=== PATIENT | male | born 1970 | race Caucasian/White ===

== ENCOUNTER 2017-02-16 14:47 | Emergency (ER) | payer MEDICARE ==
[~2017-02-16] VITALS: Ht 170.2 cm; Wt 56.7 kg
[2017-02-16] MEDS ORDERED: ONDANSETRON 4 MG/2 ML (SDV) Z0FRAN IVP ONE (15:30)
[2017-02-16 15:32] LABS: BASOPHILS % (AUTO) 1 % (0-10); EOSINOPHILS # (AUTO) 0.1 10^3/uL (0.0-0.3); EOSINOPHILS % (AUTO) 2 % (0-10); LYMPHOCYTES # (AUTO) 1.7 X 10^3 (1.0-4.0); LYMPHOCYTES % (AUTO) 32 % (12-44); MEAN CORPUSCULAR HEMOGLOBIN 29 PG (25-34); MEAN CORPUSCULAR HGB CONC 34 G/DL (32-36); MEAN CORPUSCULAR VOLUME 84 FL (80-99); MEAN PLATELET VOLUME 8.8 FL (7.4-10.4); MONOCYTES # (AUTO) 0.5 X 10^3 (0.0-1.0); MONOCYTES % (AUTO) 10 % (0-12); NEUTROPHILS # (AUTO) 2.9 X 10^3 (1.8-7.8); NEUTROPHILS % (AUTO) 56 % (42-75); PLATELET COUNT 425 10^3/uL (130-400); RED BLOOD COUNT 4.62 10^6/uL (4.35-5.85); RED CELL DISTRIBUTION WIDTH 12.8 % (10.0-14.5); WHITE BLOOD COUNT 5.2 10^3/uL (4.3-11.0)
[2017-02-16] MEDS ORDERED: NS IV 1000 ML 1,000 ML IV SCH (15:45)
[2017-02-16 15:47] LABS: ALANINE AMINOTRANSFERASE 41 U/L (0-55); ALBUMIN 4.4 G/DL (3.2-4.5); ANION GAP 5 MMOL/L (5-14); ASPARTATE AMINO TRANSFERASE 27 U/L (5-34); BILIRUBIN,TOTAL 0.4 MG/DL (0.1-1.0); BLOOD UREA NITROGEN 11 MG/DL (7-18); BUN/CREATININE RATIO 11; CALCIUM 9.2 MG/DL (8.5-10.1); CARBON DIOXIDE 30 MMOL/L (21-32); CHLORIDE 102 MMOL/L (98-107); CREATININE SERUM 1.02 MG/DL (0.60-1.30); GFR ESTIMATED > 60; GLUCOSE 93 MG/DL (70-105); POTASSIUM 4.2 MMOL/L (3.6-5.0); SODIUM 137 MMOL/L (135-145); TOTAL PROTEIN 6.7 G/DL (6.4-8.2)
--- NOTE | 2017-02-16 15:51 | ED Abdominal Pain ---
General Chief Complaint: Abdominal/GI Problems Stated Complaint: RIGHT SIDE PAIN Nursing Triage Note: PT STATES RT LOWER ABD PAIN FOR ABOUT A WEEK, NV WITH PAINFUL URINATION. Sepsis Screen: Possible Sepsis Risk Source of Information: Patient Exam Limitations: No Limitations History of Present Illness Time Seen By Provider: 15:49 Initial Comments To ER with pain to the right lower abdomen for about a week. He said nausea and vomiting with painful urination. He also has pain in his scrotum. Pain is worsened by walking and lifting and seems to radiate down into the scrotum and legs when he lifts and walks. He does have a bulging to the right lower abdomen and has a history of an open appendectomy in the remote past. No fevers or chills. Does have cerebral palsy Timing/Duration: 1-2 Days Severity/Quality: Moderate Radiation: No Radiation Associated Symptoms: Nausea/Vomiting Allergies and Home Medications Allergies Coded Allergies: No Known Drug Allergies (Unverified , 02/16/17) Review of Systems Constitutional: see HPI EENTM: No Symptoms Reported Respiratory: No Symptoms Reported Cardiovascular: No Symptoms Reported Gastrointestinal: See HPI, Abdominal Pain Genitourinary: No Symptoms Reported Musculoskeletal: no symptoms reported Skin: no symptoms reported Psychiatric/Neurological: No Symptoms Reported Endocrine: No Symptoms Reported Hematologic/Lymphatic: No Symptoms Reported Past Qamptud-Vhjtwp-Rmzaak Hx Patient Social History Alcohol Use: Denies Use Recreational Drug Use: No Smoking Status: Never a Smoker Recent Foreign Travel: No Contact w/Someone Who Travel: No Recent Infectious Disease Expo: No Seasonal Allergies Seasonal Allergies: No Neurological Neurological Disorders: Cerebral Palsy Physical Exam Vital Signs VS - Last 72 Hours, by Label 02/16/17 15:06 Temp 98.7 Pulse 91 Resp 20 B/P (MAP) 141/97 Pulse Ox 99 O2 Delivery Room Air Capillary Refill : Less Than 3 Seconds General Appearance: WD/WN, no apparent distress, thin HEENT: PERRL/EOMI, normal ENT inspection Neck: non-tender, full range of motion Respiratory: normal breath sounds, no respiratory distress, no accessory muscle use Cardiovascular: regular rate, rhythm, no murmur Gastrointestinal: normal bowel sounds, soft, tenderness (there is some tenderness to the right lower quadrant with crepitus, likely gas in bowel beneath the previous appendectomy incision site (very flat soft abdomen, thin). No obvious abnormality of the scrotum or testicles we will obtain a ultrasound given the tenderness.) Extremities: normal range of motion, non-tender Neurologic/Psychiatric: alert, normal mood/affect, oriented x 3 Skin: normal color, warm/dry Progress/Results/Core Measures Results/Orders Lab Results Laboratory Tests Test 02/16/17 15:20 02/16/17 15:45 Range/Units White Blood Count 5.2 4.3-11.0 10^3/uL Red Blood Count 4.62 4.35-5.85 10^6/uL Hemoglobin 13.4 13.3-17.7 G/DL Hematocrit 39 L 40-54 % Mean Corpuscular Volume 84 80-99 FL Mean Corpuscular Hemoglobin 29 25-34 PG Mean Corpuscular Hemoglobin Concent 34 32-36 G/DL Red Cell Distribution Width 12.8 10.0-14.5 % Platelet Count 425 H 130-400 10^3/uL Mean Platelet Volume 8.8 7.4-10.4 FL Neutrophils (%) (Auto) 56 42-75 % Lymphocytes (%) (Auto) 32 12-44 % Monocytes (%) (Auto) 10 0-12 % Eosinophils (%) (Auto) 2 0-10 % Basophils (%) (Auto) 1 0-10 % Neutrophils # (Auto) 2.9 1.8-7.8 X 10^3 Lymphocytes # (Auto) 1.7 1.0-4.0 X 10^3 Monocytes # (Auto) 0.5 0.0-1.0 X 10^3 Eosinophils # (Auto) 0.1 0.0-0.3 10^3/uL Basophils # (Auto) 0.0 0.0-0.1 10^3/uL Sodium Level 137 135-145 MMOL/L Potassium Level 4.2 3.6-5.0 MMOL/L Chloride Level 102 98-107 MMOL/L Carbon Dioxide Level 30 21-32 MMOL/L Anion Gap 5 5-14 MMOL/L Blood Urea Nitrogen 11 7-18 MG/DL Creatinine 1.02 0.60-1.30 MG/DL Estimat Glomerular Filtration Rate > 60 BUN/Creatinine Ratio 11 Glucose Level 93 70-105 MG/DL Calcium Level 9.2 8.5-10.1 MG/DL Total Bilirubin 0.4 0.1-1.0 MG/DL Aspartate Amino Transf (AST/SGOT) 27 5-34 U/L Alanine Aminotransferase (ALT/SGPT) 41 0-55 U/L Alkaline Phosphatase 66 40-136 U/L Total Protein 6.7 6.4-8.2 G/DL Albumin 4.4 3.2-4.5 G/DL Urine Color YELLOW Urine Clarity CLEAR Urine pH 7 5-9 Urine Specific [place] 1.010 L 1.016-1.022 Urine Protein NEGATIVE NEGATIVE Urine Glucose (UA) NEGATIVE NEGATIVE Urine Ketones NEGATIVE NEGATIVE Urine Nitrite NEGATIVE NEGATIVE Urine Bilirubin NEGATIVE NEGATIVE Urine Urobilinogen NORMAL NORMAL MG/DL Urine Leukocyte Esterase NEGATIVE NEGATIVE Urine RBC (Auto) NEGATIVE NEGATIVE Urine RBC RARE /HPF Urine WBC NONE /HPF Urine Squamous Epithelial Cells RARE /HPF Urine Crystals NONE /LPF Urine Bacteria NONE /HPF Urine Casts NONE /LPF Urine Mucus NEGATIVE /LPF Urine Culture Indicated NO My Orders Orders - KJ TOLEDO APRN Ua Culture If Indicated (02/16/17 15:27) Saline Lock/Iv-Start (02/16/17 15:27) Cbc With Automated Diff (02/16/17 15:27) Comprehensive Metabolic Panel (02/16/17 15:27) Ondansetron Injection (Zofran Injectio (02/16/17 15:30) Ns Iv 1000 Ml (Sodium Chloride 0.9%) (02/16/17 15:45) Us Scrotum (Testicle) [id number] (02/16/17 15:48) Ct Abdomen/Pelvis W (02/16/17 15:48) Iohexol Injection (Omnipaque 350 Mg/Ml 1 (02/16/17 16:00) Ketorolac Injection (Toradol Injection) (02/16/17 17:30) Medications Given in ED Current Medications Medications Dose Ordered Sig/Gildardo Route Start Time Stop Time Status Last Admin Dose Admin Iohexol 100 ml ONCE ONCE IV 02/16/17 16:00 02/16/17 16:06 DC 02/16/17 17:06 100 ML Ondansetron HCl 4 mg ONCE ONCE IVP 02/16/17 15:30 02/16/17 15:31 DC 02/16/17 15:34 4 MG Vital Signs/I&O Vital Sign - Last 12Hours 02/16/17 15:06 Temp 98.7 Pulse 91 Resp 20 B/P (MAP) 141/97 Pulse Ox 99 O2 Delivery Room Air Blood Pressure Mean: 112 Departure Communication Progress Notes Given his testicular tenderness and urinary frequency, despite a normal urinalysis and ultrasound I will treat with antibiotics for an epididymitis and also likely a muscle strain to the right thigh as he states he repossessed his cars and jumps in and out of a truck quickly after he loads the car. Impression Impression: Primary Impression: Right inguinal pain Additional Impression: Muscle strain Departure-Patient Inst. Decision time for Depature: 17:12 Referrals: [facility] (PCP/Family) Primary Care Physician Patient Instructions: Epididymitis (DC) Add. Discharge Instructions: 1. Return to ER for any concerns 2. Follow-up with your doctor later this week 3. All discharge instructions reviewed with patient and/or family. Voiced understanding. Scripts Sulfamethoxazole/Trimethoprim (Bactrim Ds Tablet) 1 Each Tablet 1 EACH PO BID, #20 TAB Prov: KJ TOLEDO [employer] 02/16/17 Naproxen (Naprosyn) 500 Mg Tablet 500 MG PO BID Y for PAIN-MODERATE, #30 TAB Prov: KJ TOLEDO [employer] 02/16/17 KJ TOLEDO APRN February 16, 2017 15:51
[2017-02-16 15:55] LABS: BILIRUBIN,URINE NEGATIVE (NEGATIVE); KETONES,URINE NEGATIVE (NEGATIVE); LEUKOCYTE ESTERASE ,URINE NEGATIVE (NEGATIVE); NITRITE,URINE NEGATIVE (NEGATIVE); PH,URINE 7 (5-9); PROTEIN,URINE NEGATIVE (NEGATIVE); UROBILINOGEN,URINE NORMAL (NORMAL)
[2017-02-16] MEDS ORDERED: IOHEXOL 350 MG/ML 100 ML (OMNIPAQUE 350) VIAL IV ONE (16:00)
[2017-02-16 16:09] LABS: SQUAMOUS EPITHELIAL CELL,UR RARE /HPF
--- NOTE | 2017-02-16 16:48 | Diagnostic Imaging Report ---
INDICATION: Right testicular pain for two weeks. COMPARISON: None. DISCUSSION: Sonographic evaluation of the scrotum was performed. The testicles appear normal and symmetric in echotexture and size with normal color Doppler blood flow. The right testicle measures 4.5 x 2.2 x 2.9 cm. The left testicle measures 4.7 x 2.2 x 2.9 cm. The epididymides appear normal. No hydrocele or varicocele. The scrotal wall is unremarkable. IMPRESSION: 1. Normal sonographic appearance of the scrotum. Dictated by: Dictated on workstation # [id number]
--- NOTE | 2017-02-16 17:09 | Diagnostic Imaging Report ---
PROCEDURE: CT abdomen and pelvis with contrast. TECHNIQUE: Multiple contiguous axial images were obtained through the abdomen and pelvis after administration of intravenous contrast. INDICATION: Severe right lower quadrant pain radiating to the back with associated nausea and vomiting for two weeks. COMPARISON: None. DISCUSSION: The visualized lung bases are well aerated. Normal heart size. No pleural or pericardial fluid. There are scattered hepatic hypodensities measuring up to 1.1 cm, likely small cysts or hemangiomas in the absence of a known primary malignancy. The gallbladder, stomach, spleen, pancreas, adrenal glands, kidneys, prostate, and urinary bladder are unremarkable. Mild constipation. No obstruction, pneumatosis, pneumoperitoneum. Small posterior gastric diverticulum is incidentally noted. No ascites or pathologically enlarged lymph nodes identified. The appendix is not identified with certainty, though no secondary inflammatory changes are present to suggest acute appendicitis. No acute osseous abnormality identified. IMPRESSION: 1. Constipation. No other acute abnormality identified. Dictated by: Dictated on workstation # [id number]
[2017-02-16] MEDS ORDERED: NAPR500T PO (17:30)
[2017-02-16] MEDS ORDERED: KETOROLAC 30 MG/ML VIAL IVP ONE (17:30)
[2017-02-16] MEDS ORDERED: SULF1TAB35 PO (17:30)
[2017-02-16 17:53] VITALS: BP 136/97
== END 2017-02-16 17:53 | disposition home or self-care (01) ==
LOC: EDUNIT# 14:47 → ER 14:50
DX: S39.011A Strain of muscle, fascia and tendon of abdomen, initial encounter (principal); N45.1 Epididymitis; K59.00 Constipation, unspecified; X50.9XXA Other and unspecified overexertion or strenuous movements or postures, initial encounter; Y99.8 Other external cause status
CPT/HCPCS: 36415; 74177; 76870; 80053; 81000; 85025; 96361; 96374; 96375

== ENCOUNTER 2017-04-14 21:17 | Emergency (ER) | payer MEDICARE ==
[~2017-04-14] VITALS: Ht 167.6 cm; Wt 57.2 kg
[~2017-04-14 21:17] MED LIST: NAPR500T PO; SULF1TAB35 PO
[2017-04-14] MEDS ORDERED: DIAZ10TA3 PO (21:27)
[2017-04-14] MEDS ORDERED: CHLO500T4 PO (21:27)
[2017-04-14] MEDS ORDERED: OXYC20TA54 PO (21:27)
[2017-04-14] MEDS ORDERED: OXYC10TA7 PO (21:27)
[2017-04-14 21:41] LABS: BASOPHILS % (AUTO) 0 % (0-10); EOSINOPHILS % (AUTO) 0 % (0-10); LYMPHOCYTES % (AUTO) 23 % (12-44); MEAN CORPUSCULAR HEMOGLOBIN 29 PG (25-34); MEAN CORPUSCULAR HGB CONC 35 G/DL (32-36); MEAN CORPUSCULAR VOLUME 84 FL (80-99); MEAN PLATELET VOLUME 8.6 FL (7.4-10.4); MONOCYTES % (AUTO) 12 % (0-12); NEUTROPHILS # (AUTO) 5.6 X 10^3 (1.8-7.8); NEUTROPHILS % (AUTO) 65 % (42-75); PLATELET COUNT 442 10^3/uL (130-400); RED BLOOD COUNT 4.56 10^6/uL (4.35-5.85); RED CELL DISTRIBUTION WIDTH 12.4 % (10.0-14.5); WHITE BLOOD COUNT 8.6 10^3/uL (4.3-11.0)
[2017-04-14 21:59] LABS: BILIRUBIN,URINE NEGATIVE (NEGATIVE); KETONES,URINE NEGATIVE (NEGATIVE); LEUKOCYTE ESTERASE ,URINE NEGATIVE (NEGATIVE); NITRITE,URINE NEGATIVE (NEGATIVE); PH,URINE 6 (5-9); PROTEIN,URINE NEGATIVE (NEGATIVE); UROBILINOGEN,URINE NORMAL (NORMAL)
[2017-04-14 22:00] LABS: WBC,URINE RARE /HPF
[2017-04-14 22:00] LABS: ALANINE AMINOTRANSFERASE 23 U/L (0-55); ALBUMIN 4.2 GM/DL (3.2-4.5); ANION GAP 12 MMOL/L (5-14); ASPARTATE AMINO TRANSFERASE 17 U/L (5-34); BILIRUBIN,TOTAL 0.4 MG/DL (0.1-1.0); BLOOD UREA NITROGEN 15 MG/DL (7-18); BUN/CREATININE RATIO 18; CALCIUM 8.9 MG/DL (8.5-10.1); CARBON DIOXIDE 26 MMOL/L (21-32); CHLORIDE 101 MMOL/L (98-107); CREATININE SERUM 0.83 MG/DL (0.60-1.30); GFR ESTIMATED > 60; GLUCOSE 99 MG/DL (70-105); POTASSIUM 3.8 MMOL/L (3.6-5.0); SODIUM 139 MMOL/L (135-145); TOTAL PROTEIN 6.1 GM/DL (6.4-8.2); hs C REACTIVE PROTEIN 0.01 MG/DL (0.00-0.50)
[2017-04-14] MEDS ORDERED: OXYC-197 PO (22:24)
[2017-04-14] MEDS ORDERED: CYCL10TA9 PO (22:24)
--- NOTE | 2017-04-14 22:25 | ED Abdominal Pain ---
General Chief Complaint: Abdominal/GI Problems Stated Complaint: ABD PAIN Nursing Triage Note: pt to er per ems with c/o rlq abd pain x 2 months. he was evaluated in the er recently without diagnosis. describes pain as radiating into right hip et groin et right low back. reports pain became so severe tonight that he couldn't walk. also c/o nausea. Sepsis Screen: No Definite Risk Source of Information: Patient, Old Records Exam Limitations: No Limitations History of Present Illness Time Seen By Provider: 21:18 Initial Comments This 46 year old gentleman presents to the emergency room complaining of right lower quadrant abdominal pain radiating to the back, right scrotum, and midway through the right thigh which has been worsening over the last month. He saw Dmitri Garrett APRN in this ER on February 16 for the same symptoms. CT scan of the abdomen and pelvis as well as ultrasound of the right scrotum was performed at that time. No significant abnormalities were found. Chart from that visit was reviewed. He reports pain is fairly constant. He continues to have pain despite use of maintenance narcotic medications prescribed by his primary care provider. Prednisone had been prescribed in a short burst previously. That seemed to help for a short period of time. He states symptoms have worsened since stopping prednisone and a muscle relaxer. Pain is constant in nature and accompanied sometimes by nausea and sometimes spasms. He reports noting some left lower quadrant swelling. He took ibuprofen 400 mg earlier today which did not relieve the pain. He denies fever but has felt chilled. He denies hematuria or dysuria but notes his urine has sometimes been cloudy if not drinking well. Patient has cerebral palsy. Allergies and Home Medications Allergies Coded Allergies: Penicillins (Unverified Adverse Reaction, Unknown, 04/14/17) Home Medications Chlorzoxazone 500 Mg Tablet, 500 MG PO BID, #60 (Reported) Cyclobenzaprine HCl 10 Mg Tablet, 10 MG PO TID PRN for SPASMS, #20 Prescribed by: CLINT BACA on 04/14/174 Diazepam 10 Mg Tablet, 10 MG PO DAILY PRN for MUSCLE SPASMS, #28 (Reported) Oxycodone HCl 20 Mg Tab.er.12h, 20 MG PO Q12H, #56 (Reported) Oxycodone HCl 10 Mg Tablet, 1 TAB PO Q4H PRN for PAIN-MILD, #140 (Reported) Prednisone 20 Mg Tab, 20 MG PO DAILY, #5 Prescribed by: CLINT BACA on 04/15/17 4308 Review of Systems Constitutional: see HPI EENTM: No Symptoms Reported Respiratory: No Symptoms Reported Cardiovascular: No Symptoms Reported Gastrointestinal: See HPI Genitourinary: See HPI Musculoskeletal: see HPI Skin: no symptoms reported Psychiatric/Neurological: See HPI Endocrine: No Symptoms Reported Past Ejtaxnc-Hplaop-Iqkbtl Hx Patient Social History Alcohol Use: Denies Use Recreational Drug Use: No Smoking Status: Never a Smoker Recent Foreign Travel: No Contact w/Someone Who Travel: No Recent Infectious Disease Expo: No Seasonal Allergies Seasonal Allergies: No Surgeries HX Surgeries: Yes Surgeries: Vasectomy Respiratory Hx Respiratory Disorders: No Cardiovascular Hx Cardiac Disorders: No Neurological Hx Neurological Disorders: Yes Neurological Disorders: Cerebral Palsy Reproductive System Hx Reproductive Disorders: No Genitourinary Hx Genitourinary Disorders: No Gastrointestinal Hx Gastrointestinal Disorders: No Musculoskeletal Hx Musculoskeletal Disorders: Yes (Chronic musculoskeletal pain) Endocrine Hx Endocrine Disorders: No HEENT HX ENT Disorders: No Cancer Hx Cancer: No Psychosocial Hx Psychiatric Problems: No Physical Exam Vital Signs VS - Last 72 Hours, by Label 04/14/17 04/14/17 21:19 22:41 Temp 98.7 Pulse 92 78 Resp 18 14 B/P (MAP) 139/105 Pulse Ox 100 O2 Delivery Room Air Capillary Refill : Less Than 3 Seconds General Appearance: WD/WN, no apparent distress, thin HEENT: PERRL/EOMI, normal ENT inspection, pharynx normal Neck: normal inspection Respiratory: lungs clear, normal breath sounds, no respiratory distress, no accessory muscle use Cardiovascular: regular rate, rhythm, no edema, no murmur Gastrointestinal: normal bowel sounds, soft, tenderness (Throughout the right abdomen) Genital/Rectal: tenderness (Right testicle), other (Penis and scrotum normal to inspection) Extremities: normal inspection, no pedal edema Back: normal inspection, other (Tenderness over the musculature in the right lower back and flank) Neurologic/Psychiatric: art handler II-XII nml as tested, alert, normal mood/affect, oriented x 3, motor weakness (Chronic deficits due to cerebral palsy) Skin: warm/dry, other (Blanching sunburn on abdomen and chest) Progress/Results/Core Measures Results/Orders Lab Results Laboratory Tests Test 04/14/17 21:30 04/14/17 21:41 Range/Units White Blood Count 8.6 4.3-11.0 10^3/uL Red Blood Count 4.56 4.35-5.85 10^6/uL Hemoglobin 13.4 13.3-17.7 G/DL Hematocrit 39 L 40-54 % Mean Corpuscular Volume 84 80-99 FL Mean Corpuscular Hemoglobin 29 25-34 PG Mean Corpuscular Hemoglobin Concent 35 32-36 G/DL Red Cell Distribution Width 12.4 10.0-14.5 % Platelet Count 442 H 130-400 10^3/uL Mean Platelet Volume 8.6 7.4-10.4 FL Neutrophils (%) (Auto) 65 42-75 % Lymphocytes (%) (Auto) 23 12-44 % Monocytes (%) (Auto) 12 0-12 % Eosinophils (%) (Auto) 0 0-10 % Basophils (%) (Auto) 0 0-10 % Neutrophils # (Auto) 5.6 1.8-7.8 X 10^3 Lymphocytes # (Auto) 2.0 1.0-4.0 X 10^3 Monocytes # (Auto) 1.0 0.0-1.0 X 10^3 Eosinophils # (Auto) 0.0 0.0-0.3 10^3/uL Basophils # (Auto) 0.0 0.0-0.1 10^3/uL Sodium Level 139 135-145 MMOL/L Potassium Level 3.8 3.6-5.0 MMOL/L Chloride Level 101 98-107 MMOL/L Carbon Dioxide Level 26 21-32 MMOL/L Anion Gap 12 5-14 MMOL/L Blood Urea Nitrogen 15 7-18 MG/DL Creatinine 0.83 0.60-1.30 MG/DL Estimat Glomerular Filtration Rate > 60 BUN/Creatinine Ratio 18 Glucose Level 99 70-105 MG/DL Calcium Level 8.9 8.5-10.1 MG/DL Total Bilirubin 0.4 0.1-1.0 MG/DL Aspartate Amino Transf (AST/SGOT) 17 5-34 U/L Alanine Aminotransferase (ALT/SGPT) 23 0-55 U/L Alkaline Phosphatase 70 40-136 U/L C-Reactive Protein High Sensitivity 0.01 0.00-0.50 MG/DL Total Protein 6.1 L 6.4-8.2 GM/DL Albumin 4.2 3.2-4.5 GM/DL Urine Color YELLOW Urine Clarity CLEAR Urine pH 6 5-9 Urine Specific [place] 1.010 L 1.016-1.022 Urine Protein NEGATIVE NEGATIVE Urine Glucose (UA) NEGATIVE NEGATIVE Urine Ketones NEGATIVE NEGATIVE Urine Nitrite NEGATIVE NEGATIVE Urine Bilirubin NEGATIVE NEGATIVE Urine Urobilinogen NORMAL NORMAL MG/DL Urine Leukocyte Esterase NEGATIVE NEGATIVE Urine RBC (Auto) NEGATIVE NEGATIVE Urine RBC NONE /HPF Urine WBC RARE /HPF Urine Crystals NONE /LPF Urine Bacteria NEGATIVE /HPF Urine Casts NONE /LPF Urine Mucus NEGATIVE /LPF Urine Culture Indicated NO My Orders Orders - CLINT LUX MD Saline Lock/Iv-Start (04/14/17 21:32) Cbc With Automated Diff (04/14/17 21:32) Comprehensive Metabolic Panel (04/14/17 21:32) Hs C Reactive Protein (04/14/17 21:32) Ua Culture If Indicated (04/14/17 21:32) Ketorolac Injection (Toradol Injection) (04/14/17 22:30) Orphenadrine Injection (Norflex Injectio (04/14/17 22:30) Oxycodone/Apap 5/325mg Tablet (Percocet (04/14/17 22:30) Iv Push Chief Meter Reader Ed (04/14/17 ) Medications Given in ED Vital Signs/I&O Vital Sign - Last 12Hours 04/14/17 04/14/17 21:19 22:41 Temp 98.7 Pulse 92 78 Resp 18 14 B/P (MAP) 139/105 Pulse Ox 100 O2 Delivery Room Air Blood Pressure Mean: 116 Progress Note : Progress Note Pain symptoms are affecting multiple organ systems on the right side including the scrotum, right thigh, back, and abdomen. I suspect that his pain is radicular in nature or could possibly even reflect complex regional pain syndrome. Pain was treated in the ER with Toradol and Norflex. Patient was advised to seek out MRI of the complete spine with his primary care provider. Review of patient's filling record notes large quantities of narcotics recently prescribed. For this reason no narcotics were given in the ER or in prescription. Departure Impression Impression: Primary Impression: Right lower quadrant pain Additional Impressions: Right thigh pain Radicular pain of right lower back Right testicular pain Disposition: HOME, SELF-CARE Condition: Improved Departure-Patient Inst. Decision time for Depature: 22:20 Referrals: [facility] (PCP/Family) Primary Care Physician Patient Instructions: Radiculopathy Add. Discharge Instructions: You may take ibuprofen up to 600 mg every 6 hours as needed for pain. Take with food or milk to avoid irritation on your stomach. Add Percocet as prescribed for pain not controlled by ibuprofen. Avoid driving or operating machinery while taking narcotics such as Percocet. Seek consultation with your primary care provider soon as possible and discuss ordering an MRI from the cervical spine through the lumbar spine for further evaluation. I am suspicious that you're having radicular pain related to a problem in the spine. For spasms, add cyclobenzaprine as prescribed. All discharge instructions reviewed with patient and/or family. Voiced understanding. Scripts Prednisone (Prednisone) 20 Mg Tab 20 MG PO DAILY, #5 TAB Prov: CLINT LUX MD 04/15/17 Cyclobenzaprine HCl (Cyclobenzaprine HCl) 10 Mg Tablet 10 MG PO TID Y for SPASMS, #20 TAB Prov: CLINT LUX MD 04/14/17 Copy Copies To 1: PHIL MAGANA JOSHUA T MD Apr 14, 2017 22:25
[2017-04-14] MEDS ORDERED: ORPHENADRINE 60 MG/2 ML (NORFLEX) AMP IV ONE (22:30)
[2017-04-14] MEDS ORDERED: KETOROLAC 30 MG/ML VIAL IVP ONE (22:30)
[2017-04-14] MEDS ORDERED: oxyCODONE/APAP 5/325MG (PERCOCET 5) TABLET PO ONE (22:30)
[2017-04-14 22:41] VITALS: BP 126/89
[2017-04-15] MEDS ORDERED: PRD20T PO (15:48)
== END 2017-04-14 22:41 | disposition home or self-care (01) ==
LOC: EDUNIT# 21:17 → ER 21:18
DX: R10.31 Right lower quadrant pain (principal); M54.5 Low back pain; N50.811 Right testicular pain; M79.651 Pain in right thigh; G89.29 Other chronic pain; Z98.52 Vasectomy status; Z91.14 Patient's other noncompliance with medication regimen
CPT/HCPCS: 36415; 80053; 81000; 85025; 86141; 96374; 96375

== ENCOUNTER → 2017-04-28 | Outpatient (CLI) | payer MEDICAID, MEDICARE ==
[~2017-04-28] MED LIST changes: +CHLO500T4 PO; +CYCL10TA9 PO; +DIAZ10TA3 PO; +OXYC-197 PO; +OXYC10TA7 PO; +OXYC20TA54 PO; +PRD20T PO
--- NOTE | 2017-04-28 16:52 | Diagnostic Imaging Report ---
PROCEDURE: MRI lumbar spine. TECHNIQUE: Multiplanar, multisequence MRI of the lumbar spine was performed without contrast. INDICATION: Low back pain. History of cerebral palsy. FINDINGS: There is grade 1 retrolisthesis of T12 over L1. The vertebral body heights are preserved. There is significant disc height loss at T12/L1 level. This is associated with endplate irregularity and prominent bone marrow edema and sclerotic changes. This is favored to be related to degenerative changes with possible pre-existing old injury or discitis. The relatively mild degree of edema in the bone marrow and lack of significant edema or fluid in the disc or surrounding soft tissues suggests lack of active inflammation or infection at this time. The cauda equina and conus medullaris appear grossly unremarkable. T12/L1: There is a large right paracentral disc protrusion and grade 1 retrolisthesis. There is mild facet hypertrophy. There is moderate to severe central canal stenosis reducing the AP dimension of the canal to 7.4 mm and there is severe stenosis of the right lateral recess. The left lateral recess demonstrates mild to moderate stenosis. The foramina demonstrate severe stenosis on the right side and no significant stenosis on the left. L1/L2: No disc herniation and no facet hypertrophy. No spinal canal or foraminal stenosis. L2/L3: No disc herniation, but there is mild facet hypertrophy. No central canal or lateral recess stenosis. The foramina demonstrate mild stenosis bilaterally. L3/L4: No disc herniation. There is mild to moderate facet hypertrophy. No central canal or lateral recess stenosis. The foramina demonstrate bilateral mild stenosis. L4/L5: No disc herniation. There is mild facet hypertrophy. No central canal stenosis. There is mild lateral recess stenosis bilaterally, however. There is also mild foraminal stenosis on the right side and moderate foraminal stenosis on the left. L5/S1: There is a minimal disc bulge and mild facet hypertrophy on the left, and moderate facet hypertrophy on the right side. No central canal stenosis. There is minimal narrowing of the left lateral recess. The foramina demonstrate mild to moderate stenosis bilaterally. IMPRESSION: There is grade 1 retrolisthesis of T12 over L1 associated with significant disc height loss and large right paracentral disc protrusion. There is significant spinal canal and lateral recess stenosis as well as stenosis of the right foramen at this level. The endplate changes are favored to be secondary to advanced degenerative etiology with possible underlying old trauma or other insult. Correlate clinically. Dictated by: Dictated on workstation # [id number]
== END ==
LOC: RAD 15:26
PROVIDERS: ATTEND Nurse Practitioner Community Health
DX: M43.16 Spondylolisthesis, lumbar region (principal); M51.26 Other intervertebral disc displacement, lumbar region; M48.06 Spinal stenosis, lumbar region
CPT/HCPCS: 72148

== ENCOUNTER 2020-07-28 01:05 | Observation (INO) | payer MEDICARE ==
[~2020-07-28] VITALS: Ht 167.7 cm; Wt 61.8 kg
[~2020-07-28 01:05] MED LIST changes: +NAPR-1071 PO; -NAPR500T PO; -OXYC-197 PO; +OXYC1TAB87 PO
[2020-07-28] MEDS ORDERED: ORPHENADRINE 60 MG/2 ML (NORFLEX) AMP (ED ONLY) IM ONE (01:45)
[2020-07-28] MEDS ORDERED: KETOROLAC 30 MG/ML VIAL IM ONE (01:45)
[2020-07-28] MEDS ORDERED: oxyCODONE/APAP 5/325MG (PERCOCET 5) TABLET PO ONE (02:30)
[2020-07-28 02:36] LABS: BILIRUBIN,URINE NEGATIVE (NEGATIVE); CLARITY,URINE SL CLOUDY; COLOR,URINE YELLOW; GLUCOSE, URINE (UA) NEGATIVE (NEGATIVE); KETONES,URINE NEGATIVE (NEGATIVE); LEUKOCYTE ESTERASE ,URINE NEGATIVE (NEGATIVE); NITRITE,URINE NEGATIVE (NEGATIVE); PROTEIN,URINE NEGATIVE (NEGATIVE)
[2020-07-28 02:56] LABS: BACTERIA,URINE NEGATIVE /HPF; SQUAMOUS EPITHELIAL CELL,UR RARE /HPF
[2020-07-28] MEDS ORDERED: morphine INJ 10 MG/ML 1ML (SYR OR VIAL) IVP STA ×2 (04:31→05:46)
[2020-07-28 05:01] LABS: BASOPHILS # (AUTO) 0.1 10^3/uL (0.0-0.1); BASOPHILS % (AUTO) 1 % (0-10); EOSINOPHILS # (AUTO) 0.1 10^3/uL (0.0-0.3); EOSINOPHILS % (AUTO) 2 % (0-10); HEMATOCRIT 36 % (40-54); HEMOGLOBIN 12.4 g/dL (13.3-17.7); LYMPHOCYTES # (AUTO) 1.3 10^3/uL (1.0-4.0); LYMPHOCYTES % (AUTO) 22 % (12-44); MEAN CORPUSCULAR HEMOGLOBIN 29 pg (25-34); MEAN CORPUSCULAR HGB CONC 34 g/dL (32-36); MEAN CORPUSCULAR VOLUME 84 fL (80-99); MEAN PLATELET VOLUME 9.5 fL (9.0-12.2); MONOCYTES # (AUTO) 0.5 10^3/uL (0.0-1.0); MONOCYTES % (AUTO) 8 % (0-12); NEUTROPHILS # (AUTO) 3.8 10^3/uL (1.8-7.8); NEUTROPHILS % (AUTO) 66 % (42-75); PLATELET COUNT 310 10^3/uL (130-400); WHITE BLOOD COUNT 5.8 10^3/uL (4.3-11.0)
[2020-07-28 05:09] LABS: CHLORIDE 104 MMOL/L (98-107); POTASSIUM 3.9 MMOL/L (3.6-5.0); SODIUM 141 MMOL/L (135-145)
[2020-07-28 05:10] LABS: CALCIUM 8.7 MG/DL (8.5-10.1)
[2020-07-28 05:11] LABS: GLUCOSE 87 MG/DL (70-105); TOTAL PROTEIN 6.4 GM/DL (6.4-8.2)
[2020-07-28 05:13] LABS: BILIRUBIN,TOTAL 0.4 MG/DL (0.1-1.0); CARBON DIOXIDE 27 MMOL/L (21-32)
[2020-07-28 05:15] LABS: ALKALINE PHOSPHATASE 81 U/L (40-136); CREATININE SERUM 0.88 MG/DL (0.60-1.30); GFR ESTIMATED > 60
[2020-07-28 05:16] LABS: BUN/CREATININE RATIO 17
[2020-07-28 05:18] LABS: ALANINE AMINOTRANSFERASE 22 U/L (0-55)
--- NOTE | 2020-07-28 05:59 | ED Back Pain ---
General Chief Complaint: Back Problems Stated Complaint: BACK PAIN Nursing Triage Note: c/o back pain and cramping Nursing Sepsis Screen: No Definite Risk Source of Information: Patient Exam Limitations: No Limitations History of Present Illness Date Seen by Provider: Jul 28, 2020 Time Seen by Provider: 01:07 Initial Comments This 49-year-old gentleman with chronic lower back pain and T12-L1 spinal fusion presents to the emergency room with acute onset of severe back spasms and exacerbation of pain. He denies any injury at the time of onset, but he did fall after the spasms started secondary to the pain. He denies any injuries with that fall. He thinks excessive exertion over the past few days in which she was lifting concrete blocks into a cart and pushing the cart may have triggered the exacerbation. He has cerebral palsy with mobility deficits chronically as a result. He also has history of traumatic injury in 2017 when he fell off of a trailer which contributes to his chronic musculoskeletal problems. His spinal surgery was performed by Dr. Tate in 2017. His lower extremity neurologic function is difficult to ascertain because he is having difficulty moving due to pain and prior deficits with cerebral palsy. Dr. Poncho HENDRIX is his PCP. Allergies and Home Medications Allergies Coded Allergies: Penicillins (Unverified Adverse Reaction, Unknown, 04/14/17) Home Medications Chlorzoxazone 500 Mg Tablet, 500 MG PO BID, (Reported) Cyclobenzaprine HCl 10 Mg Tablet, 10 MG PO TID PRN for SPASMS Prescribed by: CLINT BACA on 04/14/174 Diazepam 10 Mg Tablet, 10 MG PO DAILY PRN for MUSCLE SPASMS, (Reported) Oxycodone HCl 20 Mg Tab.er.12h, 20 MG PO Q12H, (Reported) Oxycodone HCl 10 Mg Tablet, 1 TAB PO Q4H PRN for PAIN-MILD, (Reported) Prednisone 20 Mg Tab, 20 MG PO DAILY Prescribed by: CLINT BACA on 04/15/17 1548 Patient Home Medication List Home Medication List Reviewed: Yes Review of Systems Constitutional: no symptoms reported Respiratory: no symptoms reported Cardiovascular: no symptoms reported Gastrointestinal: no symptoms reported Genitourinary: frequency Musculoskeletal: see HPI Skin: no symptoms reported Psychiatric/Neurological: See HPI Past Vzqqviu-Nmxprn-Nwosma Hx Past Med/Social Hx: Reviewed Nursing Past Med/Soc Hx Patient Social History Alcohol Use: Denies Use Recreational Drug Use: No Recent Foreign Travel: No Contact w/Someone Who Travel: No Recent Infectious Disease Expo: No Seasonal Allergies Seasonal Allergies: No Past Medical History Surgeries: Yes (CEREBRAL PALSY SURGERIES) Orthopedic (T12-L1 fusion), Vasectomy Respiratory: No Cardiac: No Neurological: Yes Cerebral Palsy Reproductive Disorders: No Genitourinary: No Gastrointestinal: No Musculoskeletal: Yes (Chronic musculoskeletal pain, fall injuries 2017) Endocrine: No HEENT: No Cancer: No Psychosocial: No Physical Exam Vital Signs Vital Signs - First Documented 07/28/20 01:10 Temp 36.8 Pulse 75 Resp 18 B/P (MAP) 134/103 (113) Pulse Ox 98 Capillary Refill : Less Than 3 Seconds Height, Weight, BMI Height: 5'6.00" Weight: 126lbs. oz. 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 Retains movement and sensation of bilateral lower extremities.) Skin: Normal Color, Warm/Dry Progress/Results/Core Measures Results/Orders Lab Results Laboratory Tests Test 07/28/20 02:22 07/28/20 04:45 Range/Units Urine Color YELLOW Urine Clarity SL CLOUDY Urine pH 6.0 5-9 Urine Specific [place] 1.020 1.016-1.022 Urine Protein NEGATIVE NEGATIVE Urine Glucose (UA) NEGATIVE NEGATIVE Urine Ketones NEGATIVE NEGATIVE Urine Nitrite NEGATIVE NEGATIVE Urine Bilirubin NEGATIVE NEGATIVE Urine Urobilinogen 0.2 < = 1.0 MG/DL Urine Leukocyte Esterase NEGATIVE NEGATIVE Urine RBC (Auto) NEGATIVE NEGATIVE Urine RBC NONE /HPF Urine WBC NONE /HPF Urine Squamous Epithelial Cells RARE /HPF Urine Crystals NONE /LPF Urine Bacteria NEGATIVE /HPF Urine Casts NONE /LPF Urine Mucus NEGATIVE /LPF Urine Culture Indicated NO White Blood Count 5.8 4.3-11.0 10^3/uL Red Blood Count 4.31 4.30-5.52 10^6/uL Hemoglobin 12.4 L 13.3-17.7 g/dL Hematocrit 36 L 40-54 % Mean Corpuscular Volume 84 80-99 fL Mean Corpuscular Hemoglobin 29 25-34 pg Mean Corpuscular Hemoglobin Concent 34 32-36 g/dL Red Cell Distribution Width 12.8 10.0-14.5 % Platelet Count 310 130-400 10^3/uL Mean Platelet Volume 9.5 9.0-12.2 fL Immature Granulocyte % (Auto) 0 % Neutrophils (%) (Auto) 66 42-75 % Lymphocytes (%) (Auto) 22 12-44 % Monocytes (%) (Auto) 8 0-12 % Eosinophils (%) (Auto) 2 0-10 % Basophils (%) (Auto) 1 0-10 % Neutrophils # (Auto) 3.8 1.8-7.8 10^3/uL Lymphocytes # (Auto) 1.3 1.0-4.0 10^3/uL Monocytes # (Auto) 0.5 0.0-1.0 10^3/uL Eosinophils # (Auto) 0.1 0.0-0.3 10^3/uL Basophils # (Auto) 0.1 0.0-0.1 10^3/uL Immature Granulocyte # (Auto) 0.0 0.0-0.1 10^3/uL Sodium Level 141 135-145 MMOL/L Potassium Level 3.9 3.6-5.0 MMOL/L Chloride Level 104 98-107 MMOL/L Carbon Dioxide Level 27 21-32 MMOL/L Anion Gap 10 5-14 MMOL/L Blood Urea Nitrogen 15 7-18 MG/DL Creatinine 0.88 0.60-1.30 MG/DL Estimat Glomerular Filtration Rate > 60 BUN/Creatinine Ratio 17 Glucose Level 87 70-105 MG/DL Calcium Level 8.7 8.5-10.1 MG/DL Corrected Calcium 8.7 8.5-10.1 MG/DL Magnesium Level 2.0 1.6-2.4 MG/DL Total Bilirubin 0.4 0.1-1.0 MG/DL Aspartate Amino Transf (AST/SGOT) 30 5-34 U/L Alanine Aminotransferase (ALT/SGPT) 22 0-55 U/L Alkaline Phosphatase 81 40-136 U/L Total Protein 6.4 6.4-8.2 GM/DL Albumin 4.0 3.2-4.5 GM/DL My Orders Orders - CLINT LUX MD Orphenadrine Inj (Ed Only) (Norflex Inje (07/28/20 01:45) Ketorolac Injection (Toradol Injection) (07/28/20 01:45) Oxycodone/Apap 5/325mg Tablet (Percocet (07/28/20 02:30) Ua Culture If Indicated (07/28/20 02:22) Abdomen/Kub 1view (07/28/20 02:22) Ct Lumbar Spine Wo (07/28/20 03:13) Morphine Injection (Morphine Injection (07/28/20 04:31) Cbc With Automated Diff (07/28/20 04:32) Comprehensive Metabolic Panel (07/28/20 04:32) Magnesium (07/28/20 04:32) Ed Iv/Invasive Line Start (07/28/20 04:32) Lidocaine 2% (Urojet) (Xylocaine Urojet) (07/28/20 06:00) Morphine Injection (Morphine Injection (07/28/20 05:46) Methylprednisolone Sod Succ (Solu-Medrol (07/28/20 06:15) Medications Given in ED Current Medications Medications Dose Ordered Sig/Gildardo Route Start Time Stop Time Status Last Admin Dose Admin Ketorolac Tromethamine 30 mg ONCE ONCE IM 07/28/20 01:45 07/28/20 01:46 DC 07/28/20 01:39 30 MG Lidocaine HCl 10 ml ONCE ONCE TOP 07/28/20 06:00 07/28/20 06:01 DC 07/28/20 06:12 10 ML Orphenadrine Citrate 60 mg ONCE ONCE IM 07/28/20 01:45 07/28/20 01:46 DC 07/28/20 01:39 60 MG Oxycodone/ Acetaminophen 1 tab ONCE ONCE PO 07/28/20 02:30 07/28/20 02:31 DC 07/28/20 03:01 1 TAB Vital Signs/I&O 07/28/20 01:10 Temp 36.8 Pulse 75 Resp 18 B/P (MAP) 134/103 (113) Pulse Ox 98 Blood Pressure Mean: 113 Progress Progress Note : Time: 06:01 Progress Note Patient was initially treated with Toradol and Norflex. This did not satisfactorily improve his pain. He was not able to sit up or to stand. He was then given Percocet but was still unable to stand. KUB was obtained to evaluate for constipation as patient thought perhaps his pain and spasms might be triggered by constipation. Abdominal x-ray was relatively unremarkable. Patient received morphine by IV route and labs were assessed to ensure electrolyte abnormalities were not responsible for his spasms. Morphine helped somewhat control the pain. He was able to stand with much assistance to urinate. Patient needed to urinate numerous times. A postvoid bladder scan showed greater than 300 mL of retained urine. Kelsey catheter was eventually placed as patient was having extreme difficulty positioning to urinate. He also complained of some numbness in his left leg. CT was obtained of the lumbar spine showing no critical stenosis. Patient is not functional on his own at this time and requires much assistance to get in and out of bed and to maneuver to stand. I discussed the case with Dr. Brock, orthopedist health care consultant at [facility] for Dr. Tate. He stated there was no orthopedic or spine emergency at this point and care should be symptomatic with close follow-up with Dr. Tate. He will communicate this patient's concerns with Dr. Tate later in the morning. Patient admits that he is not safe and able to function at home. Admission for observation and treatment was arranged with Dr. Salas. Solu-Medrol was given in the ER to start steroid therapy. Departure Communication (Admissions) Time/Spoke to Admitting Phy: 07:00 Dr. Salas Impression Primary Impression: Acute exacerbation of chronic low back pain Additional Impressions: Back spasm Cerebral palsy Qualified Codes: G80.9 - Cerebral palsy, unspecified Disposition: ADMITTED INPATIENT Condition: Improved Admissions Decision to Admit Reason: Admit from ER (General) Decision to Admit/Date: Jul 28, 2020 Time/Decision to Admit Time: 07:00 Departure-Patient Inst. Referrals: [facility] (PCP/Family) Primary Care Physician Copy Copies To 1: LORETA HENDRIX JOSHUA T MD Jul 28, 2020 05:59
[2020-07-28] MEDS ORDERED: LIDOCAINE UROJET 2% GEL 10 ML PKG TOP ONE (06:00)
[2020-07-28] MEDS ORDERED: methylPREDNISolone 125 MG (Solu-MEDROL) VIAL IVP ONE (06:15)
--- NOTE | 2020-07-28 06:57 | Diagnostic Imaging Report ---
PROCEDURE: CT lumbar spine without contrast. TECHNIQUE: Multiple contiguous axial images were obtained through the lumbar spine without the use of intravenous contrast. Sagittal and coronal reformations were then performed. Auto Exposure Controls were utilized during the CT exam to meet ALARA standards for radiation dose reduction. INDICATION: Back pain. Cerebral palsy. COMPARISON: MRI lumbar spine without contrast 04/28/2017. FINDINGS: There are 5 lumbar-type vertebral bodies for the purposes of this report. Since prior exam, bilateral satish and pedicle screw fixation with interbody fusion has been performed at T12-L1. Hardware components are intact. No evidence of loosening. Advanced degenerative endplate changes at T11-T12. No substantial spondylotic change in the lumbar spine. No evidence of high-grade neural impingement on soft tissue windows. No acute fractures. The visualized pelvis is intact. Diffuse bladder wall thickening. Appears to be some prominence of the collecting systems, left greater than right. IMPRESSION: 1. Interval bilateral rods and pedicle screw fixation at T12-L1. No evidence of hardware failure. 2. Increasing spondylotic changes at T11-T12. 3. No acute fracture in the lumbar spine. 4. Diffuse bladder wall thickening. There may also be some prominence of the collecting systems bilaterally which could be further investigated with ultrasound. Dictated by: Dictated on workstation # [id number]
--- NOTE | 2020-07-28 07:08 | Diagnostic Imaging Report ---
INDICATION: Abdominal pain COMPARISON: 02/16/2017 TECHNIQUE: 2 radiographs of the abdomen dated 07/28/2020. FINDINGS: Minimally visualized lung bases are clear. Gas and stool is present within the colon. No dilated loops of small bowel. No differential air-fluid levels. No free air. Postsurgical changes within the upper lumbar spine. Surgical clips overlying the scrotum on the left. Scattered osseous degenerative changes without acute osseous abnormality. IMPRESSION: No acute abnormality. Dictated by: Dictated on workstation # [id number]
[2020-07-28 08:00] VITALS: BP 134/89
--- NOTE | 2020-07-28 08:00 | NUR ---
CLAUDINE COLLAZO admitted to room 419-1, with an admitting diagnosis of BACKPAIN, on 07/28/20 from ED via , accompanied by STAFF. CLAUDINE COLLAZO introduced to surroundings, call light, bed controls, phone, TV, temperature control, lights, meal times, smoking policy, visitor policy, side rail policy, bathrooms and showers. Patient Rights given to patient in the handbook. CLAUDINE COLLAZO verbalizes understanding that [facility] is not responsible for the loss or damage to any personal effects or valuables that are kept in the patients posession during their hospitalization. The following Patient Care Plans were discussed with the PT: Discharge Planning, BACKPAIN, FALL. CLAUDINE COLLAZO verbalizes understanding of Interdisciplinary Patient Education. Patient and/or family were informed about the Rapid Response Team and its purpose.
[2020-07-28 09:14] VITALS: BP 134/89
[2020-07-28] MEDS ORDERED: predniSONE 20 MG TAB PO SCH (09:30)
[2020-07-28] MEDS ORDERED: CATHETER FLUSH 10 ML SYR IV PRN (09:45)
[2020-07-28] MEDS ORDERED: oxyCODONE/APAP 5/325MG (PERCOCET 5) TABLET PO PRN (09:45)
[2020-07-28] MEDS ORDERED: DIAZEPAM 5 MG (VALIUM) TABLET PO PRN (09:45)
[2020-07-28] MEDS ORDERED: morphine INJ 10 MG/ML 1ML (SYR OR VIAL) IV PRN (09:45)
[2020-07-28] MEDS: BACLOFEN 10 MG (LIORESAL) TAB PO SCH ×3 (10:01→21:12)
--- NOTE | 2020-07-28 11:42 | History & Physical-Hospitalist ---
History of Present Illness HPI/Chief Complaint CC: Severe and incapacitating back pain HPI: This is a 49yoWM clinic patient of [facility] who has a h/o CP who also had lumbar stenosis surgery 2017 who presented to the ER with severe back pain and stiffness after shoveling bricks. Urinary retention occurred requiring sal cath placement. No bowel incontinence. No numbness in the inner thighs. Source: patient, RN/MD Exam Limitations: no limitations Date Seen 07/28/20 Time Seen by a Provider: 13:00 Attending Physician Jany Salas DO [facility] [place] Referring Physician Date of Admission Jul 28, 2020 at 07:00 Home Medications & Allergies Home Medications Reviewed patient Home Medication Reconciliation performed by pharmacy medication reconciliations electrical and instrument technician and/or nursing. Patients Allergies have been reviewed. Allergies Allergies Coded Allergies Penicillins (Unverified Adverse Reaction, Unknown, 07/28/20) Past Xyckwvj-Yerkqn-Tfyffl Hx Past Med/Social Hx: Reviewed Nursing Past Med/Soc Hx, Reviewed and Corrections made Patient Social History Marrital Status: single Employed/Student: employed Alcohol Use: Denies Use Recreational Drug Use: No Smoking Status: Never a Smoker Recent Foreign Travel: No Contact w/other who traveled: No Recent Infectious Disease Expo: No Seasonal Allergies Seasonal Allergies: No Past Medical History Surgeries: Orthopedic (T12-L1 fusion), Vasectomy Neurological: Cerebral Palsy Reproductive: No Review of Systems Constitutional: see HPI, weakness Genitourinary: other (retention) Musculoskeletal: back pain, muscle stiffness Physical Exam Physical Exam Vital Signs Vital Signs - First Documented 07/28/20 07/28/20 01:10 07:42 Temp 36.8 Pulse 75 Resp 18 B/P (MAP) 134/103 (113) Pulse Ox 98 O2 Delivery Room Air Capillary Refill : Less Than 3 Seconds Height, Weight, BMI Height: 5'6.00" Weight: 126lbs. oz. 57.736378rb; 21.97 BMI Method:Stated General Appearance: No Apparent Distress, Chronically ill Eyes: Right Eye Normal Inspection, Right Eye PERRL HEENT: PERRL/EOMI, Normal ENT Inspection, Pharynx Normal, Moist Mucous Membranes Neck: Full Range of Motion, Normal Inspection, Non Tender Respiratory: Chest Non Tender, Lungs Clear, Normal Breath Sounds, No Accessory Muscle Use, No Respiratory Distress Cardiovascular: Regular Rate, Rhythm, No Edema, No Gallop, No JVD, No Murmur, Normal Peripheral Pulses Gastrointestinal: Normal Bowel Sounds, No Organomegaly, No Pulsatile Mass, Non Tender, Soft Back: Normal Inspection, Decreased Range of Motion, Muscle Spasm, Vertebral Tenderness Extremity: Normal Capillary Refill, Normal Inspection, Normal Range of Motion, Non Tender, No Calf Tenderness, No Pedal Edema Neurologic/Psychiatric: Alert, Oriented x3, No Motor/Sensory Deficits, Normal Mood/Affect Skin: Normal Color, Warm/Dry Lymphatic: No Adenopathy Results Results/Procedures Labs Laboratory Tests 07/28/20 04:45 Patient resulted labs reviewed. Assessment/Plan Admission Diagnosis Assessment: Severe back pain from shoveling bricks Urinary retention CP Plan: Pain control Monitor closely Sal cath Admission Status: Observation Diagnosis/Problems Diagnosis/Problems (1) Acute exacerbation of chronic low back pain Status: Acute (2) Back spasm Status: Acute (3) Cerebral palsy Status: Acute Qualifiers: Cerebral palsy type: unspecified type Qualified Codes: G80.9 - Cerebral palsy, unspecified JANY SALAS DO Jul 28, 2020 11:42
[2020-07-28 11:46] VITALS: BP 121/82
[2020-07-28] MEDS: KETOROLAC 15 MG/ML VIAL IV SCH ×2 (14:25→21:12)
[2020-07-28] MEDS: CATHETER FLUSH 10 ML SYR IV SCH ×2 (14:26→21:12)
[2020-07-28 16:11] VITALS: BP 111/69
[2020-07-28] MEDS: methylPREDNISolone 125 MG (Solu-MEDROL) VIAL IVP SCH (17:46)
[2020-07-28 20:02] VITALS: BP 110/72
[2020-07-28] MEDS: DOCUSATE SODIUM 100 MG (COLACE) CAP PO SCH (21:12)
[2020-07-29] VITALS (8 sets, daily range): BP systolic 96–121; BP diastolic 63–82
[2020-07-29] MEDS: methylPREDNISolone 125 MG (Solu-MEDROL) VIAL IVP SCH ×4 (00:01→17:05)
[2020-07-29 05:55] LABS: ALBUMIN 3.7 GM/DL (3.2-4.5); CHLORIDE 105 MMOL/L (98-107); POTASSIUM 4.2 MMOL/L (3.6-5.0); SODIUM 138 MMOL/L (135-145)
[2020-07-29 05:56] LABS: CALCIUM 8.1 MG/DL (8.5-10.1)
[2020-07-29 05:57] LABS: GLUCOSE 167 MG/DL (70-105)
[2020-07-29 05:58] LABS: TOTAL PROTEIN 6.1 GM/DL (6.4-8.2)
[2020-07-29] MEDS: KETOROLAC 15 MG/ML VIAL IV SCH ×3 (05:58→22:06)
[2020-07-29 05:59] LABS: CARBON DIOXIDE 25 MMOL/L (21-32)
[2020-07-29] MEDS: CATHETER FLUSH 10 ML SYR IV SCH ×3 (05:59→22:00)
[2020-07-29 06:00] LABS: BILIRUBIN,TOTAL 0.4 MG/DL (0.1-1.0)
[2020-07-29 06:01] LABS: ALKALINE PHOSPHATASE 73 U/L (40-136); GFR ESTIMATED > 60
[2020-07-29 06:02] LABS: BUN/CREATININE RATIO 20
[2020-07-29 06:04] LABS: ALANINE AMINOTRANSFERASE 20 U/L (0-55)
[2020-07-29 06:40] LABS: BASOPHILS % (AUTO) 0 % (0-10); EOSINOPHILS % (AUTO) 0 % (0-10); HEMATOCRIT 37 % (40-54); HEMOGLOBIN 12.7 g/dL (13.3-17.7); LYMPHOCYTES # (AUTO) 0.7 10^3/uL (1.0-4.0); LYMPHOCYTES % (AUTO) 7 % (12-44); MEAN CORPUSCULAR HEMOGLOBIN 29 pg (25-34); MEAN CORPUSCULAR HGB CONC 34 g/dL (32-36); MEAN CORPUSCULAR VOLUME 84 fL (80-99); MEAN PLATELET VOLUME 9.9 fL (9.0-12.2); MONOCYTES # (AUTO) 0.2 10^3/uL (0.0-1.0); MONOCYTES % (AUTO) 2 % (0-12); NEUTROPHILS # (AUTO) 9.2 10^3/uL (1.8-7.8); NEUTROPHILS % (AUTO) 90 % (42-75); PLATELET COUNT 346 10^3/uL (130-400); WHITE BLOOD COUNT 10.2 10^3/uL (4.3-11.0)
[2020-07-29] MEDS: DOCUSATE SODIUM 100 MG (COLACE) CAP PO SCH ×2 (08:54→20:04)
[2020-07-29] MEDS: BACLOFEN 10 MG (LIORESAL) TAB PO SCH ×3 (08:54→20:04)
--- NOTE | 2020-07-29 10:33 | NUR ---
DR RAY ON THE FLOOR. ORDERED PT, OT, SENOKOT, MIRALAX AND LACTULOSE BID FIRST DOSE NOW. WAIT TO ORDER LOVENOX UNTIL AFTER MRI--POSSIBLE SURGICAL INTERVENTION
--- NOTE | 2020-07-29 10:35 | Progress Note - Hospitalist ---
Subjective HPI/CC On Admission Date Seen by Provider: Jul 29, 2020 Time Seen by Provider: 09:00 CC: Severe and incapacitating back pain HPI: This is a 49yoWM clinic patient of [facility] who has a h/o CP who also had lumbar stenosis surgery 2016 who presented to the ER with severe back pain and stiffness after shoveling bricks. Urinary retention occurred requiring sal cath placement. No bowel incontinence. No numbness in the inner thighs. Subjective/Events-last exam Pt actually doing better IV steroids maintained MRI ordered, not done yet PT and OT will evaluate him Needs to have a BM Will evaluate plan with sal catheter but entertained starting a bladder medication to see if we can help the bladder Dr. Tate and I have conferred Review of Systems General: Fatigue, Malaise Musculoskeletal: back pain Neurological: Weakness Objective Exam Vital Signs Vital Signs Date Time Temp Pulse Resp B/P (MAP) Pulse Ox O2 Delivery O2 Flow Rate FiO2 07/30/20 03:18 36.3 72 16 99/56 (70) 97 Room Air Capillary Refill : Less Than 3 SecondsLess Than 3 Seconds General Appearance: No Apparent Distress, WD/WN, Chronically ill HEENT: PERRL/EOMI, Normal ENT Inspection, Pharynx Normal, Moist Mucous Membranes Neck: Full Range of Motion, Normal Inspection, Non Tender, Supple, Carotid Bruit Respiratory: Chest Non Tender, Lungs Clear, Normal Breath Sounds, No Accessory Muscle Use, No Respiratory Distress Cardiovascular: Regular Rate, Rhythm, No Edema, No Gallop, No JVD, No Murmur, Normal Peripheral Pulses Gastrointestinal: Normal Bowel Sounds, No Organomegaly, No Pulsatile Mass, Non Tender, Soft Back: Normal Inspection, No CVA Tenderness, No Vertebral Tenderness, Decreased Range of Motion Extremity: Normal Capillary Refill, Normal Inspection, Normal Range of Motion, Non Tender, No Calf Tenderness, No Pedal Edema Neurologic/Psychiatric: Alert, Oriented x3, No Motor/Sensory Deficits, Normal Mood/Affect Skin: Normal Color, Warm/Dry Lymphatic: No Adenopathy Results/Procedures Lab Laboratory Tests 07/29/20 05:15 Patient resulted labs reviewed. Assessment/Plan Assessment and Plan Assess & Plan/Chief Complaint Assessment: Severe back pain from shoveling bricks Urinary retention CP Plan: Pain control Monitor closely Sal cath 07/29/20: MRI today Confer with Dr. Bebeto PT & OT eval Laxatives Sal catheter Diagnosis/Problems Diagnosis/Problems (1) Acute exacerbation of chronic low back pain Status: Acute (2) Back spasm Status: Acute (3) Cerebral palsy Status: Acute Qualifiers: Cerebral palsy type: unspecified type Qualified Codes: G80.9 - Cerebral palsy, unspecified Clinical Quality Measures DVT/VTE Risk/Contraindication: Risk Factor Score Per Nursin RFS Level Per Nursing on Admit: 4+=Very High JHOANA RAY DO Jul 29, 2020 10:35
[2020-07-29] MEDS ORDERED: ALBU18HF2 INH (10:58)
[2020-07-29] MEDS ORDERED: MORP-69 PO (10:58)
[2020-07-29] MEDS ORDERED: CELE-63 PO (10:58)
[2020-07-29] MEDS ORDERED: DIAZ5TAB49 PO (10:58)
[2020-07-29] MEDS ORDERED: OXYC20TA54 PO (10:58)
[2020-07-29] MEDS ORDERED: MULT-1136 PO (10:59)
[2020-07-29] MEDS ORDERED: BISA-10 PO (10:59)
[2020-07-29] MEDS ORDERED: CATHETER FLUSH 10 ML SYR IV PRN (11:00)
[2020-07-29] MEDS ORDERED: GADOBUTROL 7.5 MMOL/7.5 ML (GADAVIST) VIAL IV ONE (11:00)
--- NOTE | 2020-07-29 11:00 | NUR ---
SPOKE WITH THE PT AND WENT THRU THE EXT MED HISTORY TO COMPLETE THE MED REC PT HAS PRESCRIPTIONS FOR BOTH MORPHINE AND OXYCONTIN, PT PREFERS TO TAKE OXYCONTIN AND SAYS HE ONLY TAKES MORPHINE IF THERE IS NO RELIEF OTC MEDS: [employer] BISACODYL
--- NOTE | 2020-07-29 12:15 | NUR ---
ORDNANCE TECHNICIAN NOTIFIED THAT DR NARVAEZ WANTED NOTIFIED WHEN MRI DONE AND WHAT THE RESULTS ARE.
[2020-07-29] MEDS: SENNA W/DOCUSATE (SENOKOT S) TABLET PO SCH ×2 (12:17→20:04)
[2020-07-29] MEDS: LACTULOSE SYRUP 10GM/15ML (ENULOSE) 30ML UDC PO SCH ×2 (12:18→20:05)
[2020-07-29] MEDS: polyethylene glycoL POWDER 17 GM (MIRALAX) PACK PO SCH ×2 (12:18→20:04)
--- NOTE | 2020-07-29 12:39 | Diagnostic Imaging Report ---
PROCEDURE: MRI lumbar spine with and without contrast. TECHNIQUE: Multiplanar, multisequence MRI of the lumbar spine was performed with and without contrast. INDICATION: Severe back pain. COMPARISON: Correlation is made with prior MRI of the lumbar spine from 04/28/2017. FINDINGS: Curvature of the lumbar spine is normal. There is minimal retrolisthesis of T12 on L1. Patient has undergone fixation at the T12-L1 level. There are stabilization rods and bipedicular screws at this level. The hardware does produce moderate artifact. Vertebral body heights appear maintained. There are some areas of changes at the T12 and L1 levels from degenerative disc disease and postsurgical changes. There are significant degenerative disc disease at T11-T12 level with disc space narrowing and marginal spurring. Conus is unremarkable at the L1 level. T11-T12: There is an endplate osteophyte indenting the ventral thecal sac producing mild narrowing of the canal. There is also moderate narrowing of the right lateral recess. No significant neural foraminal stenosis is identified. T12-L1: Broad-based disc/osteophyte complex flattens the ventral thecal sac but central canal remains patent. There is narrowing of the lateral recesses bilaterally. There is also moderate bilateral neural foraminal stenosis. L1-L2: Central canal and neural foramina appear to be patent. L2-L3: Central canal and neural foramina appear patent. L3-L4: Central canal is patent. There is now moderate narrowing of the lateral recesses bilaterally. There is also moderate bilateral neural foraminal narrowing due to broad-based disc/osteophyte complex. L4-L5: Hypertrophic facet changes are noted. Central canal is patent, but there is significant narrowing of the lateral recesses bilaterally. There is also moderate bilateral neural foraminal stenosis. L5-S1: Degenerative facet changes are noted. Central canal is patent. There is moderate bilateral lateral recess and neural foraminal stenosis. Postcontrast imaging is without abnormal enhancement. IMPRESSION: 1. Postoperative changes of posterior instrumented fusion at T12-L1. There is a significant degenerative disc disease at T11-T12 level as described and seen on recent CT. 2. Multilevel spondylosis with multilevel central canal, lateral recess and neural foraminal stenosis described level by level above. Dictated by: Dictated on workstation # [id number]
--- NOTE | 2020-07-29 13:11 | NUR ---
DR NARVAEZ NOTIFIED OF MRI RESULTS BY MRI STAFF. NON-SURGICAL TREATMENT AND PATIENT MAY RESUME HIS PREVIOUS DIET. HE WILL LEAVE THE TREATMENT UP TO DR RAY. DR RAY NOTIFIED. URECHOLINE, FLOMAX AND LOVENOX ORDERED. PATIENT HAS NOT HAD A BM YET OF THIS TIME. PER DR RAY-OFFER PATIENT A SUPPOSITORY.
[2020-07-29] MEDS: TAMSULOSIN 0.4 MG (FLOMAX) CAP PO SCH ×2 (13:51→20:04)
[2020-07-29] MEDS: BETHANECHOL 10 MG (URECHOLINE) TAB PO SCH ×3 (13:51→20:05)
[2020-07-29] MEDS: ENOXAPARIN 40 MG/0.4 ML (LOVENOX) SYR SQ SCH (13:52)
--- NOTE | 2020-07-29 14:02 | NUR ---
PATIENT OFFERED SUPPOSITORY PER DR RAY'S ORDER. HE DOES NOT WANT ONE AT THIS TIME BUT WILL LET US KNOW IF HE DOES.
--- NOTE | 2020-07-29 14:04 | Occupational Therapy Eval ---
OT Evaluation-General/PLF Medical Diagnosis Admission Date Jul 28, 2020 at 07:00 Medical Diagnosis: Severe back pain. Onset Date: Jul 28, 2020 Therapy Diagnosis Therapy Diagnosis: Decreased IADL status Height/Weight Height (Feet): 5 Height (Inches): 6.00 Weight (Pounds): 126 Precautions Precautions/Isolations: Fall Prevention, Standard Precautions Weight Bear Status Weight Bearing Restriction: Weight Bearing/Tolerated Referral Physician: Maritza Referral Reason: Activity Tolerance, Self Care, Evaluation/Treatment, Strengthening/ROM Medical History Additional Medical History CP, lumbar stenosis sx in 2017, urinary retention, DDD Current History Pt states was making a "push cart" for increasing ex. Pt was rotating trunk, taking center blocks from basket when he heard a noise coming from back, pt states immense pain. Then later that day as he ambulated up stairs to his apt, felt immense pain again with "wave like contractions." Reviewed History: Yes Social History Home: Apartment Current Living Status: Alone Entry Into Home: Stairs With Railing (3 stories) Steps Into Home: 21 (3 stories, no elevator access per pt.) ADL-Prior Level of Function SCALE: Activities may be completed with or without assistive devices. 3-Jcpvbphxat-kspbxgt completes the activity by him/herself with no assistance from a helper. 5-Set-up or Clean-up Assistance-helper sets up or cleans up; patient completes activity. [place] assists only prior to or following the activity. 4-Supervision or Touching Assistance-helper provides verbal cues and/or touching/steadying and/or contact guard assistance as patient completes activity. Assistance may be provided throughout the activity or intermittently. 3-Partial/Moderate Assistance-helper does LESS THAN HALF the effort. [place] lifts, holds or supports trunk or limbs, but provides less than half the effort. 2-Substantial/Maximal Assistance-helper does MORE THAN HALF the effort. [place] lifts or holds trunk or limbs and provides more than half the effort. 9-Potvnfxmt-ekiaqv does ALL the effort. Patient does none of the effort to complete the activity. Or, the assistance of 2 or more helpers is required for the patient to complete the activity. If activity was not attempted, code reason: 7-Patient Refused. 9-Not Applicable-not attempted and the patient did not perform the activity before the current illness, exacerbation or injury. 10-Not Attempted due to Environmental Limitations-(lack of equipment, weather restraints, etc.). 88-Not Attempted due to Medical Conditions or Safety Concerns. ADL PLOF Comments Pt IND without use of AD/ AE per pt. 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 Pt pleasant, alert/ oriented. Pt states 4/10 pain at rest. Mental Status/Objective Patient Orientation: Normal For Age Attachments: Kelsey Catheter Current Glasses/Contacts: Yes Hearing Aids: No Dentures/Partials: No Upper Extremity ROM Pt states ambidextrous WFL BUE Upper Extremity Coordination WFL BUE (limited thumb to pinkie opposition L hand- states has never been able to complete) Upper Extremity Sensation WFL BUE Upper Extremity Strength WFL BUE (4+/5) ADL-Treatment Eating (QC): 6 (IND) Oral Hygiene (QC): 6 (IND per clinical judgmenet) On/Off Footwear (QC): 4 (CGA during shoe donning: Pt utilizes standing position/ squats to place shoe and completes foot placement in shoe while holding on to bed rail in a squatting movement.) Toileting Hygiene (QC): 6 (Per pt.) Other Treatments Pt provides hx/ home environment. Pt's son lives with pt 2-3 days/ week. Pt lives in apartment with no access to elevator. Pt states IND PLOF/ very active. Pt states has been in bed 1.5 days, states stiff. Pt bed mob with SUP. Sits EOB and completes sit to stand with SBA/ shoe donning while holding on to bed rail as outlined- pt states must complete like this at home. Pt ambulates with HEAD RESIDENT to bathroom due to stiffness, completes toilet transfer with SBA/ sit to stand SBA and ambulates to recliner. Pt denies increase of back pain. Pt educated on straight back/ no twisting during home tasks to ensure back placement/ safety. Pt able to complete ADLs with pt's own adaptive techniques and is at PLOF. Pt d/c OT at this time. Education OT Patient Education: Correct positioning, Progress toward Goal/Update tx plan, Purpose of tx/functional activities, Safety issues Teaching Recipient: Patient Teaching Methods: Demonstration, Discussion Response to Teaching: Verbalize Understanding, Return Demonstration OT Deck Steward Goals Detention Goals 1=Demonstrate adherence to instructed precautions during ADL tasks. 2=Patient will verbalize/demonstrate understanding of assistive devices/modifications for ADL. 3=Patient will improve strength/tolerance for activity to enable patient to perform ADL's. OT Education/Plan Problem List/Assessment Assessment: No Skilled OT Needs ID'd Discharge Recommendations Plan/Recommendations: Discharge/Goals Met Therapy Discharge Recommendati: Home & Family Treatment Plan/Plan of Care Treatment,Training & Education: Yes Patient would benefit from OT for education, treatment and training to promote independence in ADL's, mobility, safety and/or upper extremity function for ADL's. Plan of Care: OTHER (eval and d/c.) Treatment Duration: Jul 29, 2020 Frequency: 1 time per week (eval and d/c. ) Time/GCodes Start Time: 13:40 Stop Time: 13:55 Total Time Billed (hr/min): 15 Billed Treatment Time 1, EVM (15) D/C. ADELSO MONTES OTR Jul 29, 2020 14:03
[2020-07-29] MEDS ORDERED: BISACODYL 10 MG SUPP (DULCOLAX) PR PRN (14:15)
--- NOTE | 2020-07-29 14:56 | Physical Therapy Evaluation ---
PT Evaluation-General Medical Diagnosis Admission Date Jul 28, 2020 at 07:00 Medical Diagnosis: Severe back pain. Onset Date: Jul 28, 2020 Therapy Diagnosis Therapy Diagnosis: debility Height/Weight Height (Feet): 5 Height (Inches): 6.00 Weight (Pounds): 126 Precautions Precautions/Isolations: Fall Prevention, Standard Precautions Referral Physician: Maritza Reason for Referral: Evaluation/Treatment Medical History Additional Medical History spinal fusion T12-L1/Cerebral Palsy Current History ER secondary to "cramping" of lower back after lifting several concrete blocks into a cart and then pushing the cart for several miles Reviewed History: Yes Social History Home: Apartment Current Living Status: Alone Entry Into Home: Stairs With Railing (3 stories) PT Steps Into Home: 21 (3 stories, no elevator access per pt.) Prior Prior Level of Function SCALE: Activities may be completed with or without assistive devices. 8-Hjvxtewzns-zzmvudy completes the activity by him/herself with no assistance from a helper. 5-Set-up or Clean-up Assistance-helper sets up or cleans up; patient completes activity. [place] assists only prior to or following the activity. 4-Supervision or Touching Assistance-helper provides verbal cues and/or touching/steadying and/or contact guard assistance as patient completes activity. Assistance may be provided throughout the activity or intermittently. 3-Partial/Moderate Assistance-helper does LESS THAN HALF the effort. [place] lifts, holds or supports trunk or limbs, but provides less than half the effort. 2-Substantial/Maximal Assistance-helper does MORE THAN HALF the effort. [place] lifts or holds trunk or limbs and provides more than half the effort. 8-Spnpdstlr-tfnmnr does ALL the effort. Patient does none of the effort to complete the activity. Or, the assistance of 2 or more helpers is required for the patient to complete the activity. If activity was not attempted, code reason: 7-Patient Refused. 9-Not Applicable-not attempted and the patient did not perform the activity befo re the current illness, exacerbation or injury. 10-Not Attempted due to Environmental Limitations-(lack of equipment, weather re straints, etc.). 88-Not Attempted due to Medical Conditions or Safety Concerns. Bed Mobility: 6 Transfers (B,C,W/C): 6 Gait: 6 Stairs: 6 Indoor Mobility (Ambulation): Independent Stairs: Independent Prior Devices Use: None PT Evaluation-Current Subjective Patient agrees to PT. Pain Numeric Pain Scale: 4 Location: Lower Location Body Site: Back Pain Description: Acute Objective Patient Orientation: Normal For Age Attachments: Kelsey Catheter ROM/Strength ROM Lower Extremities bilateral LE CP tone/WFL Strength Lower Extremities 4/5 grossly bilateral LE Integumentary/Posture Integumentary refer to nursing notes Posture CP Neuromuscular (Tone, Coordination, Reflexes) CP tone Sensory Vision: Wears Glasses Hearing: Functional Transfers Sit to Lying (QC): 6 Lying to Sitting/Side of Bed(Q: 6 Sit to Stand (QC): 6 Chair/Ket-os-Ujzxp Xfer(QC): 6 Gait Does the Patient Walk?: Yes Mode of Locomotion: Walk Anticipated Mode of Locomotion: Walk Walk 10 feet (QC): 6 Walk 50 ft with 2 Turns(QC): 6 Walk 150 ft (QC): 6 Distance: 200' Gait Assistive Device: None Balance Sitting Static: Normal Sitting Dynamic: Normal Standing Static: Good Standing Dynamic: Good Assessment/Needs 49 y.o. male, has been instructed to ambulate PRN in hallway with nursing staff due to patient is at PLOF with gross motor skills. No skilled therapy indicated. Rehab Potential: Fair PT Plan Treatment/Plan Treatment Plan: Discontinue PT, goals met Treatment Duration: Jul 29, 2020 Frequency: 1 time per week Estimated Hrs Per Day: .25 hour per day Patient and/or Family Agrees t: Yes Time/GCodes Time In: 1425 Time Out: 1439 Total Billed Treatment Time: 14 Total Billed Treatment 1 visit EVLow 14 min DAREN HUTCHINSON PT Jul 29, 2020 14:56
[2020-07-30] MEDS: methylPREDNISolone 125 MG (Solu-MEDROL) VIAL IVP SCH ×4 (00:10→18:07)
[2020-07-30 03:18] VITALS: BP 99/56
[2020-07-30] MEDS: BETHANECHOL 10 MG (URECHOLINE) TAB PO SCH ×3 (05:09→18:07)
[2020-07-30] MEDS: KETOROLAC 15 MG/ML VIAL IV SCH ×2 (05:10→13:59)
--- NOTE | 2020-07-30 05:39 | NUR ---
This nurse removed/discontinued this pts catheter per Dr. Salas order at 0535 this AM. I removed 10 mL's from the catheter balloon, and the catheter tip was intact when removed. I removed the securment device from the pt's right leg. Pt had an output of 1,200 mL this shift from catheter. Will continue to monitor pt's voiding after catheter removal.
[2020-07-30] MEDS: CATHETER FLUSH 10 ML SYR IV SCH ×2 (06:00→13:59)
[2020-07-30 07:11] LABS: BASOPHILS % (AUTO) 0 % (0-10); EOSINOPHILS % (AUTO) 0 % (0-10); HEMATOCRIT 38 % (40-54); HEMOGLOBIN 13.1 g/dL (13.3-17.7); LYMPHOCYTES # (AUTO) 0.6 10^3/uL (1.0-4.0); LYMPHOCYTES % (AUTO) 4 % (12-44); MEAN CORPUSCULAR HEMOGLOBIN 29 pg (25-34); MEAN CORPUSCULAR HGB CONC 34 g/dL (32-36); MEAN CORPUSCULAR VOLUME 84 fL (80-99); MEAN PLATELET VOLUME 9.7 fL (9.0-12.2); MONOCYTES # (AUTO) 0.5 10^3/uL (0.0-1.0); MONOCYTES % (AUTO) 3 % (0-12); NEUTROPHILS % (AUTO) 93 % (42-75); PLATELET COUNT 357 10^3/uL (130-400); WHITE BLOOD COUNT 15.1 10^3/uL (4.3-11.0)
[2020-07-30 07:13] LABS: ALBUMIN 3.9 GM/DL (3.2-4.5); CHLORIDE 105 MMOL/L (98-107); POTASSIUM 4.2 MMOL/L (3.6-5.0); SODIUM 140 MMOL/L (135-145)
[2020-07-30 07:14] LABS: CALCIUM 7.9 MG/DL (8.5-10.1)
[2020-07-30 07:16] LABS: GLUCOSE 137 MG/DL (70-105); TOTAL PROTEIN 6.3 GM/DL (6.4-8.2)
[2020-07-30 07:17] LABS: CARBON DIOXIDE 25 MMOL/L (21-32)
[2020-07-30 07:18] LABS: BILIRUBIN,TOTAL 0.4 MG/DL (0.1-1.0)
[2020-07-30 07:19] LABS: ALKALINE PHOSPHATASE 70 U/L (40-136); CREATININE SERUM 0.74 MG/DL (0.60-1.30); GFR ESTIMATED > 60
[2020-07-30 07:20] LABS: BUN/CREATININE RATIO 30
[2020-07-30 07:22] LABS: ALANINE AMINOTRANSFERASE 21 U/L (0-55)
[2020-07-30 07:28] LABS: BAND NEUTROPHILS 0 %; BASOPHILS % (MANUAL) 0 %; EOSINOPHILS % (MANUAL) 0 %; LYMPHOCYTES % (MANUAL) 2 %; MONOCYTES % (MANUAL) 4 %; NEUTROPHILS % (MANUAL) 94 %; RBC MORPH NORMAL
[2020-07-30 08:00] VITALS: BP 107/60
[2020-07-30] MEDS: DOCUSATE SODIUM 100 MG (COLACE) CAP PO SCH (09:16)
[2020-07-30] MEDS: SENNA W/DOCUSATE (SENOKOT S) TABLET PO SCH (09:16)
[2020-07-30] MEDS: TAMSULOSIN 0.4 MG (FLOMAX) CAP PO SCH (09:17)
[2020-07-30] MEDS: BACLOFEN 10 MG (LIORESAL) TAB PO SCH ×2 (09:17→13:58)
[2020-07-30] MEDS: polyethylene glycoL POWDER 17 GM (MIRALAX) PACK PO SCH (09:17)
[2020-07-30] MEDS: LACTULOSE SYRUP 10GM/15ML (ENULOSE) 30ML UDC PO SCH (09:17)
[2020-07-30] MEDS ORDERED: BTH10T PO (09:45)
[2020-07-30] MEDS ORDERED: PRED10TA22 PO (09:45)
[2020-07-30] MEDS ORDERED: TIZA4TAB4 PO (09:45)
[2020-07-30] MEDS ORDERED: MAGNESIUM CITRATE 300 ML BTL PO NR (09:45)
[2020-07-30] MEDS ORDERED: TMSL.4C PO (09:45)
--- NOTE | 2020-07-30 09:46 | Discharge Summary ---
Discharge Summary Hospital Course Was the Problem List Reviewed?: Yes Problems/Dx: (1) Acute exacerbation of chronic low back pain Status: Acute (2) Back spasm Status: Acute (3) Cerebral palsy Status: Acute Qualifiers: Qualified Codes: G80.9 - Cerebral palsy, unspecified Hospital Course Date of Admission: Jul 28, 2020 at 07:00 Admission Diagnosis : Family Physician/Provider: [facility] Date of Discharge: 07/30/20 Discharge Diagnosis: Assessment: Severe back pain from shoveling bricks Urinary retention CP Plan: Pain control Monitor closely Sal cath 07/29/20: MRI today Confer with Dr. Tate PT & OT eval Laxatives Sal catheter Hospital Course: Hospital Course: Pt had an uneventful hospital course. He was admitted due to severe intractable back pain with a history of cerebral palsy and lumbar stenosis surgery. He was placed on Solumedrol and muscle relaxants, supportive care, along with sal catheter for urinary retention. MRI was obtained, Dr. Tate was consulted. He reviewed the MRI showing no evidence of any surgical issue. He had actually improved and was working with PT and OT was back to near his baseline. Sal catheter was discontinued and he was able to spontaneously urinate and laxatives were given for severe constipation that resolved at time of discharge. Labs and Pending Lab Test: Laboratory Tests 07/30/20 06:50: White Blood Count 15.1H, Red Blood Count 4.53, Hemoglobin 13.1L, Hematocrit 38L, Mean Corpuscular Volume 84, Mean Corpuscular Hemoglobin 29, Mean Corpuscular Hemoglobin Concent 34, Red Cell Distribution Width 13.2, Platelet Count 357, Mean Platelet Volume 9.7, Immature Granulocyte % (Auto) 1, Neutrophils (%) (Auto) 93H, Lymphocytes (%) (Auto) 4L, Monocytes (%) (Auto) 3, Eosinophils (%) (Auto) 0, Basophils (%) (Auto) 0, Neutrophils # (Auto) 14.0H, Lymphocytes # (Auto) 0.6L, Monocytes # (Auto) 0.5, Eosinophils # (Auto) 0.0, Basophils # (Auto) 0.0, Immature Granulocyte # (Auto) 0.1, Neutrophils % (Manual) 94, Lymphocytes % (Manual) 2, Monocytes % (Manual) 4, Eosinophils % (Manual) 0, Basophils % (Manual) 0, Band Neutrophils 0, Blood Morphology Comment NORMAL, Sodium Level 140, Potassium Level 4.2, Chloride Level 105, Carbon Dioxide Level 25, Anion Gap 10, Blood Urea Nitrogen 22H, Creatinine 0.74, Estimat Glomerular Filtration Rate > 60, BUN/Creatinine Ratio 30, Glucose Level 137H, Calcium Level 7.9L, Corrected Calcium 8.0L, Total Bilirubin 0.4, Aspartate Amino Transf (AST/SGOT) 23, Alanine Aminotransferase (ALT/SGPT) 21, Alkaline Phosphatase 70, Total Protein 6.3L, Albumin 3.9 Home Meds Active Prednisone 10 Mg Tab.ds.pk 10 Mg PO DAILY Take 6 tabs(60mg)daily,decrease by 1 tab(10MG)daily. Tizanidine HCl 4 Mg Tablet 4 Mg PO Q6HR Flomax (Tamsulosin HCl) 0.4 Mg Cap 0.4 Mg PO BID Urecholine (Bethanechol Chloride) 10 Mg Tablet 10 Mg PO ACHS Reported Laxative (Bisacodyl) 5 Mg Tablet.dr 10 Mg PO DAILY PRN Multivitamin 1 Each Tablet 1 Each PO DAILY Oxycontin (Oxycodone HCl) 20 Mg Tab.er.12h 20 Mg PO BID PRN Ventolin Hfa (Albuterol Sulfate) 18 Gm Hfa.aer.ad 2 Puff INH Q4H PRN Diazepam 5 Mg Tablet 5 Mg PO QID PRN Celecoxib 200 Mg Capsule 200 Mg PO BID Morphine Sulfate ER (Morphine Sulfate) 30 Mg Tablet.er 30 Mg PO BID PRN Assessment/Pt Instructions PCP 1 week Discharge Planning: <30 minutes discharge planning Discharge Instructions Discharge Diet: No Restrictions, Regular Diet Activity as Tolerated: Yes Discharge Physical Examination Vital Signs Vital Signs Date Time Temp Pulse Resp B/P (MAP) Pulse Ox O2 Delivery O2 Flow Rate FiO2 07/30/20 08:00 35.4 83 18 107/60 (76) 98 Room Air General Appearance: No Apparent Distress, WD/WN, Chronically ill Respiratory: Normal Breath Sounds Cardiovascular: Regular Rate, Rhythm Neurologic/Psychiatric: Alert, Oriented x3 Allergies: Coded Allergies: Penicillins (Unverified Adverse Reaction, Unknown, 07/28/20) Discharge Summary Date of Admission Jul 28, 2020 at 07:00 Date of Discharge Discharge Date: Jul 30, 2020 Admission Diagnosis Assessment: Severe back pain from shoveling bricks Urinary retention CP Plan: Pain control Monitor closely Sal cath Discharge Diagnosis Assessment: Severe back pain from shoveling bricks Urinary retention CP Plan: Pain control Monitor closely Sal cath 07/29/20: MRI today Confer with Dr. Tate PT & OT eval Laxatives Sal catheter (1) Acute exacerbation of chronic low back pain Status: Acute (2) Back spasm Status: Acute (3) Cerebral palsy Status: Acute Qualifiers: Qualified Codes: G80.9 - Cerebral palsy, unspecified Clinical Quality Measures DVT/VTE Risk/Contraindication: Risk Factor Score Per Nursin RFS Level Per Nursing on Admit: 4+=Very High JHOANA RAY DO Jul 30, 2020 09:46
--- NOTE | 2020-07-30 10:15 | NUR ---
CM/SS: Visited with pt as to his plan for discharge Plan: Pt is from home and will return there - no identified needs Summary: Pt is sitting up in his recliner reporting he is feeling better. Pt does have a mild case of CP and he does have a cane and manages at home well. 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 Pt reports for the most part he does fine. Just reports he may have over done it with weights and walking. Pt does report he follows up with physician Dr Pena at [facility], [place]. He is encouraged to keep his medical appt. He verbalizes understanding. Pt's brother is known to this worker from the [place]. Pt's brother recently . Pt reports he drank himself to . Pt has not identified needs as this time and will plan to discharge to home later today.
[2020-07-30 12:00] VITALS: BP 122/71
[2020-07-30] MEDS: ENOXAPARIN 40 MG/0.4 ML (LOVENOX) SYR SQ SCH (13:58)
[2020-07-30] MEDS ORDERED: ONDANSETRON 4 MG/2 ML (SDV) Z0FRAN IVP PRN (18:15)
[2020-07-30 19:47] VITALS: BP 122/71
== END 2020-07-30 19:48 | disposition home or self-care (01) ==
LOC: EDUNIT# 01:05 → ER 01:07 → 4TH 07:00
PROVIDERS: ADMIT Internal Medicine; ATTEND Internal Medicine
DX: M54.5 Low back pain (principal); M43.25 Fusion of spine, thoracolumbar region; G89.29 Other chronic pain; G80.9 Cerebral palsy, unspecified; Z88.0 Allergy status to penicillin
CPT/HCPCS: 36415; 51702; 72131; 72158; 74018; 80053; 81000; 83735; 85007; 85025; 85027; G0378

== ENCOUNTER 2020-08-11 13:46 | Inpatient (IN) | payer MEDICARE ==
[~2020-08-11] VITALS: Ht 167.8 cm; Wt 83.2 kg
[~2020-08-11 13:46] MED LIST changes: +ALBU18HF2 INH; +BISA-10 PO; +BTH10T PO; +CELE-63 PO; +DIAZ5TAB49 PO; +MORP-69 PO; +MULT-1136 PO; +PRED10TA22 PO; +TIZA4TAB4 PO; +TMSL.4C PO
[2020-08-11 14:47] LABS: BASOPHILS # (AUTO) 0.1 10^3/uL (0.0-0.1); BASOPHILS % (AUTO) 0 % (0-10); EOSINOPHILS % (AUTO) 0 % (0-10); HEMATOCRIT 36 % (40-54); HEMOGLOBIN 12.4 g/dL (13.3-17.7); LYMPHOCYTES # (AUTO) 0.5 10^3/uL (1.0-4.0); LYMPHOCYTES % (AUTO) 3 % (12-44); MEAN CORPUSCULAR HEMOGLOBIN 29 pg (25-34); MEAN CORPUSCULAR HGB CONC 35 g/dL (32-36); MEAN CORPUSCULAR VOLUME 83 fL (80-99); MEAN PLATELET VOLUME 9.9 fL (9.0-12.2); MONOCYTES # (AUTO) 1.7 10^3/uL (0.0-1.0); MONOCYTES % (AUTO) 9 % (0-12); NEUTROPHILS # (AUTO) 16.5 10^3/uL (1.8-7.8); NEUTROPHILS % (AUTO) 87 % (42-75); PLATELET COUNT 414 10^3/uL (130-400); WHITE BLOOD COUNT 18.9 10^3/uL (4.3-11.0)
[2020-08-11 14:48] LABS: ALBUMIN 3.1 GM/DL (3.2-4.5); CHLORIDE 92 MMOL/L (98-107); POTASSIUM 4.3 MMOL/L (3.6-5.0); SODIUM 129 MMOL/L (135-145)
[2020-08-11 14:49] LABS: CALCIUM 8.6 MG/DL (8.5-10.1)
[2020-08-11 14:50] LABS: GLUCOSE 84 MG/DL (70-105)
[2020-08-11 14:51] LABS: TOTAL PROTEIN 6.5 GM/DL (6.4-8.2)
[2020-08-11 14:52] LABS: CARBON DIOXIDE 25 MMOL/L (21-32)
[2020-08-11 14:53] LABS: BILIRUBIN,TOTAL 1.3 MG/DL (0.1-1.0); INR 1.1 (0.8-1.4); PROTHROMBIN TIME PATIENT 14.9 SEC (12.2-14.7)
[2020-08-11 14:54] LABS: ALKALINE PHOSPHATASE 130 U/L (40-136); CREATININE SERUM 0.81 MG/DL (0.60-1.30); GFR ESTIMATED > 60
[2020-08-11 14:55] LABS: BUN/CREATININE RATIO 26
[2020-08-11 14:57] LABS: ALANINE AMINOTRANSFERASE 19 U/L (0-55)
--- NOTE | 2020-08-11 15:00 | ED Lower Extremity ---
General Chief Complaint: Lower Extremity Stated Complaint: LEG SWELLING Nursing Triage Note: PT ARRIVES TO ER BY EMS WITH C/O LEFT LEG SWELLING THAT HAS BEEN GOING ON SINCE JUL 30 WHEN HE GOT REALEASED FROM THE HOSPITAL Nursing Sepsis Screen: Possible Sepsis Risk Source: patient Exam Limitations: no limitations History of Present Illness Date Seen by Provider: Aug 11, 2020 Time Seen by Provider: 14:48 Initial Comments This is a 49-year-old male with a history of CP who presents to the ER via [facility] for left lower extremity swelling 1 week. States he was admitted to this hospital last week for intractable back pain and was discharged on July 30. Upon discharge last week his left lower extremity began swelling at the knee and it continued to swell proximal and distally. Nomi tionally he states his leg became progressively warm and red. Reports intermittent cough and shortness of breath, subjective fever/chills, nausea, vomiting. Denies abdominal pain, headache, chest pain. Onset: last week Modifying Factors: Improves With Immobilization; Worse With Jarring, Worse With Movement; Improves With Rest Allergies and Home Medications Allergies Coded Allergies: Penicillins (Unverified Adverse Reaction, Unknown, 07/28/20) Home Medications Albuterol Sulfate 18 Gm Hfa.aer.ad, 2 PUFF INH Q4H PRN for SHORTNESS OF BREATH, (Reported) Bethanechol Chloride 10 Mg Tablet, 10 MG PO ACHS Prescribed by: JHOANA RAY on 07/30/20944 Bisacodyl 5 Mg Tablet.dr, 10 MG PO DAILY PRN for CONSTIPATION-4TH LINE, (Reported) Celecoxib 200 Mg Capsule, 200 MG PO BID, (Reported) Diazepam 5 Mg Tablet, 5 MG PO QID PRN for ANXIETY, (Reported) Morphine Sulfate 30 Mg Tablet.er, 30 MG PO BID PRN for PAIN-SEVERE (8-10), (Reported) Multivitamin 1 Each Tablet, 1 EACH PO DAILY, (Reported) Oxycodone HCl 20 Mg Tab.er.12h, 20 MG PO BID PRN for PAIN-SEVERE (8-10), (Reported) Prednisone 10 Mg Tab.ds.pk, 10 MG PO DAILY Take 6 tabs(60mg)daily,decrease by 1 tab(10MG)daily. Prescribed by: JHOANA RAY on 07/30/20944 Tamsulosin HCl 0.4 Mg Cap, 0.4 MG PO BID Prescribed by: JHOANA RAY on 07/30/2045 Tizanidine HCl 4 Mg Tablet, 4 MG PO Q6HR Prescribed by: JHOANA RAY on 07/30/20944 Patient Home Medication List Home Medication List Reviewed: Yes Review of Systems Constitutional: chills; No diaphoresis, No dizziness; fever (subjective), weakness EENTM: see HPI Respiratory: cough; No phlegm; short of breath Cardiovascular: No chest pain; edema Gastrointestinal: see HPI, nausea, vomiting Genitourinary: see HPI, incontinence Musculoskeletal: see HPI, joint swelling (left knee ), muscle pain Skin: change in color Psychiatric/Neurological: No Symptoms Reported Past Zzpyyal-Dlazdr-Kgprmd Hx Patient Social History Alcohol Use: Denies Use Recreational Drug Use: No 2nd Hand Smoke Exposure: No Recent Foreign Travel: No Contact w/Someone Who Travel: No Recent Infectious Disease Expo: No Recent Hopitalizations: No Immunizations Up To Date Tetanus Booster (TDap): Less than 5yrs PED Vaccines UTD: Yes Seasonal Allergies Seasonal Allergies: No Past Medical History Surgeries: Yes (3 LEG SURGERIES, SPINAL FUSION) Orthopedic, Vasectomy Respiratory: No Cardiac: No Neurological: Yes Cerebral Palsy Reproductive Disorders: No Genitourinary: No Gastrointestinal: No Musculoskeletal: Yes (Chronic musculoskeletal pain, fall injuries 2017) Arthritis Endocrine: No HEENT: No Cancer: No Psychosocial: No Integumentary: No Blood Disorders: No Physical Exam Vital Signs Vital Signs - First Documented 08/11/20 13:46 Temp 36.9 Pulse 110 Resp 19 B/P (MAP) 105/73 (84) Pulse Ox 100 O2 Delivery Simple Mask Capillary Refill : Less Than 3 Seconds Height, Weight, BMI Height: 5'6.00" Weight: 126lbs. oz. 57.677899qe; 28.00 BMI Method:Stated General Appearance: WD/WN, no apparent distress HEENT: PERRL/EOMI, pharynx normal Neck: non-tender, full range of motion, normal inspection Cardiovascular: regular rate, rhythm, other (Left lower extremity edema ) Respiratory: chest non-tender, lungs clear, normal breath sounds, no respiratory distress, no accessory muscle use Gastrointestinal: normal bowel sounds, non tender, soft Hips: bilateral hip non-tender, bilateral hip normal inspection Legs: left leg soft tissue tenderness, left leg swelling, left leg other (erythema) Knees: left knee pain, left knee soft tissue tenderness, left knee swelling (2 (+) pitting edema ), left knee other (, erythema) Ankles: left ankle soft tissue tenderness, left ankle swelling (2(+) pitting edema ), left ankle other (, erythema) Neurologic/Tendon: normal sensation, normal motor functions, responds to pain Neurologic/Psychiatric: alert, normal mood/affect, oriented x 3, motor weakness (chronic, history of CP) Skin: warm/dry, other (generalized erythema and warmth over left lower extremity from going distally. Small superficial abrasion on anterior knee with purulent drainage. ) Progress/Results/Core Measures Results/Orders Lab Results Laboratory Tests Test 08/11/20 13:50 08/11/20 15:25 08/11/20 15:50 Range/Units White Blood Count 18.9 H 4.3-11.0 10^3/uL Red Blood Count 4.35 4.30-5.52 10^6/uL Hemoglobin 12.4 L 13.3-17.7 g/dL Hematocrit 36 L 40-54 % Mean Corpuscular Volume 83 80-99 fL Mean Corpuscular Hemoglobin 29 25-34 pg Mean Corpuscular Hemoglobin Concent 35 32-36 g/dL Red Cell Distribution Width 13.0 10.0-14.5 % Platelet Count 414 H 130-400 10^3/uL Mean Platelet Volume 9.9 9.0-12.2 fL Immature Granulocyte % (Auto) 1 % Neutrophils (%) (Auto) 87 H 42-75 % Lymphocytes (%) (Auto) 3 L 12-44 % Monocytes (%) (Auto) 9 0-12 % Eosinophils (%) (Auto) 0 0-10 % Basophils (%) (Auto) 0 0-10 % Neutrophils # (Auto) 16.5 H 1.8-7.8 10^3/uL Lymphocytes # (Auto) 0.5 L 1.0-4.0 10^3/uL Monocytes # (Auto) 1.7 H 0.0-1.0 10^3/uL Eosinophils # (Auto) 0.0 0.0-0.3 10^3/uL Basophils # (Auto) 0.1 0.0-0.1 10^3/uL Immature Granulocyte # (Auto) 0.2 H 0.0-0.1 10^3/uL Neutrophils % (Manual) 71 % Lymphocytes % (Manual) 1 % Monocytes % (Manual) 4 % Band Neutrophils 24 % Poikilocytosis SLIGHT Prothrombin Time 14.9 H 12.2-14.7 SEC INR Comment 1.1 0.8-1.4 Activated Partial Thromboplast Time 38 H 24-35 SEC D-Dimer 3.90 H 0.00-0.49 UG/ML Sodium Level 129 L 135-145 MMOL/L Potassium Level 4.3 3.6-5.0 MMOL/L Chloride Level 92 L 98-107 MMOL/L Carbon Dioxide Level 25 21-32 MMOL/L Anion Gap 12 5-14 MMOL/L Blood Urea Nitrogen 21 H 7-18 MG/DL Creatinine 0.81 0.60-1.30 MG/DL Estimat Glomerular Filtration Rate > 60 BUN/Creatinine Ratio 26 Glucose Level 84 70-105 MG/DL Calcium Level 8.6 8.5-10.1 MG/DL Corrected Calcium 9.3 8.5-10.1 MG/DL Total Bilirubin 1.3 H 0.1-1.0 MG/DL Aspartate Amino Transf (AST/SGOT) 20 5-34 U/L Alanine Aminotransferase (ALT/SGPT) 19 0-55 U/L Alkaline Phosphatase 130 40-136 U/L C-Reactive Protein High Sensitivity 47.00 H 0.00-0.50 MG/DL Total Protein 6.5 6.4-8.2 GM/DL Albumin 3.1 L 3.2-4.5 GM/DL Lactic Acid Level 2.41 *H 0.50-2.00 MMOL/L Urine Color YELLOW Urine Clarity CLEAR Urine pH 6.0 5-9 Urine Specific [place] 1.025 H 1.016-1.022 Urine Protein 2+ H NEGATIVE Urine Glucose (UA) NEGATIVE NEGATIVE Urine Ketones 1+ H NEGATIVE Urine Nitrite NEGATIVE NEGATIVE Urine Bilirubin NEGATIVE NEGATIVE Urine Urobilinogen 1.0 < = 1.0 MG/DL Urine Leukocyte Esterase NEGATIVE NEGATIVE Urine RBC (Auto) 1+ H NEGATIVE Urine RBC NONE /HPF Urine WBC NONE /HPF Urine Squamous Epithelial Cells NONE /HPF Urine Crystals NONE /LPF Urine Bacteria NEGATIVE /HPF Urine Casts NONE /LPF Urine Mucus NEGATIVE /LPF Urine Culture Indicated NO My Orders Orders - CATALINA [employer] FINAL Cbc With Automated Diff (08/11/20 14:38) Comprehensive Metabolic Panel (08/11/20 14:38) Blood Culture (08/11/20 14:38) Urinalysis (08/11/20 14:38) Urine Culture (08/11/20 14:38) Protime With Inr (08/11/20 14:38) Partial Thromboplastin Time (08/11/20 14:38) Ed Iv/Invasive Line Start (08/11/20 14:38) Vital Signs Adult Sepsis Patie Q15M (08/11/20 14:38) Lactic Acid Analyzer (08/11/20 14:38) Manual Differential (08/11/20 13:50) Hs C Reactive Protein (08/11/20 14:58) Fibrin Degradation Products (08/11/20 14:58) Wound Culture (08/11/20 15:15) Ns Iv 1000 Ml (Sodium Chloride 0.9%) (08/11/20 15:15) Ct Angio Chest W (08/11/20 15:37) Vancomycin Injection (Vancomycin Injecti (08/11/20 16:15) Medications Given in ED Current Medications Medications Dose Ordered Sig/Gildardo Route Start Time Stop Time Status Last Admin Dose Admin Iohexol 100 ml ONCE ONCE IV 08/11/20 15:45 08/11/20 15:46 DC 08/11/20 15:58 75 ML Sodium Chloride 100 ml ONCE ONCE IV 08/11/20 15:45 08/11/20 15:46 DC 08/11/20 15:59 80 ML Sodium Chloride 1,740 ml @ 1,740 mls/hr ONCE ONCE IV 08/11/20 15:15 08/11/20 16:14 DC 08/11/20 15:29 1,740 MLS/HR Vancomycin HCl 1000 mg/Sodium Chloride 250 ml @ 250 mls/hr ONCE ONCE IV 08/11/20 16:15 08/11/20 17:14 DC 08/11/20 16:17 250 MLS/HR Vital Signs/I&O 08/11/20 13:46 Temp 36.9 Pulse 110 Resp 19 B/P (MAP) 105/73 (84) Pulse Ox 100 O2 Delivery Simple Mask Blood Pressure Mean: 84 Progress Progress Note : Progress Note Upon arrival his left left was noted to be very swollen, red, and warm to touch. Initial concerns for DVT vs cellulitis as patient was recently hospitalized last week. Sepsis workup and treatment initiated. Initial lactic acid elevated at 2.4, WBC 18.9, and noted to be tachycardiac in the 110's. All of which meets severe sepsis criteria. Blood cultures obtained and IV antibiotics with Vancomycin 1gm initiated. Remaining VS stable. Case discussed with Dr. Vance and agreeable with inpatient admission. Patient is stable to transfer to medical unit. 1742: Repeat Lactic Acid-1.64 Plan: Admit to medical unit for severe left lower extremity Cellulitis Cellulitis, sepsis: Vancomycin 1gm IV q12 hours, pharmacy to dose. Cefepime 1gm IV q 6 hours Wound culture pending Plan: Admit to medical unit for severe left lower extremity Cellulitis Cellulitis, sepsis: Vancomycin 1gm IV q12 hours, pharmacy to dose. First dose received in ED. Cefepime 1gm IV q 6 hours Wound culture pending Nausea/vomiting prophylaxis: -Zofran 4mg IVP q 6 hours PRN VTE: -Lovenox 30mg subcut daily Pain/fever: -Tylenol 650mg PO q 6 hours PRN pain/fever Departure Communication (Admissions) Time/Spoke to Admitting Phy: 16:[address] Vance, agreeable with inpatient admission to the medical unit. Impression Primary Impression: Cellulitis of left lower extremity Disposition: ADMITTED INPATIENT Condition: Stable Admissions Decision to Admit Reason: Admit from ER (General) Decision to Admit/Date: Aug 12, 2020 Time/Decision to Admit Time: 16:30 Departure-Patient Inst. Referrals: [facility] (PCP/Family) Primary Care Physician CATALINA LIN ASSEMBLER FINAL Aug 11, 2020 15:00
[2020-08-11 15:07] LABS: BAND NEUTROPHILS 24 %; LYMPHOCYTES % (MANUAL) 1 %; MONOCYTES % (MANUAL) 4 %; NEUTROPHILS % (MANUAL) 71 %; POIKILOCYTOSIS SLIGHT
[2020-08-11] MEDS ORDERED: NS IV ONE (15:15)
[2020-08-11] MEDS ORDERED: NS 100 ML (IVPB) BAG IV ONE (15:45)
[2020-08-11] MEDS ORDERED: HOLD METFORMIN - RECEIVED CONTRAST 20 ML VIAL IV SCH (15:45)
[2020-08-11] MEDS ORDERED: IOHEXOL 350 MG/ML 100 ML (OMNIPAQUE 350) VIAL IV ONE (15:45)
[2020-08-11 15:55] LABS: BILIRUBIN,URINE NEGATIVE (NEGATIVE); CLARITY,URINE CLEAR; COLOR,URINE YELLOW; GLUCOSE, URINE (UA) NEGATIVE (NEGATIVE); KETONES,URINE 1+ (NEGATIVE); LEUKOCYTE ESTERASE ,URINE NEGATIVE (NEGATIVE); NITRITE,URINE NEGATIVE (NEGATIVE); PROTEIN,URINE 2+ (NEGATIVE)
[2020-08-11 16:02] LABS: BACTERIA,URINE NEGATIVE /HPF
[2020-08-11] MEDS ORDERED: VANCOMYCIN INJECTION 1,000 MG in NS (IVPB) 250 ML IV ONE (16:15)
--- NOTE | 2020-08-11 16:39 | Diagnostic Imaging Report ---
PROCEDURE: CT angiography of the chest with contrast. TECHNIQUE: Multiple contiguous axial images were obtained through the chest after uneventful bolus administration of intravenous contrast. 3D reconstructed CTA MIP acquisitions were also performed. Auto Exposure Controls were utilized during the CT exam to meet ALARA standards for radiation dose reduction. INDICATION: Shortness of breath. Evaluate for a pulmonary embolism. FINDINGS: There is adequate opacification demonstrated of the pulmonary arterial system. There is no finding of a filling defect present to suggest pulmonary embolism. The thoracic aorta is unremarkable. There is no finding of aneurysm or dissection. Heart size is normal. There is no evidence of right ventricular strain. There is no pericardial collection. No pathologically enlarged mediastinal lymph nodes. Lungs demonstrate no focal infiltrate or consolidation. There is no effusion. There is no pneumothorax. There is no suspicious pulmonary nodule or mass. There is no finding of an acute osseous abnormality. The upper abdomen demonstrates a low-density cyst within the left hepatic lobe and a larger within the right hepatic lobe which have been present dating back to 2017. No acute upper abdominal abnormality is demonstrated. There is partial visualization of the patient's prior spinal fusion. Advanced endplate changes at T11-T12 are noted. There appears to be irregularity about the patient's interbody graft at T12-L1. Height loss at T11 and T12 appear unchanged. IMPRESSION: 1. No CT angiographic evidence of filling defect within the pulmonary arteries to suggest pulmonary embolism. 2. Unremarkable appearance of the thoracic aorta. 3. Lungs appear clear. 4. No adenopathy. 5. Redemonstration of prior described operative changes of the thoracolumbar spine. No acute or suspicious osseous abnormality demonstrated Dictated by: Dictated on workstation # [id number]
[2020-08-11 19:01] VITALS: BP 111/70
[2020-08-11 19:04] VITALS: BP 111/70
[2020-08-11] MEDS ORDERED: VANCOMYCIN INJECTION 0.1 MG in NS (IVPB) 250 ML IV SCH (19:45)
[2020-08-11] MEDS ORDERED: ENOXAPARIN 60 MG/0.6 ML (LOVENOX) SYR SC SCH (19:45)
[2020-08-11] MEDS ORDERED: morphine ER 30 MG (MS CONTIN) TAB PO PRN (20:30)
[2020-08-11] MEDS ORDERED: DIAZEPAM 5 MG (VALIUM) TABLET PO PRN (20:30)
[2020-08-11] MEDS ORDERED: RT-ALBUTEROL SULF 2.5 MG/3 ML PRE-MIX VIAL INH PRN (20:45)
[2020-08-11] MEDS ORDERED: ONDANSETRON 4 MG/2 ML (SDV) Z0FRAN IVP PRN (21:00)
[2020-08-11] MEDS ORDERED: ACETAMINOPHEN 325 MG TABLET PO PRN (21:00)
[2020-08-11] MEDS: CELECOXIB 100 MG (CeleBREX) CAP PO SCH (21:40)
[2020-08-11] MEDS: BETHANECHOL 10 MG (URECHOLINE) TAB PO SCH (21:40)
[2020-08-11] MEDS: TAMSULOSIN 0.4 MG (FLOMAX) CAP PO SCH (21:40)
[2020-08-11] MEDS: NS IV 1000 ML 1,000 ML IV SCH (21:40)
[2020-08-11] MEDS: ENOXAPARIN 80 MG/0.8 ML (LOVENOX) SYR SC SCH (21:41)
[2020-08-11] MEDS ORDERED: VANCOMYCIN 1000 MG/VIAL ONE (22:03)
[2020-08-11] MEDS ORDERED: NS (IVPB) 500 ML ONE (22:03)
[2020-08-11] MEDS: VANCOMYCIN 1 GM/NS 250 ML IVPB IV SCH ×2 (22:22)
[2020-08-12] VITALS (25 sets, daily range): BP systolic 77–113; BP diastolic 55–85
[2020-08-12] MEDS: CEFEPIME 1,000 MG/SWFI 10 ML IV PUSH IV SCH ×10 (00:43→23:40)
[2020-08-12] MEDS: NS IV 1000 ML 1,000 ML IV SCH ×5 (03:39→20:56)
[2020-08-12 04:39] LABS: HEMOGLOBIN 9.8 g/dL (13.3-17.7); MEAN PLATELET VOLUME 9.2 fL (9.0-12.2)
[2020-08-12 04:51] LABS: ALBUMIN 2.2 GM/DL (3.2-4.5); CHLORIDE 102 MMOL/L (98-107); POTASSIUM 4.4 MMOL/L (3.6-5.0); SODIUM 132 MMOL/L (135-145)
[2020-08-12 04:52] LABS: CALCIUM 7.4 MG/DL (8.5-10.1)
[2020-08-12 04:53] LABS: GLUCOSE 103 MG/DL (70-105); TOTAL PROTEIN 4.8 GM/DL (6.4-8.2)
[2020-08-12 04:54] LABS: CARBON DIOXIDE 22 MMOL/L (21-32)
[2020-08-12 04:55] LABS: BILIRUBIN,TOTAL 1.1 MG/DL (0.1-1.0)
[2020-08-12 04:57] LABS: ALKALINE PHOSPHATASE 117 U/L (40-136); CREATININE SERUM 0.69 MG/DL (0.60-1.30); GFR ESTIMATED > 60
[2020-08-12 04:58] LABS: BUN/CREATININE RATIO 23
[2020-08-12 05:00] LABS: ALANINE AMINOTRANSFERASE 14 U/L (0-55)
[2020-08-12] MEDS ORDERED: NS IV 1000 ML 1,000 ML IV SCH ×3 (05:00→09:00)
--- NOTE | 2020-08-12 05:45 | NUR ---
0415 - Pt vital signs - T=36.6, O2 Sat = 95% RA; HR= 96; BP = 76/54; RR = 18. Notified Dr. Vance of pt low blood pressure. Received order to Bolus 1L of fluid and recheck. 0520 - Pt vital signs after 1L fluid bolus - T=36.7, O2 Sat = 95% RA; HR= 96; BP = 75/51; RR=18. Notified Dr. Vance of pt low blood pressure. Received order to Bolus 1L of fluid; Hold Lovenox, Elevate Left Leg; Order Sonogram, Consult Dr. Palomares, and transfer to ICU. Will follow orders.
--- NOTE | 2020-08-12 06:04 | NUR ---
Pt transferred to ICU 11. Report given to OTF Banerjee
--- NOTE | 2020-08-12 06:14 | Pulmonary Consultation ---
History of Present Illness History of Present Illness Date Seen by Provider: Aug 12, 2020 Time Seen by Provider: 06:09 Date of Admission Allergies and Home Medications Allergies Coded Allergies: Penicillins (Unverified Adverse Reaction, Unknown, 07/28/20) Home Medications Albuterol Sulfate 18 Gm Hfa.aer.ad, 2 PUFF INH Q4H PRN for SHORTNESS OF BREATH, (Reported) Bethanechol Chloride 10 Mg Tablet, 10 MG PO ACHS Prescribed by: JHOANA RAY on 07/30/20 0945 Bisacodyl 5 Mg Tablet.dr, 10 MG PO DAILY PRN for CONSTIPATION-4TH LINE, (Reported) Celecoxib 200 Mg Capsule, 200 MG PO BID, (Reported) Diazepam 5 Mg Tablet, 5 MG PO QID PRN for ANXIETY, (Reported) Morphine Sulfate 30 Mg Tablet.er, 30 MG PO BID PRN for PAIN-SEVERE (8-10), (Reported) Multivitamin 1 Each Tablet, 1 EACH PO DAILY, (Reported) Oxycodone HCl 20 Mg Tab.er.12h, 20 MG PO BID PRN for PAIN-SEVERE (8-10), (Reported) Prednisone 10 Mg Tab.ds.pk, 10 MG PO DAILY Take 6 tabs(60mg)daily,decrease by 1 tab(10MG)daily. Prescribed by: JHOANA RAY on 07/30/20944 Tamsulosin HCl 0.4 Mg Cap, 0.4 MG PO BID Prescribed by: JHOANA RAY on 07/30/20944 Tizanidine HCl 4 Mg Tablet, 4 MG PO Q6HR Prescribed by: JHOANA RAY on 07/30/20944 Past Akjpfma-Mfslca-Aqotyn Hx Patient Social History Alcohol Use: Denies Use Recreational Drug Use: No 2nd Hand Smoke Exposure: No Recent Foreign Travel: No Contact w/Someone Who Travel: No Recent Infectious Disease Expo: No Recent Hopitalizations: No Immunizations Up To Date Tetanus Booster (TDap): Less than 5yrs PED Vaccines UTD: Yes Seasonal Allergies Seasonal Allergies: No Past Medical History Surgeries: Yes (3 LEG SURGERIES, SPINAL FUSION) Orthopedic, Vasectomy Respiratory: No Cardiac: No Neurological: Yes Cerebral Palsy Reproductive Disorders: No Genitourinary: No Gastrointestinal: No Musculoskeletal: Yes (Chronic musculoskeletal pain, fall injuries 2017) Arthritis Endocrine: No HEENT: No Cancer: No Psychosocial: No Integumentary: No Blood Disorders: No Review of Systems Time Seen by Provider: 06:18 Sepsis Event Evaluation Height, Weight, BMI Height: 5'6.00" Weight: 126lbs. oz. 57.750253tc; 24.22 BMI Method:Stated Exam Exam Vital Signs Date Time Temp Pulse Resp B/P (MAP) Pulse Ox O2 Delivery O2 Flow Rate FiO2 08/12/20 04:18 36.6 96 18 84/59 (67) 95 Room Air 08/12/20 00:00 37.1 111 18 100/59 (73) 100 Room Air 08/11/20 22:38 Room Air 08/11/20 19:04 37.2 113 18 111/70 (84) 97 Room Air 08/11/20 19:01 37.2 113 18 111/70 97 Room Air 08/11/20 19:00 Room Air 08/11/20 18:00 36.2 89 18 106/68 100 08/11/20 13:46 36.9 110 19 105/73 (84) 100 Simple Mask I & O 08/12/20 07:00 Intake Total 300 ml Output Total 150 ml Balance 150 ml Height & Weight Height: 5'6.00" Weight: 126lbs. oz. 57.338915ce; 24.22 BMI Method:Stated Capillary Refill: Less Than 3 Seconds Gastrointestinal: normal bowel sounds, non tender, soft Results Lab Laboratory Tests 08/11/20 13:50 08/12/20 04:15 Assessment/Plan Assessment/Plan Transferred to ICU secondary to hypotension. IVF bolus going currently. Cellulitis with sepsis -No fevers, Leukocytosis is improving -Continue Vancomycin, and Cefepime -Barrientos cultures peidng -Bilateral dopplers r/o DVT -Check CT of LLE to screen for NEC -Surgery is consulted -Consult wound care -Check HBA1c, CRP,ESR Hypotension -IVF bolus s.p 2 liters -Will order another liter of IVF -Increase IVF -Repeat LA -Check Random Cortisol Metabolic lactic acidosis -IVF Hyponatremia -Monitor DVT/GI PPX SUNNY BAXTER DO Aug 12, 2020 06:14
--- NOTE | 2020-08-12 06:34 | NUR ---
Notified Dr. Palomares of consult. Received order for stat CT Lower Extremity with contrast
[2020-08-12] MEDS: VANCOMYCIN 1 GM/NS 250 ML IVPB IV SCH ×6 (06:37→21:01)
[2020-08-12] MEDS ORDERED: CEFEPIME 1 GM/10 ML (MAXIPIME) VIAL ONE ×4 (06:39→23:36)
[2020-08-12] MEDS ORDERED: WATER (STERILE) FOR INJECTION 10 ML ONE ×4 (06:39→23:36)
[2020-08-12] MEDS: BETHANECHOL 10 MG (URECHOLINE) TAB PO SCH ×4 (06:43→20:58)
[2020-08-12 07:13] LABS: AMPHETAMINE SCREEN, URINE POSITIVE (NEGATIVE); BARBITURATE SCREEN URINE NEGATIVE (NEGATIVE); BENZODIAZEPINES SCREEN URINE POSITIVE (NEGATIVE); CANNABINOID SCREEN, URINE NEGATIVE (NEGATIVE); COCAINE SCREEN URINE NEGATIVE (NEGATIVE); METHADONE STAT NEGATIVE (NEGATIVE); METHAMPHETAMINE SCREEN URINE S NEGATIVE (NEGATIVE); OPIATE SCREEN URINE POSITIVE (NEGATIVE); OXYCODONE STAT POSITIVE (NEGATIVE); PROPOXYPHENE STAT NEGATIVE (NEGATIVE); TRICYCLIC ANTIDEPRESSANTS SCRE NEGATIVE (NEGATIVE)
--- NOTE | 2020-08-12 07:39 | Diagnostic Imaging Report ---
EXAMINATION: Chest 1 view HISTORY: Hypotension COMPARISON: CTA chest 08/11/2020 FINDINGS: Heart size and pulmonary vasculature are normal. The lungs are clear without consolidation, pleural effusion, or pneumothorax. The osseous structures are intact. IMPRESSION: 1. No acute radiographic abnormality in the chest. Dictated by: Dictated on workstation # [id number]
[2020-08-12] MEDS: TAMSULOSIN 0.4 MG (FLOMAX) CAP PO SCH ×2 (08:18→20:58)
[2020-08-12] MEDS: CELECOXIB 100 MG (CeleBREX) CAP PO SCH (08:18)
[2020-08-12] MEDS ORDERED: NOREPINEPHRINE 4 MG/250 ML 250 ML IV ONE (09:00)
[2020-08-12] MEDS ORDERED: NON-FORMULARY MEDICATION 1 EA EA (Prednisone 10 MG) PO SCH (09:00)
[2020-08-12] MEDS: NOREPINEPHRINE 4 MG/250 ML 250 ML IV SCH ×2 (09:06→18:53)
[2020-08-12] MEDS ORDERED: NS 100 ML (IVPB) BAG IV ONE (09:30)
[2020-08-12] MEDS ORDERED: IOHEXOL 350 MG/ML 150 ML (OMNIPAQUE 350) VIAL IV ONE (09:30)
[2020-08-12] MEDS ORDERED: HOLD METFORMIN - RECEIVED CONTRAST 20 ML VIAL IV SCH (09:30)
--- NOTE | 2020-08-12 09:32 | Consultation - Surgery ---
MATILDE PINTO MED STUDENT 08/12/20 0932: History of Present Illness History of Present Illness Patient Consulted On(demi/time) 08/12/20 09:27 Date Seen by Provider: Aug 12, 2020 Time Seen by Provider: 08:30 History of Present Illness Patient is a 49 year old male who was admitted to ICU with a diagnosis of LLE cellulitis/hypotension. He reports that one week ago he started having this s welling/pain of his LLE. He reports that at that time he fell while using his walker. He states that the left lower extremity is painful, warm to touch, and edematous. He reports the pain to be a 6/10 currently and reports the pain as a dull/ache with some throbbing. He states that movement or palpation of the leg worsens the pain. Nothing seems to have improved the pain up until this point. He denies fever, chills, night sweats, nausea, chest pain, or shortness of breath. He denies loss of sensation in the left lower extremity. Allergies and Home Medications Allergies Coded Allergies: Penicillins (Unverified Adverse Reaction, Unknown, 07/28/20) Home Medications Albuterol Sulfate 18 Gm Hfa.aer.ad, 2 PUFF INH Q4H PRN for SHORTNESS OF BREATH, (Reported) Bethanechol Chloride 10 Mg Tablet, 5 MG PO ACHS, (Reported) Bisacodyl 5 Mg Tablet.dr, 10 MG PO DAILY PRN for CONSTIPATION-4TH LINE, (Reported) Celecoxib 200 Mg Capsule, 200 MG PO BID, (Reported) Diazepam 5 Mg Tablet, 5 MG PO QID PRN for ANXIETY, (Reported) Morphine Sulfate 30 Mg Tablet.er, 30 MG PO BID PRN for PAIN-SEVERE (8-10), (Reported) Multivitamin 1 Each Tablet, 1 EACH PO DAILY, (Reported) Oxycodone HCl 20 Mg Tab.er.12h, 20 MG PO BID PRN for PAIN-SEVERE (8-10), (Reported) Phentermine HCl 30 Mg Capsule, 30 MG PO DAILY, (Reported) Tamsulosin HCl 0.4 Mg Cap, 0.4 MG PO BID, (Reported) Tizanidine HCl 4 Mg Tablet, 4 MG PO Q6HR Prescribed by: JHOANA RAY on 07/30/20 0904 Past Fnpnitn-Wlnoiy-Dodbwv Hx Patient Social History Alcohol Use: Denies Use Recreational Drug Use: No 2nd Hand Smoke Exposure: No Recent Foreign Travel: No Contact w/Someone Who Travel: No Recent Infectious Disease Expo: No Recent Hopitalizations: No Immunizations Up To Date Tetanus Booster (TDap): Less than 5yrs PED Vaccines UTD: Yes Seasonal Allergies Seasonal Allergies: No Surgeries History of Surgeries: Yes (3 LEG SURGERIES, SPINAL FUSION) Surgeries: Orthopedic, Vasectomy Respiratory History of Respiratory Disorde: No Cardiovascular History of Cardiac Disorders: No Neurological History of Neurological Disord: Yes Neurological Disorders: Cerebral Palsy Reproductive System Hx Reproductive Disorders: No Genitourinary History of Genitourinary Disor: No Gastrointestinal History of Gastrointestinal Di: No Musculoskeletal History of Musculoskeletal Dis: Yes (Chronic musculoskeletal pain, fall injuries 2017) Musculoskeletal Disorders: Arthritis Endocrine History of Endocrine Disorders: No HEENT History of HEENT Disorders: No Cancer History of Cancer: No Psychosocial History of Psychiatric Problem: No Integumentary History of Skin or Integumenta: No Blood Transfusions History of Blood Disorders: No Review of Systems-General Constitutional: No chills, No diaphoresis, No fever EENTM: no symptoms reported; No blurred vision, No double vision Respiratory: no symptoms reported; No cough, No short of breath Cardiovascular: no symptoms reported; No chest pain; edema (3+ edema LLE noted); No palpitations Gastrointestinal: no symptoms reported; No abdominal pain, No constipation, No diarrhea Genitourinary: no symptoms reported; No dysuria, No frequency Musculoskeletal: no symptoms reported Skin: see HPI, change in color, other (cellulitis of LLE, area is erythematous, reddened, and edematous) Psychiatric/Neurological: No Symptoms Reported Physical Exam-General Problems Physical Exam Vital Signs Vital Signs - First Documented 08/11/20 08/12/20 13:46 08:48 Temp 36.9 Pulse 110 Resp 19 B/P (MAP) 105/73 (84) Pulse Ox 100 O2 Delivery Simple Mask O2 Flow Rate 2.00 Capillary Refill : Less Than 3 Seconds General Appearance: mild distress (hypotensive) Eyes: Bilateral Eye EOMI HEENT: PERRL/EOMI Neck: non-tender, supple Respiratory: chest non-tender, no respiratory distress, no accessory muscle use Cardiovascular: normal peripheral pulses, regular rate, rhythm Peripheral Pulses: 2+ Dorsalis Pedis (R); 1+ Left Dors-Pedis (L); 2+ Radial Pulses (R), 2+ Radial Pulses (L) Gastrointestinal: non tender, soft; No distended, No tenderness Back: normal inspection Extremities: normal range of motion, no calf tenderness, normal capillary refill, swelling (3+ edema LLE) Neurologic/Psychiatric: no motor/sensory deficits, normal mood/affect, oriented x 3 Skin: other (erythematous and redness of LLE) Lymphatic: no adenopathy Data Review Labs Laboratory Tests 08/11/20 13:50: White Blood Count 18.9H, Red Blood Count 4.35, Hemoglobin 12.4L, Hematocrit 36L, Mean Corpuscular Volume 83, Mean Corpuscular Hemoglobin 29, Mean Corpuscular Hemoglobin Concent 35, Red Cell Distribution Width 13.0, Platelet Count 414H, Mean Platelet Volume 9.9, Immature Granulocyte % (Auto) 1, Neutrophils (%) (Auto) 87H, Lymphocytes (%) (Auto) 3L, Monocytes (%) (Auto) 9, Eosinophils (%) (Auto) 0, Basophils (%) (Auto) 0, Neutrophils # (Auto) 16.5H, Lymphocytes # (Auto) 0.5L, Monocytes # (Auto) 1.7H, Eosinophils # (Auto) 0.0, Basophils # (Auto) 0.1, Immature Granulocyte # (Auto) 0.2H, Neutrophils % (Manual) 71, Lymphocytes % (Manual) 1, Monocytes % (Manual) 4, Band Neutrophils 24, Poikilocytosis SLIGHT, Prothrombin Time 14.9H, INR Comment 1.1, Activated Partial Thromboplast Time 38H, D-Dimer 3.90H, Sodium Level 129L, Potassium Level 4.3, Chloride Level 92L, Carbon Dioxide Level 25, Anion Gap 12, Blood Urea Nitrogen 21H, Creatinine 0.81, Estimat Glomerular Filtration Rate > 60, BUN/Creatinine Ratio 26, Glucose Level 84, Calcium Level 8.6, Corrected Calcium 9.3, Total Bilirubin 1.3H, Aspartate Amino Transf (AST/SGOT) 20, Alanine Aminotransferase (ALT/SGPT) 19, Alkaline Phosphatase 130, C-Reactive Protein High Sensitivity 47.00H, Total Protein 6.5, Albumin 3.1L 08/11/20 15:25: Lactic Acid Level 2.41*H 10/25/20 15:50: Urine Color YELLOW, Urine Clarity CLEAR, Urine pH 6.0, Urine Specific [place] 1.025H, Urine Protein 2+H, Urine Glucose (UA) NEGATIVE, Urine Ketones 1+H, Urine Nitrite NEGATIVE, Urine Bilirubin NEGATIVE, Urine Urobilinogen 1.0, Urine Leukocyte Esterase NEGATIVE, Urine RBC (Auto) 1+H, Urine RBC NONE, Urine WBC NON E, Urine Squamous Epithelial Cells NONE, Urine Crystals NONE, Urine Bacteria NEGATIVE, Urine Casts NONE, Urine Mucus NEGATIVE, Urine Culture Indicated NO, Urine Opiates Screen POSITIVEH, Urine Oxycodone Screen POSITIVEH, Urine Methadone Screen NEGATIVE, Urine Propoxyphene Screen NEGATIVE, Urine Barbiturates Screen NEGATIVE, Ur Tricyclic Antidepressants Screen NEGATIVE, Urine Phencyclidine Screen NEGATIVE, Urine Amphetamines Screen POSITIVEH, Urine Methamphetamines Screen NEGATIVE, Urine Benzodiazepines Screen POSITIVEH, Urine Cocaine Screen NEGATIVE, Urine Cannabinoids Screen NEGATIVE 08/11/20 17:42: Lactic Acid Level 1.63 08/12/20 04:15: White Blood Count 10.0, Red Blood Count 3.39L, Hemoglobin 9.8#L, Hematocrit 28L, Mean Corpuscular Volume 83, Mean Corpuscular Hemoglobin 29, Mean Corpuscular Hemoglobin Concent 35, Red Cell Distribution Width 13.2, Platelet Count 316, Mean Platelet Volume 9.2, Erythrocyte Sedimentation Rate 45H, Sodium Level 132L, Potassium Level 4.4, Chloride Level 102, Carbon Dioxide Level 22, Anion Gap 8, Blood Urea Nitrogen 16, Creatinine 0.69, Estimat Glomerular Filtration Rate > 60, BUN/Creatinine Ratio 23, Glucose Level 103, Calcium Level 7.4L, Corrected Calcium 8.8, Total Bilirubin 1.1H, Aspartate Amino Transf (AST/SGOT) 37H, Alanine Aminotransferase (ALT/SGPT) 14, Alkaline Phosphatase 117, C-Reactive Protein High Sensitivity 35.76H, Total Protein 4.8L, Albumin 2.2L 08/12/20 06:28: Lactic Acid Level 1.42 Microbiology 08/12/20 Influenza Types A,B Antigen (GABRIELA) - Final, Complete 08/11/20 Gram Stain, Resulted Pending 08/11/20 Wound Culture - Preliminary, Resulted Staphylococcus aureus Assessment/Plan Assessment/Plan Assessment/Plan LLE cellulitis with sepsis Hypotension Plan to CT left lower extremity to rule out more invasive pathology Continue broad spectrum IV antibiotic coverage Keep LLE elevated at all times Clinical Quality Measures DVT/VTE Risk/Contraindication: Risk Factor Score Per Nursin RFS Level Per Nursing on Admit: 4+=Very High GUME QUINTANILLA DO 08/12/207: History of Present Illness History of Present Illness History of Present Illness Consult requested by Dr. Vance for left lower extremity cellulitis. Patient is a 49-year-old male who is admitted to the hospital with left lower extremity cellulitis. He developed hypotension and was transferred to the intensive care unit. Patient states has been having swelling and pain in his left lower extremity that began approximately 1 week ago. He states he recently fell scraping his left knee and also has a small puncture wound to the left middle toe patient states that the leg continue to swell up approximately 3 times the size of his right. He has had multiple surgeries to the left lower extremity. Patient states that he rates his pain approximately 6 out of 10 currently it is a dull aching throbbing type pain. Nothing seems to improve his symptoms. Nothing he knows of really seems to make it worse. Patient had a lower extremity Dopplers not demonstrating any DVT. Patient to have CT scan performed of left lower extremity. Allergies and Home Medications Allergies Coded Allergies: Penicillins (Unverified Adverse Reaction, Unknown, 07/28/20) Home Medications Albuterol Sulfate 18 Gm Hfa.aer.ad, 2 PUFF INH Q4H PRN for SHORTNESS OF BREATH, (Reported) Bethanechol Chloride 10 Mg Tablet, 5 MG PO ACHS, (Reported) Bisacodyl 5 Mg Tablet.dr, 10 MG PO DAILY PRN for CONSTIPATION-4TH LINE, (Reported) Celecoxib 200 Mg Capsule, 200 MG PO BID, (Reported) Diazepam 5 Mg Tablet, 5 MG PO QID PRN for ANXIETY, (Reported) Morphine Sulfate 30 Mg Tablet.er, 30 MG PO BID PRN for PAIN-SEVERE (8-10), (R eported) Multivitamin 1 Each Tablet, 1 EACH PO DAILY, (Reported) Oxycodone HCl 20 Mg Tab.er.12h, 20 MG PO BID PRN for PAIN-SEVERE (8-10), (Reported) Phentermine HCl 30 Mg Capsule, 30 MG PO DAILY, (Reported) Tamsulosin HCl 0.4 Mg Cap, 0.4 MG PO BID, (Reported) Tizanidine HCl 4 Mg Tablet, 4 MG PO Q6HR Prescribed by: JHOANA RAY on 07/30/20 0905 Patient Home Medication List Home Medication List Reviewed: Yes Past Icuyduh-Ssrans-Jzmhya Hx Reviewed Nursing Assessment Reviewed/Agree w Nursing PMH: Yes Family Medical History Significant Family History: No Pertinent Family Hx Review of Systems-General Constitutional: No chills, No diaphoresis, No fever EENTM: No blurred vision, No double vision Respiratory: No cough, No short of breath Cardiovascular: No chest pain; edema (3+ edema LLE noted); No palpitations Gastrointestinal: No abdominal pain, No constipation, No diarrhea Genitourinary: No dysuria, No frequency Musculoskeletal: No back pain; other (Left lower extremity pain) Skin: change in color, other (cellulitis of LLE, area is erythematous and edematous) Psychiatric/Neurological: Denies Anxiety, Denies Depressed, Denies Emotional Problems All Other Systems Reviewed Negative Unless Noted: Yes (Negative excepted noted.) Physical Exam-General Problems Physical Exam General Appearance: no apparent distress, thin HEENT: PERRL/EOMI, normal ENT inspection Neck: non-tender, supple Respiratory: chest non-tender, no respiratory distress, no accessory muscle use Cardiovascular: normal peripheral pulses, regular rate, rhythm Gastrointestinal: non tender, soft; No distended, No tenderness Rectal: deferred Back: no CVA tenderness, no vertebral tenderness Extremities: swelling (3+ edema LLE from left groin all the way down to foot. Left middle toe dorsal aspect small puncture wound. Left knee with scabs) Neurologic/Psychiatric: no motor/sensory deficits, alert, normal mood/affect, oriented x 3 Skin: other (erythematous and redness of LLE, right lower abdomen superficial wound approximately 3.5 cm in diameter) Lymphatic: no adenopathy Assessment/Plan Assessment/Plan Assessment/Plan LLE cellulitis with sepsis Hypotension Cerebral palsy Right lower abdominal wound, left knee and left middle toe wound. Continue antibiotics add clindamycin CT scan left lower extremity ordered await results. Do not believe this is necrotizing fasciitis No surgical intervention at this time, medical management. Supervisory-Addendum Brief Verification & Attestation Participated in pt care: history, MDM, physical Personally performed: exam, history, MDM, supervision of care Care discussed with: Medical Student Procedures: n/a Results interpretation: Verified all documentation Verification and Attestation of Medical Student E/M Service A medical student performed and documented this service in my presence. I r eviewed and verified all information documented by the medical student and made modifications to such information, when appropriate. I personally performed the physical exam and medical decision making. Gume Quintanilla, Aug 12, 2020,22:09 MATILDE PINTO MED STUDENT Aug 12, 2020 09:32 GUME QUINTANILLA DO Aug 12, 2020 22:07
[2020-08-12] MEDS: CLINDAMYCIN 600 MG/50 ML IVPB 50 ML IV SCH ×3 (09:53→21:01)
--- NOTE | 2020-08-12 09:58 | Diagnostic Imaging Report ---
PROCEDURE: US Venous Lower Ext Nikhil. TECHNIQUE: Multiple real-time grayscale images were obtained over the lower extremities in various projections, bilaterally. Additional duplex Doppler and color Doppler images were also obtained. INDICATION: Cellulitis of the left lower extremity. There is no evidence of right or left lower extremity DVT. Both lower extremity deep venous systems demonstrate normal compressibility with normal response to augmentation and Valsalva. No fluid collection or mass is detected. IMPRESSION: No evidence of right or left lower extremity DVT. Dictated by: Dictated on workstation # [id number]
--- NOTE | 2020-08-12 10:23 | NUR ---
TELEPHONE ORDER FROM DR. BAXTER TO GIVE PT'S 1400 DOSE OF SOLU-MEDROL 100MG IV NOW. Addendum: 08/12/20 at 1025 by JAH CORDERO RN AMENDMENT TO NOTE ABOVE: SOLU-CORTEF 100MG IV
--- NOTE | 2020-08-12 10:23 | Diagnostic Imaging Report ---
INDICATION: Central venous catheter assessment. Single AP view of the chest is obtained with comparison made to study of earlier in the day. Left upper extremity PICC has been placed with catheter tip projecting over the midsuperior vena cava. There is no evidence of pneumothorax. Perihilar densities are seen in both lungs which may be due to atelectasis and/or pneumonitis. There is no lobar consolidation. No definite pleural fluid is seen. IMPRESSION: There is no evidence of complication related to left upper extremity PICC placement. There is mild perihilar atelectasis and/or pneumonitis. Dictated by: Dictated on workstation # [id number]
[2020-08-12] MEDS ORDERED: HYDROCORTISONE 100 MG/2 ML (Solu-CORTEF) VIAL ONE (10:26)
[2020-08-12] MEDS: HYDROCORTISONE 100 MG/2 ML (Solu-CORTEF) VIAL IV SCH ×2 (10:30→21:00)
[2020-08-12] MEDS ORDERED: PHEN30CA2 PO (12:07)
[2020-08-12] MEDS ORDERED: BTH10T PO (12:08)
[2020-08-12] MEDS ORDERED: TMSL.4C PO (12:08)
--- NOTE | 2020-08-12 12:09 | NUR ---
SPOKE WITH PT, WENT THRU THE EXT MED HISTORY, AND LOOKED OVER THE PREVIOUS DISCHARGE TO COMPLETE THE MED REC PT WAS RECENTLY HERE AND I COMPLETED THE MED REC ON 07-29-2020. WHEN I SPOKE WITH THE PT TODAY WE WENT THRU THE EXT MED HISTORY AND ACCORDING TO THE PT ALL THE MEDICATIONS HE WAS ON PRIOR TO HIS HOSPITALIZATION ON 07-28-2020 HE IS STILL TAKING NOW. WE WENT THRU THE NEW MEDICATIONS THAT WERE GIVEN TO THE PT AT DISCHARGE. BETHANECHOL 10MG- DIRECTIONS AT DISCHARGE WERE 10MG ACHS HOWEVER PT SAYS HE HAD SPLIT THE TABLET AND ONLY TAKEN 5MG FOR EACH DOSE OTC MEDS: BISACODYL MTV
[2020-08-12] MEDS ORDERED: TROUGH ORDER-PHARMACY XX ONE (13:00)
--- NOTE | 2020-08-12 13:23 | NUR ---
PT TO CT VIA PT BED WITH OTF FLOOD AT [facility] AND [facility] AT [facility]. PT TRANSPORTED WITH TRANSPORT MONITOR AND IV PUMP.
--- NOTE | 2020-08-12 13:42 | NUR ---
PT RETURNED TO PT ROOM VIA PT BED WITH ALEENA VANESSA AT [facility]. PT RETURNED ON TRANSPORT MONITOR AND IV PUMP. PT CONNECTED TO MONITORS, CALL LIGHT GIVEN TO PT.
--- NOTE | 2020-08-12 14:04 | Diagnostic Imaging Report ---
INDICATION: Left leg swelling x 1 week. TECHNIQUE: Axial imaging through bilateral lower extremities was performed after the administration of intravenous contrast utilizing the CT angiography protocol. Multiplanar, 3D reformations were also performed. FINDINGS: There is significant edema and ill-defined fluid throughout the subcutaneous tissues of the entire left lower extremity, commencing at the level of the pelvis and extending to the foot. A majority of this appears to be located in the subcutaneous tissues. The deep soft tissues are grossly unremarkable. No abnormal enhancement to the fascia is identified. No soft tissue gas is identified to suggest necrotizing fasciitis. No deep fluid collection is identified. The external iliac, common femoral, superficial femoral, and popliteal arteries are widely patent. There is three-vessel runoff to the ankle via the posterior tibial, anterior tibial, and peroneal arteries. The bony structures are unremarkable. No fracture or bony destructive changes are seen. IMPRESSION: Cellulitic changes involving the left lower extremity from the pelvis to the foot. No definite superficial or deep soft tissue well-formed fluid collection or abscess is seen. There is no enhancement to the fascia or soft tissue gas to suggest necrotizing fasciitis. The patient does have three-vessel runoff to the left ankle. Dictated by: Dictated on workstation # [id number]
--- NOTE | 2020-08-12 14:35 | NUR ---
"RD ASSESSMENT PMHx: PT INTERACTION: Pt was awake and pleasant during consult for MST score. Pt states current appetite is good. Note PO intake <10% x1meal, per chart review. Pt states following a regular diet at home, and has no issues with chewing/swallowing food. Pt states no recent issues with nausea, vomiting, or diarrhea. Pt states some recent issues with constipation and that his last BM was 08/08. Note pt not currently on bowel regimen per chart review. Pt states no recent wt changes. Note recent 14# wt gain x2w, per chart review. Note wt gain could be associated with fluid buildup. Note presence of wound (Left LE), per chart review. Upon visual assessment, pt appears to be adequately nourished with no visible signs of muscle/fat wasting and a BMI of 24.2 (Normal BMI for age). Though PO intake is low, given wt hx and visual assessment, pt does not meet criteria for malnutrition per ASPEN guidelines. ABNORMAL NUTRITION-RELATED LAB VALUES LOW: Na 132; Ca 7.4; Pro 4.8; alb 2.2 HIGH: bili 1.1; AST 37 Est. kcal needs: 1700 kcal | 25 kcal/kg Est. Pro needs: 82 g Pro | 1.2 g Pro/kg PES STATEMENT: Inadequate oral intake (NI-2.1) related to loss of appetite | constipation as evidenced by pt interview | PO intake <10% x1meal Inadequate protein intake (NI-5.6.1) related to increased protein needs as evidenced by presence of wound (Left LE) INTERVENTION: Continue with current diet order of Regular diet. Continue with current supplementation order of Ensure Enlive (vary) with meals TID, for increased kcal intake. Provides 350 kcal and 20 g Pro per serving. Will continue to follow and reassess as pt needs, intake, and status change. Deni Fry, MS RD LD"
--- NOTE | 2020-08-12 15:50 | Wound Care Assessment ---
Wound Care Assessment Date Seen by Provider: Aug 12, 2020 Time Seen by Provider: 15:45 Chief Complaint Cellulitis L leg. HPI The patient is a 49 year old male with aggressive cellulitis of the L leg, developing after abrasion of L knee 8 days ago, and L posterior calf laceration several weeks ago. Silver alginate dressings ordered. Will follow. Cerebral palsy, arthritis, previous back operation. Recreational Drug Use: No Alcohol Use: Denies Use Review of Systems Pulmonary: No Dyspnea Cardiovascular: No: Chest Pain Exam Vital Signs Date Time Temp Pulse Resp B/P (MAP) Pulse Ox O2 Delivery O2 Flow Rate FiO2 08/12/20 15:44 36.0 08/12/20 11:02 85 107/70 08/12/20 11:00 19 95 Nasal Cannula 2.00 08/12/20 08:45 97 Capillary Refill : Less Than 3 Seconds General Appearance: no apparent distress HEENT: normal ENT inspection Cardiovascular: regular rate, rhythm Respiratory: lungs clear Extremities: other (massive edema and erythema of L leg to groin, with abrasion of L anterior knee and small laceration of the L posterior calf.) Results Laboratory Tests 08/11/20 15:50: Urine Color YELLOW, Urine Clarity CLEAR, Urine pH 6.0, Urine Specific [place] 1.025H, Urine Protein 2+H, Urine Glucose (UA) NEGATIVE, Urine Ketones 1+H, Urine Nitrite NEGATIVE, Urine Bilirubin NEGATIVE, Urine Urobilinogen 1.0, Urine Leukocyte Esterase NEGATIVE, Urine RBC (Auto) 1+H, Urine RBC NONE, Urine WBC NONE, Urine Squamous Epithelial Cells NONE, Urine Crystals NONE, Urine Bacteria NEGATIVE, Urine Casts NONE, Urine Mucus NEGATIVE, Urine Culture Indicated NO, Urine Opiates Screen POSITIVEH, Urine Oxycodone Screen POSITIVEH, Urine M ethadone Screen NEGATIVE, Urine Propoxyphene Screen NEGATIVE, Urine Barbiturates Screen NEGATIVE, Ur Tricyclic Antidepressants Screen NEGATIVE, Urine Phencyclidine Screen NEGATIVE, Urine Amphetamines Screen POSITIVEH, Urine Methamphetamines Screen NEGATIVE, Urine Benzodiazepines Screen POSITIVEH, Urine Cocaine Screen NEGATIVE, Urine Cannabinoids Screen NEGATIVE 08/11/20 17:42: Lactic Acid Level 1.63 08/12/20 04:15: White Blood Count 10.0, Red Blood Count 3.39L, Hemoglobin 9.8#L, Hematocrit 28L, Mean Corpuscular Volume 83, Mean Corpuscular Hemoglobin 29, Mean Corpuscular Hemoglobin Concent 35, Red Cell Distribution Width 13.2, Platelet Count 316, Mean Platelet Volume 9.2, Erythrocyte Sedimentation Rate 45H, Sodium Level 132L, Potassium Level 4.4, Chloride Level 102, Carbon Dioxide Level 22, Anion Gap 8, Blood Urea Nitrogen 16, Creatinine 0.69, Estimat Glomerular Filtration Rate > 60, BUN/Creatinine Ratio 23, Glucose Level 103, Calcium Level 7.4L, Corrected Calcium 8.8, Total Bilirubin 1.1H, Aspartate Amino Transf (AST/SGOT) 37H, Alanine Aminotransferase (ALT/SGPT) 14, Alkaline Phosphatase 117, C-Reactive Protein High Sensitivity 35.76H, Total Protein 4.8L, Albumin 2.2L 08/12/20 06:28: Lactic Acid Level 1.42 08/12/20 12:52: Vancomycin Level Trough 12.6 Microbiology 08/12/20 Influenza Types A,B Antigen (GABRIELA) - Final, Complete 08/11/20 Gram Stain, Resulted Pending 08/11/20 Wound Culture - Preliminary, Resulted Staphylococcus aureus Microbiology 08/12/20 Influenza Types A,B Antigen (GABRIELA) - Final, Complete 08/11/20 Gram Stain, Resulted Pending 08/11/20 Wound Culture - Preliminary, Resulted Staphylococcus aureus Assessment/Plan/Dx 1. History of laceration/abrasion of L leg, with subsequent severe cellulitis. 2. Cerebral palsy with paraplegia. Plan: silver alginate dressings, daily. KORIN CHAIDEZ MD Aug 12, 2020 15:50
--- NOTE | 2020-08-12 15:53 | History & Physical ---
HPI History of Present Illness: 49 yo M that presented with severe LLE swelling and pain. States that he was recently admitted and it started to improve and now is swollen 3x the size of his right leg. He is still able to move his toes. Having diffuse pain of that leg. He has had multiple procedures and surgeries to that leg due to injuries and his cerebral palsy. Denies any trauma to that legs since he went home. Source: patient Exam Limitations: no limitations Date seen by provider: Aug 12, 2020 Time Seen by Provider: 09:25 Attending Physician Keira Escalona MD PCP Center/[facility] [place] Consult Date of Admission Aug 11, 2020 at 16:42 Home Medications Home Medications Reviewed patient Home Medication Reconciliation performed by pharmacy medication reconciliations emergency room technician and/or nursing. Patients Allergies have been reviewed. Allergies Coded Allergies: Penicillins (Unverified Adverse Reaction, Unknown, 07/28/20) [id number]-[id number]-Owyuri Hx Patient Social History Alcohol Use: Denies Use Recreational Drug Use: No 2nd Hand Smoke Exposure: No Recent Foreign Travel: No Contact w/other who traveled: No Recent Hopitalizations: No Recent Infectious Disease Expo: No Immunizations Up To Date Tetanus Booster (TDap): Less than 5yrs Past Medical History Cerebral Palsy Substance Abuse Review of Systems (CHC) Constitutional: No chills, No fever; malaise, weakness EENTM: no symptoms reported; No mouth pain, No nose congestion, No throat pain Respiratory: no symptoms reported; No cough, No dyspnea on exertion, No short of breath Cardiovascular: no symptoms reported; No chest pain, No edema, No palpitations Gastrointestinal: No abdominal pain; constipation; No diarrhea; loss of appetite; No nausea, No vomiting Genitourinary: no symptoms reported; No dysuria, No frequency, No hematuria Musculoskeletal: joint pain, muscle pain Skin: rash Psychiatric/Neurological: No Symptoms Reported Reviewed Test Results Reviewed Test Results Lab Laboratory Tests Test 08/11/20 17:42 08/12/20 04:15 08/12/20 06:28 08/12/20 12:52 Range/Units Lactic Acid Level 1.63 1.42 0.50-2.00 MMOL/L White Blood Count 10.0 4.3-11.0 10^3/uL Red Blood Count 3.39 L 4.30-5.52 10^6/uL Hemoglobin 9.8 #L 13.3-17.7 g/dL Hematocrit 28 L 40-54 % Mean Corpuscular Volume 83 80-99 fL Mean Corpuscular Hemoglobin 29 25-34 pg Mean Corpuscular Hemoglobin Concent 35 32-36 g/dL Red Cell Distribution Width 13.2 10.0-14.5 % Platelet Count 316 130-400 10^3/uL Mean Platelet Volume 9.2 9.0-12.2 fL Erythrocyte Sedimentation Rate 45 H 0-15 MM/HR Sodium Level 132 L 135-145 MMOL/L Potassium Level 4.4 3.6-5.0 MMOL/L Chloride Level 102 98-107 MMOL/L Carbon Dioxide Level 22 21-32 MMOL/L Anion Gap 8 5-14 MMOL/L Blood Urea Nitrogen 16 7-18 MG/DL Creatinine 0.69 0.60-1.30 MG/DL Estimat Glomerular Filtration Rate > 60 BUN/Creatinine Ratio 23 Glucose Level 103 70-105 MG/DL Calcium Level 7.4 L 8.5-10.1 MG/DL Corrected Calcium 8.8 8.5-10.1 MG/DL Total Bilirubin 1.1 H 0.1-1.0 MG/DL Aspartate Amino Transf (AST/SGOT) 37 H 5-34 U/L Alanine Aminotransferase (ALT/SGPT) 14 0-55 U/L Alkaline Phosphatase 117 40-136 U/L C-Reactive Protein High Sensitivity 35.76 H 0.00-0.50 MG/DL Total Protein 4.8 L 6.4-8.2 GM/DL Albumin 2.2 L 3.2-4.5 GM/DL Vancomycin Level Trough 12.6 10.0-20.0 UG/ML Physical Exam-(CHC) Physical Exam Vital Signs VS - Last 72 Hours, by Label 08/11/20 08/11/20 08/11/20 08/11/20 13:46 18:00 19:00 19:01 Temp 36.9 36.2 37.2 Pulse 110 89 113 Resp 19 18 18 B/P (MAP) 105/73 (84) 106/68 111/70 Pulse Ox 100 100 97 O2 Delivery Simple Mask Room Air Room Air 08/11/20 08/11/20 08/12/20 08/12/20 19:04 22:38 00:00 04:18 Temp 37.2 37.1 36.6 Pulse 113 111 96 Resp 18 18 18 B/P (MAP) 111/70 (84) 100/59 (73) 84/59 (67) Pulse Ox 97 100 95 O2 Delivery Room Air Room Air Room Air Room Air 08/12/20 08/12/20 08/12/20 08/12/20 06:03 06:05 06:06 06:21 Temp 37.9 Pulse 95 89 90 89 Resp 10 20 B/P (MAP) 89/66 (74) 80/58 (65) 82/63 (69) Pulse Ox 94 93 O2 Delivery Room Air Room Air Room Air 08/12/20 08/12/20 08/12/20 08/12/20 06:22 06:30 06:45 07:00 Pulse 92 92 91 Resp 19 20 B/P (MAP) 82/66 (71) 84/64 (71) 84/59 (67) Pulse Ox 92 93 89 89 O2 Delivery Room Air Room Air Room Air Room Air 08/12/20 08/12/20 08/12/20 08/12/20 08:00 08:00 08:23 08:45 Temp 36.8 Pulse 88 Resp 21 B/P (MAP) 77/56 (63) Pulse Ox 96 O2 Delivery Room Air Nasal Cannula Room Air O2 Flow Rate 2.00 FiO2 97 08/12/20 08/12/20 08/12/20 08/12/20 08:48 09:00 09:06 10:00 Pulse 84 80 79 Resp 22 13 B/P (MAP) 102/78 (86) 78/58 105/80 (88) Pulse Ox 93 89 O2 Delivery Nasal Cannula Nasal Cannula Nasal Cannula O2 Flow Rate 2.00 2.00 2.00 08/12/20 08/12/20 08/12/20 08/12/20 10:18 11:00 11:02 15:44 Temp 36.0 Pulse 85 85 Resp 19 B/P (MAP) 99/63 (75) 107/70 Pulse Ox 95 O2 Delivery Nasal Cannula O2 Flow Rate 2.00 Capillary Refill : Less Than 3 Seconds General Appearance: WD/WN, no apparent distress Neck: non-tender, full range of motion, supple Respiratory: chest non-tender, lungs clear, normal breath sounds, no respiratory distress, no accessory muscle use Cardiovascular: normal peripheral pulses, regular rate, rhythm, no murmur Gastrointestinal: normal bowel sounds, non tender, soft Extremities: other (LLE 4+ pitting edema, palpable pulse in DP and PT) 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, alert, normal mood/affect, oriented x 3 Lymphatic: no adenopathy Assessment/Plan Assessment/Plan Admission Status: Inpatient Order (span 2 midnights) Reason for Inpatient Admission: Patient requiring ICU care with IV medications and IVFs (1) Severe sepsis Status: Acute Assessment & Plan: - Patient in ICU requiring pressors to keep MAP >60, Continue IV antibiotics, cultures pending, strict I/Os with UOP (2) Cellulitis of left lower extremity Status: Acute Assessment & Plan: - Dr Palomares consulted, CT ordered to rule out narcotizing fasciitis, Venous dopplers neg for DVT, Consider pelvic US to rule out pelvic thrombosis (3) Hyponatremia Status: Chronic Assessment & Plan: - Will continue to monitor (4) Normocytic anemia Status: Chronic (5) Elevated bilirubin Status: Chronic (6) Cerebral palsy Status: Acute Clinical Quality Measures DVT/VTE Risk/Contraindication: Risk Factor Score Per Nursin RFS Level Per Nursing on Admit: 4+=Very High KEIRA ESCALONA MD Aug 12, 2020 15:53
[2020-08-12] MEDS ORDERED: LIDOCAINE UROJET 2% GEL 10 ML PKG ONE (20:27)
[2020-08-13] VITALS (24 sets, daily range): BP systolic 86–131; BP diastolic 54–96
[2020-08-13] MEDS ORDERED: LIDOCAINE UROJET 2% GEL 10 ML PKG TOP ONE ×2
[2020-08-13] MEDS: morphine ER 30 MG (MS CONTIN) TAB PO SCH ×3 (00:03→21:04)
[2020-08-13 03:23] LABS: BASOPHILS # (AUTO) 0.1 10^3/uL (0.0-0.1); BASOPHILS % (AUTO) 0 % (0-10); EOSINOPHILS % (AUTO) 0 % (0-10); HEMATOCRIT 29 % (40-54); HEMOGLOBIN 10.1 g/dL (13.3-17.7); LYMPHOCYTES # (AUTO) 0.5 10^3/uL (1.0-4.0); LYMPHOCYTES % (AUTO) 2 % (12-44); MEAN CORPUSCULAR HEMOGLOBIN 29 pg (25-34); MEAN CORPUSCULAR HGB CONC 35 g/dL (32-36); MEAN CORPUSCULAR VOLUME 83 fL (80-99); MEAN PLATELET VOLUME 9.1 fL (9.0-12.2); MONOCYTES # (AUTO) 1.1 10^3/uL (0.0-1.0); MONOCYTES % (AUTO) 5 % (0-12); NEUTROPHILS # (AUTO) 20.3 10^3/uL (1.8-7.8); NEUTROPHILS % (AUTO) 91 % (42-75); PLATELET COUNT 351 10^3/uL (130-400); WHITE BLOOD COUNT 22.4 10^3/uL (4.3-11.0)
[2020-08-13 04:13] LABS: CHLORIDE 105 MMOL/L (98-107); POTASSIUM 3.9 MMOL/L (3.6-5.0); SODIUM 134 MMOL/L (135-145)
[2020-08-13 04:14] LABS: CALCIUM 7.5 MG/DL (8.5-10.1); GLUCOSE 206 MG/DL (70-105)
[2020-08-13 04:16] LABS: CARBON DIOXIDE 21 MMOL/L (21-32)
[2020-08-13 04:18] LABS: CREATININE SERUM 0.62 MG/DL (0.60-1.30); GFR ESTIMATED > 60; PHOSPHORUS 2.4 MG/DL (2.3-4.7)
[2020-08-13 04:19] LABS: BUN/CREATININE RATIO 29
[2020-08-13 04:20] LABS: MAGNESIUM 2.2 MG/DL (1.6-2.4)
[2020-08-13] MEDS: NOREPINEPHRINE 4 MG/250 ML 250 ML IV SCH ×2 (04:52→08:19)
--- NOTE | 2020-08-13 05:48 | Pulmonary Progress Note ---
Subjective Time Seen by a Provider: 05:47 Sepsis Event Evaluation Height, Weight, BMI Height: 5'6.00" Weight: 126lbs. oz. 57.675320gj; 24.22 BMI Method:Stated Focused Exam Lactate Level 08/11/20 15:25: Lactic Acid Level 2.41*H 08/11/20 17:42: Lactic Acid Level 1.63 08/12/20 06:28: Lactic Acid Level 1.42 Exam Exam Vital Signs Date Time Temp Pulse Resp B/P (MAP) Pulse Ox O2 Delivery O2 Flow Rate FiO2 08/13/20 04:52 86 92/66 08/13/20 04:00 86 19 92/66 (75) 96 Room Air 08/13/20 03:37 37.4 08/13/20 03:00 79 15 91/55 (67) 95 Room Air 08/13/20 02:00 79 15 89/56 (67) 95 Room Air 08/13/20 01:00 86 14 90/54 (66) 95 Room Air 08/13/20 01:00 86 08/13/20 00:00 87 14 92/58 (69) Room Air 08/12/20 23:46 37.0 08/12/20 23:00 86 14 90/55 (67) 96 Room Air 08/12/20 22:55 80 08/12/20 22:05 97/65 (76) 08/12/20 22:00 89 21 97/65 (76) 95 Room Air 08/12/20 21:00 81 33 103/81 (88) 98 Room Air 08/12/20 20:50 36.8 83 18 93/68 (76) 97 Room Air 08/12/20 20:00 Room Air 08/12/20 20:00 81 113/79 (90) 94 Nasal Cannula 2.00 08/12/20 19:59 Room Air 92 08/12/20 19:00 71 99/78 (85) 92 Nasal Cannula 2.00 08/12/20 17:00 62 107/78 (88) 97 Nasal Cannula 2.00 08/12/20 16:42 62 104/76 08/12/20 16:00 68 14 100/85 (90) 95 Nasal Cannula 2.00 08/12/20 15:44 36.0 08/12/20 15:00 60 11 104/73 (83) 99 Nasal Cannula 2.00 08/12/20 14:00 58 11 89/60 (70) 100 Nasal Cannula 2.00 08/12/20 13:00 73 108/79 (89) 94 Nasal Cannula 2.00 08/12/20 12:29 69 08/12/20 12:00 71 17 104/85 (91) 95 Nasal Cannula 2.00 08/12/20 11:02 85 107/70 08/12/20 11:00 85 19 99/63 (75) 95 Nasal Cannula 2.00 08/12/20 10:18 08/12/20 10:00 79 13 105/80 (88) 89 Nasal Cannula 2.00 08/12/20 09:06 80 78/58 08/12/20 09:00 84 22 102/78 (86) 93 Nasal Cannula 2.00 08/12/20 08:48 Nasal Cannula 2.00 08/12/20 08:45 Room Air 97 08/12/20 08:23 36.8 08/12/20 08:00 Nasal Cannula 2.00 08/12/20 08:00 88 21 77/56 (63) 96 Room Air 08/12/20 07:00 91 84/59 (67) 89 Room Air 08/12/20 06:45 92 20 84/64 (71) 89 Room Air 08/12/20 06:30 92 19 82/66 (71) 93 Room Air 08/12/20 06:22 92 Room Air 08/12/20 06:21 37.9 89 20 82/63 (69) 93 Room Air 08/12/20 06:06 90 10 80/58 (65) 94 Room Air 08/12/20 06:05 89 08/12/20 06:03 95 89/66 (74) Room Air I & O 08/13/20 07:00 Intake Total 4800 ml Output Total 1750 ml Balance 3050 ml Height & Weight Height: 5'6.00" Weight: 126lbs. oz. 57.165049ry; 24.22 BMI Method:Stated Capillary Refill: Less Than 3 Seconds Peripheral Pulses: 2+ Dorsalis Pedis (R); 1+ Left Dors-Pedis (L); 2+ Radial Pulses (R), 2+ Radial Pulses (L) Gastrointestinal: non tender, soft; No distended, No tenderness Results Lab Laboratory Tests 08/11/20 13:50 08/12/20 04:15 08/13/20 03:10 Assessment/Plan Assessment/Plan Transferred to ICU secondary to hypotension. IVF bolus going currently. Cellulitis with sepsis -No fevers, Leukocytosis is improving -Continue Vancomycin, and Cefepime -Barrientos cultures peidng -Bilateral dopplers r/o DVT -Check CT of LLE to screen for NEC -Surgery is consulted -Consult wound care -Check HBA1c, CRP,ESR Hypotension -IVF bolus s.p 2 liters -Will order another liter of IVF -Increase IVF -Repeat LA -Check Random Cortisol Metabolic lactic acidosis -IVF Hyponatremia -Monitor DVT/GI PPX SUNNY BAXTER DO Aug 13, 2020 05:48
--- NOTE | 2020-08-13 05:51 | Pulmonary Progress Note ---
Subjective Time Seen by a Provider: 05:48 Sepsis Event Evaluation Height, Weight, BMI Height: 5'6.00" Weight: 126lbs. oz. 57.463327cy; 24.22 BMI Method:Stated Focused Exam Lactate Level 08/11/20 15:25: Lactic Acid Level 2.41*H 08/11/20 17:42: Lactic Acid Level 1.63 08/12/20 06:28: Lactic Acid Level 1.42 Exam Exam Vital Signs Date Time Temp Pulse Resp B/P (MAP) Pulse Ox O2 Delivery O2 Flow Rate FiO2 08/13/20 04:52 86 92/66 08/13/20 04:00 86 19 92/66 (75) 96 Room Air 08/13/20 03:37 37.4 08/13/20 03:00 79 15 91/55 (67) 95 Room Air 08/13/20 02:00 79 15 89/56 (67) 95 Room Air 08/13/20 01:00 86 14 90/54 (66) 95 Room Air 08/13/20 01:00 86 08/13/20 00:00 87 14 92/58 (69) Room Air 08/12/20 23:46 37.0 08/12/20 23:00 86 14 90/55 (67) 96 Room Air 08/12/20 22:55 80 08/12/20 22:05 97/65 (76) 08/12/20 22:00 89 21 97/65 (76) 95 Room Air 08/12/20 21:00 81 33 103/81 (88) 98 Room Air 08/12/20 20:50 36.8 83 18 93/68 (76) 97 Room Air 08/12/20 20:00 Room Air 08/12/20 20:00 81 113/79 (90) 94 Nasal Cannula 2.00 08/12/20 19:59 Room Air 92 08/12/20 19:00 71 99/78 (85) 92 Nasal Cannula 2.00 08/12/20 17:00 62 107/78 (88) 97 Nasal Cannula 2.00 08/12/20 16:42 62 104/76 08/12/20 16:00 68 14 100/85 (90) 95 Nasal Cannula 2.00 08/12/20 15:44 36.0 08/12/20 15:00 60 11 104/73 (83) 99 Nasal Cannula 2.00 08/12/20 14:00 58 11 89/60 (70) 100 Nasal Cannula 2.00 08/12/20 13:00 73 108/79 (89) 94 Nasal Cannula 2.00 08/12/20 12:29 69 08/12/20 12:00 71 17 104/85 (91) 95 Nasal Cannula 2.00 08/12/20 11:02 85 107/70 08/12/20 11:00 85 19 99/63 (75) 95 Nasal Cannula 2.00 08/12/20 10:18 08/12/20 10:00 79 13 105/80 (88) 89 Nasal Cannula 2.00 08/12/20 09:06 80 78/58 08/12/20 09:00 84 22 102/78 (86) 93 Nasal Cannula 2.00 08/12/20 08:48 Nasal Cannula 2.00 08/12/20 08:45 Room Air 97 08/12/20 08:23 36.8 08/12/20 08:00 Nasal Cannula 2.00 08/12/20 08:00 88 21 77/56 (63) 96 Room Air 08/12/20 07:00 91 84/59 (67) 89 Room Air 08/12/20 06:45 92 20 84/64 (71) 89 Room Air 08/12/20 06:30 92 19 82/66 (71) 93 Room Air 08/12/20 06:22 92 Room Air 08/12/20 06:21 37.9 89 20 82/63 (69) 93 Room Air 08/12/20 06:06 90 10 80/58 (65) 94 Room Air 08/12/20 06:05 89 08/12/20 06:03 95 89/66 (74) Room Air I & O 08/13/20 07:00 Intake Total 4800 ml Output Total 1750 ml Balance 3050 ml Height & Weight Height: 5'6.00" Weight: 126lbs. oz. 57.909924qa; 24.22 BMI Method:Stated Capillary Refill: Less Than 3 Seconds Peripheral Pulses: 2+ Dorsalis Pedis (R); 1+ Left Dors-Pedis (L); 2+ Radial Pulses (R), 2+ Radial Pulses (L) Gastrointestinal: non tender, soft; No distended, No tenderness Results Lab Laboratory Tests 08/11/20 13:50 08/12/20 04:15 08/13/20 03:10 Assessment/Plan Assessment/Plan Cellulitis with sepsis -No fevers, Leukocytosis is improving -Continue Vancomycin, Cleocin and Cefepime -Barrientos cultures peidng -Bilateral dopplers r/o DVT -- Negative -Check CT of LLE-- Reviewed -Surgery is following - wound care following -Check HBA1c, CRP,ESR Septic shock -Pt is still on Levophed -Solucortef -IVF bolus s.p 2 liters -Will order another liter of IVF -Increase IVF -Repeat LA -Check Random Cortisol Metabolic lactic acidosis -IVF Hyponatremia -Monitor DVT/GI PPX SUNNY BAXTER DO Aug 13, 2020 05:51
[2020-08-13] MEDS ORDERED: CEFEPIME 1 GM/10 ML (MAXIPIME) VIAL ONE (06:05)
[2020-08-13] MEDS ORDERED: WATER (STERILE) FOR INJECTION 10 ML ONE (06:05)
[2020-08-13] MEDS: CEFEPIME 1,000 MG/SWFI 10 ML IV PUSH IV SCH ×6 (06:09→18:27)
[2020-08-13] MEDS: BETHANECHOL 10 MG (URECHOLINE) TAB PO SCH ×4 (06:09→21:04)
[2020-08-13] MEDS: VANCOMYCIN 1 GM/NS 250 ML IVPB IV SCH ×2 (06:10)
[2020-08-13] MEDS: HYDROCORTISONE 100 MG/2 ML (Solu-CORTEF) VIAL IV SCH ×3 (06:10→21:04)
[2020-08-13] MEDS: CLINDAMYCIN 600 MG/50 ML IVPB 50 ML IV SCH ×3 (06:10→21:05)
[2020-08-13] MEDS: NS IV 1000 ML 1,000 ML IV SCH ×3 (07:36→21:04)
--- NOTE | 2020-08-13 07:46 | Progress Note - Surgery ---
MATILDE PINTO MED STUDENT 08/13/20 0746: Subjective Date Seen by a Provider: Aug 13, 2020 Time Seen by a Provider: 07:25 Subjective/Events-last exam Patient states he is still having moderate LLE pain. Currently rates his pain at a 6/10, worse around the knee. States the pain is dull/achy. Reports that any movement or palpation of leg is painful. Pain meds he's receiving are controlling his pain for the most part he says. He denies nausea, vomiting, diarrhea, fevers, chills, chest pain, or shortness of breath. He thinks that the leg swelling looks unchanged from yesterday. Reports he is tolerating po well. He has no other concerns at this point in time. Review of Systems General: No Chills, No Night Sweats HEENT: No Head Aches, No Visual Changes Pulmonary: No Dyspnea, No Cough Cardiovascular: No: Chest Pain, Palpitations Gastrointestinal: No: Nausea, Vomiting Genitourinary: Other (sal) Musculoskeletal: No: neck pain, shoulder pain Neurological: Weakness; No: Numbness Focused Exam Lactate Level 08/11/20 15:25: Lactic Acid Level 2.41*H 08/11/20 17:42: Lactic Acid Level 1.63 08/12/20 06:28: Lactic Acid Level 1.42 Objective Exam Vital Signs Date Time Temp Pulse Resp B/P (MAP) Pulse Ox O2 Delivery O2 Flow Rate FiO2 08/13/20 06:54 36.5 08/13/20 06:15 75 25 101/76 (84) 99 Room Air 08/13/20 05:30 68 13 95/66 (76) 97 Room Air 08/13/20 04:52 86 92/66 08/13/20 04:00 86 19 92/66 (75) 96 Room Air 08/13/20 03:37 37.4 08/13/20 03:00 79 15 91/55 (67) 95 Room Air 08/13/20 02:00 79 15 89/56 (67) 95 Room Air 08/13/20 01:00 86 14 90/54 (66) 95 Room Air 08/13/20 01:00 86 08/13/20 00:00 87 14 92/58 (69) Room Air 08/12/20 23:46 37.0 08/12/20 23:00 86 14 90/55 (67) 96 Room Air 08/12/20 22:55 80 08/12/20 22:05 97/65 (76) 08/12/20 22:00 89 21 97/65 (76) 95 Room Air 08/12/20 21:00 81 33 103/81 (88) 98 Room Air 08/12/20 20:50 36.8 83 18 93/68 (76) 97 Room Air 08/12/20 20:00 Room Air 08/12/20 20:00 81 113/79 (90) 94 Nasal Cannula 2.00 08/12/20 19:59 Room Air 92 08/12/20 19:00 71 99/78 (85) 92 Nasal Cannula 2.00 08/12/20 17:00 62 107/78 (88) 97 Nasal Cannula 2.00 08/12/20 16:42 62 104/76 08/12/20 16:00 68 14 100/85 (90) 95 Nasal Cannula 2.00 08/12/20 15:44 36.0 08/12/20 15:00 60 11 104/73 (83) 99 Nasal Cannula 2.00 08/12/20 14:00 58 11 89/60 (70) 100 Nasal Cannula 2.00 08/12/20 13:00 73 108/79 (89) 94 Nasal Cannula 2.00 08/12/20 12:29 69 08/12/20 12:00 71 17 104/85 (91) 95 Nasal Cannula 2.00 08/12/20 11:02 85 107/70 08/12/20 11:00 85 19 99/63 (75) 95 Nasal Cannula 2.00 08/12/20 10:18 08/12/20 10:00 79 13 105/80 (88) 89 Nasal Cannula 2.00 08/12/20 09:06 80 78/58 08/12/20 09:00 84 22 102/78 (86) 93 Nasal Cannula 2.00 08/12/20 08:48 Nasal Cannula 2.00 08/12/20 08:45 Room Air 97 08/12/20 08:23 36.8 08/12/20 08:00 Nasal Cannula 2.00 08/12/20 08:00 88 21 77/56 (63) 96 Room Air I & O 08/13/20 07:00 Intake Total 5200 ml Output Total 2150 ml Balance 3050 ml Capillary Refill : Less Than 3 Seconds General Appearance: Mild Distress HEENT: PERRL/EOMI Neck: Full Range of Motion, Non Tender Respiratory: Chest Non Tender, No Accessory Muscle Use, No Respiratory Distress Cardiovascular: Regular Rate, Rhythm Peripheral Pulses: 2+ Dorsalis Pedis (R); 1+ Left Dors-Pedis (L); 2+ Radial Pulses (R), 2+ Radial Pulses (L) Gastrointestinal: non tender, soft; No distended, No tenderness Extremity: Normal Capillary Refill, No Calf Tenderness, Pedal Edema (Left foot) Neurologic/Psychiatric: Alert, Oriented x3, Normal Mood/Affect Skin: Normal Color, Other (redness of LLE from pelvis to left foot) Lymphatic: No Adenopathy Results Lab Laboratory Tests 08/12/20 12:52: Vancomycin Level Trough 12.6 08/13/20 03:10: White Blood Count 22.4H, Red Blood Count 3.49L, Hemoglobin 10.1L, Hematocrit 29L , Mean Corpuscular Volume 83, Mean Corpuscular Hemoglobin 29, Mean Corpuscular Hemoglobin Concent 35, Red Cell Distribution Width 13.8, Platelet Count 351, Mean Platelet Volume 9.1, Immature Granulocyte % (Auto) 2, Neutrophils (%) (Auto) 91H, Lymphocytes (%) (Auto) 2L, Monocytes (%) (Auto) 5, Eosinophils (%) (Auto) 0, Basophils (%) (Auto) 0, Neutrophils # (Auto) 20.3H, Lymphocytes # (Auto) 0.5L, Monocytes # (Auto) 1.1H, Eosinophils # (Auto) 0.0, Basophils # (Auto) 0.1, Immature Granulocyte # (Auto) 0.5H, Sodium Level 134L, Potassium Level 3.9, Chloride Level 105, Carbon Dioxide Level 21, Anion Gap 8, Blood Urea Nitrogen 18, Creatinine 0.62, Estimat Glomerular Filtration Rate > 60, BUN/Creatinine Ratio 29, Glucose Level 206H, Calcium Level 7.5L, Phosphorus Level 2.4, Magnesium Level 2.2 Microbiology 08/12/20 Influenza Types A,B Antigen (GABRIELA) - Final, Complete 08/11/20 Urine Culture - Preliminary, Resulted Staphylococcus aureus 08/11/20 Blood Culture - Preliminary, Resulted No growth 08/11/20 Gram Stain - Final, Resulted 08/11/20 Wound Culture - Preliminary, Resulted Staphylococcus aureus Assessment/Plan Assessment/Plan Assessment/Plan LLE cellulitis with sepsis Hypotension Cerebral palsy Right lower abdominal wound, left knee and left middle toe wound. Continue antibiotics as ordered No surgical intervention at this time, continue medical management. Clinical Quality Measures DVT/VTE Risk/Contraindication: Risk Factor Score Per Nursin RFS Level Per Nursing on Admit: 4+=Very High GUME PALOMARES DO 08/13/20 1502: Subjective Subjective/Events-last exam Left lower extremity same as yesterday. Pain unchanged. Still requiring pressors, but less. Tolerating diet. Denies n/v fever sweats chills shortness of breath or chest pain. Objective Exam General Appearance: No Apparent Distress, WD/WN; No Mild Distress HEENT: PERRL/EOMI, Normal ENT Inspection Neck: Full Range of Motion, Non Tender, Supple Respiratory: Chest Non Tender, No Accessory Muscle Use, No Respiratory Distress Cardiovascular: Regular Rate, Rhythm, No JVD Gastrointestinal: non tender, soft, no organomegaly; No distended, No tenderness; other (right lower quadrant superficial wound) Extremity: Other (left lower extremity edema and slight erythema, scabs left knee and puncture left middle toe) Neurologic/Psychiatric: Alert, Oriented x3, Normal Mood/Affect Skin: Normal Color, Other (redness of LLE from left groin to left foot) Lymphatic: No Adenopathy Assessment/Plan Assessment/Plan Assessment/Plan LLE cellulitis with sepsis Hypotension Cerebral palsy Right lower abdominal wound, left knee and left middle toe wound. Continue antibiotics Still requiring pressors, wean as tolerates No surgical intervention at this time, continue medical management. Supervisory-Addendum Brief Verification & Attestation Participated in pt care: history, MDM, physical Personally performed: exam, history, MDM, supervision of care Care discussed with: Medical Student Procedures: n/a Results interpretation: Verified all documentation Verification and Attestation of Medical Student E/M Service A medical student performed and documented this service in my presence. I reviewed and verified all information documented by the medical student and made modifications to such information, when appropriate. I personally performed the physical exam and medical decision making. Gume Palomares, Aug 13, 2020,15:02 MATILDE PINTO MED STUDENT Aug 13, 2020 07:46 GUME PALOMARES DO Aug 13, 2020 15:02
--- NOTE | 2020-08-13 07:59 | Diagnostic Imaging Report ---
EXAMINATION: Chest radiograph, portable AP view. DATE: 08/13/2020 3:41 AM hours. INDICATION: 49-year-old male, hypotension. COMPARISON: August 12, 2020. FINDINGS: There is a left-sided PICC line with tip overlying the upper SVC. Stable overall appearance of the cardiomediastinal silhouette. There is no identified pneumothorax. There is no large pleural effusion. There are streaky opacities in the lung bases bilaterally which are unchanged. IMPRESSION: 1. Streaky opacities in the lung bases which may relate to atelectasis and/or infiltrate. Dictated by: Dictated on workstation # [id number]
--- NOTE | 2020-08-13 08:15 | NUR ---
THIS RN WASTED 25MCG FENTANYL IVP, WITNESSED BY [facility] LANDON.
[2020-08-13] MEDS: TAMSULOSIN 0.4 MG (FLOMAX) CAP PO SCH ×2 (08:20→21:04)
[2020-08-13] MEDS ORDERED: FUROSEMIDE 40 MG/4 ML INJ (LASIX) IVP NR (18:00)
[2020-08-13] MEDS: DOCUSATE SODIUM 100 MG (COLACE) CAP PO PRN (18:26)
--- NOTE | 2020-08-13 19:33 | Progress Note ---
Subjective Subjective/Events-last exam He is feeling better this AM. Leg has not decreased swelling at all. He is still requiring levo. Tolerating PO diet. Review of Systems Pulmonary: No Dyspnea, No Cough Cardiovascular: No: Chest Pain, Palpitations Gastrointestinal: No: Nausea, Vomiting, Abdominal Pain, Diarrhea, Constipation Genitourinary: No Dysuria, No Frequency, No Incontinence Musculoskeletal: leg pain, foot pain Neurological: Weakness, Numbness Focused Exam Lactate Level 08/11/20 15:25: Lactic Acid Level 2.41*H 08/11/20 17:42: Lactic Acid Level 1.63 08/12/20 06:28: Lactic Acid Level 1.42 Objective Exam Last Set of Vital Signs Vital Signs Date Time Temp Pulse Resp B/P (MAP) Pulse Ox O2 Delivery O2 Flow Rate FiO2 08/13/20 18:45 92 12 110/77 (88) Nasal Cannula 4.00 08/13/20 18:00 98 08/13/20 11:57 36.4 08/12/20 19:59 92 Capillary Refill : Less Than 3 Seconds I&O Intake and Output 08/13/20 00:00 Intake Total 6770 ml Output Total 1850 ml Balance 4920 ml Intake Oral 1190 ml IV Total 5580 ml Output Urine Total 1850 ml General: Alert, Oriented X3, Cooperative, No Acute Distress HEENT: Mucous Memb Moist/[place] Lungs: Clear to Auscultation, Normal Air Movement Heart: Regular Rate, No Murmurs Abdomen: Normal Bowel Sounds, Soft, No Tenderness, No Masses Extremities: Other (severe LLE swelling and erythema, 3+ pitting edema to LLE) Neuro: Sensation Intact, Cranial Nerves 3-12 NL Results/Procedures Lab Laboratory Tests 08/13/20 03:10: White Blood Count 22.4H, Red Blood Count 3.49L, Hemoglobin 10.1L, Hematocrit 29L , Mean Corpuscular Volume 83, Mean Corpuscular Hemoglobin 29, Mean Corpuscular Hemoglobin Concent 35, Red Cell Distribution Width 13.8, Platelet Count 351, Mean Platelet Volume 9.1, Immature Granulocyte % (Auto) 2, Neutrophils (%) (Auto) 91H, Lymphocytes (%) (Auto) 2L, Monocytes (%) (Auto) 5, Eosinophils (%) (Auto) 0, Basophils (%) (Auto) 0, Neutrophils # (Auto) 20.3H, Lymphocytes # (Auto) 0.5L, Monocytes # (Auto) 1.1H, Eosinophils # (Auto) 0.0, Basophils # (Auto) 0.1, Immature Granulocyte # (Auto) 0.5H, Sodium Level 134L, Potassium Level 3.9, Chloride Level 105, Carbon Dioxide Level 21, Anion Gap 8, Blood Urea Nitrogen 18, Creatinine 0.62, Estimat Glomerular Filtration Rate > 60, BUN/Creatinine Ratio 29, Glucose Level 206H, Calcium Level 7.5L, Phosphorus Level 2.4, Magnesium Level 2.2 Microbiology 08/12/20 Influenza Types A,B Antigen (GABRIELA) - Final, Complete 08/11/20 Urine Culture - Preliminary, Resulted Staphylococcus aureus 08/11/20 Blood Culture - Preliminary, Resulted No growth 08/11/20 Gram Stain - Final, Resulted 08/11/20 Wound Culture - Preliminary, Resulted Staphylococcus aureus Assessment/Plan Assessment/Plan (1) Severe sepsis Status: Acute Assessment & Plan: - Patient in ICU requiring pressors to keep MAP >60, Continue IV antibiotics, cultures pending, strict I/Os with UOP 08/13: trial off pressors and patient was unable to maintain blood pressure (2) Cellulitis of left lower extremity Status: Acute Assessment & Plan: - Dr Palomares consulted, CT ordered to rule out narcotizing fasciitis, Venous dopplers neg for DVT, Consider pelvic US to rule out pelvic thrombosis 08/13: US and CT normal , Will continue to monitor for improvement of swelling (3) Hyponatremia Status: Chronic Assessment & Plan: - Will continue to monitor (4) Normocytic anemia Status: Chronic (5) Elevated bilirubin Status: Chronic (6) Cerebral palsy Status: Acute Clinical Quality Measures DVT/VTE Risk/Contraindication: Risk Factor Score Per Nursin RFS Level Per Nursing on Admit: 4+=Very High KEIRA ECHEVERRIA MD Aug 13, 2020 19:33
[2020-08-13] MEDS ORDERED: ENOXAPARIN 80 MG/0.8 ML (LOVENOX) SYR ONE (21:01)
[2020-08-13] MEDS: ENOXAPARIN 80 MG/0.8 ML (LOVENOX) SYR SC SCH (21:05)
[2020-08-14] VITALS (18 sets, daily range): BP systolic 94–123; BP diastolic 62–94
[2020-08-14] MEDS: NOREPINEPHRINE 4 MG/250 ML 250 ML IV SCH (00:15)
[2020-08-14] MEDS: CEFEPIME 1,000 MG/SWFI 10 ML IV PUSH IV SCH ×2 (00:22)
[2020-08-14] MEDS: NS IV 1000 ML 1,000 ML IV SCH (01:36)
[2020-08-14 02:58] LABS: BASOPHILS # (AUTO) 0.1 10^3/uL (0.0-0.1); BASOPHILS % (AUTO) 0 % (0-10); EOSINOPHILS % (AUTO) 0 % (0-10); HEMATOCRIT 27 % (40-54); HEMOGLOBIN 9.3 g/dL (13.3-17.7); LYMPHOCYTES # (AUTO) 0.9 10^3/uL (1.0-4.0); LYMPHOCYTES % (AUTO) 3 % (12-44); MEAN CORPUSCULAR HEMOGLOBIN 29 pg (25-34); MEAN CORPUSCULAR HGB CONC 34 g/dL (32-36); MEAN CORPUSCULAR VOLUME 84 fL (80-99); MEAN PLATELET VOLUME 8.9 fL (9.0-12.2); MONOCYTES # (AUTO) 1.3 10^3/uL (0.0-1.0); MONOCYTES % (AUTO) 4 % (0-12); NEUTROPHILS # (AUTO) 27.6 10^3/uL (1.8-7.8); NEUTROPHILS % (AUTO) 89 % (42-75); PLATELET COUNT 348 10^3/uL (130-400)
[2020-08-14 02:59] LABS: WHITE BLOOD COUNT 31.1 10^3/uL (4.3-11.0)
[2020-08-14 03:14] LABS: CALCIUM 7.5 MG/DL (8.5-10.1); CHLORIDE 105 MMOL/L (98-107); GLUCOSE 149 MG/DL (70-105); POTASSIUM 3.5 MMOL/L (3.6-5.0); SODIUM 137 MMOL/L (135-145)
[2020-08-14 03:15] LABS: CARBON DIOXIDE 23 MMOL/L (21-32)
[2020-08-14 03:28] LABS: BUN/CREATININE RATIO 24; CREATININE SERUM 0.59 MG/DL (0.60-1.30); GFR ESTIMATED > 60; PHOSPHORUS 2.8 MG/DL (2.3-4.7)
--- NOTE | 2020-08-14 04:01 | Pulmonary Progress Note ---
KORIN BULLOCK MED STUDENT 08/14/20 0401: Subjective Date Seen by a Provider: Aug 14, 2020 Time Seen by a Provider: 03:56 Subjective/Events-last exam Pt admits to feeling about 50% improvement from yesterday, and admits to swelling in LLE decreasing. He denies any new symptoms and concerns. He uses albuterol at home prn. Sepsis Event Evaluation Height, Weight, BMI Height: 5'6.00" Weight: 126lbs. oz. 57.276486an; 24.22 BMI Method:Stated Focused Exam Possible Source: Skin/Soft Tissue Lactate Level 08/11/20 15:25: Lactic Acid Level 2.41*H 08/11/20 17:42: Lactic Acid Level 1.63 08/12/20 06:28: Lactic Acid Level 1.42 Exam Exam Vital Signs Date Time Temp Pulse Resp B/P (MAP) Pulse Ox O2 Delivery O2 Flow Rate FiO2 08/14/20 00:25 37.0 08/14/20 00:22 Nasal Cannula 2.00 08/13/20 23:00 81 11 104/71 (82) 100 Nasal Cannula 4.00 08/13/20 22:00 85 15 97/72 (80) 100 Nasal Cannula 4.00 08/13/20 21:00 84 18 103/71 (82) 100 Nasal Cannula 4.00 08/13/20 20:00 86 17 112/73 (86) 99 Nasal Cannula 4.00 08/13/20 20:00 Nasal Cannula 4.00 08/13/20 19:42 36.9 08/13/20 19:01 87 08/13/20 19:00 83 9 131/96 (108) 100 Nasal Cannula 4.00 08/13/20 18:45 92 12 110/77 (88) Nasal Cannula 4.00 08/13/20 18:00 92 23 96/69 (78) 98 Nasal Cannula 4.00 08/13/20 17:00 87 11 106/69 (81) 100 Nasal Cannula 4.00 08/13/20 16:00 86 15 90 Nasal Cannula 4.00 08/13/20 15:26 Nasal Cannula 4.00 08/13/20 15:00 89 16 94/61 (72) 97 Room Air 08/13/20 14:00 76 12 94/73 (80) 89 Room Air 08/13/20 13:00 91 12 100/66 (77) 92 Room Air 08/13/20 12:37 88 08/13/20 12:00 78 10 118/77 (91) 99 Room Air 08/13/20 11:57 36.4 08/13/20 11:00 77 11 97/64 (75) 98 Room Air 08/13/20 10:00 86 17 96/70 (79) 95 Room Air 08/13/20 09:00 68 16 98/72 (81) 99 Room Air 08/13/20 08:30 Room Air 08/13/20 08:19 74 100/73 08/13/20 08:00 75 9 86/62 (70) 100 Room Air 08/13/20 07:42 36.4 08/13/20 07:00 75 30 98/73 (81) 100 Room Air 08/13/20 06:54 36.5 08/13/20 06:44 80 08/13/20 06:15 75 25 101/76 (84) 99 Room Air 08/13/20 05:30 68 13 95/66 (76) 97 Room Air 08/13/20 04:52 86 92/66 08/13/20 04:00 86 19 92/66 (75) 96 Room Air I & O 08/14/20 07:00 Intake Total 4030 ml Output Total 3175 ml Balance 855 ml Height & Weight Height: 5'6.00" Weight: 126lbs. oz. 57.364475vq; 24.22 BMI Method:Stated General Appearance: No Apparent Distress, WD/WN; No Mild Distress HEENT: PERRL/EOMI Neck: Normal Inspection Respiratory: Chest Non Tender, No Accessory Muscle Use, No Respiratory Distress, Crackles (upper lobe b/l) Cardiovascular: Regular Rate, Rhythm, No JVD, No Murmur Capillary Refill: Less Than 3 Seconds Peripheral Pulses: 2+ Dorsalis Pedis (R); 1+ Left Dors-Pedis (L); 2+ Radial Pulses (R), 2+ Radial Pulses (L) Gastrointestinal: No distended, No tenderness; other (right lower quadrant superficial wound) Extremity: Other (left lower extremity edema and slight erythema, scabs left knee and puncture left middle toe; right LE starting to swell too) Neurologic/Psychiatric: Alert, Oriented x3, Normal Mood/Affect Skin: Normal Color, Warm/Dry, Other (redness of LLE from left groin to left foot) Lymphatic: No Adenopathy Results Lab Laboratory Tests 08/12/20 04:15 08/13/20 03:10 08/14/20 02:50 Assessment/Plan Assessment/Plan Cellulitis of LLE with elevated white count -No fevers -Leukocytosis is 31.1 -Continue clindamycin and Cefepime -Barrientos cultures pending - preliminary results include staph aureus -Bilateral dopplers r/o DVT -- Negative -monitor inc swelling of right lower extremity -Check CT of LLE-- Reviewed -Surgery is following - wound care following -Check HBA1c, CRP,ESR -A1c upper limit of normal (5.6), CRP and ESR elevated Leukocytosis -pt out of septic shock -Pt is still on Levophed -Solucortef -monitor -Increase IVF -Repeat LA - 1.42 as of 08/12 -check Random Cortisol - reviewed, WNL at 15.2 on 08/12 Metabolic lactic acidosis -currently resolved -monitor -IVF if returning Hyponatremia -currently resolved -Monitor Hypokalemia -40mg K-phos DVT/GI PPX SUNNY BAXTER DO 08/14/20 0518: Subjective Time Seen by a Provider: 05:12 Assessment/Plan Assessment/Plan Cellulitis with sepsis MRSA from wound and S. Aureus from urine -worsening Leukocytosis -Vanco was D/C 'd yesterday . -Change Abx to Vanco and Cleocin -Barrientos cultures -Bilateral dopplers r/o DVT -- Negative -Check CT of LLE-- Reviewed -Surgery is following - wound care following -Check HBA1c, CRP,ESR Septic shock -Hold Levophed as tolerated -Solucortef -IVF - 150 NS -Repeat LA -Check Random Cortisol Metabolic lactic acidosis -IVF Hyponatremia -Monitor DVT/GI PPX KORIN BULLOCK STUDENT Aug 14, 2020 04:01 SUNNY BAXTER DO Aug 14, 2020 05:18
[2020-08-14] MEDS ORDERED: VANCOMYCIN INJECTION 1,000 MG in NS (IVPB) 250 ML IV SCH (05:15)
[2020-08-14] MEDS ORDERED: PHARMACY TO DOSE IV SCH (05:15)
[2020-08-14] MEDS ORDERED: MAGNESIUM 1 GM/100 ML IVPB 100 ML IV SCH (06:00)
[2020-08-14] MEDS ORDERED: POTASSIUM CL 10MEQ/50ML IVPB 50 ML IV SCH (06:00)
[2020-08-14] MEDS ORDERED: KCL 20 MEQ TAB (K-DUR) PO SCH (06:00)
[2020-08-14] MEDS ORDERED: VANCOMYCIN 1,750 MG/NS 500 ML IVPB IV SCH ×2 (06:30)
[2020-08-14] MEDS: BETHANECHOL 10 MG (URECHOLINE) TAB PO SCH ×4 (06:47→21:40)
[2020-08-14] MEDS: HYDROCORTISONE 100 MG/2 ML (Solu-CORTEF) VIAL IV SCH ×3 (06:47→23:04)
[2020-08-14] MEDS: CLINDAMYCIN 600 MG/50 ML IVPB 50 ML IV SCH ×3 (06:47→21:52)
[2020-08-14] MEDS: LACTATED RINGERS 1,000 ML IV SCH ×2 (06:48→16:12)
--- NOTE | 2020-08-14 07:33 | Diagnostic Imaging Report ---
INDICATION: Hypertension. Comparison with 08/13/2020. FINDINGS: There has been increased opacification of the lung bases especially on the right. Increasing discoid atelectasis left lung base. The heart is not enlarged. The upper lungs are clear. PICC line on the left unchanged. No pneumothorax or pleural effusion. IMPRESSION: 1. Increasing infiltrate with some consolidation now present right lower lobe. 2. Increasing discoid atelectasis left lung base. Dictated by: Dictated on workstation # [id number]
--- NOTE | 2020-08-14 07:38 | Progress Note - Surgery ---
MATILDE PINTO MED STUDENT 08/14/20 0738: Subjective Date Seen by a Provider: Aug 14, 2020 Time Seen by a Provider: 07:23 Subjective/Events-last exam Patient states he is doing ok this morning. Reports that his left lower extremity swelling has decreased a slight amount. He denies having any pain. He denies nausea, vomiting, or diarrhea. Denies fever or chills. Tolerating po well. Reported his right lower extremity has some swelling today, but states that is normal for him with decreased activity. Review of Systems General: No Chills, No Night Sweats HEENT: No Head Aches, No Visual Changes Pulmonary: No Dyspnea, No Cough Cardiovascular: No: Chest Pain, Palpitations Gastrointestinal: No: Nausea, Vomiting, Diarrhea, Constipation Genitourinary: No Dysuria, No Frequency, No Hematuria Musculoskeletal: No: neck pain, shoulder pain Neurological: No: Weakness, Numbness Focused Exam Lactate Level 08/11/20 15:25: Lactic Acid Level 2.41*H 08/11/20 17:42: Lactic Acid Level 1.63 08/12/20 06:28: Lactic Acid Level 1.42 Objective Exam Vital Signs Date Time Temp Pulse Resp B/P (MAP) Pulse Ox O2 Delivery O2 Flow Rate FiO2 08/14/20 01:00 73 08/14/20 00:25 37.0 08/14/20 00:22 Nasal Cannula 2.00 08/13/20 23:00 81 11 104/71 (82) 100 Nasal Cannula 4.00 08/13/20 22:00 85 15 97/72 (80) 100 Nasal Cannula 4.00 08/13/20 21:00 84 18 103/71 (82) 100 Nasal Cannula 4.00 08/13/20 20:00 86 17 112/73 (86) 99 Nasal Cannula 4.00 08/13/20 20:00 Nasal Cannula 4.00 08/13/20 19:42 36.9 08/13/20 19:01 87 08/13/20 19:00 83 9 131/96 (108) 100 Nasal Cannula 4.00 08/13/20 18:45 92 12 110/77 (88) Nasal Cannula 4.00 08/13/20 18:00 92 23 96/69 (78) 98 Nasal Cannula 4.00 08/13/20 17:00 87 11 106/69 (81) 100 Nasal Cannula 4.00 08/13/20 16:00 86 15 90 Nasal Cannula 4.00 08/13/20 15:26 Nasal Cannula 4.00 08/13/20 15:00 89 16 94/61 (72) 97 Room Air 08/13/20 14:00 76 12 94/73 (80) 89 Room Air 08/13/20 13:00 91 12 100/66 (77) 92 Room Air 08/13/20 12:37 88 08/13/20 12:00 78 10 118/77 (91) 99 Room Air 08/13/20 11:57 36.4 08/13/20 11:00 77 11 97/64 (75) 98 Room Air 08/13/20 10:00 86 17 96/70 (79) 95 Room Air 08/13/20 09:00 68 16 98/72 (81) 99 Room Air 08/13/20 08:30 Room Air 08/13/20 08:19 74 100/73 08/13/20 08:00 75 9 86/62 (70) 100 Room Air 08/13/20 07:42 36.4 I & O 08/14/20 07:00 Intake Total 4330 ml Output Total 3575 ml Balance 755 ml Capillary Refill : Less Than 3 Seconds General Appearance: No Apparent Distress, WD/WN; No Mild Distress HEENT: PERRL/EOMI Neck: Normal Inspection, Non Tender Respiratory: Chest Non Tender, No Accessory Muscle Use, No Respiratory Distress Cardiovascular: Regular Rate, Rhythm, Other (3+ pitting edema LLE) Peripheral Pulses: 2+ Dorsalis Pedis (R); 1+ Left Dors-Pedis (L); 2+ Radial Pulses (R), 2+ Radial Pulses (L) Gastrointestinal: non tender, soft; No distended, No tenderness; other (right lower quadrant superficial wound) Extremity: Non Tender, No Calf Tenderness, Pedal Edema, Other (left lower extremity edema and slight erythema, scabs left knee and puncture left middle toe; right LE starting to swell too) Neurologic/Psychiatric: Alert, Oriented x3, Normal Mood/Affect Skin: Normal Color, Warm/Dry, Other (redness of LLE from left groin to left foot) Lymphatic: No Adenopathy Results Lab Laboratory Tests 08/14/20 02:50: White Blood Count 31.1*H, Red Blood Count 3.23L, Hemoglobin 9.3L, Hematocrit 27L , Mean Corpuscular Volume 84, Mean Corpuscular Hemoglobin 29, Mean Corpuscular Hemoglobin Concent 34, Red Cell Distribution Width 14.2, Platelet Count 348, Mean Platelet Volume 8.9L, Immature Granulocyte % (Auto) 4, Neutrophils (%) (Auto) 89H, Lymphocytes (%) (Auto) 3L, Monocytes (%) (Auto) 4, Eosinophils (%) (Auto) 0, Basophils (%) (Auto) 0, Neutrophils # (Auto) 27.6H, Lymphocytes # (Auto) 0.9L, Monocytes # (Auto) 1.3H, Eosinophils # (Auto) 0.0, Basophils # (Auto) 0.1, Immature Granulocyte # (Auto) 1.4H, Sodium Level 137, Potassium Level 3.5L, Chloride Level 105, Carbon Dioxide Level 23, Anion Gap 9, Blood Urea Nitrogen 14, Creatinine 0.59L, Estimat Glomerular Filtration Rate > 60, BUN/Creatinine Ratio 24, Glucose Level 149H, Calcium Level 7.5L, Phosphorus Level 2.8, Magnesium Level 2.0, B-Type Natriuretic Peptide 221.7H Microbiology 08/12/20 Influenza Types A,B Antigen (GABRIELA) - Final, Complete 08/11/20 Urine Culture - Preliminary, Resulted Staphylococcus aureus 08/11/20 Blood Culture - Preliminary, Resulted No growth 08/11/20 Gram Stain - Final, Resulted 08/11/20 Wound Culture - Preliminary, Resulted Staphylococcus aureus Assessment/Plan Assessment/Plan Assessment/Plan LLE cellulitis with sepsis Hypotension Cerebral palsy Right lower abdominal wound, left knee and left middle toe wound. Continue antibiotics as ordered Still requiring pressors, wean as tolerates No surgical intervention at this time, continue medical management. Clinical Quality Measures DVT/VTE Risk/Contraindication: Risk Factor Score Per Nursin RFS Level Per Nursing on Admit: 4+=Very High GUME PALOMARES DO 08/14/202237: Subjective Subjective/Events-last exam Feeling better this morning. Left leg swelling slightly decreased. Off pressors. Pain better. Scrotal swelling now. No other new complaints. Tolerating diet. Denies n/v fever sweats chills shortness of breath or chest pain at this time. Objective Exam General Appearance: No Apparent Distress, WD/WN HEENT: PERRL/EOMI, Normal ENT Inspection Neck: Normal Inspection, Non Tender Respiratory: Chest Non Tender, No Accessory Muscle Use, No Respiratory Distress Cardiovascular: Regular Rate, Rhythm, Other ( pitting edema LLE) Gastrointestinal: non tender, soft; No distended, No tenderness; other (right lower quadrant superficial wound) Extremity: Pedal Edema, Other (left lower extremity edema and slight erythema, scabs left knee and puncture left middle toe; right lower extremity slight edema) Neurologic/Psychiatric: Alert, Oriented x3, Normal Mood/Affect Skin: Normal Color, Warm/Dry, Other (redness of LLE from left groin to left foot) Lymphatic: No Adenopathy Assessment/Plan Assessment/Plan Assessment/Plan LLE cellulitis with sepsis Hypotension Cerebral palsy Right lower abdominal wound, left knee and left middle toe wound. Continue antibiotics as ordered Pressors weaned off Leep lower extremities elevated No surgical intervention at this time, continue medical management. Supervisory-Addendum Brief Verification & Attestation Participated in pt care: history, MDM, physical Personally performed: exam, history, MDM, supervision of care Care discussed with: Medical Student Procedures: n/a Results interpretation: Verified all documentation Verification and Attestation of Medical Student E/M Service A medical student performed and documented this service in my presence. I reviewed and verified all information documented by the medical student and made modifications to such information, when appropriate. I personally performed the physical exam and medical decision making. Gume Palomares, Aug 14, 2020,22:38 MATILDE PINTO MED STUDENT Aug 14, 2020 07:38 GUME PALOMARES DO Aug 14, 2020 22:38
[2020-08-14] MEDS ORDERED: KCL 20 MEQ TAB (K-DUR) PO ONE (08:00)
--- NOTE | 2020-08-14 09:15 | Physical Therapy Evaluation ---
PT Evaluation-General Medical Diagnosis Admission Date Aug 11, 2020 at 16:42 Medical Diagnosis: Cellulitus and Sepsis Onset Date: Aug 11, 2020 Therapy Diagnosis Therapy Diagnosis: Impaired strength, mobility, and ROM Height/Weight Height (Feet): 5 Height (Inches): 6.00 Weight (Pounds): 126 Precautions Precautions/Isolations: Contact Isolation, Fall Prevention Weight Bear Status Full Weight Bearing Full Weight Bearing Referral Physician: Iqra Reason for Referral: Evaluation/Treatment Medical History Additional Medical History Cerebral Palsy Substance Abuse Reviewed History: Yes Social History Home: Apartment Current Living Status: Alone (Daughter checks in on him regularly ) Entry Into Home: Stairs With Railing PT Steps Into Home: 30 PT Steps Inside Home: 0 Prior Prior Level of Function SCALE: Activities may be completed with or without assistive devices. 0-Kluxvxwakl-fgzqoqa completes the activity by him/herself with no assistance from a helper. 5-Set-up or Clean-up Assistance-helper sets up or cleans up; patient completes activity. [place] assists only prior to or following the activity. 4-Supervision or Touching Assistance-helper provides verbal cues and/or touching/steadying and/or contact guard assistance as patient completes activity. Assistance may be provided throughout the activity or intermittently. 3-Partial/Moderate Assistance-helper does LESS THAN HALF the effort. [place] lifts, holds or supports trunk or limbs, but provides less than half the effort. 2-Substantial/Maximal Assistance-helper does MORE THAN HALF the effort. [place] lifts or holds trunk or limbs and provides more than half the effort. 3-Kqqvmthkn-lnvihz does ALL the effort. Patient does none of the effort to complete the activity. Or, the assistance of 2 or more helpers is required for the patient to complete the activity. If activity was not attempted, code reason: 7-Patient Refused. 9-Not Applicable-not attempted and the patient did not perform the activity before the current illness, exacerbation or injury. 10-Not Attempted due to Environmental Limitations-(lack of equipment, weather restraints, etc.). 88-Not Attempted due to Medical Conditions or Safety Concerns. Bed Mobility: 6 Transfers (B,C,W/C): 6 Gait: 6 Stairs: 6 Wheelchair Mobility: 9 Indoor Mobility (Ambulation): Independent Stairs: Independent Prior Devices Use: Walker, Other-see list below (Cane ) PT Evaluation-Current Subjective Pt presents laying supine in bed. Pt agrees to PT. Pt reports no tenderness to touch in BLE. LLE is visibly more swollen than RLE. Pt/Family Goals Return home Objective Patient Orientation: Person, Place, Time, Eyes Open, Situation Attachments: Kelsey Catheter, IV ROM/Strength ROM Lower Extremities B LE limited in hip and knee ext Strength Lower Extremities B Hip flex >3/5 B Knee ext 3/5 Sensory Vision: Functional Hearing: Functional Sensation Right Lower Extremit: Intact Sensation Left Lower Extremity: Intact Sensation Lower Extremities BLE sensation intact to light touch L2-S2 Transfers Lying to Sitting/Side of Bed(Q: 3 Sit to Stand (QC): 3 Chair/Wlg-uc-Pvmhe Xfer(QC): 3 Pt required mod-assist with lying->EOB; therapist assist with leg movement and assist with getting torso upright. Pt able to stand and transfer to chair with min assist. Gait Does the Patient Walk?: No and Walking Goal IS indicated Balance Sitting Static: Fair Sitting Dynamic: Poor Standing Static: Fair Standing Dynamic: Fair Assessment/Needs Pt unable to control lower limb muscular control to one side at a time; pt instead activates hip flexors and knee extenders bilaterally. Pt struggles to initiate movement in LEs as he is weak. In standing pt struggles to maintain upright posture; BLE maintain partial flexion. Pt is slow and shuffles with his pivot into chair. Rehab Potential: Fair PT Seed Packer Goals Seed Packer Goals PT Correction Goals Time Frame: Aug 21, 2020 Sit to Lying (QC): 4 Lying-Sitting on Side/Bed(QC): 4 Sit to Stand (QC): 4 Chair/Ide-kn-Kopud Xfer(QC): 4 Walk 10 feet (QC): 4 Walk 50ft with 2 Turns (QC): 4 1 Step (curb) (QC): 3 PT Plan Problem List Problem List: Activity Tolerance, Functional Strength, Safety, Balance, Gait, Transfer, Bed Mobility, ROM Treatment/Plan Treatment Plan: Continue Plan of Care Treatment Plan: Bed Mobility, Education, Functional Activity Nirav, Functional Strength, Gait, Safety, Therapeutic Exercise, Transfers Treatment Duration: Aug 21, 2020 Frequency: 6 times per week Estimated Hrs Per Day: .25 hour per day Patient and/or Family Agrees t: Yes Safety Risks/Education Patient Education: Gait Training, Transfer Techniques, Correct Positioning, Safety Issues Teaching Recipient: Patient Teaching Methods: Demonstration, Discussion Response to Teaching: Reinforcement Needed Discharge Recommendations Plan Pt will work on bed mobility, transfer training and gait training, balance training, and therapeutic exercise to improve strength and ROM. Time/GCodes Time In: 814 Time Out: 0840 Total Billed Treatment Time: 19 Total Billed Treatment 1 visit EVL 15' FA 10' CARLO CALLES PT Aug 14, 2020 09:15
[2020-08-14] MEDS: TAMSULOSIN 0.4 MG (FLOMAX) CAP PO SCH ×2 (09:52→21:40)
[2020-08-14] MEDS: ENOXAPARIN 80 MG/0.8 ML (LOVENOX) SYR SC SCH (09:53)
[2020-08-14] MEDS: morphine ER 30 MG (MS CONTIN) TAB PO SCH ×2 (09:53→21:41)
--- NOTE | 2020-08-14 10:28 | NUR ---
PTD VANCOMYCIN CULTURES: MRSA (SENSITIVE TO VANCOMYCIN AND CLINDAMYCIN LABS: SCR 0.59 WBC 31 VANCOMYCIN TROUGH 12. (BASED ON 1GRAM IV Q8HR DOSING) PLAN: VANCOMYCIN RESTARTED THIS AM WITH A VANCOMYCIN 1.750MG IV BOLUS DOSE GIVEN AT 1000, WILL START VANCOMYCIN 1,250MG IV Q8 HOURS, NEXT DOSE @ 1999. WILL CHECK A TROUGH LEVEL ON 08/15 @ 1100 AND ADJUST IF NEEDED
[2020-08-14] MEDS ORDERED: TROUGH ORDER-PHARMACY XX ONE (11:00)
[2020-08-14] MEDS: PANTOPRAZOLE 40 MG (PROTONIX) VIAL IV SCH (11:47)
[2020-08-14] MEDS: DOCUSATE SODIUM 100 MG (COLACE) CAP PO PRN (12:36)
--- NOTE | 2020-08-14 14:42 | Progress Note ---
Subjective Subjective/Events-last exam Patient doing better this AM. States that the pain has improved and feels like the swelling has improved some. Now having scrotal swelling. Tolerating PO diet. Review of Systems Pulmonary: No Dyspnea, No Cough Cardiovascular: Edema; No: Chest Pain, Palpitations Gastrointestinal: No: Nausea, Vomiting, Abdominal Pain, Diarrhea, Constipation Musculoskeletal: leg pain Neurological: Weakness, Incoordination Focused Exam Lactate Level 08/11/20 15:25: Lactic Acid Level 2.41*H 08/11/20 17:42: Lactic Acid Level 1.63 08/12/20 06:28: Lactic Acid Level 1.42 Objective Exam Last Set of Vital Signs Vital Signs Date Time Temp Pulse Resp B/P (MAP) Pulse Ox O2 Delivery O2 Flow Rate FiO2 08/14/20 13:00 90 14 102/74 (83) 95 Room Air 08/14/20 09:00 37.0 08/14/20 07:44 2.00 08/12/20 19:59 92 Capillary Refill : Less Than 3 Seconds I&O Intake and Output 08/14/20 00:00 Intake Total 5050 ml Output Total 3875 ml Balance 1175 ml Intake Oral 3190 ml IV Total 1860 ml Output Urine Total 3875 ml General: Alert, Oriented X3, Cooperative, No Acute Distress Lungs: Clear to Auscultation, Normal Air Movement Heart: Regular Rate, No Murmurs Abdomen: Normal Bowel Sounds, Soft, No Tenderness, No Masses Extremities: Other (4+ pitting edema LLE, palpable DP PT pulses) Skin: Other (Significant scrotal swelling present today) Neuro: Normal Speech, Sensation Intact, Cranial Nerves 3-12 NL Results/Procedures Lab Laboratory Tests 08/14/20 02:50: White Blood Count 31.1*H, Red Blood Count 3.23L, Hemoglobin 9.3L, Hematocrit 27L , Mean Corpuscular Volume 84, Mean Corpuscular Hemoglobin 29, Mean Corpuscular Hemoglobin Concent 34, Red Cell Distribution Width 14.2, Platelet Count 348, Mean Platelet Volume 8.9L, Immature Granulocyte % (Auto) 4, Neutrophils (%) (Auto) 89H, Lymphocytes (%) (Auto) 3L, Monocytes (%) (Auto) 4, Eosinophils (%) (Auto) 0, Basophils (%) (Auto) 0, Neutrophils # (Auto) 27.6H, Lymphocytes # (Auto) 0.9L, Monocytes # (Auto) 1.3H, Eosinophils # (Auto) 0.0, Basophils # (Auto) 0.1, Immature Granulocyte # (Auto) 1.4H, Sodium Level 137, Potassium Level 3.5L, Chloride Level 105, Carbon Dioxide Level 23, Anion Gap 9, Blood Urea Nitrogen 14, Creatinine 0.59L, Estimat Glomerular Filtration Rate > 60, BUN/Creatinine Ratio 24, Glucose Level 149H, Calcium Level 7.5L, Phosphorus Level 2.8, Magnesium Level 2.0, B-Type Natriuretic Peptide 221.7H Microbiology 08/12/20 Influenza Types A,B Antigen (GABRIELA) - Final, Complete 08/11/20 Urine Culture - Final, Complete Staphylococcus aureus 08/11/20 Blood Culture - Preliminary, Resulted No growth 08/11/20 Gram Stain - Final, Resulted 08/11/20 Wound Culture - Preliminary, Resulted Staphylococcus aureus Assessment/Plan Assessment/Plan (1) Severe sepsis Status: Acute Assessment & Plan: - Patient in ICU requiring pressors to keep MAP >60, Continue IV antibiotics, cultures pending, strict I/Os with UOP 08/13: trial off pressors and patient was unable to maintain blood pressure 08/14: Off pressors and blood pressure remaining stable, MRSA cultured, Continue Vanc/Clinda, Leukocytosis likely 2/2 to solucortef (2) Cellulitis of left lower extremity Status: Acute Assessment & Plan: - Dr Palomares consulted, CT ordered to rule out narcotizing fasciitis, Venous dopplers neg for DVT, Consider pelvic US to rule out pelvic thrombosis 08/13: US and CT normal , Will continue to monitor for improvement of swelling (3) Hyponatremia Status: Resolved Assessment & Plan: - Will continue to monitor (4) Normocytic anemia Status: Chronic (5) Elevated bilirubin Status: Chronic (6) Cerebral palsy Status: Acute (7) Scrotal swelling Status: Acute Assessment & Plan: 08/14: Elevation and cold compresses Clinical Quality Measures DVT/VTE Risk/Contraindication: Risk Factor Score Per Nursin RFS Level Per Nursing on Admit: 4+=Very High KEIRA ECHEVERRIA MD Aug 14, 2020 14:42
--- NOTE | 2020-08-14 16:49 | NUR ---
Pt transferred to fourth floor room 407 via wheel chair. Report called to receiving OTF solano prior to transfer.
--- NOTE | 2020-08-14 16:49 | NUR ---
REPORT RECEIVED [facility] PATIENT TRANSPORT OFFICER NUVIA. PATIENT TO ROOM 407 VIA WHEELCHAIR ACCOMPANIED BY 2 PATIENT TRANSPORT OFFICER'S. PATIENT SETTLED IN RECLINER CHAIR. CALL LIGHT, WATER, CUP OF ICE AND TRAY TABLE WITHIN REACH. PATIENT DENIES ANY FURTHER NEEDS AT THIS TIME. WILL CONTINUW TO MONITOR.
[2020-08-14] MEDS: VANCOMYCIN 1250 MG/NS 250 ML IVPB IV SCH ×2 (20:07)
[2020-08-15 03:48] VITALS: BP 111/67
[2020-08-15] MEDS: VANCOMYCIN 1250 MG/NS 250 ML IVPB IV SCH ×6 (03:48→20:24)
[2020-08-15] MEDS: fentaNYL INJECTION 100 MCG/2 ML AMP IVP PRN (04:14)
[2020-08-15] MEDS: CLINDAMYCIN 600 MG/50 ML IVPB 50 ML IV SCH ×3 (05:23→21:50)
[2020-08-15] MEDS: HYDROCORTISONE 100 MG/2 ML (Solu-CORTEF) VIAL IV SCH ×3 (06:08→21:49)
[2020-08-15] MEDS: BETHANECHOL 10 MG (URECHOLINE) TAB PO SCH ×4 (06:08→20:24)
--- NOTE | 2020-08-15 07:25 | Progress Note - Surgery ---
MATILDE PINTO MED STUDENT 08/15/20 0725: Subjective Date Seen by a Provider: Aug 15, 2020 Time Seen by a Provider: 07:15 Subjective/Events-last exam Patient states his LLE swelling is decreasing a bit. States he's not having any pain. Denies nausea, vomiting, or diarrhea. States he's passing gas. Tolerating his diet well. Denies fevers, chills, SOB, chest pain, or nightsweats. He reports his scrotal swelling has decreased somewhat as well. He has no complaints/concerns this morning. Review of Systems General: No Chills, No Night Sweats HEENT: No Head Aches, No Visual Changes Pulmonary: No Dyspnea, No Cough Cardiovascular: No: Chest Pain, Palpitations Gastrointestinal: No: Nausea, Vomiting, Abdominal Pain Genitourinary: No Dysuria, No Retention; Other (sal catheter) Musculoskeletal: No: neck pain, shoulder pain Neurological: No: Weakness, Numbness Objective Exam Vital Signs Date Time Temp Pulse Resp B/P (MAP) Pulse Ox O2 Delivery O2 Flow Rate FiO2 08/15/20 03:48 37.0 84 20 111/67 (82) 95 Room Air 08/14/20 23:06 36.0 84 20 117/68 (84) 93 Room Air 08/14/20 20:07 Room Air 08/14/20 19:29 37.6 82 18 123/76 (92) 94 Room Air 08/14/20 16:52 37.3 82 18 113/75 (88) 96 Room Air 08/14/20 16:00 83 16 121/65 (83) 95 Room Air 08/14/20 15:59 37.1 08/14/20 14:00 82 12 109/77 (88) 96 Room Air 08/14/20 13:00 90 14 102/74 (83) 95 Room Air 08/14/20 12:45 93 08/14/20 12:00 93 10 118/90 (99) 93 Room Air 08/14/20 11:00 87 11 113/93 (100) 93 Room Air 08/14/20 10:00 87 27 113/79 (90) 95 Room Air 08/14/20 09:00 37.0 85 20 113/79 (90) 96 Room Air 08/14/20 08:15 37.0 08/14/20 08:00 Room Air 08/14/20 08:00 103 17 96 Room Air 08/14/20 07:44 Room Air 08/14/20 07:44 100 Nasal Cannula 2.00 I & O 08/15/20 07:00 Intake Total 1757.5 ml Output Total 2500 ml Balance -742.5 ml Capillary Refill : Less Than 3 Seconds General Appearance: No Apparent Distress, WD/WN HEENT: PERRL/EOMI, Normal ENT Inspection Neck: Normal Inspection, Non Tender Respiratory: Chest Non Tender, No Accessory Muscle Use, No Respiratory Distress Cardiovascular: Regular Rate, Rhythm, Other ( pitting edema LLE) Peripheral Pulses: 2+ Dorsalis Pedis (R); 1+ Left Dors-Pedis (L); 2+ Radial Pulses (R), 2+ Radial Pulses (L) Gastrointestinal: non tender, soft; No distended, No tenderness; other (right lower quadrant superficial wound) Extremity: Pedal Edema, Other (left lower extremity edema and slight erythema, scabs left knee and puncture left middle toe; right lower extremity slight edema) Neurologic/Psychiatric: Alert, Oriented x3, Normal Mood/Affect Skin: Normal Color, Warm/Dry, Other (redness of LLE from left groin to left foot) Lymphatic: No Adenopathy Results Lab Microbiology 08/12/20 Influenza Types A,B Antigen (GABRIELA) - Final, Complete 08/11/20 Urine Culture - Final, Complete Staphylococcus aureus 08/11/20 Blood Culture - Preliminary, Resulted No growth 08/11/20 Gram Stain - Final, Complete 08/11/20 Wound Culture - Final, Complete Staphylococcus aureus Assessment/Plan Assessment/Plan Assessment/Plan LLE cellulitis with sepsis Hypotension Cerebral palsy Right lower abdominal wound, left knee and left middle toe wound. Scrotal swelling Continue antibiotics as ordered Keep lower extremities elevated and in boots Encourage patient to get up to bedside chair TID No surgical intervention at this time, continue medical management. Clinical Quality Measures DVT/VTE Risk/Contraindication: Risk Factor Score Per Nursin RFS Level Per Nursing on Admit: 4+=Very High GUME PALOMARES DO 08/17/20 0435: Subjective Subjective/Events-last exam LLE decreasing. Scrotum swollen but minimally decreased. No pain, its controlled. Denies n/v fever sweats chills shortness of breath or chest pain. Objective Exam General Appearance: No Apparent Distress, WD/WN HEENT: PERRL/EOMI, Normal ENT Inspection Neck: Normal Inspection, Non Tender Respiratory: Chest Non Tender, No Accessory Muscle Use, No Respiratory Distress Cardiovascular: Regular Rate, Rhythm, Other ( pitting edema LLE) Gastrointestinal: non tender, soft; No distended, No tenderness; other (right lower quadrant superficial wound) Extremity: Pedal Edema, Swelling, Other (left lower extremity edema and slight erythema, scabs left knee and puncture left middle toe; right lower extremity slight edema, scrotal edema) Neurologic/Psychiatric: Alert, Oriented x3, Normal Mood/Affect Skin: Warm/Dry, Other (redness of LLE from left groin to left foot improving slowly) Assessment/Plan Assessment/Plan Assessment/Plan LLE cellulitis with sepsis Hypotension Cerebral palsy Right lower abdominal wound, left knee and left middle toe wound. Scrotal swelling elevate lower extremity continue medical management no drainable collection Supervisory-Addendum Brief Verification & Attestation Participated in pt care: history, MDM, physical Personally performed: exam, history, MDM, supervision of care Care discussed with: Medical Student Procedures: n/a Results interpretation: Verified all documentation Verification and Attestation of Medical Student E/M Service A medical student performed and documented this service in my presence. I reviewed and verified all information documented by the medical student and made modifications to such information, when appropriate. I personally performed the physical exam and medical decision making. Gume Palomares, Aug 15, 2020,14:35 MATILDE PINTO MED STUDENT Aug 15, 2020 07:25 GUME PALOMARES DO Aug 17, 2020 04:35
[2020-08-15 08:00] VITALS: BP 123/85
[2020-08-15] MEDS: ENOXAPARIN 40 MG/0.4 ML (LOVENOX) SYR SC SCH (08:11)
[2020-08-15] MEDS: TAMSULOSIN 0.4 MG (FLOMAX) CAP PO SCH ×2 (08:11→20:24)
[2020-08-15] MEDS: PANTOPRAZOLE 40 MG (PROTONIX) VIAL IV SCH (08:11)
[2020-08-15] MEDS: morphine ER 30 MG (MS CONTIN) TAB PO SCH (08:11)
[2020-08-15] MEDS ORDERED: PATIENT MAY USE OWN MED,SINGLE MED PO SCH (09:15)
[2020-08-15] MEDS ORDERED: SENNOSIDES 8.6 MG (SENOKOT) TAB PO PRN (09:15)
[2020-08-15] MEDS ORDERED: COLON CLENZ PO PRN (09:15)
--- NOTE | 2020-08-15 10:03 | Physical Therapy Daily Note ---
PT Daily Note-Current Subjective Pt presents laying supine in bed. Pt agrees to PT. Pt reports no pain but "stiffness" in BLE. Appearance At conclusion of PT treatment pt is left in recliner with leg elevated and heel pressure relief boots on; pt instructed no to walk in these boots and too ask for help before getting up. Pt has access to call button, tray, and all needs have been met. Mental Status Patient Orientation: Person, Place, Time, Eyes Open, Situation Attachments: Kelsey Catheter Transfers SCALE: Activities may be completed with or without assistive devices. 2-Diythyxcbh-ryduawh completes the activity by him/herself with no assistance from a helper. 5-Set-up or Clean-up Assistance-helper sets up or cleans up; patient completes activity. [place] assists only prior to or following the activity. 4-Supervision or Touching Assistance-helper provides verbal cues and/or touching/steadying and/or contact guard assistance as patient completes activity. Assistance may be provided throughout the activity or intermittently. 3-Partial/Moderate Assistance-helper does LESS THAN HALF the effort. [place] lifts, holds or supports trunk or limbs, but provides less than half the effort. 2-Substantial/Maximal Assistance-helper does MORE THAN HALF the effort. [place] lifts or holds trunk or limbs and provides more than half the effort. 8-Qsccolyhu-klgqix does ALL the effort. Patient does none of the effort to complete the activity. Or, the assistance of 2 or more helpers is required for the patient to complete the activity. If activity was not attempted, code reason: 7-Patient Refused. 9-Not Applicable-not attempted and the patient did not perform the activity before the current illness, exacerbation or injury. 10-Not Attempted due to Environmental Limitations-(lack of equipment, weather restraints, etc.). 88-Not Attempted due to Medical Conditions or Safety Concerns. Lying to Sitting/Side of Bed(Q: 3 Sit to Stand (QC): 3 Pt required mod assist to swing BLE out of bed. Pt required min assist with sit to stand; bed was slightly elevated. Weight Bearing Full Weight Bearing Full Weight Bearing Gait Training Does the Patient Walk?: Yes Distance: 5' Gait Persons Needed: 1 Gait Assistive Device: FWW Pt ambulates with ankles pronated; pt reports he normally wears quality high top shoes or boots. Pt is also unable to stand upright (flexed at knees and hips) Exercises Seated Therapy Exercises: Ankle pumps, Long arc quads Seated Reps: 20 Standing: Heel/toe raises (heel raises), Mini squats Standing Reps: 10 Treatments Gait training and LE strengthening Assessment Current Status: Good Progress Pt is eager to improve mobility. Pt increased gait distance but continues to be slow and unable to properly straighten legs. Pt's stiffness in BLE is limiting his ROM. PT Senior Living Goals [place] Goals PT Senior Living Goals Time Frame: Aug 21, 2020 Sit to Lying (QC): 4 Lying-Sitting on Side/Bed(QC): 4 Sit to Stand (QC): 4 Chair/Zeq-hs-Kjldd Xfer(QC): 4 Walk 10 feet (QC): 4 Walk 50ft with 2 Turns (QC): 4 1 Step (curb) (QC): 3 PT Plan Problem List Problem List: Activity Tolerance, Functional Strength, Safety, Balance, Gait, Transfer, Bed Mobility, ROM Treatment/Plan Treatment Plan: Continue Plan of Care Treatment Plan: Bed Mobility, Education, Functional Activity Nirav, Functional Strength, Gait, Safety, Therapeutic Exercise, Transfers Treatment Duration: Aug 21, 2020 Frequency: 6 times per week Estimated Hrs Per Day: .25 hour per day Patient and/or Family Agrees t: Yes Safety Risks/Education Patient Education: Gait Training, Transfer Techniques, Correct Positioning, Reviewed Don/Doff Brace, Safety Issues Teaching Recipient: Patient Teaching Methods: Demonstration, Discussion Response to Teaching: Reinforcement Needed Time/GCodes Time In: 908 Time Out: 931 Total Billed Treatment Time: 23 Total Billed Treatment 1 visit FA 13' EX 10' CARLO CALLES PT Aug 15, 2020 10:02
[2020-08-15] MEDS: SENNOSIDES 25 MG PO PRN (10:24)
[2020-08-15] MEDS: COLON CLENZ PO PRN (10:24)
--- NOTE | 2020-08-15 10:57 | Progress Note ---
Subjective Subjective/Events-last exam Patient states that he is feeling better and feels like the swelling is improving. He would like to decrease his pain medications. Has been up with walker and tolerating PO. Patient has not had BM since first day of admission. Review of Systems Pulmonary: No Dyspnea, No Cough Cardiovascular: Edema; No: Chest Pain, Palpitations Gastrointestinal: Constipation; No: Nausea, Vomiting Neurological: Weakness, Numbness, Incoordination Objective Exam Last Set of Vital Signs Vital Signs Date Time Temp Pulse Resp B/P (MAP) Pulse Ox O2 Delivery O2 Flow Rate FiO2 08/15/20 09:05 Room Air 08/15/20 08:00 36.2 78 20 123/85 (98) 94 08/14/20 07:44 2.00 08/12/20 19:59 92 Capillary Refill : Less Than 3 Seconds I&O Intake and Output 08/15/20 00:00 Intake Total 2367.5 ml Output Total 3100 ml Balance -732.5 ml Intake Oral 1840 ml IV Total 527.5 ml Output Urine Total 3100 ml General: Alert, Oriented X3, Cooperative, No Acute Distress HEENT: Mucous Memb Moist/[place] Lungs: Clear to Auscultation, Normal Air Movement Heart: Regular Rate, No Murmurs Abdomen: Normal Bowel Sounds, Soft, No Tenderness, No Masses Extremities: Other (4+ pitting edema to LLE and scrotal edema present, + erythema) Neuro: Sensation Intact, Cranial Nerves 3-12 NL Results/Procedures Lab Microbiology 08/12/20 Influenza Types A,B Antigen (GABRIELA) - Final, Complete 08/11/20 Urine Culture - Final, Complete Staphylococcus aureus 08/11/20 Blood Culture - Preliminary, Resulted No growth 08/11/20 Gram Stain - Final, Complete 08/11/20 Wound Culture - Final, Complete Staphylococcus aureus Assessment/Plan Assessment/Plan (1) Severe sepsis Status: Acute Assessment & Plan: - Patient in ICU requiring pressors to keep MAP >60, Continue IV antibiotics, cultures pending, strict I/Os with UOP 08/13: trial off pressors and patient was unable to maintain blood pressure 08/14: Off pressors and blood pressure remaining stable, MRSA cultured, Continue Vanc/Clinda, Leukocytosis likely 2/2 to solucortef 08/15: HDS, Continue Vanc/Clinda (2) Cellulitis of left lower extremity Status: Acute Assessment & Plan: - Dr Palomares consulted, CT ordered to rule out narcotizing fasciitis, Venous dopplers neg for DVT, Consider pelvic US to rule out pelvic thrombosis 08/13: US and CT normal , Will continue to monitor for improvement of swelling 08/15: PT ordered (3) Hyponatremia Status: Resolved Assessment & Plan: - Will continue to monitor (4) Normocytic anemia Status: Chronic (5) Elevated bilirubin Status: Chronic (6) Cerebral palsy Status: Acute (7) Scrotal swelling Status: Acute Assessment & Plan: 08/14: Elevation and cold compresses Clinical Quality Measures DVT/VTE Risk/Contraindication: Risk Factor Score Per Nursin RFS Level Per Nursing on Admit: 4+=Very High KEIRA ECHEVERRIA MD Aug 15, 2020 10:57
[2020-08-15] MEDS ORDERED: TROUGH ORDER-PHARMACY XX ONE (11:00)
[2020-08-15 12:00] VITALS: BP 120/77
--- NOTE | 2020-08-15 13:41 | NUR ---
PTD VANCOMYCIN LABS: SCR 0.59 VANCOMYCIN LEVEL 13.3 (ABOUT 1 HOUR LATE) PLAN: CONTINUE WITH CURRENT DOSING (NO CHANGE).
[2020-08-15 15:43] VITALS: BP 122/79
--- NOTE | 2020-08-15 16:05 | NUR ---
CM/SS: Visited with pt as to plan for discharge and discussed other needs related to equipment at the time of discharge Plan: Undetermined at this time. Pt is from home and will return there when deemed appropriate. Summary: Pt is asking about information related to housing and reports that he will need to move somewhere that is handicapped accessible. His current apartment is not assessable. Pt also wants to think about other equipment that he may need. Pt is given written information on housing options in the area. This worker will follow up with pt to determine what additional needs he may have.
--- NOTE | 2020-08-15 18:24 | Wound Care Assessment ---
Wound Care Assessment Date Seen by Provider: Aug 15, 2020 Time Seen by Provider: 07:40 Chief Complaint Cellulitis L leg. HPI The patient is a 49 year old male with aggressive cellulitis of the L leg, deveoping after abrasion of L knee 8 days ago, and L posterior calf laceration several weeks ago. Silver alginate dressings ordered. Will follow. 08/15/20 Interval Note: The patient notes less swelling in leg, but development of scrotal edema. The wounds are stable with the silver alginate dressings. Cerebral palsy, arthritis, previous back operation. Recreational Drug Use: No Alcohol Use: Denies Use Review of Systems Pulmonary: No Dyspnea Cardiovascular: No: Chest Pain Exam Vital Signs Date Time Temp Pulse Resp B/P (MAP) Pulse Ox O2 Delivery O2 Flow Rate FiO2 08/15/20 15:43 36.9 82 16 122/79 (93) 96 Room Air 08/14/20 07:44 2.00 08/12/20 19:59 92 Capillary Refill : Less Than 3 SecondsLess Than 3 Seconds General Appearance: no apparent distress Cardiovascular: regular rate, rhythm Respiratory: lungs clear Extremities: other (Reduced edema and erythema.) Results Laboratory Tests 08/15/20 12:53: Vancomycin Level Trough 13.3 Microbiology 08/12/20 Influenza Types A,B Antigen (GABRIELA) - Final, Complete 08/11/20 Urine Culture - Final, Complete Staphylococcus aureus 08/11/20 Blood Culture - Preliminary, Resulted No growth 08/11/20 Gram Stain - Final, Complete 08/11/20 Wound Culture - Final, Complete Staphylococcus aureus Assessment/Plan/Dx 1. Cellulitis of L leg with edema, responding to antibiotics. 2. laceration and abrasion L leg, stable. Plan: continue silver alginate dressings. KORIN CHAIDEZ MD Aug 15, 2020 18:24
[2020-08-15] MEDS: morphine ER 15 MG (MS CONTIN) TAB PO SCH (20:24)
[2020-08-15 20:30] VITALS: BP 114/80
[2020-08-16 00:16] VITALS: BP 119/71
[2020-08-16] MEDS: fentaNYL INJECTION 100 MCG/2 ML AMP IVP PRN (00:26)
[2020-08-16 04:00] VITALS: BP 122/80
[2020-08-16] MEDS: VANCOMYCIN 1250 MG/NS 250 ML IVPB IV SCH ×6 (04:04→20:18)
[2020-08-16] MEDS: HYDROCORTISONE 100 MG/2 ML (Solu-CORTEF) VIAL IV SCH ×3 (06:08→21:45)
[2020-08-16] MEDS: CLINDAMYCIN 600 MG/50 ML IVPB 50 ML IV SCH ×3 (06:09→21:46)
[2020-08-16] MEDS: BETHANECHOL 10 MG (URECHOLINE) TAB PO SCH ×4 (06:09→20:18)
[2020-08-16 06:27] LABS: BASOPHILS # (AUTO) 0.1 10^3/uL (0.0-0.1); BASOPHILS % (AUTO) 0 % (0-10); EOSINOPHILS % (AUTO) 0 % (0-10); HEMATOCRIT 33 % (40-54); HEMOGLOBIN 10.8 g/dL (13.3-17.7); LYMPHOCYTES # (AUTO) 1.1 10^3/uL (1.0-4.0); LYMPHOCYTES % (AUTO) 5 % (12-44); MEAN CORPUSCULAR HEMOGLOBIN 28 pg (25-34); MEAN CORPUSCULAR HGB CONC 33 g/dL (32-36); MEAN CORPUSCULAR VOLUME 85 fL (80-99); MEAN PLATELET VOLUME 8.7 fL (9.0-12.2); MONOCYTES % (AUTO) 5 % (0-12); NEUTROPHILS # (AUTO) 17.2 10^3/uL (1.8-7.8); NEUTROPHILS % (AUTO) 78 % (42-75); PLATELET COUNT 419 10^3/uL (130-400); WHITE BLOOD COUNT 22.1 10^3/uL (4.3-11.0)
[2020-08-16 06:35] LABS: CHLORIDE 104 MMOL/L (98-107); POTASSIUM 3.5 MMOL/L (3.6-5.0); SODIUM 140 MMOL/L (135-145)
[2020-08-16 06:36] LABS: CALCIUM 7.7 MG/DL (8.5-10.1); GLUCOSE 138 MG/DL (70-105)
[2020-08-16 06:38] LABS: CARBON DIOXIDE 28 MMOL/L (21-32)
[2020-08-16 06:40] LABS: CREATININE SERUM 0.53 MG/DL (0.60-1.30); GFR ESTIMATED > 60
[2020-08-16 06:41] LABS: BUN/CREATININE RATIO 30
[2020-08-16 08:17] VITALS: BP 132/80
--- NOTE | 2020-08-16 08:46 | Physical Therapy Daily Note ---
PT Daily Note-Current Subjective Pt presents sitting up in chair upon arrival to room, agreeable to therapy treatment at this time. Pt c/o BLE "stiffness" with a pain level of 4/10 in the LLE Appearance Following session, pt up in chair with call light and tray within reach. All needs met at this time. Mental Status Patient Orientation: Person, Place, Time, Situation Attachments: Kelsey Catheter Transfers SCALE: Activities may be completed with or without assistive devices. 0-Eypwidcczw-dqmqpdn completes the activity by him/herself with no assistance from a helper. 5-Set-up or Clean-up Assistance-helper sets up or cleans up; patient completes activity. [place] assists only prior to or following the activity. 4-Supervision or Touching Assistance-helper provides verbal cues and/or touching/steadying and/or contact guard assistance as patient completes activity. Assistance may be provided throughout the activity or intermittently. 3-Partial/Moderate Assistance-helper does LESS THAN HALF the effort. [place] lifts, holds or supports trunk or limbs, but provides less than half the effort. 2-Substantial/Maximal Assistance-helper does MORE THAN HALF the effort. [place] lifts or holds trunk or limbs and provides more than half the effort. 8-Zmvmentgw-inebme does ALL the effort. Patient does none of the effort to complete the activity. Or, the assistance of 2 or more helpers is required for the patient to complete the activity. If activity was not attempted, code reason: 7-Patient Refused. 9-Not Applicable-not attempted and the patient did not perform the activity before the current illness, exacerbation or injury. 10-Not Attempted due to Environmental Limitations-(lack of equipment, weather restraints, etc.). 88-Not Attempted due to Medical Conditions or Safety Concerns. Sit to Stand (QC): 3 Weight Bearing Full Weight Bearing Full Weight Bearing Gait Training Distance: 2 x 15' Walk 10 feet (QC): 3 Gait Assistive Device: Walker Standard Pt ambulates with BLE knees and hips flexed, and decreased stance time on LLE. Exercises Seated Therapy Exercises: Ankle pumps, Long arc quads Treatments Pt completed 2 x sit to stand and 2x 15' ambulation with standard walker. Then seated LE exercises. Assessment Current Status: Good Progress Pt with increased ambulation distance this visit, will continue to progress activity tolerance as able PT Correction Goals Correction Goals PT Correction Goals Time Frame: Aug 21, 2020 Sit to Lying (QC): 4 Lying-Sitting on Side/Bed(QC): 4 Sit to Stand (QC): 4 Chair/Rjs-uf-Wrswq Xfer(QC): 4 Walk 10 feet (QC): 4 Walk 50ft with 2 Turns (QC): 4 1 Step (curb) (QC): 3 PT Plan Problem List Problem List: Activity Tolerance, Functional Strength, Safety, Balance, Gait, Transfer, Bed Mobility, ROM Treatment/Plan Treatment Plan: Continue Plan of Care Treatment Plan: Bed Mobility, Education, Functional Activity Nirav, Functional Strength, Gait, Safety, Therapeutic Exercise, Transfers Treatment Duration: Aug 21, 2020 Frequency: 6 times per week Estimated Hrs Per Day: .25 hour per day Patient and/or Family Agrees t: Yes Safety Risks/Education Patient Education: Safety Issues Pt educated on standard walker vs. FWW for ambulation safety Time/GCodes Time In: 815 Time Out: 840 Total Billed Treatment Time: 25 Total Billed Treatment 1 visit GT (15') EX (10') [place] PT Aug 16, 2020 08:46
[2020-08-16] MEDS: ENOXAPARIN 40 MG/0.4 ML (LOVENOX) SYR SC SCH (08:59)
[2020-08-16] MEDS: PANTOPRAZOLE 40 MG (PROTONIX) TAB PO SCH (08:59)
[2020-08-16] MEDS: morphine ER 15 MG (MS CONTIN) TAB PO SCH ×2 (08:59→20:19)
[2020-08-16] MEDS: TAMSULOSIN 0.4 MG (FLOMAX) CAP PO SCH ×2 (08:59→20:18)
--- NOTE | 2020-08-16 09:22 | Progress Note - Surgery ---
MATILDE PINTO MED STUDENT 08/16/20 0922: Subjective Date Seen by a Provider: Aug 16, 2020 Time Seen by a Provider: 08:40 Subjective/Events-last exam Patient states he feels slightly better from yesterday. Reports his leg swelling to be about the same. States it's less "hot" to the touch. States he had a large BM this morning. Tolerating po intake well without nausea or vomiting. Denies fevers, chills, SOB, and headaches. States he's been up walking around in room a few times with physical therapy and that causes a lot of left leg pain. He repo rts he wants to cut back on his pain meds because he feels that is making it harder to have BM's. Rates his left leg pain to be a 2/10 this morning, which is tolerable for him. Reports he wants to be up in the chair because the bed is too hot, and the heel protectors/boots are too warm. Review of Systems General: No Chills, No Night Sweats, No Appetite HEENT: No Head Aches, No Visual Changes Pulmonary: No Dyspnea, No Cough Cardiovascular: Edema (LLE 3+ pitting edema/RLE edematous as well); No: Chest Pain, Palpitations Gastrointestinal: No: Nausea, Vomiting, Abdominal Pain Genitourinary: Other (sal catheter present) Musculoskeletal: leg pain (LLE pain); No: neck pain, shoulder pain Neurological: Incoordination (CP history/ambulates with walker); No: Weakness, Numbness Objective Exam Vital Signs Date Time Temp Pulse Resp B/P (MAP) Pulse Ox O2 Delivery O2 Flow Rate FiO2 08/16/20 08:17 36.4 68 20 132/80 (97) 94 Room Air 08/16/20 04:00 36.6 60 14 122/80 (94) 93 Room Air 08/16/20 00:16 36.4 75 18 119/71 (87) 92 Room Air 08/15/20 20:30 36.9 79 20 114/80 (91) 96 Room Air 08/15/20 20:00 94 Room Air 08/15/20 15:43 36.9 82 16 122/79 (93) 96 Room Air 08/15/20 12:00 36.2 80 20 120/77 (91) 96 Room Air I & O 08/16/20 07:00 Intake Total 2580.0 ml Output Total 1975 ml Balance 605.0 ml Capillary Refill : Less Than 3 SecondsLess Than 3 Seconds General Appearance: No Apparent Distress, WD/WN HEENT: PERRL/EOMI, Normal ENT Inspection Neck: Normal Inspection, Non Tender Respiratory: Chest Non Tender, No Accessory Muscle Use, No Respiratory Distress Cardiovascular: Regular Rate, Rhythm, Other ( pitting edema LLE) Peripheral Pulses: 2+ Dorsalis Pedis (R); 1+ Left Dors-Pedis (L); 2+ Radial Pulses (R), 2+ Radial Pulses (L) Gastrointestinal: non tender, soft; No distended, No tenderness; other (right lower quadrant superficial wound) Extremity: No Calf Tenderness, Pedal Edema, Other (left lower extremity edema and slight erythema, scabs left knee and puncture left middle toe; right lower extremity slight edema) Neurologic/Psychiatric: Alert, Oriented x3, Normal Mood/Affect Skin: Warm/Dry, Other (redness of LLE from left groin to left foot decreasing slightly) Lymphatic: No Adenopathy Results Lab Laboratory Tests 08/15/20 12:53: Vancomycin Level Trough 13.3 08/16/20 06:00: White Blood Count 22.1H, Red Blood Count 3.81L, Hemoglobin 10.8L, Hematocrit 33L , Mean Corpuscular Volume 85, Mean Corpuscular Hemoglobin 28, Mean Corpuscular Hemoglobin Concent 33, Red Cell Distribution Width 14.6H, Platelet Count 419H, Mean Platelet Volume 8.7L, Immature Granulocyte % (Auto) 12, Neutrophils (%) (Auto) 78H, Lymphocytes (%) (Auto) 5L, Monocytes (%) (Auto) 5, Eosinophils (%) (Auto) 0, Basophils (%) (Auto) 0, Neutrophils # (Auto) 17.2H, Lymphocytes # (Auto) 1.1, Monocytes # (Auto) 1.0, Eosinophils # (Auto) 0.0, Basophils # (Auto) 0.1, Immature Granulocyte # (Auto) 2.7H, Sodium Level 140, Potassium Level 3.5L, Chloride Level 104, Carbon Dioxide Level 28, Anion Gap 8, Blood Urea Nitrogen 16, Creatinine 0.53L, Estimat Glomerular Filtration Rate > 60, BUN/Creatinine Ratio 30, Glucose Level 138H, Calcium Level 7.7L Microbiology 08/12/20 Influenza Types A,B Antigen (GABRIELA) - Final, Complete 08/11/20 Urine Culture - Final, Complete Staphylococcus aureus 08/11/20 Blood Culture - Preliminary, Resulted No growth 08/11/20 Gram Stain - Final, Complete 08/11/20 Wound Culture - Final, Complete Staphylococcus aureus Assessment/Plan Assessment/Plan Assessment/Plan LLE cellulitis with sepsis Hypotension-resolved Cerebral palsy Right lower abdominal wound, left knee and left middle toe wound. Scrotal swelling-unchanged Continue antibiotics as ordered Keep lower extremities elevated and in boots Encourage patient to get up to bedside chair TID Encourage ambulation with walker TID No surgical intervention at this time, continue medical management. Clinical Quality Measures DVT/VTE Risk/Contraindication: Risk Factor Score Per Nursin RFS Level Per Nursing on Admit: 4+=Very High GUME UQINTANILLA DO 08/17/20 0439: Subjective Subjective/Events-last exam Slowly improving. No significant pain. Seems to be minimally better today. Trying to remember to keep legs elevated. Denies n/v fever sweats chills shortness of breath or chest pain. Objective Exam General Appearance: No Apparent Distress, WD/WN HEENT: PERRL/EOMI, Normal ENT Inspection Neck: Normal Inspection, Non Tender Respiratory: Chest Non Tender, No Accessory Muscle Use, No Respiratory Distress Cardiovascular: Regular Rate, Rhythm, Other ( pitting edema LLE) Gastrointestinal: non tender, soft; No distended, No tenderness; other (right lower quadrant superficial wound) Extremity: Pedal Edema, Other (left lower extremity edema and less erythema, scabs left knee and puncture left middle toe; right lower extremity slight e kai, scrotal edema) Neurologic/Psychiatric: Alert, Oriented x3, Normal Mood/Affect Skin: Warm/Dry, Other (redness of LLE from left groin to left foot decreasing slowly) Assessment/Plan Assessment/Plan Assessment/Plan LLE cellulitis with sepsis Hypotension-resolved Cerebral palsy Right lower abdominal wound, left knee and left middle toe wound. Scrotal swelling-unchanged continue medical management elevate lower extremities discussed with Dr. Salas will obtain Ct abd pelvis to look and see if any obstructing pathology Supervisory-Addendum Brief Verification & Attestation Participated in pt care: history, MDM, physical Personally performed: exam, history, MDM, supervision of care Care discussed with: Medical Student Procedures: n/a Results interpretation: Verified all documentation Verification and Attestation of Medical Student E/M Service A medical student performed and documented this service in my presence. I reviewed and verified all information documented by the medical student and made modifications to such information, when appropriate. I personally performed the physical exam and medical decision making. Gume Quintanilla, Aug 16, 2020,18:39 MATILDE PINTO MED STUDENT Aug 16, 2020 09:22 GUME QUINTANILLA DO Aug 17, 2020 04:39
--- NOTE | 2020-08-16 11:24 | Diagnostic Imaging Report ---
INDICATION: Infiltrate. COMPARISON: Exam compared to 08/14/2020. FINDINGS: Bilateral lower lobe infiltrates, greater right, have improved. The upper lobes are clear. PICC line at the SVC, stable. IMPRESSION: Bilateral lower lobe infiltrates, greater right, have improved from the comparison. No adverse development. Dictated by: Dictated on workstation # [id number]
[2020-08-16 11:41] VITALS: BP 133/81
[2020-08-16] MEDS ORDERED: polyethylene glycoL POWDER 17 GM (MIRALAX) PACK PO PRN (11:45)
[2020-08-16] MEDS ORDERED: LACTULOSE SYRUP 10GM/15ML (ENULOSE) 30ML UDC PO PRN (11:45)
[2020-08-16] MEDS ORDERED: BISACODYL 10 MG SUPP (DULCOLAX) PR PRN (11:45)
[2020-08-16] MEDS ORDERED: HOLD METFORMIN - RECEIVED CONTRAST 20 ML VIAL IV SCH (12:00)
[2020-08-16] MEDS ORDERED: IOHEXOL 350 MG/ML 100 ML (OMNIPAQUE 350) VIAL IV ONE (12:00)
[2020-08-16] MEDS ORDERED: NS 100 ML (IVPB) BAG IV ONE (12:00)
--- NOTE | 2020-08-16 12:07 | Progress Note - Hospitalist ---
JUNE LAY MED STUDENT 08/16/20 1207: Subjective HPI/CC On Admission Date Seen by Provider: Aug 16, 2020 Time Seen by Provider: 09:35 Subjective/Events-last exam Patient states that he feels slightly better today though he notes his progress feels slow. Reports he still has pain in his legs L>R, especially ont he lateral portion of the upper thigh which is where he believes the pain started. Patient states his constipation resolved today with 2 large bowel movements this morning. He states his scrotal swelling has remained the same with no pain but catheter is draining urine with no obvious issue. He denies any CP, SOB, abdominal pain, noted fever or headache. Objective Exam Vital Signs Vital Signs Date Time Temp Pulse Resp B/P (MAP) Pulse Ox O2 Delivery O2 Flow Rate FiO2 08/16/20 11:41 36.4 63 18 133/81 (98) 98 Room Air 08/14/20 07:44 2.00 08/12/20 19:59 92 Capillary Refill : Less Than 3 SecondsLess Than 3 Seconds General Appearance: No Apparent Distress, WD/WN HEENT: No Photophobia, No Scleral Icterus (L), No Scleral Icterus (R) Neck: Normal Inspection, Non Tender Respiratory: Chest Non Tender, No Accessory Muscle Use, No Respiratory Distress Cardiovascular: Regular Rate, Rhythm, Normal Peripheral Pulses Gastrointestinal: No Organomegaly, No Pulsatile Mass, Non Tender Genital/Rectal: Other (swollen scrotum, nontender, no drainage, minor overlying skin changes secondary to swelling) Extremity: Calf Tenderness (L>R), Swelling (L>R) Neurologic/Psychiatric: Alert, Oriented x3, No Motor/Sensory Deficits, Normal Mood/Affect Skin: No Diaphoresis, No Ecchymosis; Erythema (minor over L lateral thigh); No Jaundice, No Petechia, No Rash Results/Procedures Lab Laboratory Tests 08/16/20 06:00 Patient resulted labs reviewed. Assessment/Plan Assessment and Plan Assess & Plan/Chief Complaint Cellulitis w/ sepsis -continue vancomycin and clindamycin -monitor by wound care Scrotal swelling -elevation and compresses -maintain catheter Debility -continue with PT Other management -CT abdomen ordered per Surgery -constipation: resolved Chronic -elevated bilirubin -cerebral palsy -normocytic anemia Clinical Quality Measures DVT/VTE Risk/Contraindication: Risk Factor Score Per Nursin RFS Level Per Nursing on Admit: 4+=Very High JANY RAY DO 08/16/202126: Subjective Review of Systems Cardiovascular: Edema Musculoskeletal: leg pain Objective Exam General Appearance: No Apparent Distress, WD/WN, Chronically ill Extremity: Pedal Edema Neurologic/Psychiatric: Alert, Oriented x3, No Motor/Sensory Deficits, Normal Mood/Affect Assessment/Plan Assessment and Plan Assess & Plan/Chief Complaint Evaluate for nephrotic syndrome 24 hour urine, spot urine protein, TC, wrap legs with TIO wraps, CT scan pelvis, IV abx Diagnosis/Problems Diagnosis/Problems (1) Proteinuria (2) Blood albumin decreased compared with prior measurement (3) Narcotic bowel syndrome (4) Cellulitis of left lower extremity Status: Acute (5) Cerebral palsy Status: Acute (6) Normocytic anemia Status: Chronic (7) Hyponatremia Status: Resolved Resolution Date/Time: 08/14/20 @ 14:40 (8) Scrotal swelling Status: Acute (9) Elevated bilirubin Status: Chronic Supervisory-Addendum Brief Verification & Attestation Participated in pt care: history, MDM, physical Personally performed: exam, history, MDM, supervision of care Care discussed with: Medical Student Procedures: n/a Results interpretation: Verified all documentation Verification and Attestation of Medical Student E/M Service A medical student performed and documented this service in my presence. I reviewed and verified all information documented by the medical student and made modifications to such information, when appropriate. I personally performed the physical exam and medical decision making. Jany Ray, Aug 16, 2020,21:26 JUNE LAY MED STUDENT Aug 16, 2020 12:07 JANY RAY DO Aug 16, 2020 21:27
[2020-08-16] MEDS ORDERED: MAGNESIUM CITRATE 300 ML BTL PO NR (12:11)
--- NOTE | 2020-08-16 13:09 | Diagnostic Imaging Report ---
EXAMINATION: CT Abdomen and Pelvis with intravenous contrast. TECHNIQUE: Multiple contiguous axial images were obtained through the abdomen and pelvis after the uneventful administration of intravenous contrast. All CT scans use one or more of the following dose optimizing techniques: automated exposure control, MA and/or KvP adjustment based on a patient size and exam type, or iterative reconstruction. HISTORY: Cellulitis. COMPARISON: 02/16/2017 FINDINGS: Limited views of the lower thorax show moderate bilateral pleural effusions with overlying atelectasis. Liver cysts are again seen. No suspicious liver lesions are seen. There is no biliary ductal dilation. Gallbladder is normal. Pancreas is normal. Spleen is normal. Adrenal glands are normal. The kidneys are normal. There is no hydronephrosis. Bladder wall is thickened and there is a small amount of gas in the bladder. It is mostly decompressed by a Kelsey catheter. There is a large amount of stool in the colon. No bowel obstruction or inflammation is seen. There is a qdxkn-ie-xlgxmowh amount of free fluid in the pelvis. There is periportal and mesenteric edema. There is severe body wall edema. There is severe scrotal edema. No scrotal gas is seen. No abdominal or pelvic lymphadenopathy. Aorta is normal in caliber without aneurysm. There are no suspicious osseous lesions. IMPRESSION: 1. Severe body wall edema, moderate pleural effusions, lckbg-uu-oyqzysyz free fluid in the pelvis and profound scrotal edema. Findings are likely related to volume overload. 2. The scrotal edema is likely related to volume overload. There is no soft tissue gas to indicate Queenie's gangrene, however, Queenie's gangrene can present without soft tissue gas and is ultimately a clinical diagnosis. Dictated by: Dictated on workstation # [id number]
[2020-08-16 16:30] VITALS: BP 120/62
[2020-08-16 19:42] VITALS: BP 117/65
[2020-08-16] MEDS: SENNA W/DOCUSATE (SENOKOT S) TABLET PO SCH (20:18)
[2020-08-16] MEDS: DOCUSATE SODIUM 100 MG (COLACE) CAP PO SCH (20:18)
[2020-08-17] VITALS: BP 126/77
[2020-08-17] MEDS: VANCOMYCIN 1250 MG/NS 250 ML IVPB IV SCH ×6 (03:44→20:11)
[2020-08-17 04:00] VITALS: BP 113/71
--- NOTE | 2020-08-17 04:19 | Progress Note - Surgery ---
Subjective Date Seen by a Provider: Aug 17, 2020 Time Seen by a Provider: 04:15 Subjective/Events-last exam swelling in lower extremity and scrotum improving, better with laying with lower extremities elevated. No significant pain, its controlled. No new complaints. Denies n/v fever sweats chills shortness of breath or chest pain. Objective Exam Vital Signs Date Time Temp Pulse Resp B/P (MAP) Pulse Ox O2 Delivery O2 Flow Rate FiO2 08/17/20 04:00 36.5 70 17 113/71 (85) 95 Room Air 08/17/20 00:00 36.6 90 16 126/77 (93) 93 Room Air 08/16/20 20:00 Room Air 08/16/20 19:42 36.6 80 14 117/65 (82) 97 Room Air 08/16/20 16:30 36.4 62 16 120/62 (81) 97 Room Air 08/16/20 11:41 36.4 63 18 133/81 (98) 98 Room Air 08/16/20 09:36 Room Air 08/16/20 08:17 36.4 68 20 132/80 (97) 94 Room Air 08/16/20 08:00 Room Air I & O 08/17/20 07:00 Intake Total 710 ml Output Total 1500 ml Balance -790 ml Capillary Refill : Less Than 3 SecondsLess Than 3 Seconds General Appearance: No Apparent Distress, WD/WN, Chronically ill HEENT: No Photophobia, No Scleral Icterus (L), No Scleral Icterus (R) Neck: Normal Inspection, Non Tender Respiratory: Chest Non Tender, No Accessory Muscle Use, No Respiratory Distress Cardiovascular: Regular Rate, Rhythm, Normal Peripheral Pulses Peripheral Pulses: 2+ Dorsalis Pedis (R); 1+ Left Dors-Pedis (L); 2+ Radial Pulses (R), 2+ Radial Pulses (L) Gastrointestinal: non tender, soft; No distended, No tenderness; other (right lower quadrant superficial wound) Extremity: Swelling (decreasing, no significant tenderness, scrotal swelling decreasing) Neurologic/Psychiatric: Alert, Oriented x3, No Motor/Sensory Deficits, Normal Mood/Affect Skin: Warm/Dry; No Diaphoresis, No Ecchymosis; Erythema (minor over L lateral thigh improving); No Jaundice, No Petechia, No Rash Lymphatic: No Adenopathy Results Lab Laboratory Tests 08/16/20 06:00: White Blood Count 22.1H, Red Blood Count 3.81L, Hemoglobin 10.8L, Hematocrit 33L , Mean Corpuscular Volume 85, Mean Corpuscular Hemoglobin 28, Mean Corpuscular Hemoglobin Concent 33, Red Cell Distribution Width 14.6H, Platelet Count 419H, Mean Platelet Volume 8.7L, Immature Granulocyte % (Auto) 12, Neutrophils (%) (Auto) 78H, Lymphocytes (%) (Auto) 5L, Monocytes (%) (Auto) 5, Eosinophils (%) (Auto) 0, Basophils (%) (Auto) 0, Neutrophils # (Auto) 17.2H, Lymphocytes # (Auto) 1.1, Monocytes # (Auto) 1.0, Eosinophils # (Auto) 0.0, Basophils # (Auto) 0.1, Immature Granulocyte # (Auto) 2.7H, Sodium Level 140, Potassium Level 3.5L, Chloride Level 104, Carbon Dioxide Level 28, Anion Gap 8, Blood Urea Nitrogen 16, Creatinine 0.53L, Estimat Glomerular Filtration Rate > 60, BUN/Creatinine Ratio 30, Glucose Level 138H, Calcium Level 7.7L 08/16/20 21:49: Urine Random Total Protein 12 Microbiology 08/12/20 Influenza Types A,B Antigen (GABRIELA) - Final, Complete 08/11/20 Urine Culture - Final, Complete Staphylococcus aureus 08/11/20 Blood Culture - Preliminary, Resulted No growth 08/11/20 Gram Stain - Final, Complete 08/11/20 Wound Culture - Final, Complete Staphylococcus aureus Assessment/Plan Assessment/Plan Assessment/Plan LLE cellulitis with sepsis Hypotension-resolved Cerebral palsy Right lower abdominal wound, left knee and left middle toe wound. Scrotal swelling-improving Continue antibiotics as ordered Keep lower extremities elevated and in boots Encourage patient to get up Encourage ambulation with walker TID No surgical intervention at this time, continue medical management slowly improving Clinical Quality Measures DVT/VTE Risk/Contraindication: Risk Factor Score Per Nursin RFS Level Per Nursing on Admit: 4+=Very High GUME QUINTANILLA DO Aug 17, 2020 04:19
[2020-08-17 05:32] LABS: BASOPHILS % (AUTO) 0 % (0-10); EOSINOPHILS % (AUTO) 0 % (0-10); HEMATOCRIT 33 % (40-54); HEMOGLOBIN 11.1 g/dL (13.3-17.7); LYMPHOCYTES # (AUTO) 1.4 10^3/uL (1.0-4.0); LYMPHOCYTES % (AUTO) 7 % (12-44); MEAN CORPUSCULAR HEMOGLOBIN 28 pg (25-34); MEAN CORPUSCULAR HGB CONC 34 g/dL (32-36); MEAN CORPUSCULAR VOLUME 84 fL (80-99); MEAN PLATELET VOLUME 8.8 fL (9.0-12.2); MONOCYTES % (AUTO) 5 % (0-12); NEUTROPHILS # (AUTO) 15.7 10^3/uL (1.8-7.8); NEUTROPHILS % (AUTO) 76 % (42-75); PLATELET COUNT 424 10^3/uL (130-400); WHITE BLOOD COUNT 20.6 10^3/uL (4.3-11.0)
[2020-08-17 05:47] LABS: ALBUMIN 2.1 GM/DL (3.2-4.5); CHLORIDE 103 MMOL/L (98-107); POTASSIUM 3.6 MMOL/L (3.6-5.0); SODIUM 140 MMOL/L (135-145)
[2020-08-17 05:48] LABS: CALCIUM 7.4 MG/DL (8.5-10.1)
[2020-08-17 05:49] LABS: TRIGLYCERIDES 81 MG/DL (<150); VLDL CHOLESTEROL 16 MG/DL (5-40)
[2020-08-17 05:50] LABS: GLUCOSE 120 MG/DL (70-105); TOTAL PROTEIN 4.5 GM/DL (6.4-8.2)
[2020-08-17 05:51] LABS: BILIRUBIN,TOTAL 0.4 MG/DL (0.1-1.0); CARBON DIOXIDE 29 MMOL/L (21-32)
[2020-08-17 05:54] LABS: ALKALINE PHOSPHATASE 98 U/L (40-136); CHOLESTEROL 111 MG/DL (< 200); CREATININE SERUM 0.51 MG/DL (0.60-1.30); GFR ESTIMATED > 60
[2020-08-17 05:55] LABS: BUN/CREATININE RATIO 29
[2020-08-17 05:56] LABS: HDL CHOLESTEROL 17 MG/DL (40-60)
[2020-08-17 05:57] LABS: ALANINE AMINOTRANSFERASE 30 U/L (0-55)
[2020-08-17] MEDS: CLINDAMYCIN 600 MG/50 ML IVPB 50 ML IV SCH ×3 (07:06→22:32)
[2020-08-17] MEDS: BETHANECHOL 10 MG (URECHOLINE) TAB PO SCH ×4 (07:07→20:12)
[2020-08-17] MEDS: HYDROCORTISONE 100 MG/2 ML (Solu-CORTEF) VIAL IV SCH ×3 (07:07→22:32)
[2020-08-17] MEDS: ENOXAPARIN 40 MG/0.4 ML (LOVENOX) SYR SC SCH (08:14)
[2020-08-17] MEDS: TAMSULOSIN 0.4 MG (FLOMAX) CAP PO SCH ×2 (08:14→20:12)
[2020-08-17] MEDS: DOCUSATE SODIUM 100 MG (COLACE) CAP PO SCH ×2 (08:14→20:12)
[2020-08-17] MEDS: SENNA W/DOCUSATE (SENOKOT S) TABLET PO SCH ×2 (08:14→20:12)
[2020-08-17] MEDS: morphine ER 15 MG (MS CONTIN) TAB PO SCH ×2 (08:14→20:12)
[2020-08-17] MEDS: PANTOPRAZOLE 40 MG (PROTONIX) TAB PO SCH (08:14)
[2020-08-17 08:42] VITALS: BP 114/70
--- NOTE | 2020-08-17 09:09 | Physical Therapy Daily Note ---
PT Daily Note-Current Subjective Patient agrees to PT. He reports the swelling in his legs is better. Mental Status Patient Orientation: Normal For Age Transfers SCALE: Activities may be completed with or without assistive devices. 3-Loqdndthsc-jxvhyhh completes the activity by him/herself with no assistance from a helper. 5-Set-up or Clean-up Assistance-helper sets up or cleans up; patient completes activity. [place] assists only prior to or following the activity. 4-Supervision or Touching Assistance-helper provides verbal cues and/or touching/steadying and/or contact guard assistance as patient completes activity. Assistance may be provided throughout the activity or intermittently. 3-Partial/Moderate Assistance-helper does LESS THAN HALF the effort. [place] lifts, holds or supports trunk or limbs, but provides less than half the effort. 2-Substantial/Maximal Assistance-helper does MORE THAN HALF the effort. [place] lifts or holds trunk or limbs and provides more than half the effort. 5-Ziyceyvpi-rtggse does ALL the effort. Patient does none of the effort to complete the activity. Or, the assistance of 2 or more helpers is required for the patient to complete the activity. If activity was not attempted, code reason: 7-Patient Refused. 9-Not Applicable-not attempted and the patient did not perform the activity before the current illness, exacerbation or injury. 10-Not Attempted due to Environmental Limitations-(lack of equipment, weather restraints, etc.). 88-Not Attempted due to Medical Conditions or Safety Concerns. Sit to Lying (QC): 3 Lying to Sitting/Side of Bed(Q: 3 Sit to Stand (QC): 3 Weight Bearing Full Weight Bearing Full Weight Bearing Gait Training Does the Patient Walk?: Yes Distance: 250' Walk 10 feet (QC): 4 Walk 50 ft with 2 Turns(QC): 4 Walk 150 ft (QC): 4 Gait Assistive Device: Walker Standard very slow, step to, CP gait sequence Assessment Current Status: Good Progress PT Community Liaison Officer Goals Halfway Goals PT Halfway Goals Time Frame: Aug 21, 2020 Sit to Lying (QC): 4 Lying-Sitting on Side/Bed(QC): 4 Sit to Stand (QC): 4 Chair/Pfr-rr-Qalmo Xfer(QC): 4 Walk 10 feet (QC): 4 Walk 50ft with 2 Turns (QC): 4 1 Step (curb) (QC): 3 PT Plan Treatment/Plan Treatment Plan: Continue Plan of Care Treatment Plan: Bed Mobility, Education, Functional Activity Nirav, Functional Strength, Gait, Safety, Therapeutic Exercise, Transfers Treatment Duration: Aug 21, 2020 Frequency: 6 times per week Estimated Hrs Per Day: .25 hour per day Patient and/or Family Agrees t: Yes Time/GCodes Time In: 813 Time Out: 836 Total Billed Treatment Time: 23 Total Billed Treatment 1 visit FA x 2 23 min DAREN HUTCHINSON PT Aug 17, 2020 09:09
[2020-08-17 12:50] VITALS: BP 120/79
--- NOTE | 2020-08-17 13:01 | Progress Note - Hospitalist ---
Subjective HPI/CC On Admission Date Seen by Provider: Aug 17, 2020 Time Seen by Provider: 12:00 Subjective/Events-last exam Reviewed chart and 2+ protein in UA and protein serum is 2.0 down from normal at time of admit last time I admitted him 24 hour urine ordered Wide tio wraps placed around legs and Lasix given and will monitor low BP closely IV abx maintained PT OT ordered Rehab candidate? Review of Systems General: Fatigue Cardiovascular: Edema Musculoskeletal: leg pain Objective Exam Vital Signs Vital Signs Date Time Temp Pulse Resp B/P (MAP) Pulse Ox O2 Delivery O2 Flow Rate FiO2 08/18/20 16:00 36.8 63 18 116/68 (84) 97 Room Air 08/14/20 07:44 2.00 08/12/20 19:59 92 Capillary Refill : Less Than 3 SecondsLess Than 3 Seconds General Appearance: No Apparent Distress, WD/WN, Chronically ill Respiratory: Chest Non Tender, Lungs Clear, Normal Breath Sounds, No Accessory Muscle Use, No Respiratory Distress Cardiovascular: Regular Rate, Rhythm, No Gallop, No JVD, No Murmur, Normal Peripheral Pulses Extremity: Pedal Edema Neurologic/Psychiatric: Alert, Oriented x3, No Motor/Sensory Deficits, Normal Mood/Affect Results/Procedures Lab Laboratory Tests 08/18/20 06:25 Patient resulted labs reviewed. Assessment/Plan Assessment and Plan Assess & Plan/Chief Complaint Evaluate for nephrotic syndrome 24 hour urine, spot urine protein, TC, wrap legs with TIO wraps, CT scan pelvis, IV abx IV abx Diagnosis/Problems Diagnosis/Problems (1) Proteinuria (2) Blood albumin decreased compared with prior measurement (3) Narcotic bowel syndrome (4) Cellulitis of left lower extremity Status: Acute (5) Cerebral palsy Status: Acute (6) Normocytic anemia Status: Chronic (7) Hyponatremia Status: Resolved Resolution Date/Time: 08/14/20 @ 14:40 (8) Scrotal swelling Status: Acute (9) Elevated bilirubin Status: Chronic Clinical Quality Measures DVT/VTE Risk/Contraindication: Risk Factor Score Per Nursin RFS Level Per Nursing on Admit: 4+=Very High JHOANA ARY DO Aug 17, 2020 13:01
[2020-08-17] MEDS ORDERED: FUROSEMIDE 40 MG/4 ML INJ (LASIX) IVP ONE ×3 (13:15→20:30)
[2020-08-17 16:00] VITALS: BP 127/80
[2020-08-17 19:59] VITALS: BP 124/71
[2020-08-17] MEDS ORDERED: FUROSEMIDE 40 MG/4 ML INJ (LASIX) ONE (19:59)
[2020-08-18] VITALS: BP 120/70
[2020-08-18 00:50] LABS: PROTEIN URINE MG/DL 7 MG/DL (6-12)
[2020-08-18 01:01] LABS: PROTEIN 24 HOUR URINE 122 MG/24H (0-149); TOTAL VOLUME,URINE 1750 ML
[2020-08-18] MEDS: VANCOMYCIN 1250 MG/NS 250 ML IVPB IV SCH ×6 (03:58→21:02)
[2020-08-18 04:00] VITALS: BP 125/88
[2020-08-18] MEDS: BETHANECHOL 10 MG (URECHOLINE) TAB PO SCH ×4 (05:42→21:01)
[2020-08-18] MEDS: CLINDAMYCIN 600 MG/50 ML IVPB 50 ML IV SCH ×3 (05:42→23:00)
[2020-08-18] MEDS: HYDROCORTISONE 100 MG/2 ML (Solu-CORTEF) VIAL IV SCH ×3 (05:42→22:58)
[2020-08-18 06:49] LABS: BASOPHILS % (AUTO) 0 % (0-10); EOSINOPHILS % (AUTO) 0 % (0-10); HEMATOCRIT 36 % (40-54); HEMOGLOBIN 12.3 g/dL (13.3-17.7); LYMPHOCYTES # (AUTO) 1.6 10^3/uL (1.0-4.0); LYMPHOCYTES % (AUTO) 9 % (12-44); MEAN CORPUSCULAR HEMOGLOBIN 29 pg (25-34); MEAN CORPUSCULAR HGB CONC 34 g/dL (32-36); MEAN CORPUSCULAR VOLUME 84 fL (80-99); MEAN PLATELET VOLUME 8.5 fL (9.0-12.2); MONOCYTES # (AUTO) 0.9 10^3/uL (0.0-1.0); MONOCYTES % (AUTO) 5 % (0-12); NEUTROPHILS # (AUTO) 14.5 10^3/uL (1.8-7.8); NEUTROPHILS % (AUTO) 78 % (42-75); PLATELET COUNT 494 10^3/uL (130-400); WHITE BLOOD COUNT 18.7 10^3/uL (4.3-11.0)
[2020-08-18 07:01] LABS: ALBUMIN 2.3 GM/DL (3.2-4.5); CHLORIDE 100 MMOL/L (98-107); POTASSIUM 3.2 MMOL/L (3.6-5.0); SODIUM 140 MMOL/L (135-145)
[2020-08-18 07:02] LABS: CALCIUM 7.4 MG/DL (8.5-10.1)
[2020-08-18 07:03] LABS: GLUCOSE 126 MG/DL (70-105); TOTAL PROTEIN 4.7 GM/DL (6.4-8.2)
[2020-08-18 07:04] LABS: CARBON DIOXIDE 31 MMOL/L (21-32)
[2020-08-18 07:05] LABS: BILIRUBIN,TOTAL 0.5 MG/DL (0.1-1.0)
[2020-08-18 07:06] LABS: ALKALINE PHOSPHATASE 104 U/L (40-136)
[2020-08-18 07:07] LABS: CREATININE SERUM 0.54 MG/DL (0.60-1.30); GFR ESTIMATED > 60
[2020-08-18 07:08] LABS: BUN/CREATININE RATIO 28
[2020-08-18 07:10] LABS: ALANINE AMINOTRANSFERASE 33 U/L (0-55)
[2020-08-18 08:22] VITALS: BP 122/75
[2020-08-18] MEDS: morphine ER 15 MG (MS CONTIN) TAB PO SCH ×2 (08:41→21:01)
[2020-08-18] MEDS: SENNA W/DOCUSATE (SENOKOT S) TABLET PO SCH ×2 (08:41→21:01)
[2020-08-18] MEDS: DOCUSATE SODIUM 100 MG (COLACE) CAP PO SCH ×2 (08:41→21:01)
[2020-08-18] MEDS: TAMSULOSIN 0.4 MG (FLOMAX) CAP PO SCH ×2 (08:41→21:01)
[2020-08-18] MEDS: PANTOPRAZOLE 40 MG (PROTONIX) TAB PO SCH (08:41)
[2020-08-18] MEDS: ENOXAPARIN 40 MG/0.4 ML (LOVENOX) SYR SC SCH (08:42)
[2020-08-18] MEDS ORDERED: FUROSEMIDE 40 MG/4 ML INJ (LASIX) IVP ONE (09:00)
--- NOTE | 2020-08-18 10:15 | Progress Note ---
Subjective Date Seen by a Provider: Aug 18, 2020 Time Seen by a Provider: 09:20 Subjective/Events-last exam Patient seen with Dr. Monsivais. Patient reports doing well today. He does report that the swelling continues to decrease. Still having some left thigh discomfort. Patient reports trying to keep lower extremities wrapped with jesi wraps and elevated as much as possible. Objective Exam Vital Signs Date Time Temp Pulse Resp B/P (MAP) Pulse Ox O2 Delivery O2 Flow Rate FiO2 08/18/20 08:22 36.6 69 18 122/75 (91) 94 Room Air 08/18/20 04:00 36.7 51 16 125/88 (100) 98 Room Air 08/18/20 00:00 37.2 63 17 120/70 (87) 94 Room Air 08/17/20 20:00 Room Air 08/17/20 19:59 37.2 74 20 124/71 (88) 93 Room Air 08/17/20 16:00 37.0 65 18 127/80 (96) 96 Room Air 08/17/20 12:50 36.4 52 18 120/79 (93) 97 Room Air I & O 08/18/20 06:59 Intake Total 2047.5 ml Output Total 5700 ml Balance -3652.5 ml Capillary Refill : Less Than 3 SecondsLess Than 3 Seconds General Appearance: No Apparent Distress, WD/WN, Other (Patient does have edema of the hands, trunk, scrotum, and lower extremities but is improving) Neck: Normal Inspection, Supple Respiratory: Normal Breath Sounds, No Accessory Muscle Use, No Respiratory Distress Cardiovascular: Regular Rate, Rhythm, No JVD Gastrointestinal: normal bowel sounds, non tender, soft Extremity: Swelling Neurologic/Psychiatric: Alert, Oriented x3 Skin: Normal Color, Warm/Dry (approx 2-3+ bilateral lower extremities. Left lower calf wound with dressing in place, C/D/I.), Other Results Lab Laboratory Tests 08/18/20 06:25: White Blood Count 18.7H, Red Blood Count 4.30, Hemoglobin 12.3L, Hematocrit 36L, Mean Corpuscular Volume 84, Mean Corpuscular Hemoglobin 29, Mean Corpuscular Hemoglobin Concent 34, Red Cell Distribution Width 14.4, Platelet Count 494H, Mean Platelet Volume 8.5L, Immature Granulocyte % (Auto) 9, Neutrophils (%) (Auto) 78H, Lymphocytes (%) (Auto) 9L, Monocytes (%) (Auto) 5, Eosinophils (%) (Auto) 0, Basophils (%) (Auto) 0, Neutrophils # (Auto) 14.5H, Lymphocytes # (Auto) 1.6, Monocytes # (Auto) 0.9, Eosinophils # (Auto) 0.0, Basophils # (Auto) 0.0, Immature Granulocyte # (Auto) 1.6H, Sodium Level 140, Potassium Level 3.2L, Chloride Level 100, Carbon Dioxide Level 31, Anion Gap 9, Blood Urea Nitrogen 15, Creatinine 0.54L, Estimat Glomerular Filtration Rate > 60, BUN/Creatinine Ratio 28, Glucose Level 126H, Calcium Level 7.4L, Corrected Calcium 8.8, Total Bilirubin 0.5, Aspartate Amino Transf (AST/SGOT) 25, Alanine Aminotransferase (ALT/SGPT) 33, Alkaline Phosphatase 104, Total Protein 4.7L, Albumin 2.3L Microbiology 08/12/20 Influenza Types A,B Antigen (GABRIELA) - Final, Complete 08/11/20 Urine Culture - Final, Complete Staphylococcus aureus 08/11/20 Blood Culture - Preliminary, Resulted No growth 08/11/20 Gram Stain - Final, Complete 08/11/20 Wound Culture - Final, Complete Staphylococcus aureus Assessment/Plan Assessment/Plan Assess & Plan/Chief Complaint A 49 year old male with LLE cellulitis with sepsis, Cerebral palsy, Right lower abdominal wound, left knee and left middle toe wound, Scrotal swelling VSS WBC 18.7 Edema is slowing improving Continue antibiotics as ordered Keep lower extremities elevated and in boots as well as jesi wraps Encourage patient to get up Encourage ambulation with walker TID No surgical intervention at this time, continue medical management Clinical Quality Measures DVT/VTE Risk/Contraindication: Risk Factor Score Per Nursin RFS Level Per Nursing on Admit: 4+=Very High VENKAT ERVIN TIRE LAYER Aug 18, 2020 10:15
[2020-08-18] MEDS ORDERED: KCL 20 MEQ TAB (K-DUR) PO ONE (11:15)
[2020-08-18 11:40] VITALS: BP 115/70
[2020-08-18] MEDS: SENNOSIDES 25 MG PO PRN (11:54)
[2020-08-18] MEDS: COLON CLENZ PO PRN (11:55)
--- NOTE | 2020-08-18 12:10 | Progress Note - Hospitalist ---
Subjective HPI/CC On Admission Date Seen by Provider: Aug 18, 2020 Time Seen by Provider: 11:30 Subjective/Events-last exam Nephrotic syndrome ruled out TC still pending K+ 3.2 replacing WBC 18.7k decreasing IV abx maintained PT OT ordered Rehab evaluation Wide jesi wraps placed on legs Lasix IV improving edema Review of Systems General: Fatigue, Malaise Cardiovascular: Edema Neurological: Weakness Objective Exam Vital Signs Vital Signs Date Time Temp Pulse Resp B/P (MAP) Pulse Ox O2 Delivery O2 Flow Rate FiO2 08/18/20 16:00 36.8 63 18 116/68 (84) 97 Room Air 08/14/20 07:44 2.00 08/12/20 19:59 92 Capillary Refill : Less Than 3 SecondsLess Than 3 Seconds General Appearance: No Apparent Distress, WD/WN, Chronically ill Respiratory: Chest Non Tender, Lungs Clear, Normal Breath Sounds, No Accessory Muscle Use, No Respiratory Distress Cardiovascular: Regular Rate, Rhythm, No Gallop, No JVD, No Murmur, Normal Peripheral Pulses Extremity: Pedal Edema Neurologic/Psychiatric: Alert, Oriented x3, No Motor/Sensory Deficits, Normal Mood/Affect Results/Procedures Lab Laboratory Tests 08/18/20 06:25 Patient resulted labs reviewed. Assessment/Plan Assessment and Plan Assess & Plan/Chief Complaint R/O nephrotic syndrome 24 hour urine, spot urine protein, TC, wrap legs with JESI wraps, CT scan pelvis, IV abx PT OT Rehab, JESI wraps Diagnosis/Problems Diagnosis/Problems (1) Proteinuria (2) Blood albumin decreased compared with prior measurement (3) Narcotic bowel syndrome (4) Cellulitis of left lower extremity Status: Acute (5) Cerebral palsy Status: Acute (6) Normocytic anemia Status: Chronic (7) Hyponatremia Status: Resolved Resolution Date/Time: 08/14/20 @ 14:40 (8) Scrotal swelling Status: Acute (9) Elevated bilirubin Status: Chronic Clinical Quality Measures DVT/VTE Risk/Contraindication: Risk Factor Score Per Nursin RFS Level Per Nursing on Admit: 4+=Very High JHOANA RAY DO Aug 18, 2020 12:10
[2020-08-18] MEDS: fentaNYL INJECTION 100 MCG/2 ML AMP IVP PRN (12:48)
[2020-08-18 16:00] VITALS: BP 116/68
[2020-08-18] MEDS: KCL 20 MEQ TAB (K-DUR) PO SCH (21:01)
[2020-08-19] VITALS: BP 116/72
[2020-08-19] MEDS: VANCOMYCIN 1250 MG/NS 250 ML IVPB IV SCH ×2 (03:11)
[2020-08-19 04:15] LABS: BASOPHILS % (AUTO) 0 % (0-10); EOSINOPHILS % (AUTO) 0 % (0-10); HEMATOCRIT 33 % (40-54); HEMOGLOBIN 11.2 g/dL (13.3-17.7); LYMPHOCYTES # (AUTO) 1.1 10^3/uL (1.0-4.0); LYMPHOCYTES % (AUTO) 6 % (12-44); MEAN CORPUSCULAR HEMOGLOBIN 29 pg (25-34); MEAN CORPUSCULAR HGB CONC 34 g/dL (32-36); MEAN CORPUSCULAR VOLUME 87 fL (80-99); MEAN PLATELET VOLUME 8.7 fL (9.0-12.2); MONOCYTES # (AUTO) 0.6 10^3/uL (0.0-1.0); MONOCYTES % (AUTO) 4 % (0-12); NEUTROPHILS # (AUTO) 14.4 10^3/uL (1.8-7.8); NEUTROPHILS % (AUTO) 84 % (42-75); PLATELET COUNT 463 10^3/uL (130-400); WHITE BLOOD COUNT 17.1 10^3/uL (4.3-11.0)
[2020-08-19 04:26] LABS: ALBUMIN 2.1 GM/DL (3.2-4.5); CHLORIDE 101 MMOL/L (98-107); POTASSIUM 3.5 MMOL/L (3.6-5.0); SODIUM 139 MMOL/L (135-145)
[2020-08-19 04:27] LABS: CALCIUM 7.2 MG/DL (8.5-10.1)
[2020-08-19 04:28] LABS: GLUCOSE 100 MG/DL (70-105); TOTAL PROTEIN 4.2 GM/DL (6.4-8.2)
[2020-08-19 04:29] LABS: CARBON DIOXIDE 31 MMOL/L (21-32)
[2020-08-19 04:30] LABS: BILIRUBIN,TOTAL 0.4 MG/DL (0.1-1.0)
[2020-08-19 04:32] LABS: ALKALINE PHOSPHATASE 90 U/L (40-136); CREATININE SERUM 0.55 MG/DL (0.60-1.30); GFR ESTIMATED > 60
[2020-08-19 04:33] LABS: BUN/CREATININE RATIO 29
[2020-08-19 04:35] LABS: ALANINE AMINOTRANSFERASE 30 U/L (0-55)
[2020-08-19 04:50] LABS: ATYPICAL LYMPHOCYTES 1 %; BAND NEUTROPHILS 4 %; LYMPHOCYTES % (MANUAL) 5 %; MONOCYTES % (MANUAL) 5 %; NEUTROPHILS % (MANUAL) 85 %; RBC MORPH NORMAL
[2020-08-19] MEDS: HYDROCORTISONE 100 MG/2 ML (Solu-CORTEF) VIAL IV SCH (05:27)
[2020-08-19] MEDS: BETHANECHOL 10 MG (URECHOLINE) TAB PO SCH (05:27)
[2020-08-19 07:30] VITALS: BP 122/76
[2020-08-19] MEDS: KCL 20 MEQ TAB (K-DUR) PO SCH (08:39)
[2020-08-19] MEDS: PANTOPRAZOLE 40 MG (PROTONIX) TAB PO SCH (08:39)
[2020-08-19] MEDS: morphine ER 15 MG (MS CONTIN) TAB PO SCH (08:40)
[2020-08-19] MEDS: DOCUSATE SODIUM 100 MG (COLACE) CAP PO SCH (08:40)
[2020-08-19] MEDS: TAMSULOSIN 0.4 MG (FLOMAX) CAP PO SCH (08:40)
[2020-08-19] MEDS: SENNA W/DOCUSATE (SENOKOT S) TABLET PO SCH (08:40)
[2020-08-19] MEDS: ENOXAPARIN 40 MG/0.4 ML (LOVENOX) SYR SC SCH (08:41)
--- NOTE | 2020-08-19 09:16 | Occupational Therapy Eval ---
OT Evaluation-General/PLF Medical Diagnosis Admission Date Aug 11, 2020 at 16:42 Medical Diagnosis: Cellulitus and Sepsis Onset Date: Aug 11, 2020 Therapy Diagnosis Therapy Diagnosis: decreased ADL status Height/Weight Height (Feet): 5 Height (Inches): 6.00 Weight (Pounds): 126 Precautions Precautions/Isolations: Contact/Enteric Isolation Referral Physician: wendi Sheets Reason: Activity Tolerance, Self Care, Evaluation/Treatment, Strengthening/ROM Medical History Additional Medical History CP Current History fell, LLE wound. Pt experienced cellulitis/ sepsis. Reviewed History: Yes Social History Home: Apartment Current Living Status: Alone (Daughter checks in on him regularly ) Entry Into Home: Stairs With Railing Steps Into Home: 30 Steps Inside Home: 0 ADL-Prior Level of Function SCALE: Activities may be completed with or without assistive devices. 5-Yirdjvyqwz-hvxuhbz completes the activity by him/herself with no assistance from a helper. 5-Set-up or Clean-up Assistance-helper sets up or cleans up; patient completes activity. [place] assists only prior to or following the activity. 4-Supervision or Touching Assistance-helper provides verbal cues and/or touching/steadying and/or contact guard assistance as patient completes activity. Assistance may be provided throughout the activity or intermittently. 3-Partial/Moderate Assistance-helper does LESS THAN HALF the effort. [place] lifts, holds or supports trunk or limbs, but provides less than half the effort. 2-Substantial/Maximal Assistance-helper does MORE THAN HALF the effort. [place] lifts or holds trunk or limbs and provides more than half the effort. 5-Fjtupbbjx-vhhcdh does ALL the effort. Patient does none of the effort to complete the activity. Or, the assistance of 2 or more helpers is required for the patient to complete the activity. If activity was not attempted, code reason: 7-Patient Refused. 9-Not Applicable-not attempted and the patient did not perform the activity before the current illness, exacerbation or injury. 10-Not Attempted due to Environmental Limitations-(lack of equipment, weather restraints, etc.). 88-Not Attempted due to Medical Conditions or Safety Concerns. ADL PLOF Comments IND with use of cane/ walker. Self Care: Independent Functional Cognition: Independent Drive Self: Yes OT Current Status Subjective Pt's nurse agrees to OT tx. Pt seen in bed. Agrees to tx. Alert/ Ox3. Pt states 7/10 pain in LLE and swelling in genitals. Mental Status/Objective Patient Orientation: Person, Place, Situation, Normal For Age Current Glasses/Contacts: Yes Hearing Aids: No Dentures/Partials: No Hand Dominance: Right Upper Extremity ROM WFL BUE Upper Extremity Coordination WFL BUE Upper Extremity Sensation WFL BUE Upper Extremity Strength WFL BUE (4+/5) Edema: pitting BLE, slight edema UE's, genital swelling ADL-Treatment Eating (QC): 6 (per pt) Oral Hygiene (QC): 6 (per pt was up at sink and completed this am.) On/Off Footwear (QC): 1 (completed EOB, due to pain/ restricted movement and increased swelling, pt's socks donned with TD) Toileting Hygiene (QC): 2 (pt states need of nursing assistance during BM) Other Treatments Pt supine to sit with increased time but no assist. Pt's socks donned. Sit to stand from raised bed with CGA. Pt states increased pain upon stance/ returns to sit after 1 min stance. Pt returns to bed with mod A LE movement. Pt able to bring self to HOB with UE use. Pt positioned with LE's elevated. Pt educated on edema and genital swelling; pt states had a "break down" yesterday, as he felt confused and frustrated. Pt educated on continued OT to work towards higher fx IND. Pt left in bed with LE's elevated, call lihgt in reach, DO present. Education OT Patient Education: Correct positioning, Purpose of tx/functional activities, Rehab process, Safety issues, Transfer techniques Teaching Recipient: Patient Teaching Methods: Demonstration, Discussion Response to Teaching: Verbalize Understanding, Return Demonstration OT Skilled Nursing Goals Skilled Nursing Goals Time Frame: Aug 26, 2020 Eating (QC): 6 Oral Hygiene (QC): 6 Toileting Hygiene (QC): 6 Shower/Bathe Self (QC): 6 Upper Body Dressing (QC): 6 Lower Body Dressing (QC): 6 On/Off Footwear (QC): 6 Additional Goals: 1-Demonstrate ADL Tasks, 2-Verbalize Understanding, 3-ImproveStrength/Nirav 1=Demonstrate adherence to instructed precautions during ADL tasks. 2=Patient will verbalize/demonstrate understanding of assistive devices/modifications for ADL. 3=Patient will improve strength/tolerance for activity to enable patient to perform ADL's. OT Education/Plan Problem List/Assessment Assessment: Decreased Activ Tolerance, Dependent Transfers, Edema, Impaired Bed Mobility, Impaired Funct Balance, Impaired I ADL's, Impaired Self-Care Skills Discharge Recommendations Plan/Recommendations: Continue POC Therapy Discharge Recommendati: Post Acute OT (would benefit from skilled rehab) Treatment Plan/Plan of Care Treatment,Training & Education: Yes Patient would benefit from OT for education, treatment and training to promote independence in ADL's, mobility, safety and/or upper extremity function for ADL's. Plan of Care: ADL Retraining, Functional Mobility, UE Funct Exercise/Act Treatment Duration: Sep 02, 2020 Frequency: 5 times per week Estimated Hrs Per Day: .25 hour per day Agreement: Yes Rehab Potential: Fair Time/GCodes Start Time: 08:05 Stop Time: 08:25 Total Time Billed (hr/min): 20 Billed Treatment Time 1, EVM (20) ADELSO MONTES OTR Aug 19, 2020 09:16
--- NOTE | 2020-08-19 09:45 | Discharge Summary ---
Diagnosis/Chief Complaint Date of Admission Aug 11, 2020 at 16:42 Date of Discharge Discharge Date: Aug 19, 2020 Discharge Diagnosis Cellulitis Bilateral LE edema Anasarca Cerebral palsy R/O nephrotic syndrome 24 hour urine, spot urine protein, TC, wrap legs with TIO wraps, CT scan pel vis, IV abx PT OT Rehab, TIO wraps Discharge Summary Discharge Physical Examination Allergies: Coded Allergies: Penicillins (Unverified Adverse Reaction, Unknown, 07/28/20) Vitals & I&Os Vital Signs Date Time Temp Pulse Resp B/P (MAP) Pulse Ox O2 Delivery O2 Flow Rate FiO2 08/19/20 08:31 Room Air 08/19/20 07:30 36.8 69 16 122/76 (91) 97 08/14/20 07:44 2.00 General Appearance: Alert, Oriented X3 Respiratory: Normal Air Movement Cardiovascular: Regular Rate Neuro: Normal Speech Hospital Course Was the Problem List Reviewed?: Yes Hospital course: Pt had a lengthy hospital course after he was admitted for left leg cellulitis with B/L lower extremity edema. Albumin had gone from 0 to 2.0 within the last two weeks. He was placed on broad-spectrum IV antibiotics per general surgery. All imagining scans showed no evidence of any type of blockage from any type of structural problem so he was IV Lasix and wrapped in wide tio wraps, lower extremities. Pt was placed back on his home meds. He was in need of further diuresis and considering his cerebral palsy and left leg pain he required close monitoring and physician supervision. Labs (last 24 hrs) Laboratory Tests 08/11/20 13:50: White Blood Count 18.9H, Red Blood Count 4.35, Hemoglobin 12.4L, Hematocrit 36L, Mean Corpuscular Volume 83, Mean Corpuscular Hemoglobin 29, Mean Corpuscular Hemoglobin Concent 35, Red Cell Distribution Width 13.0, Platelet Count 414H, Mean Platelet Volume 9.9, Immature Granulocyte % (Auto) 1, Neutrophils (%) (Auto) 87H, Lymphocytes (%) (Auto) 3L, Monocytes (%) (Auto) 9, Eosinophils (%) (Auto) 0, Basophils (%) (Auto) 0, Neutrophils # (Auto) 16.5H, Lymphocytes # (Auto) 0.5L, Monocytes # (Auto) 1.7H, Eosinophils # (Auto) 0.0, Basophils # (Auto) 0.1, Immature Granulocyte # (Auto) 0.2H, Neutrophils % (Manual) 71, Lymphocytes % (Manual) 1, Monocytes % (Manual) 4, Band Neutrophils 24, Poikilocytosis SLIGHT, Prothrombin Time 14.9H, INR Comment 1.1, Activated Partial Thromboplast Time 38H, D-Dimer 3.90H, Sodium Level 129L, Potassium Level 4.3, Chloride Level 92L, Carbon Dioxide Level 25, Anion Gap 12, Blood Urea Nitrogen 21H, Creatinine 0.81, Estimat Glomerular Filtration Rate > 60, BUN/Creatinine Ratio 26, Glucose Level 84, Calcium Level 8.6, Corrected Calcium 9.3, Total Bilirubin 1.3H, Aspartate Amino Transf (AST/SGOT) 20, Alanine Aminotransferase (ALT/SGPT) 19, Alkaline Phosphatase 130, C-Reactive Protein High Sensitivity 47.00H, Total Protein 6.5, Albumin 3.1L 08/11/20 15:25: Lactic Acid Level 2.41*H 08/11/20 15:50: Urine Color YELLOW, Urine Clarity CLEAR, Urine pH 6.0, Urine Specific [place] 1.025H, Urine Protein 2+H, Urine Glucose (UA) NEGATIVE, Urine Ketones 1+H, Urine Nitrite NEGATIVE, Urine Bilirubin NEGATIVE, Urine Urobilinogen 1.0, Urine Leukocyte Esterase NEGATIVE, Urine RBC (Auto) 1+H, Urine RBC NONE, Urine WBC NONE, Urine Squamous Epithelial Cells NONE, Urine Crystals NONE, Urine Bacteria NEGATIVE, Urine Casts NONE, Urine Mucus NEGATIVE, Urine Culture Indicated NO, Urine Opiates Screen POSITIVEH, Urine Oxycodone Screen POSITIVEH, Urine Meth adone Screen NEGATIVE, Urine Propoxyphene Screen NEGATIVE, Urine Barbiturates Screen NEGATIVE, Ur Tricyclic Antidepressants Screen NEGATIVE, Urine Phencyclidine Screen NEGATIVE, Urine Amphetamines Screen POSITIVEH, Urine Methamphetamines Screen NEGATIVE, Urine Benzodiazepines Screen POSITIVEH, Urine Cocaine Screen NEGATIVE, Urine Cannabinoids Screen NEGATIVE 08/11/20 17:42: Lactic Acid Level 1.63 08/12/20 04:15: White Blood Count 10.0, Red Blood Count 3.39L, Hemoglobin 9.8#L, Hematocrit 28L, Mean Corpuscular Volume 83, Mean Corpuscular Hemoglobin 29, Mean Corpuscular Hemoglobin Concent 35, Red Cell Distribution Width 13.2, Platelet Count 316, Mean Platelet Volume 9.2, Erythrocyte Sedimentation Rate 45H, Sodium Level 132L, Potassium Level 4.4, Chloride Level 102, Carbon Dioxide Level 22, Anion Gap 8, Blood Urea Nitrogen 16, Creatinine 0.69, Estimat Glomerular Filtration Rate > 60, BUN/Creatinine Ratio 23, Glucose Level 103, Mean Blood Glucose 114, H emoglobin A1c 5.6, Calcium Level 7.4L, Corrected Calcium 8.8, Total Bilirubin 1.1H, Aspartate Amino Transf (AST/SGOT) 37H, Alanine Aminotransferase (ALT/SGPT) 14, Alkaline Phosphatase 117, C-Reactive Protein High Sensitivity 35.76H, Total Protein 4.8L, Albumin 2.2L, Cortisol AM Sample 15.2 08/12/20 06:28: Lactic Acid Level 1.42 08/12/20 12:52: Vancomycin Level Trough 12.6 08/13/20 03:10: White Blood Count 22.4H, Red Blood Count 3.49L, Hemoglobin 10.1L, Hematocrit 29L , Mean Corpuscular Volume 83, Mean Corpuscular Hemoglobin 29, Mean Corpuscular Hemoglobin Concent 35, Red Cell Distribution Width 13.8, Platelet Count 351, Mean Platelet Volume 9.1, Sodium Level 134L, Potassium Level 3.9, Chloride Level 105, Carbon Dioxide Level 21, Anion Gap 8, Blood Urea Nitrogen 18, Creatinine 0.62, Estimat Glomerular Filtration Rate > 60, BUN/Creatinine Ratio 29, Glucose Level 206H, Calcium Level 7.5L, Immature Granulocyte % (Auto) 2, Neutrophils (%) (Auto) 91H, Lymphocytes (%) (Auto) 2L, Monocytes (%) (Auto) 5, Eosinophils (%) (Auto) 0, Basophils (%) (Auto) 0, Neutrophils # (Auto) 20.3H, Lymphocytes # (Auto) 0.5L, Monocytes # (Auto) 1.1H, Eosinophils # (Auto) 0.0, Basophils # (Auto) 0.1, Immature Granulocyte # (Auto) 0.5H, Phosphorus Level 2.4, Magnesium Level 2.2 08/14/20 02:50: White Blood Count 31.1*H, Red Blood Count 3.23L, Hemoglobin 9.3L, Hematocrit 27L , Mean Corpuscular Volume 84, Mean Corpuscular Hemoglobin 29, Mean Corpuscular Hemoglobin Concent 34, Red Cell Distribution Width 14.2, Platelet Count 348, Mean Platelet Volume 8.9L, Immature Granulocyte % (Auto) 4, Neutrophils (%) (Auto) 89H, Lymphocytes (%) (Auto) 3L, Monocytes (%) (Auto) 4, Eosinophils (%) (Auto) 0, Basophils (%) (Auto) 0, Neutrophils # (Auto) 27.6H, Lymphocytes # (Auto) 0.9L, Monocytes # (Auto) 1.3H, Eosinophils # (Auto) 0.0, Basophils # (Auto) 0.1, Immature Granulocyte # (Auto) 1.4H, Sodium Level 137, Potassium Level 3.5L, Chloride Level 105, Carbon Dioxide Level 23, Anion Gap 9, Blood Urea Nitrogen 14, Creatinine 0.59L, Estimat Glomerular Filtration Rate > 60, BUN/Creatinine Ratio 24, Glucose Level 149H, Calcium Level 7.5L, Phosphorus Level 2.8, Magnesium Level 2.0, B-Type Natriuretic Peptide 221.7H 08/15/20 12:53: Vancomycin Level Trough 13.3 08/16/20 00:30: Urine Total Volume 1750, Urine Total Protein mg/dL 7, Urine Total Protein 24 Hour 122 08/16/20 06:00: White Blood Count 22.1H, Red Blood Count 3.81L, Hemoglobin 10.8L, Hematocrit 33L , Mean Corpuscular Volume 85, Mean Corpuscular Hemoglobin 28, Mean Corpuscular Hemoglobin Concent 33, Red Cell Distribution Width 14.6H, Platelet Count 419H, Mean Platelet Volume 8.7L, Immature Granulocyte % (Auto) 12, Neutrophils (%) (Auto) 78H, Lymphocytes (%) (Auto) 5L, Monocytes (%) (Auto) 5, Eosinophils (%) (Auto) 0, Basophils (%) (Auto) 0, Neutrophils # (Auto) 17.2H, Lymphocytes # (Auto) 1.1, Monocytes # (Auto) 1.0, Eosinophils # (Auto) 0.0, Basophils # (Auto) 0.1, Immature Granulocyte # (Auto) 2.7H, Sodium Level 140, Potassium Level 3.5L, Chloride Level 104, Carbon Dioxide Level 28, Anion Gap 8, Blood Urea Nitrogen 16, Creatinine 0.53L, Estimat Glomerular Filtration Rate > 60, BUN/Creatinine Ratio 30, Glucose Level 138H, Calcium Level 7.7L 08/16/20 21:49: Urine Random Total Protein 12 08/17/20 05:10: White Blood Count 20.6H, Red Blood Count 3.92L, Hemoglobin 11.1L, Hematocrit 33L , Mean Corpuscular Volume 84, Mean Corpuscular Hemoglobin 28, Mean Corpuscular Hemoglobin Concent 34, Red Cell Distribution Width 14.4, Platelet Count 424H, Mean Platelet Volume 8.8L, Immature Granulocyte % (Auto) 12, Neutrophils (%) (Auto) 76H, Lymphocytes (%) (Auto) 7L, Monocytes (%) (Auto) 5, Eosinophils (%) (Auto) 0, Basophils (%) (Auto) 0, Neutrophils # (Auto) 15.7H, Lymphocytes # (Auto) 1.4, Monocytes # (Auto) 1.0, Eosinophils # (Auto) 0.0, Basophils # (Auto) 0.0, Immature Granulocyte # (Auto) 2.5H, Sodium Level 140, Potassium Level 3.6, Chloride Level 103, Carbon Dioxide Level 29, Anion Gap 8, Blood Urea Nitrogen 15, Creatinine 0.51L, Estimat Glomerular Filtration Rate > 60, BUN/Creatinine Ratio 29, Glucose Level 120H, Calcium Level 7.4L, Corrected Calcium 8.9, Total Bilirubin 0.4, Aspartate Amino Transf (AST/SGOT) 28, Alanine Aminotransferase (ALT/SGPT) 30, Alkaline Phosphatase 98, Total Protein 4.5L, Albumin 2.1L, Triglycerides Level 81, Cholesterol Level 111, LDL Cholesterol Direct 86, VLDL Cholesterol 16, HDL Cholesterol 17L, Thyroid Stimulating Hormone (TSH) 1.32, Anti-Nuclear Antibody Screen PositiveH, Anti-Nuclear Antibody Titer 1:80H, Anti- Nuclear Antibody Pattern SpeckledH 08/18/20 06:25: White Blood Count 18.7H, Red Blood Count 4.30, Hemoglobin 12.3L, Hematocrit 36L, Mean Corpuscular Volume 84, Mean Corpuscular Hemoglobin 29, Mean Corpuscular Hemoglobin Concent 34, Red Cell Distribution Width 14.4, Platelet Count 494H, Mean Platelet Volume 8.5L, Immature Granulocyte % (Auto) 9, Neutrophils (%) (Auto) 78H, Lymphocytes (%) (Auto) 9L, Monocytes (%) (Auto) 5, Eosinophils (%) (Auto) 0, Basophils (%) (Auto) 0, Neutrophils # (Auto) 14.5H, Lymphocytes # (Auto) 1.6, Monocytes # (Auto) 0.9, Eosinophils # (Auto) 0.0, Basophils # (Auto) 0.0, Immature Granulocyte # (Auto) 1.6H, Sodium Level 140, Potassium Level 3.2L, Chloride Level 100, Carbon Dioxide Level 31, Anion Gap 9, Blood Urea Nitrogen 15, Creatinine 0.54L, Estimat Glomerular Filtration Rate > 60, BUN/Creatinine Ratio 28, Glucose Level 126H, Calcium Level 7.4L, Corrected Calcium 8.8, Total Bilirubin 0.5, Aspartate Amino Transf (AST/SGOT) 25, Alanine Aminotransferase (ALT/SGPT) 33, Alkaline Phosphatase 104, Total Protein 4.7L, Albumin 2.3L 08/19/20 04:00: White Blood Count 17.1H, Red Blood Count 3.86L, Hemoglobin 11.2L, Hematocrit 33L , Mean Corpuscular Volume 87, Mean Corpuscular Hemoglobin 29, Mean Corpuscular Hemoglobin Concent 34, Red Cell Distribution Width 14.7H, Platelet Count 463H, Mean Platelet Volume 8.7L, Immature Granulocyte % (Auto) 6, Neutrophils (%) (Auto) 84H, Lymphocytes (%) (Auto) 6L, Monocytes (%) (Auto) 4, Eosinophils (%) (Auto) 0, Basophils (%) (Auto) 0, Neutrophils # (Auto) 14.4H, Lymphocytes # (Auto) 1.1, Monocytes # (Auto) 0.6, Eosinophils # (Auto) 0.0, Basophils # (Auto) 0.0, Immature Granulocyte # (Auto) 1.0H, Sodium Level 139, Potassium Level 3.5L, Chloride Level 101, Carbon Dioxide Level 31, Anion Gap 7, Blood Urea Nitrogen 16, Creatinine 0.55L, Estimat Glomerular Filtration Rate > 60, BUN/Creatinine Ra carmelita 29, Glucose Level 100, Calcium Level 7.2L, Corrected Calcium 8.7, Total Bilirubin 0.4, Aspartate Amino Transf (AST/SGOT) 21, Alanine Aminotransferase (ALT/SGPT) 30, Alkaline Phosphatase 90, Total Protein 4.2L, Albumin 2.1L, Neutrophils % (Manual) 85, Lymphocytes % (Manual) 5, Monocytes % (Manual) 5, Band Neutrophils 4, Atypical Lymphocytes 1, Blood Morphology Comment NORMAL Microbiology 08/12/20 Influenza Types A,B Antigen (GABRIELA) - Final, Complete 08/11/20 Urine Culture - Final, Complete Staphylococcus aureus 08/11/20 Blood Culture - Final, Complete No growth 08/11/20 Gram Stain - Final, Complete 08/11/20 Wound Culture - Final, Complete Staphylococcus aureus Pending Labs Microbiology Date/Time Source Procedure Growth Status 08/12/20 06:29 Nasal Aspirate Influenza Types A,B Antigen (GABRIELA) - Final Complete 08/12/20 06:10 Nasal MRSA Screen - Final MRSA not isolated Complete 08/11/20 15:50 Urine Clean Catch Urine Culture - Final Staphylococcus aureus Complete 08/11/20 15:41 Peripheral Iv/Heplock Blood Culture - Final No growth Complete 08/11/20 15:35 Body Site, Not Otherwise Spec. Knee, Left Gram Stain - Final Complete 08/11/20 15:35 Wound Culture - Final Staphylococcus aureus Complete 08/11/20 15:25 Peripheral Rt Ac Blood Culture - Final No growth Complete Laboratory Tests 08/11/20 13:50: White Blood Count 18.9, Red Blood Count 4.35, Hemoglobin 12.4, Hematocrit 36, Mean Corpuscular Volume 83, Mean Corpuscular Hemoglobin 29, Mean Corpuscular Hemoglobin Concent 35, Red Cell Distribution Width 13.0, Platelet Count 414, Mean Platelet Volume 9.9, Immature Granulocyte % (Auto) 1, Neutrophils (%) (Auto) 87, Lymphocytes (%) (Auto) 3, Monocytes (%) (Auto) 9, Eosinophils (%) (Auto) 0, Basophils (%) (Auto) 0, Neutrophils # (Auto) 16.5, Lymphocytes # (Auto) 0.5, Monocytes # (Auto) 1.7, Eosinophils # (Auto) 0.0, Basophils # (Auto) 0.1, Immature Granulocyte # (Auto) 0.2, Neutrophils % (Manual) 71, Lymphocytes % (Manual) 1, Monocytes % (Manual) 4, Band Neutrophils 24, Poikilocytosis SLIGHT, Prothrombin Time 14.9, INR Comment 1.1, Activated Partial Thromboplast Time 38, D-Dimer 3.90, Sodium Level 129, Potassium Level 4.3, Chloride Level 92, Carbon Dioxide Level 25, Anion Gap 12, Blood Urea Nitrogen 21, Creatinine 0.81, Estimat Glomerular Filtration Rate > 60, BUN/Creatinine Ratio 26, Glucose Level 84, C alcium Level 8.6, Corrected Calcium 9.3, Total Bilirubin 1.3, Aspartate Amino Transf (AST/SGOT) 20, Alanine Aminotransferase (ALT/SGPT) 19, Alkaline Phosphatase 130, C-Reactive Protein High Sensitivity 47.00, Total Protein 6.5, Albumin 3.1 08/11/20 15:25: Lactic Acid Level 2.41 08/11/20 15:50: Urine Color YELLOW, Urine Clarity CLEAR, Urine pH 6.0, Urine Specific [place] 1.025, Urine Protein 2+, Urine Glucose (UA) NEGATIVE, Urine Ketones 1+, Urine Nitrite NEGATIVE, Urine Bilirubin NEGATIVE, Urine Urobilinogen 1.0, Urine Leukocyte Esterase NEGATIVE, Urine RBC (Auto) 1+, Urine RBC NONE, Urine WBC NONE, Urine Squamous Epithelial Cells NONE, Urine Crystals NONE, Urine Bacteria NEGATIVE, Urine Casts NONE, Urine Mucus NEGATIVE, Urine Culture Indicated NO, Urine Opiates Screen POSITIVE, Urine Oxycodone Screen POSITIVE, Urine Methadone Screen NEGATIVE, Urine Propoxyphene Screen NEGATIVE, Urine Barbiturates Screen NEGATIVE, Ur Tricyclic Antidepressants Screen NEGATIVE, Urine Phencyclidine Screen NEGATIVE, Urine Amphetamines Screen POSITIVE, Urine Methamphetamines Screen NEGATIVE, Urine Benzodiazepines Screen POSITIVE, Urine Cocaine Screen NEGATIVE, Urine Cannabinoids Screen NEGATIVE 08/11/20 17:42: Lactic Acid Level 1.63 08/12/20 04:15: White Blood Count 10.0, Red Blood Count 3.39, Hemoglobin 9.8, Hematocrit 28, Mean Corpuscular Volume 83, Mean Corpuscular Hemoglobin 29, Mean Corpuscular Hemoglobin Concent 35, Red Cell Distribution Width 13.2, Platelet Count 316, Mean Platelet Volume 9.2, Erythrocyte Sedimentation Rate 45, Sodium Level 132, Potassium Level 4.4, Chloride Level 102, Carbon Dioxide Level 22, Anion Gap 8, Blood Urea Nitrogen 16, Creatinine 0.69, Estimat Glomerular Filtration Rate > 60, BUN/Creatinine Ratio 23, Glucose Level 103, Mean Blood Glucose 114, Hemoglobin A1c 5.6, Calcium Level 7.4, Corrected Calcium 8.8, Total Bilirubin 1.1, Aspartate Amino Transf (AST/SGOT) 37, Alanine Aminotransferase (ALT/SGPT) 14, Alkaline Phosphatase 117, C-Reactive Protein High Sensitivity 35.76, Total Protein 4.8, Albumin 2.2, Cortisol AM Sample 15.2 08/12/20 06:28: Lactic Acid Level 1.42 08/12/20 12:52: Vancomycin Level Trough 12.6 08/13/20 03:10: White Blood Count 22.4, Red Blood Count 3.49, Hemoglobin 10.1, Hematocrit 29, Mean Corpuscular Volume 83, Mean Corpuscular Hemoglobin 29, Mean Corpuscular Hemoglobin Concent 35, Red Cell Distribution Width 13.8, Platelet Count 351, Mean Platelet Volume 9.1, Sodium Level 134, Potassium Level 3.9, Chloride Level 105, Carbon Dioxide Level 21, Anion Gap 8, Blood Urea Nitrogen 18, Creatinine 0.62, Estimat Glomerular Filtration Rate > 60, BUN/Creatinine Ratio 29, Glucose Level 206, Calcium Level 7.5, Immature Granulocyte % (Auto) 2, Neutrophils (%) (Auto) 91, Lymphocytes (%) (Auto) 2, Monocytes (%) (Auto) 5, Eosinophils (%) (Auto) 0, Basophils (%) (Auto) 0, Neutrophils # (Auto) 20.3, Lymphocytes # (Auto) 0.5, Monocytes # (Auto) 1.1, Eosinophils # (Auto) 0.0, Basophils # (Auto) 0.1, Immature Granulocyte # (Auto) 0.5, Phosphorus Level 2.4, Magnesium Level 2.2 08/14/20 02:50: White Blood Count 31.1, Red Blood Count 3.23, Hemoglobin 9.3, Hematocrit 27, Mean Corpuscular Volume 84, Mean Corpuscular Hemoglobin 29, Mean Corpuscular Hemoglobin Concent 34, Red Cell Distribution Width 14.2, Platelet Count 348, M catracho Platelet Volume 8.9, Immature Granulocyte % (Auto) 4, Neutrophils (%) (Auto) 89, Lymphocytes (%) (Auto) 3, Monocytes (%) (Auto) 4, Eosinophils (%) (Auto) 0, Basophils (%) (Auto) 0, Neutrophils # (Auto) 27.6, Lymphocytes # (Auto) 0.9, Monocytes # (Auto) 1.3, Eosinophils # (Auto) 0.0, Basophils # (Auto) 0.1, Immature Granulocyte # (Auto) 1.4, Sodium Level 137, Potassium Level 3.5, Chloride Level 105, Carbon Dioxide Level 23, Anion Gap 9, Blood Urea Nitrogen 14, Creatinine 0.59, Estimat Glomerular Filtration Rate > 60, BUN/Creatinine Ratio 24, Glucose Level 149, Calcium Level 7.5, Phosphorus Level 2.8, Magnesium Level 2.0, B-Type Natriuretic Peptide 221.7 08/15/20 12:53: Vancomycin Level Trough 13.3 08/16/20 00:30: Urine Total Volume 1750, Urine Total Protein mg/dL 7, Urine Total Protein 24 Hour 122 08/16/20 06:00: White Blood Count 22.1, Red Blood Count 3.81, Hemoglobin 10.8, Hematocrit 33, Mean Corpuscular Volume 85, Mean Corpuscular Hemoglobin 28, Mean Corpuscular Hemoglobin Concent 33, Red Cell Distribution Width 14.6, Platelet Count 419, Mean Platelet Volume 8.7, Immature Granulocyte % (Auto) 12, Neutrophils (%) (Auto) 78, Lymphocytes (%) (Auto) 5, Monocytes (%) (Auto) 5, Eosinophils (%) (A uto) 0, Basophils (%) (Auto) 0, Neutrophils # (Auto) 17.2, Lymphocytes # (Auto) 1.1, Monocytes # (Auto) 1.0, Eosinophils # (Auto) 0.0, Basophils # (Auto) 0.1, Immature Granulocyte # (Auto) 2.7, Sodium Level 140, Potassium Level 3.5, Chloride Level 104, Carbon Dioxide Level 28, Anion Gap 8, Blood Urea Nitrogen 16, Creatinine 0.53, Estimat Glomerular Filtration Rate > 60, BUN/Creatinine Ratio 30, Glucose Level 138, Calcium Level 7.7 08/16/20 21:49: Urine Random Total Protein 12 08/17/20 05:10: White Blood Count 20.6, Red Blood Count 3.92, Hemoglobin 11.1, Hematocrit 33, Mean Corpuscular Volume 84, Mean Corpuscular Hemoglobin 28, Mean Corpuscular Hemoglobin Concent 34, Red Cell Distribution Width 14.4, Platelet Count 424, Mean Platelet Volume 8.8, Immature Granulocyte % (Auto) 12, Neutrophils (%) (Auto) 76, Lymphocytes (%) (Auto) 7, Monocytes (%) (Auto) 5, Eosinophils (%) (Auto) 0, Basophils (%) (Auto) 0, Neutrophils # (Auto) 15.7, Lymphocytes # (Auto) 1.4, Monocytes # (Auto) 1.0, Eosinophils # (Auto) 0.0, Basophils # (Auto) 0.0, Immature Granulocyte # (Auto) 2.5, Sodium Level 140, Potassium Level 3.6, Chloride Level 103, Carbon Dioxide Level 29, Anion Gap 8, Blood Urea Nitrogen 15, Creatinine 0.51, Estimat Glomerular Filtration Rate > 60, BUN/Creatinine Ratio 29, Glucose Level 120, Calcium Level 7.4, Corrected Calcium 8.9, Total Bilirubin 0.4, Aspartate Amino Transf (AST/SGOT) 28, Alanine Aminotransferase (ALT/SGPT) 30, Alkaline Phosphatase 98, Total Protein 4.5, Albumin 2.1, Triglycerides Level 81, Cholesterol Level 111, LDL Cholesterol Direct 86, VLDL Cholesterol 16, HDL Cholesterol 17, Thyroid Stimulating Hormone (TSH) 1.32, Anti-Nuclear Antibody Screen Positive, Anti-Nuclear Antibody Titer 1:80, Anti- Nuclear Antibody Pattern Speckled 08/18/20 06:25: White Blood Count 18.7, Red Blood Count 4.30, Hemoglobin 12.3, Hematocrit 36, Mean Corpuscular Volume 84, Mean Corpuscular Hemoglobin 29, Mean Corpuscular Hemoglobin Concent 34, Red Cell Distribution Width 14.4, Platelet Count 494, Mean Platelet Volume 8.5, Immature Granulocyte % (Auto) 9, Neutrophils (%) (Auto) 78, Lymphocytes (%) (Auto) 9, Monocytes (%) (Auto) 5, Eosinophils (%) (Auto) 0, Basophils (%) (Auto) 0, Neutrophils # (Auto) 14.5, Lymphocytes # (Auto) 1.6, Monocytes # (Auto) 0.9, Eosinophils # (Auto) 0.0, Basophils # (Auto) 0.0, Immature Granulocyte # (Auto) 1.6, Sodium Level 140, Potassium Level 3.2, Chloride Level 100, Carbon Dioxide Level 31, Anion Gap 9, Blood Urea Nitrogen 15, Creatinine 0.54, Estimat Glomerular Filtration Rate > 60, BUN/Creatinine Ratio 28, Glucose Level 126, Calcium Level 7.4, Corrected Calcium 8.8, Total Bilirubin 0.5, Aspartate Amino Transf (AST/SGOT) 25, Alanine Aminotransferase (ALT/SGPT) 33, Alkaline Phosphatase 104, Total Protein 4.7, Albumin 2.3 08/19/20 04:00: White Blood Count 17.1, Red Blood Count 3.86, Hemoglobin 11.2, Hematocrit 33, Mean Corpuscular Volume 87, Mean Corpuscular Hemoglobin 29, Mean Corpuscular Hemoglobin Concent 34, Red Cell Distribution Width 14.7, Platelet Count 463, Mean Platelet Volume 8.7, Immature Granulocyte % (Auto) 6, Neutrophils (%) (Auto) 84, Lymphocytes (%) (Auto) 6, Monocytes (%) (Auto) 4, Eosinophils (%) (Auto) 0, Basophils (%) (Auto) 0, Neutrophils # (Auto) 14.4, Lymphocytes # (Auto) 1.1, Monocytes # (Auto) 0.6, Eosinophils # (Auto) 0.0, Basophils # (Auto) 0.0, Immature Granulocyte # (Auto) 1.0, Sodium Level 139, Potassium Level 3.5, Chloride Level 101, Carbon Dioxide Level 31, Anion Gap 7, Blood Urea Nitrogen 16, Creatinine 0.55, Estimat Glomerular Filtration Rate > 60, BUN/Creatinine Ratio 29, Glucose Level 100, Calcium Level 7.2, Corrected Calcium 8.7, Total Bilirubin 0.4, Aspartate Amino Transf (AST/SGOT) 21, Alanine Aminotransferase (ALT/SGPT) 30, Alkaline Phosphatase 90, Total Protein 4.2, Albumin 2.1, Neutrophils % (Manual) 85, Lymphocytes % (Manual) 5, Monocytes % (Manual) 5, Band Neutrophils 4, Atypical Lymphocytes 1, Blood Morphology Comment NORMAL Discharge Home Medications: Active Scripts Active Tizanidine HCl 4 Mg Tablet 4 Mg PO Q6HR Reported Flomax (Tamsulosin HCl) 0.4 Mg Cap 0.4 Mg PO BID Urecholine (Bethanechol Chloride) 10 Mg Tablet 5 Mg PO ACHS Phentermine HCl 30 Mg Capsule 30 Mg PO DAILY Laxative (Bisacodyl) 5 Mg Tablet.dr 10 Mg PO DAILY PRN Multivitamin 1 Each Tablet 1 Each PO DAILY Oxycontin (Oxycodone HCl) 20 Mg Tab.er.12h 20 Mg PO BID PRN Ventolin Hfa (Albuterol Sulfate) 18 Gm Hfa.aer.ad 2 Puff INH Q4H PRN Diazepam 5 Mg Tablet 5 Mg PO QID PRN Celecoxib 200 Mg Capsule 200 Mg PO BID Morphine Sulfate ER (Morphine Sulfate) 30 Mg Tablet.er 30 Mg PO BID PRN Instructions to patient/family Please see electronic discharge instructions given to patient. Diagnosis/Problems Diagnosis/Problems (1) Proteinuria (2) Blood albumin decreased compared with prior measurement (3) Narcotic bowel syndrome (4) Cellulitis of left lower extremity Status: Acute (5) Cerebral palsy Status: Acute (6) Normocytic anemia Status: Chronic (7) Hyponatremia Status: Resolved Resolution Date/Time: 08/14/20 @ 14:40 (8) Scrotal swelling Status: Acute (9) Elevated bilirubin Status: Chronic Clinical Quality Measures DVT/VTE Risk/Contraindication: Risk Factor Score Per Nursin RFS Level Per Nursing on Admit: 4+=Very High JHOANA RAY DO Aug 19, 2020 09:45
--- NOTE | 2020-08-19 10:44 | Progress Note ---
SANIA HERRERA MED STUDENT 08/19/20 1044: Progress Note Mr Velazquez is a 49 year old male that presented to the ER on 08/11 after previously being discharged from the hospital about 2 weeks prior. He presented with LLE swelling, as well as scrotal swelling, along with pain. He was treated with abx and admitted for suspected cellulitis sepsis. He has a history of Cerebral Palsy. He was also worked up for a suspected nephritic syndrome. Over the course of his stay he received a CT scan to rule out an invasive pathology and was also followed by surgery. He also received physical therapy at the time, which he was compliant with. He saw improvement with his swelling every day, with few complications. He was transferred to the rehabilitation unit on 08/19 due to his continued improvement. Supervisory-Addendum Brief Verification & Attestation Participated in pt care: history, physical Personally performed: exam, history Care discussed with: other Procedures: n/a n/a JANY RAY DO 08/20/20 0523: Supervisory-Addendum Brief Verification & Attestation Participated in pt care: history, MDM, physical Personally performed: exam, history, MDM, supervision of care Care discussed with: Medical Student Procedures: n/a Results interpretation: Verified all documentation Verification and Attestation of Medical Student E/M Service A medical student performed and documented this service in my presence. I reviewed and verified all information documented by the medical student and made modifications to such information, when appropriate. I personally performed the physical exam and medical decision making. Jany Ray, Aug 20, 2020,05:23 SANIA HERRERA MED STUDENT Aug 19, 2020 10:44 JANY RAY DO Aug 20, 2020 05:23
--- NOTE | 2020-08-19 11:07 | NUR ---
[facility] staff came to get pt to transfer him to 2nd floor. pt had all belongings including justen munoz scheduled at noon today. pt in for transfer with therapy staff.
--- NOTE | 2020-08-19 12:47 | Progress Note - Surgery ---
PENNY BOND MED STUDENT 08/19/20 1247: Subjective Date Seen by a Provider: Aug 19, 2020 Time Seen by a Provider: 07:30 Subjective/Events-last exam Pt denies any new complaints and thinks his swelling is improved after Lasix. No problems with eating. Had a bowel movement this morning. Has been ambulating without difficulty. WBC today is 17.1 Objective Exam Vital Signs Date Time Temp Pulse Resp B/P (MAP) Pulse Ox O2 Delivery O2 Flow Rate FiO2 08/19/20 08:31 Room Air 08/19/20 08:00 Room Air 08/19/20 07:30 36.8 69 16 122/76 (91) 97 Room Air 08/19/20 00:00 36.9 71 18 116/72 (87) 93 Room Air 08/18/20 20:10 Room Air 08/18/20 16:00 36.8 63 18 116/68 (84) 97 Room Air I & O 08/19/20 07:00 Intake Total 1835.0 ml Output Total 3240 ml Balance -1405.0 ml Capillary Refill : Less Than 3 SecondsLess Than 3 Seconds General Appearance: No Apparent Distress, Chronically ill HEENT: PERRL/EOMI, Normal ENT Inspection Neck: Normal Inspection, Supple Respiratory: Lungs Clear, Normal Breath Sounds, No Accessory Muscle Use, No Respiratory Distress Cardiovascular: Regular Rate, Rhythm, No Murmur, Other (LE pulses difficult to palpate d/t swelling) Peripheral Pulses: 2+ Radial Pulses (R), 2+ Radial Pulses (L) Gastrointestinal: non tender, soft Extremity: Pedal Edema (left greater than right), Other (some tenderness to left thigh were pt states he fell a couple of weeks ago) Neurologic/Psychiatric: Alert, Oriented x3, No Motor/Sensory Deficits, Normal Mood/Affect Skin: Normal Color, Warm/Dry (approx 2-3+ bilateral lower extremities. Left lower calf wound with dressing in place, C/D/I.), Other Lymphatic: No Adenopathy Results Lab Laboratory Tests 08/19/20 04:00: White Blood Count 17.1H, Red Blood Count 3.86L, Hemoglobin 11.2L, Hematocrit 33L , Mean Corpuscular Volume 87, Mean Corpuscular Hemoglobin 29, Mean Corpuscular Hemoglobin Concent 34, Red Cell Distribution Width 14.7H, Platelet Count 463H, Mean Platelet Volume 8.7L, Immature Granulocyte % (Auto) 6, Neutrophils (%) (Auto) 84H, Lymphocytes (%) (Auto) 6L, Monocytes (%) (Auto) 4, Eosinophils (%) (Auto) 0, Basophils (%) (Auto) 0, Neutrophils # (Auto) 14.4H, Lymphocytes # (Auto) 1.1, Monocytes # (Auto) 0.6, Eosinophils # (Auto) 0.0, Basophils # (Auto) 0.0, Immature Granulocyte # (Auto) 1.0H, Neutrophils % (Manual) 85, Lymphocytes % (Manual) 5, Monocytes % (Manual) 5, Band Neutrophils 4, Atypical Lymphocytes 1, Blood Morphology Comment NORMAL, Sodium Level 139, Potassium Level 3.5L, Chloride Level 101, Carbon Dioxide Level 31, Anion Gap 7, Blood Urea Nitrogen 16, Creatinine 0.55L, Estimat Glomerular Filtration Rate > 60, BUN/Creatinine Ratio 29, Glucose Level 100, Calcium Level 7.2L, Corrected Calcium 8.7, Total Bilirubin 0.4, Aspartate Amino Transf (AST/SGOT) 21, Alanine Aminotransferase (ALT/SGPT) 30, Alkaline Phosphatase 90, Total Protein 4.2L, Albumin 2.1L Microbiology 08/12/20 Influenza Types A,B Antigen (GABRIELA) - Final, Complete 08/11/20 Urine Culture - Final, Complete Staphylococcus aureus 08/11/20 Blood Culture - Preliminary, Resulted No growth 08/11/20 Gram Stain - Final, Complete 08/11/20 Wound Culture - Final, Complete Staphylococcus aureus Assessment/Plan Assessment/Plan Assessment/Plan A 49 year old male with LLE cellulitis with sepsis, Cerebral palsy, Right lower abdominal wound, left knee and left middle toe wound, Scrotal swelling VSS WBC 17.1 Edema is slowing improving Continue antibiotics as ordered Keep lower extremities elevated and in boots as well as jesi wraps Encourage patient to get up Encourage ambulation with walker TID No surgical intervention at this time, continue medical management Possibly send to rehab unit today Clinical Quality Measures DVT/VTE Risk/Contraindication: Risk Factor Score Per Nursin RFS Level Per Nursing on Admit: 4+=Very High GUME PALOMARES DO 08/19/20 2075: Subjective Subjective/Events-last exam Patient legs and scrotum continues to improved. He has some pain in the left thigh area, varying intensity of pain. Feeling better each day. Denies n/v fever sweats chills shortness of breath or chest pain. Objective Exam General Appearance: No Apparent Distress, Chronically ill HEENT: PERRL/EOMI, Normal ENT Inspection Neck: Normal Inspection, Supple Respiratory: Chest Non Tender, No Accessory Muscle Use, No Respiratory Distress Cardiovascular: Regular Rate, Rhythm, No Murmur Gastrointestinal: non tender, soft Extremity: Other (tenderness left lateral thigh, less edema to left leg, scrotum and right leg) Neurologic/Psychiatric: Alert, Oriented x3, No Motor/Sensory Deficits, Normal Mood/Affect Skin: Normal Color, Warm/Dry (warm, scaling, right lower qadrant superficial wound) Lymphatic: No Adenopathy Assessment/Plan Assessment/Plan Assessment/Plan LLE cellulitis with sepsis Cerebral palsy Right lower abdominal wound left knee and left middle toe wound Scrotal swelling Patient continues to slowly improve conservative measures likely to rehab today Supervisory-Addendum Brief Verification & Attestation Participated in pt care: history, MDM, physical Personally performed: exam, history, MDM, supervision of care Care discussed with: Medical Student Procedures: n/a Results interpretation: Verified all documentation Verification and Attestation of Medical Student E/M Service A medical student performed and documented this service in my presence. I reviewed and verified all information documented by the medical student and made modifications to such information, when appropriate. I personally performed the physical exam and medical decision making. Gume Palomares, Aug 19, 2020,13:35 PENNY BOND MED STUDENT Aug 19, 2020 12:47 GUME PALOMARES DO Aug 19, 2020 13:35
--- NOTE | 2020-08-20 06:34 | Physician Query Clarification ---
PQ-Conflicting Diagnosis Admission/Discharge Admission Date: Aug 11, 2020 at 16:42 Discharge Date: Aug 19, 2020 at 11:00 Dr. CORY Roman The medical record reflects the following clinical scenario: History/Risk Factors: 44 y/o male patient presents with left leg cellulitis with leg edema found to have sepsis. Hand P, 08/11: Severe sepsis, cellulitis of left lower extrimity. Pulmonary progress notes, 08/13: cellulitis with sepsis, septic shock on Levophed. Pulmonary progress notes, 08/14: Leukocytosis, patient out of septic shock still on Levophed. Clinical Findings: Pulse- 110, WBC-31.1, Treatment: Vancomycin IV, IV bolus, IV Fluids Question: Do you agree with the impression of the Septic shock per Jose Burch? Please document a response in Progress Note or Discharge Summary. 1. Yes 2. No 3. Other, with explanation of clinical findings 4. Clinically undetermined, no explanation for clinical findings. PHYSICIAN RESPONSE Do you agree w/Consulting Dx?: Yes Please remember a lack of response to the above will prompt a phone page by CDI/Coding staff. In responding to this query, please exercise your independent professional judgment. The purpose of this communication is to more accurately reflect the complexity of your patients condition. The fact that a question is asked does not imply that any particular answer is desired or expected. Thank you for your timely response to this clarification. Requestors name: [ ] Phone # [ ] THIS PHYSICIAN QUERY FORM IS A PERMANENT PART OF THE MEDICAL RECORD CAMMIE ANGEL Aug 20, 2020 06:34 JHOANA RAY DO Aug 20, 2020 08:41
== END 2020-08-19 11:00 | DRG 871 ==
LOC: EDUNIT# 13:46 → ER 13:47 → 4TH 16:42 → ICU 08-12 06:01 → 4TH 08-14 16:36
PROVIDERS: ADMIT Internal Medicine; ATTEND Internal Medicine
DX: A41.9 Sepsis, unspecified organism (principal); R65.21 Severe sepsis with septic shock; L03.116 Cellulitis of left lower limb; E87.1 Hypo-osmolality and hyponatremia; E87.2 Acidosis; G82.20 Paraplegia, unspecified; D64.9 Anemia, unspecified; S80.212A Abrasion, left knee, initial encounter; S91.145A Puncture wound with foreign body of left lesser toe(s) without damage to nail, initial encounter; I95.9 Hypotension, unspecified; M19.91 Primary osteoarthritis, unspecified site; W19.XXXA Unspecified fall, initial encounter; Z98.1 Arthrodesis status
CPT/HCPCS: 36415; 36569; 71045; 71275; 74177; 76937; 80048; 80053; 80061; 80202; 80306; 81000; 82533; 83036; 83605; 83735; 83880; 84100; 84156; 84443; 85007; 85025; 85027; 85379; 85610; 85652; 85730; 86038; 86039; 86141; 87040; 87070; 87077; 87081; 87088; 87186; 87205; 87804; 93970

== ENCOUNTER 2020-08-19 09:04 | Inpatient (IN) | payer MEDICARE ==
[~2020-08-19] VITALS: Ht 170 cm; Wt 66.1 kg
[~2020-08-19 09:04] MED LIST changes: +PHEN30CA2 PO
--- NOTE | 2020-08-19 10:45 | NUR ---
CLAUDINE COLLAZO admitted to room 224-1, with an admitting diagnosis of DEBILITY, on 08/19/20 from via , accompanied by STAFF.CLAUDINE COLLAZO introduced to surroundings, call light, bed controls, phone, TV, temperature control, lights, meal times, smoking policy, visitor policy, side rail policy, bathrooms and showers. Patient Rights given to patient in the handbook.CLAUDINE COLLAZO verbalizes understanding that [facility] is not responsible for the loss or damage to any personal effects or valuables that are kept in the patients posession during their hospitalization. The following Patient Care Plans were discussed with the PATIENT: Discharge Planning, IMPAIRED MOBILITY,ALTERED COMFORT, and SELF CARE DEFICIT. CLAUDINE COLLAZO verbalizes understanding of Interdisciplinary Patient Education. Patient and/or family were informed about the Rapid Response Team and its purpose. Patient received Patient Rights Booklet, which includes Privacy Act Statement and Data Collection Information Summary.
[2020-08-19] MEDS ORDERED: LOPERAMIDE 2 MG (IMODIUM) TABLET PO PRN (11:00)
[2020-08-19] MEDS ORDERED: ACETAMINOPHEN 500 MG TAB (TYLENOL) PO PRN (11:00)
[2020-08-19] MEDS ORDERED: CALCIUM CARBONATE 500 MG (TUMS) TAB.CHEW PO PRN (11:00)
[2020-08-19] MEDS ORDERED: FLEET ENEMA ADULT 1 EA BTL PR PRN (11:00)
[2020-08-19] MEDS ORDERED: LACTULOSE SYRUP 10GM/15ML (ENULOSE) 30ML UDC PO PRN ×2 (11:00→18:15)
[2020-08-19] MEDS ORDERED: ALPRAZolam 0.25 MG (XANAX) TAB PO PRN (11:00)
[2020-08-19] MEDS ORDERED: ONDANSETRON 4 MG (ZOFRAN) ORAL DISSOLVE TAB PO PRN (11:00)
[2020-08-19] MEDS ORDERED: DOCUSATE SODIUM 100 MG (COLACE) CAP PO PRN (11:00)
[2020-08-19] MEDS ORDERED: ONDANSETRON 4 MG/2 ML (SDV) Z0FRAN IV PRN (11:00)
[2020-08-19] MEDS ORDERED: BISACODYL 10 MG SUPP (DULCOLAX) PR PRN ×2 (11:00→18:15)
[2020-08-19] MEDS ORDERED: guaiFENesin/CODEINE (ROBITUSSIN AC) 10ML UDC PO PRN (11:00)
[2020-08-19] MEDS ORDERED: diphenhydrAMINE 25 MG TAB (BENADRYL) PO PRN (11:00)
[2020-08-19 12:18] VITALS: BP 132/71
--- NOTE | 2020-08-19 12:20 | Physical Therapy Evaluation ---
PT Evaluation-General Medical Diagnosis Admission Date Aug 19, 2020 at 11:16 Medical Diagnosis: Cellulitus and Sepsis Onset Date: Aug 11, 2020 Therapy Diagnosis Therapy Diagnosis: Impaired mobility, strength, and ROM Height/Weight Height (Feet): 5 Height (Inches): 6.00 Weight (Pounds): 126 Precautions Precautions/Isolations: Contact Isolation, Fall Prevention Weight Bear Status Right Lower Extremity: Right Full Weight Bearing Left Lower Extremity: Left Full Weight Bearing Referral Physician: Maritza Reason for Referral: Evaluation/Treatment Medical History Additional Medical History Cerebral Palsy Substance Abuse Reviewed History: Yes Social History Home: Apartment (daughter check on pt regularly ) Current Living Status: Alone Entry Into Home: Stairs With Railing PT Steps Into Home: 30 Prior Prior Level of Function SCALE: Activities may be completed with or without assistive devices. 6-Pvbldzptov-ijawrke completes the activity by him/herself with no assistance from a helper. 5-Set-up or Clean-up Assistance-helper sets up or cleans up; patient completes activity. Manor assists only prior to or following the activity. 4-Supervision or Touching Assistance-helper provides verbal cues and/or touching/steadying and/or contact guard assistance as patient completes activity. Assistance may be provided throughout the activity or intermittently. 3-Partial/Moderate Assistance-helper does LESS THAN HALF the effort. Manor lifts, holds or supports trunk or limbs, but provides less than half the effort. 2-Substantial/Maximal Assistance-helper does MORE THAN HALF the effort. Manor lifts or holds trunk or limbs and provides more than half the effort. 4-Dxrovonzy-mosfck does ALL the effort. Patient does none of the effort to comp lete the activity. Or, the assistance of 2 or more helpers is required for the patient to complete the activity. If activity was not attempted, code reason: 7-Patient Refused. 9-Not Applicable-not attempted and the patient did not perform the activity before the current illness, exacerbation or injury. 10-Not Attempted due to Environmental Limitations-(lack of equipment, weather restraints, etc.). 88-Not Attempted due to Medical Conditions or Safety Concerns. Bed Mobility: 6 Transfers (B,C,W/C): 6 Gait: 6 Stairs: 6 Wheelchair Mobility: 9 Indoor Mobility (Ambulation): Independent Stairs: Independent Prior Devices Use: Walker, Other-see list below (cane) Prior Device Use: Pt has ADs but did not use them on a daily basis PT Evaluation-Current Subjective Pt presents sitting upright in wheelchair under OT's care. Pt agrees to PT. Pt reports no pain. Pt complains of swelling that is "weighing" him down and limiting his mobility. Pt/Family Goals Return Home Objective Patient Orientation: Person, Place, Time, Eyes Open, Situation Attachments: Kelsey Catheter ROM/Strength ROM Lower Extremities B LE limited in hip and knee ext Sensory Vision: Wears Glasses Hearing: Functional Sensation Right Lower Extremit: Intact Sensation Left Lower Extremity: Intact Sensation Lower Extremities BLE sensation intact to light touch L2-S2 Transfers Roll Left & Right (QC): 4 Sit to Lying (QC): 3 Lying to Sitting/Side of Bed(Q: 4 Sit to Stand (QC): 4 Chair/Wdz-ub-Fwzpy Xfer(QC): 4 Toilet Transfer (QC): 4 Car Transfer (QC): 3 Pt required min assist with move LEs with sit->lying and car transfer. Pt is able to complete rolling and lying->sitting with SBA. Pt given CGA with sit to stand and chair to bed transfer. Pt is slow with all transfers as he takes time to find a way to complete task himself as much as possible. Gait Does the Patient Walk?: Yes Mode of Locomotion: Walk Anticipated Mode of Locomotion: Walk Walk 10 feet (QC): 4 Walk 50 ft with 2 Turns(QC): 4 Walk 150 ft (QC): 4 Walking 10ft/uneven surface-QC: 4 Distance: 150' Gait Assistive Device: FWW Comments/Gait Description CGA. Pt has widened ALIE due to lower swelling. Pt ambulates on supinated feet and is unable to maintain upright posture (flexed B knees and hips). Wheelchair Training Does the Pt Use a Wheelchair?: Yes Distance: 150' Wheel 50 ft with 2 turns (QC): 4 Wheel 150 ft (QC): 4 Type of Wheelchair: Manual SBA. Pt propels self with UEs and is able to hold LEs off ground. Stairs 1 Step (curb) (QC): 88 4 Steps (QC): 88 12 Steps (QC): 88 Balance Sitting Static: Normal Sitting Dynamic: Normal Standing Static: Good Standing Dynamic: Good Picking up an Object (QC): 88 Treatment Standing balance with bathing Assessment/Needs Pt struggles to maneuver LEs due to access swelling and weakness. Pt appears unstable with standing but assures therapists he won't fall. Pt slow to complete mobility but self-motivated to be independent. Rehab Potential: Fair PT Short Term Goals Short Term Goals Time Frame: Aug 26, 2020 Sit to lyin Lying to sitting on side of be: 4 Sit to stand: 4 Chair/ubi-ay-ntolo transfer: 4 Car transfer: 4 Walk 10 feet: 4 Walk 50 feet with two turns: 4 Walk 150 feet: 4 1 step (curb): 4 PT Intermediate Goals Intermediate Goals PT Intermediate Goals Time Frame: Sep 09, 2020 Roll Left & Right (QC): 6 Sit to Lying (QC): 6 Lying-Sitting on Side/Bed(QC): 6 Sit to Stand (QC): 6 Chair/Cpw-vm-Nskki Xfer(QC): 6 Toilet Transfer (QC): 6 Car Transfer (QC): 6 Does the Patient Walk: Yes Walk 10 feet (QC): 6 Walk 50ft with 2 Turns (QC): 6 Walk 150 ft (QC): 6 Walking 10ft on Uneven Surface: 6 1 Step (curb) (QC): 6 4 Steps (QC): 4 12 Steps (QC): 4 Picking up an Object (QC): 4 Does the Pt use WC or Scooter?: No Wheel 50 feet with 2 turns (QC: 9 Wheel 150 feet: 9 PT Plan Problem List Problem List: Activity Tolerance, Functional Strength, Safety, Balance, Gait, Transfer, Bed Mobility, ROM Treatment/Plan Treatment Plan: Continue Plan of Care Treatment Plan: Bed Mobility, Education, Functional Activity Nirav, Functional Strength, Group Therapy, Gait, Safety, Therapeutic Exercise, Transfers Treatment Duration: Sep 02, 2020 Frequency: At least 5 of 7 days/Wk (IRF) Estimated Hrs Per Day: 1.5 hours per day Patient and/or Family Agrees t: Yes Safety Risks/Education Patient Education: Gait Training, Transfer Techniques, Correct Positioning, W/C Management, Safety Issues Teaching Recipient: Patient Teaching Methods: Demonstration, Discussion Response to Teaching: Reinforcement Needed Discharge Recommendations Plan Pt will work on bed mobility, transfers, balance and gait training, and therapeutic exercises to improve strength and ROM. Therapy Discharge Recommendati: Home & Family Time/GCodes Time In: 1100 Time Out: 1200 Total Billed Treatment Time: 60 Total Billed Treatment 1 visit EVM 10' FA 50' Pt eval [id number]; Co-treated with OT [id number] due to patient's limitations with strength, mobility, ROM and coordination of UEs and LEs. PT focused on patient's mobility, gait, and balance while OT focused on patient's bathing and ADLs. CARLO CALLES PT Aug 19, 2020 12:20
--- NOTE | 2020-08-19 12:37 | NUR ---
THE MED REC WAS COMPLETED ON 08-12-2020 WHEN THE PT WAS ON THE FLOOR (AND PREVIOUSLY ON 07-29-2020). I HAVE REVIEWED THE MEDICATIONS FOR CONTINUATION
--- NOTE | 2020-08-19 14:15 | Occupational Therapy Eval ---
OT Evaluation-General/PLF Medical Diagnosis Admission Date Aug 19, 2020 at 11:16 Medical Diagnosis: Cellulitus and Sepsis/Narcotic bowel syndrome. Onset Date: Aug 11, 2020 Therapy Diagnosis Therapy Diagnosis: Weakness, Decreased ADL skills Height/Weight Height (Feet): 5 Height (Inches): 6.00 Weight (Pounds): 126 Precautions Precautions/Isolations: Contact Isolation, Fall Prevention Weight Bear Status Weight Bearing Restriction: Weight Bearing/Tolerated Referral Physician: Maritza Referral Reason: Activity Tolerance, Self Care, Evaluation/Treatment, Strengthening/ROM Medical History Additional Medical History Cerebral palsy, Scrotal swelling, Proteinuria Current History Pt. began to have swelling all over. Became weak. Came to ER via ambulance. 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 Reviewed History: Yes Social History Home: Apartment (daughter check on pt regularly ) Current Living Status: Alone Entry Into Home: Stairs With Railing Steps Into Home: 30 ADL-Prior Level of Function SCALE: Activities may be completed with or without assistive devices. 6-Xochfphbpi-bjpvfpi completes the activity by him/herself with no assistance from a helper. 5-Set-up or Clean-up Assistance-helper sets up or cleans up; patient completes activity. Points assists only prior to or following the activity. 4-Supervision or Touching Assistance-helper provides verbal cues and/or touching/steadying and/or contact guard assistance as patient completes activity. Assistance may be provided throughout the activity or intermittently. 3-Partial/Moderate Assistance-helper does LESS THAN HALF the effort. Points lifts, holds or supports trunk or limbs, but provides less than half the effort. 2-Substantial/Maximal Assistance-helper does MORE THAN HALF the effort. Points lifts or holds trunk or limbs and provides more than half the effort. 1-Lbkehvseh-lqyenp does ALL the effort. Patient does none of the effort to complete the activity. Or, the assistance of 2 or more helpers is required for the patient to complete the activity. If activity was not attempted, code reason: 7-Patient Refused. 9-Not Applicable-not attempted and the patient did not perform the activity before the current illness, exacerbation or injury. 10-Not Attempted due to Environmental Limitations-(lack of equipment, weather restraints, etc.). 88-Not Attempted due to Medical Conditions or Safety Concerns. ADL PLOF Comments Pt. is fully independent with daily tasks. He was having to use a walker right before his hospitalization, but previous to that, was ambulating independently. Pt. lives in apartment, and is security for it. 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 Self Care: Independent Functional Cognition: Independent DME/Equipment: Tub/Shower DME/Equipment Comments Pt. has a walker. Drive Self: Yes OT Current Status Subjective No pain reported. However, pt. does verbalize discouragement at having increased swelling. Appearance Pt. in bed. Alert and oriented. Agrees to work with therapy. Mental Status/Objective Patient Orientation: Person, Place, Time, Situation Attachments: Kelsey Catheter Current Upper Extremity ROM WFL Edema: Pt. has increased edema in bilateral UE. ADL-Treatment Eating (QC): 6 Oral Hygiene (QC): 5 Shower/Bathe Self (QC): 3 (CGA in stance to wash [place] area. Pt. did not wash bilateral LE, but would be unable to do so on his own.) Upper Body Dressing (QC): 10 Lower Body Dressing (QC): 2 On/Off Footwear (QC): 1 Toileting Hygiene (QC): 7 Other Treatments Pt. see for therapy with co-treatment from OT/PT. Co-treatmend performed due to need of skilled assistance x 2 for fatigue, and decreased mobility. OT facilitated ADL skills while PT assessed mobility/transfers. Pt. completed sponge bath on side of bed, but unable to reach feet. OT donned fresh slipper socks for him, and threaded shorts over feet. Pt. attempted to don shorts over hips, but shorts too small due to swelling. OT removed shorts. Pt. uses dowel satish dressing stick at home. Pt. able to transfer supine-sit with CGA. Able to stand with min/mod assistance from elevated surface. Please see PT note for distance ambulated. All needs met back in bed with bilateral LE elevated. Max assist for sit-supine. Education OT Patient Education: Correct positioning, Modified ADL techniques, Progress toward Goal/Update tx plan, Purpose of tx/functional activities, Reviewed precautions, Rehab process, Transfer techniques Teaching Recipient: Patient Teaching Methods: Demonstration, Discussion Response to Teaching: Verbalize Understanding, Return Demonstration OT Short Term Goals Short Term Goals Time Frame: Aug 26, 2020 Eatin Oral hygiene: 5 Toileting hygiene: 4 Shower/bathe self: 4 Upper body dressin Lower body dressin Putting on/taking off footwear: 4 OT Mcc Goals Monotype Operator Goals Time Frame: Sep 02, 2020 Eating (QC): 6 Oral Hygiene (QC): 6 Toileting Hygiene (QC): 6 Shower/Bathe Self (QC): 5 Upper Body Dressing (QC): 6 Lower Body Dressing (QC): 6 On/Off Footwear (QC): 6 Additional Goals: 1-Demonstrate ADL Tasks, 2-Verbalize Understanding, 3-Impro veStrength/Nirav 1=Demonstrate adherence to instructed precautions during ADL tasks. 2=Patient will verbalize/demonstrate understanding of assistive devices/modifications for ADL. 3=Patient will improve strength/tolerance for activity to enable patient to perform ADL's. OT Education/Plan Problem List/Assessment Assessment: Decreased Activ Tolerance, Dependent Transfers, Impaired Bed Mobility, Impaired Funct Balance, Impaired I ADL's, Impaired Self-Care Skills Discharge Recommendations Plan/Recommendations: Continue POC Therapy Discharge Recommendati: Home & Family, Post Acute OT Equpiment Recommendations-D/C: Extended Bath Bench, Hip Kit Treatment Plan/Plan of Care Treatment,Training & Education: Yes Patient would benefit from OT for education, treatment and training to promote independence in ADL's, mobility, safety and/or upper extremity function for A DL's. Plan of Care: ADL Retraining, Functional Mobility, Group Exercise/Act as Ind, UE Funct Exercise/Act Treatment Duration: Sep 02, 2020 Frequency: At least 5 of 7 days/Wk (IRF) Estimated Hrs Per Day: 1.5 hours per day Agreement: Yes Rehab Potential: Good Time/GCodes Start Time: 10:45 Stop Time: 12:00 Total Time Billed (hr/min): 65 Billed Treatment Time 6867-3312 1, EVM x 15minutes [id number] PT eval. No charge [phone] FA x 30minutes, ADL x 20minutes. (Co-treatment with PT. Please see above note for designated roles.) CATERINA TORO OT Aug 19, 2020 14:15
--- NOTE | 2020-08-19 14:31 | Therapy Group Daily Note ---
Therapy Daily Group Note Patient Education Topic Home Safety Exercises LE Seated Exercise, UE Exercise Session Ratio (pt:therapist): 4:1 Goal of Session: Education on ARU Expectations, Home Safety Strategies, UE/LE Strengthing Goal Met for this Session: Yes Pt Benefit of Group: Contributions to Others, F/U Use of Strategies @Home, Increased Functional Safety, Increased Functional Strength, Improved Cognition, Recognition of Peers, Socialization Other/Notes Pt ambulated to therapy gym using FWW, CGA for OT/PT group. Group consisted of introductions (name, place living, favorite thanksgiving food), socialization, seated UE/LE exercises, home safety trivia, ARU description and home safety education. Pt introduced self appropriately and activity listened to peers. Pt was able to acknowledge understanding of educational topics by own personal experiences and strategies. Pt described smart phone doorbell use in own home. Pt tolerated UE/LE seated exercises and completed 1 set of 10 reps each. Pt able to answer one question about home safety during trivia. After session, pt lying in bed with call light/phone in reach. All needs met in room. Start Time: 13:00 Stop Time: 14:10 Total Billed Treatment Time: 70 Total Billed Treatment 1- GREYSON LOPEZ Aug 19, 2020 14:31
--- NOTE | 2020-08-19 18:05 | PM&R Post Admission Assessment ---
PM&R Date of Visit: Aug 19, 2020 Time of Visit: 12:00 History of Present Illness CC: Debility due to left leg cellulitis with bilateral LE edema and anasarca with Cerebral palsy HPI: This is a 49yoWM in need of aggressive therapy in order to return home and live independently. Please see hospital DC course below. PLOF independent. 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 Kelsey cath and midline remains intact. 55# pound weight gain since 2 weeks ago when he was admitted for severe back pain due to muscle spasms. Hospital course: Pt had a lengthy hospital course after he was admitted for left leg cellulitis with B/L lower extremity edema. Albumin had gone from 0 to 2.0 within the last two weeks. He was placed on broad-spectrum IV antibiotics per general surgery. All imagining scans showed no evidence of any type of blockage from any type of structural problem so he was IV Lasix and wrapped in wide jesi wraps, lower extremities. Pt was placed back on his home meds. He was in need of further diuresis and considering his cerebral palsy and left leg pain he required close monitoring and physician supervision. Past Fnbtfii-Oxsogs-Hvgiyx Hx Past Med/Social Hx: Reviewed Nursing Past Med/Soc Hx, Reviewed and Corrections made Patient Social History Marrital Status: single Employed/Student: employed Alcohol Use: Denies Use Smoking Status: Never a Smoker 2nd Hand Smoke Exposure: No Physical Abuse Screen: No Sexual Abuse: No Recent Foreign Travel: No Contact w/other who traveled: No Recent Hopitalizations: No Recent Infectious Disease Expo: No Immunizations Up To Date Tetanus Booster (TDap): Less than 5yrs Pediatric: No Seasonal Allergies Seasonal Allergies: No Past Medical History Surgeries: Orthopedic, Vasectomy Currently Using CPAP: No Currently Using BIPAP: No Neurological: Cerebral Palsy Reproductive: No Musculoskeletal: Arthritis, Chronic Back Pain Hearing Impairment: Denies History of Blood Disorders: No Adverse Reaction to Blood Banegas: No Family History No Pertinent Family Hx Prior Level of Function Bed Mobility: 6 Transfers: 6 Gait: 6 Stairs: 6 Wheelchair Mobility: 9 Indoor Mobility (Ambulation): Independent Stairs: Independent Prior Devices Use: Walker, Other-see list below (cane) Pt has ADs but did not use them on a daily basis Self Care: Independent Functional Cognition: Independent 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 Drive Self: Yes Current Level of Fuctioning Roll Left to Right: 4 Sit to Lyin Lying to Sitting/Side of Bed: 4 Sit to Stand: 4 Chair/Jbj-eg-Pkwgk Xfer: 4 Car Transfer: 3 Does the Patient Walk: Yes Mode of Locomotion: Walk Anticipated Mode of Locomotion: Walk Walk 10 feet: 4 Walk 50 ft with 2 Turns: 4 Walk 150 ft: 4 Walking 10ft on uneven surface: 4 Gait Assistive Device: FWW Does the Pt Use a Wheelchair: Yes Wheelchair Distance: 150' Wheel 50 ft with 2 turns: 4 Wheel 150 ft: 4 Type of Wheelchair: Manual 1 Step (curb): 88 4 Steps: 88 12 Steps: 88 Picking up an Object: 88 Eatin Oral Hygiene: 5 Shower/Bathe Self: 3 (CGA in stance to wash [place] area. Pt. did not wash bilateral LE, but would be unable to do so on his own.) Upper Body Dressin Lower Body Dressin On/Off Footwear: 1 Toileting Hygiene: 7 PM&R Allergy/Meds/Data Review Allergies Coded Allergies: Penicillins (Unverified Adverse Reaction, Unknown, 07/28/20) Home Medications Scheduled Bethanechol Chloride (Urecholine), 5 MG PO ACHS, (Reported) Celecoxib (Celecoxib), 200 MG PO BID, (Reported) Multivitamin (Multivitamin), 1 EACH PO DAILY, (Reported) Phentermine HCl (Phentermine HCl), 30 MG PO DAILY, (Reported) Tamsulosin HCl (Flomax), 0.4 MG PO BID, (Reported) Tizanidine HCl (Tizanidine HCl), 4 MG PO Q6HR Scheduled PRN Albuterol Sulfate (Ventolin Hfa), 2 PUFF INH Q4H PRN for SHORTNESS OF BREATH, (Reported) Bisacodyl (Laxative), 10 MG PO DAILY PRN for CONSTIPATION-4TH LINE, (Reported) Diazepam (Diazepam), 5 MG PO QID PRN for ANXIETY, (Reported) Morphine Sulfate (Morphine Sulfate ER), 30 MG PO BID PRN for PAIN-SEVERE (8-10), (Reported) Oxycodone HCl (Oxycontin), 20 MG PO BID PRN for PAIN-SEVERE (8-10), (Reported) Current Medications Current Medications Reviewed Review of Systems Constitutional: see HPI, malaise, weakness Gastrointestinal: constipation Musculoskeletal: joint pain, muscle pain, muscle cramps, muscle weakness Skin: change in color Psychiatric/Neurological: Anxiety All Other Systems Reviewed Negative Unless Noted: Yes Physical Exam Physical Exam Vital Signs Vital Signs - First Documented 08/19/20 12:18 Temp 36.9 Pulse 69 Resp 18 B/P (MAP) 132/71 Pulse Ox 96 O2 Delivery Room Air Capillary Refill : Height, Weight, BMI Height: 5'6.00" Weight: 126lbs. oz. 57.731693ru; 28.71 BMI Method:Stated General Appearance: No Apparent Distress, WD/WN, Chronically ill Eyes: Bilateral Eye Normal Inspection, Bilateral Eye PERRL HEENT: PERRL/EOMI, Normal ENT Inspection, Pharynx Normal Neck: Full Range of Motion, Normal Inspection, Non Tender, Supple, Carotid Bruit Respiratory: Chest Non Tender, Lungs Clear, Normal Breath Sounds, No Accessory Muscle Use, No Respiratory Distress Cardiovascular: Regular Rate, Rhythm, No Gallop, No JVD, No Murmur, Normal Peripheral Pulses Gastrointestinal: Normal Bowel Sounds, No Organomegaly, No Pulsatile Mass, Non Tender, Soft Back: Normal Inspection, No CVA Tenderness, No Vertebral Tenderness Extremity: Normal Capillary Refill, Normal Inspection, Normal Range of Motion, Non Tender, No Calf Tenderness, Pedal Edema Neurologic/Psychiatric: Alert, Oriented x3, No Motor/Sensory Deficits, Normal Mood/Affect, 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 machine 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 II-XII Norm as Tested, Abnormal Gait, Motor Weakness (generalized) Skin: Normal Color, Warm/Dry Lymphatic: No Adenopathy PM&R Medical Assessment & Plan REHAB/MEDICAL ASSESSMENT AND PLAN: REHAB IMPAIRMENT GROUP: Debility with CP ETIOLOGIC DIAGNOSIS: Debility with CP The comorbidities that impact the patients function and/or functional outcome by: Cerebral palsy, chronic pain issues, narcotic bowel, severe anasarca requiring IV Lasix, Kelsey cath in place REHAB PLAN: The patient is being admitted to our comprehensive inpatient rehabilitation facility and can tolerate the intensity of service consisting of at least: 180 minutes of therapy a day, 5 out of 7 days a week Rehab treatment will consist of: PT OT will focus on regaining function in order to return home to live independently with increased ADL independence and ambulation The patient/family has a good understanding of our discharge process and will benefit from an interdisciplinary inpatient rehabilitation program. The patient has potential to make improvement and is in need of at least two of the following multidisciplinary therapies including but not limited to physical, occupational, speech, and prosthetics and orthotics. Additionally the patient will need services from respiratory, nutritional services, wound care, psychology, etc. (Customize this to each patient). Given the patients complex condition and risk of further medical complications, rehabilitation services cannot be safely or effectively provided at a lower level of care such as a fci facility. BARRIERS TO DISCHARGE: CP and severe anasarca ESTIMATED LOS: 7 days DISPOSITION: Home RELEVANT CHANGES SINCE PREADMISSION SCREENING: I have compared the patients medical and functional status at the time of the preadmission screening and there are: no changes PROGNOSIS: Good REHABILITATION GOALS: 1. PT OT will focus on regaining function in order to return home to live independently with increased ADL independence and ambulation All the above goals were reviewed with the patient and he/she is in agreement. By signing this document, I acknowledge that I have personally performed a full physical examination on this patient within 24 hours of admission to this inpatient rehabilitation facility and have determined the patient to be able to tolerate the above course of treatment at an intensive level for a reasonable period of time. I will be completing a detailed individualized Plan of Care for this patient by day #4 of the patients stay based upon the Preadmission Screen, the Post-Admission Evaluation, and the therapy evaluations. Admission Dx/Comorbidities: (1) Debility ICD Codes: R53.81 - Other malaise (2) Narcotic bowel syndrome ICD Codes: K63.89 - Other specified diseases of intestine (3) Blood albumin decreased compared with prior measurement ICD Codes: R79.89 - Other specified abnormal findings of blood chemistry (4) Elevated bilirubin Status: Chronic ICD Codes: R17 - Unspecified jaundice (5) Normocytic anemia Status: Chronic ICD Codes: D64.9 - Anemia, unspecified (6) Proteinuria ICD Codes: R80.9 - Proteinuria, unspecified (7) Hyponatremia Status: Resolved ICD Codes: E87.1 - Hypo-osmolality and hyponatremia (8) Cerebral palsy Status: Acute ICD Codes: G80.9 - Cerebral palsy, unspecified (9) Scrotal swelling Status: Acute ICD Codes: N50.89 - Other specified disorders of the male genital organs (10) Cellulitis of left lower extremity Status: Acute ICD Codes: L03.116 - Cellulitis of left lower limb (11) Severe sepsis Status: Acute ICD Codes: A41.9 - Sepsis, unspecified organism; R65.20 - Severe sepsis without septic shock (12) Back spasm Status: Acute ICD Codes: M62.830 - Muscle spasm of back; G89.29 - Other chronic pain Assessment/Plan Assessment and Plan Assess & Plan/Chief Complaint Assessment: Debility Left leg cellultis Falls Cerebral palsy Proteinuria Low albumin Anasarca Scrotal edema Lower extremity edema Narcotic bowel Chronic pain Plan: IV abx Edema treatment Monitor closely JHOANA RAY DO Aug 19, 2020 18:05
[2020-08-19] MEDS ORDERED: fentaNYL INJECTION 100 MCG/2 ML AMP IVP PRN (18:15)
[2020-08-19] MEDS ORDERED: polyethylene glycoL POWDER 17 GM (MIRALAX) PACK PO PRN (18:15)
[2020-08-19] MEDS ORDERED: RT-ALBUTEROL SULF 2.5 MG/3 ML PRE-MIX VIAL INH PRN ×2 (18:15)
[2020-08-19] MEDS ORDERED: FUROSEMIDE 40 MG/4 ML INJ (LASIX) IVP NR (18:15)
[2020-08-19] MEDS ORDERED: DIAZEPAM 5 MG (VALIUM) TABLET PO PRN (18:15)
[2020-08-19] MEDS ORDERED: oxyCODONE ER 20 MG (OxyCONTIN CR) TAB PO PRN (18:15)
[2020-08-19] MEDS ORDERED: KCL 20 MEQ TAB (K-DUR) PO SCH (18:15)
[2020-08-19] MEDS ORDERED: PATIENT MAY USE OWN MED,SINGLE MED PO SCH (18:15)
[2020-08-19] MEDS ORDERED: morphine ER 30 MG (MS CONTIN) TAB PO PRN (18:15)
[2020-08-19] MEDS ORDERED: ONDANSETRON 4 MG/2 ML (SDV) Z0FRAN IVP PRN (18:15)
[2020-08-19] MEDS ORDERED: BISACODYL 5 MG (DULCOLAX) TABLET PO PRN (18:15)
[2020-08-19] MEDS: VANCOMYCIN INJECTION 1,250 MG in NS (IVPB) 250 ML IV SCH (18:36)
[2020-08-19 18:42] VITALS: BP 127/84
[2020-08-19] MEDS: HYDROCORTISONE 20 MG (CORTEF) TAB PO SCH (18:52)
[2020-08-19] MEDS ORDERED: BETHANECHOL 10 MG (URECHOLINE) TAB PO SCH (21:00)
[2020-08-19] MEDS ORDERED: SENNA W/DOCUSATE (SENOKOT S) TABLET PO SCH (21:00)
[2020-08-19] MEDS ORDERED: morphine ER 15 MG (MS CONTIN) TAB PO SCH (21:00)
[2020-08-19] MEDS ORDERED: DOCUSATE SODIUM 100 MG (COLACE) CAP PO SCH (21:00)
[2020-08-19] MEDS ORDERED: NON-FORMULARY MEDICATION 1 EA EA (Celecoxib 200 MG) PO SCH (21:00)
[2020-08-19] MEDS ORDERED: TAMSULOSIN 0.4 MG (FLOMAX) CAP PO SCH (21:00)
[2020-08-19] MEDS: DOCUSATE SODIUM 100 MG (COLACE) CAP PO SCH (21:50)
[2020-08-19] MEDS: polyethylene glycoL POWDER 17 GM (MIRALAX) PACK PO SCH (21:50)
[2020-08-19] MEDS: SENNA W/DOCUSATE (SENOKOT S) TABLET PO SCH (21:50)
[2020-08-19] MEDS: BETHANECHOL 10 MG (URECHOLINE) TAB PO SCH (21:51)
[2020-08-19] MEDS: TAMSULOSIN 0.4 MG (FLOMAX) CAP PO SCH (21:51)
[2020-08-19] MEDS: CELECOXIB 100 MG (CeleBREX) CAP PO SCH (21:52)
[2020-08-19] MEDS: MELATONIN 3 MG TABLET PO PRN (21:56)
[2020-08-19] MEDS: DIAZEPAM 5 MG (VALIUM) TABLET PO PRN (21:56)
[2020-08-20] MEDS: VANCOMYCIN INJECTION 1,250 MG in NS (IVPB) 250 ML IV SCH ×3 (02:33→19:08)
[2020-08-20 05:58] VITALS: BP 117/66
[2020-08-20] MEDS: MULTIVIT W/MINERALS TAB (THERAGRAN M) PO SCH (06:01)
[2020-08-20] MEDS: BETHANECHOL 10 MG (URECHOLINE) TAB PO SCH ×4 (06:01→21:57)
[2020-08-20] MEDS: FUROSEMIDE 40 MG/4 ML INJ (LASIX) IVP SCH ×2 (06:02→16:58)
[2020-08-20 08:02] LABS: BASOPHILS % (AUTO) 0 % (0-10); EOSINOPHILS # (AUTO) 0.1 10^3/uL (0.0-0.3); EOSINOPHILS % (AUTO) 1 % (0-10); HEMATOCRIT 39 % (40-54); HEMOGLOBIN 12.6 g/dL (13.3-17.7); LYMPHOCYTES # (AUTO) 1.5 10^3/uL (1.0-4.0); LYMPHOCYTES % (AUTO) 10 % (12-44); MEAN CORPUSCULAR HEMOGLOBIN 28 pg (25-34); MEAN CORPUSCULAR HGB CONC 33 g/dL (32-36); MEAN CORPUSCULAR VOLUME 86 fL (80-99); MEAN PLATELET VOLUME 8.5 fL (9.0-12.2); MONOCYTES # (AUTO) 0.6 10^3/uL (0.0-1.0); MONOCYTES % (AUTO) 4 % (0-12); NEUTROPHILS # (AUTO) 12.3 10^3/uL (1.8-7.8); NEUTROPHILS % (AUTO) 83 % (42-75); PLATELET COUNT 547 10^3/uL (130-400); WHITE BLOOD COUNT 14.8 10^3/uL (4.3-11.0)
[2020-08-20 08:24] LABS: ALANINE AMINOTRANSFERASE 34 U/L (0-55); ALBUMIN 2.5 GM/DL (3.2-4.5); ALKALINE PHOSPHATASE 108 U/L (40-136); BILIRUBIN,TOTAL 0.5 MG/DL (0.1-1.0); BUN/CREATININE RATIO 23; CALCIUM 7.4 MG/DL (8.5-10.1); CARBON DIOXIDE 28 MMOL/L (21-32); CHLORIDE 100 MMOL/L (98-107); CREATININE SERUM 0.61 MG/DL (0.60-1.30); GFR ESTIMATED > 60; GLUCOSE 108 MG/DL (70-105); POTASSIUM 3.4 MMOL/L (3.6-5.0); SODIUM 138 MMOL/L (135-145); TOTAL PROTEIN 4.9 GM/DL (6.4-8.2)
--- NOTE | 2020-08-20 08:56 | PM&R Progress Note ---
Subjective HPI/CC On Admission Date Seen by Provider: Aug 20, 2020 Time Seen by Provider: 11:00 Subjective/Events-last exam Will have daily weights because we are taking a lot of fluid off Took off 4000cc of urine last night alone, took off 1000cc today with Lasix 20mg IV Bowels are moving okay Pain medication reviewed Reviewed meds and labs Conferred with RN Reviewed therapy notes Review of Systems General: Fatigue Cardiovascular: Edema Objective Exam Vital Signs Vital Signs Date Time Temp Pulse Resp B/P (MAP) Pulse Ox O2 Delivery O2 Flow Rate FiO2 08/20/20 19:28 Room Air 08/20/20 16:30 36.6 93 16 131/71 (91) 94 Capillary Refill : Less Than 3 Seconds General Appearance: No Apparent Distress, WD/WN, Chronically ill HEENT: PERRL/EOMI, Normal ENT Inspection, Pharynx Normal Neck: Full Range of Motion, Normal Inspection, Non Tender, Supple, Carotid Bruit Respiratory: Chest Non Tender, Lungs Clear, Normal Breath Sounds, No Accessory Muscle Use, No Respiratory Distress Cardiovascular: Regular Rate, Rhythm, No Gallop, No JVD, No Murmur, Normal Peripheral Pulses Gastrointestinal: Normal Bowel Sounds, No Organomegaly, No Pulsatile Mass, Non Tender, Soft Back: Normal Inspection, No CVA Tenderness, No Vertebral Tenderness Extremity: Normal Capillary Refill, Normal Inspection, Normal Range of Motion, Non Tender, No Calf Tenderness, Pedal Edema Neurologic/Psychiatric: Alert, Oriented x3, No Motor/Sensory Deficits, Normal Mood/Affect, warp placer II-XII Norm as Tested, Abnormal Gait, Motor Weakness (generalized) Skin: Normal Color, Warm/Dry Lymphatic: No Adenopathy Results/Procedures Lab Laboratory Tests 08/20/20 07:55 Patient resulted labs reviewed. FIM Transfers Therapy Code Descriptions/Definitions Functional Knott Measure: 0=Not Assessed/NA 4=Minimal Assistance 1=Total Assistance 5=Supervision or Setup 2=Maximal Assistance 6=Modified Knott 3=Moderate Assistance 7=Complete IndependenceSCALE: Activities may be completed with or without assistive devices. 1-Vkfjyaomlk-gnzlfor completes the activity by him/herself with no assistance from a helper. 5-Set-up or Clean-up Assistance-helper sets up or cleans up; patient completes activity. [place] assists only prior to or following the activity. 4-Supervision or Touching Assistance-helper provides verbal cues and/or touching/steadying and/or contact guard assistance as patient completes activ ity. Assistance may be provided throughout the activity or intermittently. 3-Partial/Moderate Assistance-helper does LESS THAN HALF the effort. Stanley lifts, holds or supports trunk or limbs, but provides less than half the effort. 2-Substantial/Maximal Assistance-helper does MORE THAN HALF the effort. [place] lifts or holds trunk or limbs and provides more than half the effort. 1-Zozftlfud-dlmihd does ALL the effort. Patient does none of the effort to complete the activity. Or, the assistance of 2 or more helpers is required for the patient to complete the activity. If activity was not attempted, code reason: 7-Patient Refused. 9-Not Applicable-not attempted and the patient did not perform the activity before the current illness, exacerbation or injury. 10-Not Attempted due to Environmental Limitations-(lack of equipment, weather restraints, etc.). 88-Not Attempted due to Medical Conditions or Safety Concerns. Roll Left to Right (QC): 4 Sit to Lying (QC): 3 Sit to Stand (QC): 4 Chair/Rjd-fb-Qhhba Xfer(QC): 4 Car Transfer (QC): 3 Gait Training Does the Patient Walk?: Yes Walk 10 feet (QC): 4 Walk 50 ft with 2 Turns(QC): 4 Walk 150 ft (QC): 4 Walking 10ft/uneven surface-QC: 4 Gait Assistive Device: FWW Wheelchair Training Does the Pt Use a Wheelchair?: Yes Distance: 150' Wheel 50 ft with 2 turns (QC): 4 Wheel 150 ft (QC): 4 Type of Wheelchair: Manual Stair Training 1 Step (curb) (QC): 88 4 Steps (QC): 88 12 Steps (QC): 88 Balance Picking up an Object (QC): 88 ADL-Treatment Eating (QC): 6 Oral Hygiene (QC): 5 Shower/Bathe Self (QC): 3 (CGA in stance to wash [place]. Pt. did not wash bilateral LE, but would be unable to do so on his own.) Upper Body Dressing (QC): 10 Lower Body Dressing (QC): 2 On/Off Footwear (QC): 1 Toileting Hygiene (QC): 7 Assessment/Plan Assessment and Plan Assess & Plan/Chief Complaint Assessment: Debility Left leg cellultis Falls Cerebral palsy Proteinuria Low albumin Anasarca Scrotal edema Lower extremity edema Narcotic bowel Chronic pain Plan: IV abx Edema treatment Monitor closely 08/20/20: Monitor edema closely Lasix 20mg IV BID Check labs in am BM regimen (1) Debility (2) Narcotic bowel syndrome (3) Blood albumin decreased compared with prior measurement (4) Elevated bilirubin Status: Chronic (5) Normocytic anemia Status: Chronic (6) Proteinuria (7) Hyponatremia Status: Resolved Resolution Date/Time: 08/14/20 @ 14:40 (8) Cerebral palsy Status: Acute (9) Scrotal swelling Status: Acute (10) Cellulitis of left lower extremity Status: Acute (11) Severe sepsis Status: Acute (12) Back spasm Status: Acute JHOANA RAY DO Aug 20, 2020 08:56
[2020-08-20] MEDS ORDERED: ENOXAPARIN 40 MG/0.4 ML (LOVENOX) SYR SC SCH (09:00)
[2020-08-20] MEDS ORDERED: MAGNESIUM OXIDE (MAG-OX)400 MG TAB PO NR (09:00)
[2020-08-20] MEDS ORDERED: NON-FORMULARY MEDICATION 1 EA EA (Multivitamin 1 EACH) PO SCH (09:00)
[2020-08-20] MEDS: SENNA W/DOCUSATE (SENOKOT S) TABLET PO SCH ×2 (09:04→22:21)
[2020-08-20] MEDS: CELECOXIB 100 MG (CeleBREX) CAP PO SCH ×2 (09:04→21:59)
[2020-08-20] MEDS: HYDROCORTISONE 20 MG (CORTEF) TAB PO SCH ×2 (09:04→17:01)
[2020-08-20] MEDS: TAMSULOSIN 0.4 MG (FLOMAX) CAP PO SCH ×2 (09:04→21:57)
[2020-08-20] MEDS: DOCUSATE SODIUM 100 MG (COLACE) CAP PO SCH ×2 (09:05→22:21)
[2020-08-20] MEDS: PANTOPRAZOLE 40 MG (PROTONIX) TAB PO SCH (09:05)
[2020-08-20] MEDS: polyethylene glycoL POWDER 17 GM (MIRALAX) PACK PO SCH ×2 (09:06→20:03)
[2020-08-20] MEDS: KCL 20 MEQ TAB (K-DUR) PO SCH ×3 (09:06→17:02)
[2020-08-20] MEDS: ENOXAPARIN 40 MG/0.4 ML (LOVENOX) SYR SC SCH (09:06)
[2020-08-20] MEDS ORDERED: TROUGH ORDER-PHARMACY XX ONE (09:30)
--- NOTE | 2020-08-20 11:00 | Physical Therapy Daily Note ---
PT Daily Note-Current Subjective Pt presents sitting upright in chair. Pt agrees to PT. Pt reports 5/10 pain in left knee (lat thigh), this increased to 8/10 by end of treatment and is described as "sore". Appearance At conclusion of PT treatment pt returns to recliner. Pt's legs are jesi wrapped up to knees at request of Dr. Salas. Pt has access to tray, call button, and all needs have been met. Mental Status Patient Orientation: Person, Place, Time, Eyes Open, Situation Attachments: Kelsey Catheter Transfers SCALE: Activities may be completed with or without assistive devices. 5-Bpxpvyhfle-ffdjuzm completes the activity by him/herself with no assistance from a helper. 5-Set-up or Clean-up Assistance-helper sets up or cleans up; patient completes activity. [place] assists only prior to or following the activity. 4-Supervision or Touching Assistance-helper provides verbal cues and/or touching/steadying and/or contact guard assistance as patient completes activity. Assistance may be provided throughout the activity or intermittently. 3-Partial/Moderate Assistance-helper does LESS THAN HALF the effort. [place] lifts, holds or supports trunk or limbs, but provides less than half the effort. 2-Substantial/Maximal Assistance-helper does MORE THAN HALF the effort. [place] lifts or holds trunk or limbs and provides more than half the effort. 7-Szwquqtiq-vwoqgl does ALL the effort. Patient does none of the effort to complete the activity. Or, the assistance of 2 or more helpers is required for the patient to complete the activity. If activity was not attempted, code reason: 7-Patient Refused. 9-Not Applicable-not attempted and the patient did not perform the activity before the current illness, exacerbation or injury. 10-Not Attempted due to Environmental Limitations-(lack of equipment, weather restraints, etc.). 88-Not Attempted due to Medical Conditions or Safety Concerns. Sit to Stand (QC): 4 Chair/Wwy-yt-Akwby Xfer(QC): 4 SBA Weight Bearing Right Lower Extremity: Right Full Weight Bearing Left Lower Extremity: Left Full Weight Bearing Gait Training Does the Patient Walk?: Yes Distance: 120'x2 Walk 10 feet (QC): 4 Walk 50 ft with 2 Turns(QC): 4 Gait Assistive Device: FWW Pt continues to demonstrated slumped posture and flexed LEs, but has improved speed of ambulation. Exercises Seated Therapy Exercises: Sit to stand, Long arc quads, Hip abd/add Seated Reps: [address] Ex=Flex, Abd, Ext, Side steps (B 6' x3) Standing Reps: 10 Treatments Gait and LE strengthening Assessment Current Status: Good Progress Pt has improved gait speed. Pt cued to get feet under him as much as possible prior to standing PT Short Term Goals Short Term Goals Time Frame: Aug 26, 2020 Sit to lyin Lying to sitting on side of be: 4 Sit to stand: 4 Chair/ycm-ql-scyot transfer: 4 Car transfer: 4 Walk 10 feet: 4 Walk 50 feet with two turns: 4 Walk 150 feet: 4 1 step (curb): 4 PT Roller Skate Assembler Goals Roller Skate Assembler Goals PT Roller Skate Assembler Goals Time Frame: Sep 09, 2020 Roll Left & Right (QC): 6 Sit to Lying (QC): 6 Lying-Sitting on Side/Bed(QC): 6 Sit to Stand (QC): 6 Chair/Wxg-vy-Vehao Xfer(QC): 6 Toilet Transfer (QC): 6 Car Transfer (QC): 6 Does the Patient Walk: Yes Walk 10 feet (QC): 6 Walk 50ft with 2 Turns (QC): 6 Walk 150 ft (QC): 6 Walking 10ft on Uneven Surface: 6 1 Step (curb) (QC): 6 4 Steps (QC): 4 12 Steps (QC): 4 Picking up an Object (QC): 4 Does the Pt use WC or Scooter?: No Wheel 50 feet with 2 turns (QC: 9 Wheel 150 feet: 9 PT Plan Problem List Problem List: Activity Tolerance, Functional Strength, Safety, Balance, Gait, Transfer, Bed Mobility, ROM Treatment/Plan Treatment Plan: Continue Plan of Care Treatment Plan: Bed Mobility, Education, Functional Activity Nirav, Functional Strength, Group Therapy, Gait, Safety, Therapeutic Exercise, Transfers Treatment Duration: Sep 02, 2020 Frequency: At least 5 of 7 days/Wk (IRF) Estimated Hrs Per Day: 1.5 hours per day Patient and/or Family Agrees t: Yes Safety Risks/Education Patient Education: Gait Training, Transfer Techniques, Correct Positioning, Safety Issues Teaching Recipient: Patient Teaching Methods: Demonstration, Discussion Response to Teaching: Reinforcement Needed Time/GCodes Time In: 1000 Time Out: 1100 Total Billed Treatment Time: 60 Total Billed Treatment 1 visit GT 20' EX 40' CARLO CALLES PT Aug 20, 2020 11:00
--- NOTE | 2020-08-20 11:42 | Occupational Ther Daily Note ---
OT Current Status-Daily Note Subjective Pt alert, sitting in recliner. Pt agrees to therapy. No c/o pain at this time. Nrsg in room to administer meds. Mental Status/Objective Patient Orientation: Person, Place, Time, Situation Attachments: IV (midline) ADL-Treatment Therapy Code Descriptions/Definitions Functional [place] Measure: 0=Not Assessed/NA 4=Minimal Assistance 1=Total Assistance 5=Supervision or Setup 2=Maximal Assistance 6=Modified [place] 3=Moderate Assistance 7=Complete IndependenceSCALE: Activities may be completed with or without assistive devices. 3-Fsjdijpiik-kvuncxc completes the activity by him/herself with no assistance from a helper. 5-Set-up or Clean-up Assistance-helper sets up or cleans up; patient completes activity. [place] assists only prior to or following the activity. 4-Supervision or Touching Assistance-helper provides verbal cues and/or touching/steadying and/or contact guard assistance as patient completes activity. Assistance may be provided throughout the activity or intermittently. 3-Partial/Moderate Assistance-helper does LESS THAN HALF the effort. [place] lifts, holds or supports trunk or limbs, but provides less than half the effort. 2-Substantial/Maximal Assistance-helper does MORE THAN HALF the effort. [place] lifts or holds trunk or limbs and provides more than half the effort. 9-Bldawxjja-gxaaqs does ALL the effort. Patient does none of the effort to complete the activity. Or, the assistance of 2 or more helpers is required for the patient to complete the activity. If activity was not attempted, code reason: 7-Patient Refused. 9-Not Applicable-not attempted and the patient did not perform the activity before the current illness, exacerbation or injury. 10-Not Attempted due to Environmental Limitations-(lack of equipment, weather restraints, etc.). 88-Not Attempted due to Medical Conditions or Safety Concerns. Other Treatment B UE exercises with 3# wts completed. Skilled instructions required for technique and modifications when necessary. 4 exercises completed in all plane s, 3 sets 10 reps. B UE stretching after exercises. 3# wts left in room and pt instructed to complete exercises 2x's per day. After session, pt sitting in recliner with call light/phone in reach. Nrsg in room. OT Short Term Goals Short Term Goals Time Frame: Aug 26, 2020 Eatin Oral hygiene: 5 Toileting hygiene: 4 Shower/bathe self: 4 Upper body dressin Lower body dressin Putting on/taking off footwear: 4 OT Boring Inspector Goals Boring Inspector Goals Time Frame: Sep 02, 2020 Eating (QC): 6 Oral Hygiene (QC): 6 Toileting Hygiene (QC): 6 Shower/Bathe Self (QC): 5 Upper Body Dressing (QC): 6 Lower Body Dressing (QC): 6 On/Off Footwear (QC): 6 Additional Goals: 1-Demonstrate ADL Tasks, 2-Verbalize Understanding, 3-Improve Strength/Nirav 1=Demonstrate adherence to instructed precautions during ADL tasks. 2=Patient will verbalize/demonstrate understanding of assistive devices/modifications for ADL. 3=Patient will improve strength/tolerance for activity to enable patient to pe rform ADL's. OT Education/Plan Problem List/Assessment Assessment: Decreased UE Strength Discharge Recommendations Plan/Recommendations: Continue POC Treatment Plan/Plan of Care Patient would benefit from OT for education, treatment and training to promote independence in ADL's, mobility, safety and/or upper extremity function for ADL's. Plan of Care: ADL Retraining, Functional Mobility, Group Exercise/Act as Ind, UE Funct Exercise/Act Treatment Duration: Sep 02, 2020 Frequency: At least 5 of 7 days/Wk (IRF) Estimated Hrs Per Day: 1.5 hours per day Agreement: Yes Rehab Potential: Good Time/GCodes Start Time: 11:05 Stop Time: 11:15 Total Time Billed (hr/min): 10 Billed Treatment Time 1 visit-EX 1 (10 min) GREYSON CHACON Aug 20, 2020 11:42
--- NOTE | 2020-08-20 13:25 | ST Cognitive Linguistic Eval ---
Speech Evaluation-General Medical Diagnosis Cellulitus and Sepsis/Narcotic bowel syndrome. Onset Date: Aug 11, 2020 Therapy Diagnosis Therapy Diagnosis: Cognitive-communication Referral Referring Physician: Dr. Salas Medical History Reviewed History: Yes Social History Current Living Status: Alone Speech PLF-Current Status Prior Level of Function Patient lives alone where he is independent for his daily needs. Subjective Patient was pleasant and cooperative with the cognitive assessment. Language Eval: Auditory Comprehends Simple Yes/No Ques: Functional Indent/Objects Multiple [place]: Functional Ident/Pics in Multiple [place]: Functional Follows 1-Step Commands: Functional Follows Complex Directions: Functional Follows General Conversations: Functional Language Eval: Verbal Language Completes Spontaneous Greeting: Functional Produces Auto, Serial Info: Functional Imitates Simple Words/Phrases: Functional Word Finding: Functional Requests Basic Needs: Functional States Basic Personal Info: Functional Expresses Complex Ideas: Functional Objective Cognitive Domain Attention: WNL Memory: WNL Problem Solving: Functional Executive Functions: WNL Visuospatial Skills: WNL Composite Severity Rating: WNL Clock Drawing Severity Rating: WNL Objective Formal/Standardized Tests [facility] Mental Status ([facility]) Results 27/30, within normal limits Oral Motor/Speech Production Within Normal Limits Impression Patient is a pleasant 49 y/o male who was admitted to the ARU due to severe sepsis. Patient was given the SLUMS while sitting up in his recliner. The patient scored a 27/30 which is within normal limits. The patient does not require further ST services at this time. Speech Patient Assess Expression of Ideas/Wants: Expression (4) Understanding Verbal Content: Understands (4) Brief Interview-Mental Status: Yes Repetition of Three Words: Three (3) Temporal Orientation: Year: Correct (3) Temporal Orientation: Month: Accurate within 5 days(2) Temporal Orientation: Day: Correct (1) Recall : Wear to say "Sock": Yes, no cue required (2) Recall : Color: Yes, after cueing (1) Recall : Bed: Yes, no cue required (2) Memory/Recall Ability: Current season, Location of own room, That he or she is in a hsp/hsp unit Speech-Plan Patient/Family Goals Patient/Family Goals: Patient plans on returning to his home upon discharge. Patient will most likely require home health and/or other support for his needs. Treatment Plan Speech Therapy Treatment Plan: Discontinue ST Treatment Duration: Aug 20, 2020 Frequency: 1 time per week Estimated Hrs Per Day: .5 hour per day Rehab Potential: Good Barriers to Learning: None identified Pt/Family Agrees to Plan: Yes Safety Risks/Education Teaching Recipient: Patient Teaching Methods: Discussion Response to Teaching: Verbalize Understanding Education Topics Provided: Safety within his room and communication of his wants/needs Time Speech Therapy Time In: 09:30 Speech Therapy Time Out: 10:00 Total Billed Time: 30 Billed Treatment Time 1, SPSNDCOMP DANIEL Brady Aug 20, 2020 13:25
--- NOTE | 2020-08-20 13:36 | Wound Care Assessment ---
Wound Care Assessment Date Seen by Provider: Aug 20, 2020 Time Seen by Provider: 07:55 Chief Complaint L posterior calf wound. HPI The patient is a 49 year old male transferred to ARU for rehab post inpatient admission for sepsis, cellulitis L leg, and infected L posterior calf wound. The wound is improved with silver alginate dressings. Cerebral palsy, arthritis, several back operations. Smoking Status: Never a Smoker Alcohol Use: Denies Use Review of Systems Pulmonary: No Dyspnea Cardiovascular: No: Chest Pain Exam Vital Signs Date Time Temp Pulse Resp B/P (MAP) Pulse Ox O2 Delivery O2 Flow Rate FiO2 08/20/20 05:58 37.0 75 18 117/66 (83) 96 Room Air Capillary Refill : Less Than 3 Seconds HEENT: normal ENT inspection Cardiovascular: regular rate, rhythm Respiratory: lungs clear Extremities: other (L posterior calf wound -- 2.0 x 0.5 x 0.3 cm, base 50% granulation, 50% slough, mod. s.s drainage.) Results Laboratory Tests 08/20/20 07:55: White Blood Count 14.8H, Red Blood Count 4.47, Hemoglobin 12.6L, Hematocrit 39L, Mean Corpuscular Volume 86, Mean Corpuscular Hemoglobin 28, Mean Corpuscular H emoglobin Concent 33, Red Cell Distribution Width 14.8H, Platelet Count 547H, Mean Platelet Volume 8.5L, Immature Granulocyte % (Auto) 3, Neutrophils (%) (Auto) 83H, Lymphocytes (%) (Auto) 10L, Monocytes (%) (Auto) 4, Eosinophils (%) (Auto) 1, Basophils (%) (Auto) 0, Neutrophils # (Auto) 12.3H, Lymphocytes # (Auto) 1.5, Monocytes # (Auto) 0.6, Eosinophils # (Auto) 0.1, Basophils # (Auto) 0.0, Immature Granulocyte # (Auto) 0.4H, Sodium Level 138, Potassium Level 3.4L, Chloride Level 100, Carbon Dioxide Level 28, Anion Gap 10, Blood Urea Nitrogen 14, Creatinine 0.61, Estimat Glomerular Filtration Rate > 60, BUN/Creatinine Ratio 23, Glucose Level 108H, Calcium Level 7.4L, Corrected Calcium 8.6, Total Bilirubin 0.5, Aspartate Amino Transf (AST/SGOT) 31, Alanine Aminotransferase (ALT/SGPT) 34, Alkaline Phosphatase 108, Total Protein 4.9L, Albumin 2.5L 08/20/20 10:00: Vancomycin Level Trough 17.1 Assessment/Plan/Dx 1. Infected laceration L posterior calf, improving. 2. Cellulitis due to L calf wound. Plan: Continue silver alginate dressings. KORIN CHAIDEZ MD Aug 20, 2020 13:36
--- NOTE | 2020-08-20 14:03 | NUR ---
CM/SS ADMISSION Patient was admitted to ARU 08/19/20 from [facility] Medical Unit for Debility. Additional comorbidities are, in part, Cerebral Palsy, severe anasarca, cellulitis of LLE, severe sepsis, narcotic bowel syndrome, elevated bilirubin, normocytic anemia, proteinuria, hyponatremia, back spasm. Patient resides alone in an apartment which he plans to return to temporarily. Because the apartment access is 4 flights of stairs, he is actively exploring handicap housing because of his disability. Patient was reportedly IADL prior to onset of this period of illness and frequently used the 10/05 gym on [facility] to remain as fit as possible. PCP: Dr. Pena, [facility] [place]. However, Dr. Pena may have moved his practice to [place] and patient is considering a new PCP. PHARMACY: [facility] INSURANCE: Medicare only, patient is exploring supplements at this time. DME: Patient has a standard walker, no wheels (given to him), a cane, homemade dressing stick, shower stool/chair. Therapy team to recommend other assistive devices relative to patient home performance and safety. BARRIERS TO DISCHARGE PLAN: Access to current apartment is 4 flights of stairs, patient states his intention is to go home and take the month of August to recuperate in mostly a homebound status. He is exploring handicap accessible apartments in [place], he indicates his family/friends would help him move without hesitation. Securing an apartment and moving personal possessions is not anticipated while he remains hospitalized. Patient has a 21 year old daughter as well as other family and friends, he has not yet considered an alternate plan to his apartment but perhaps could stay with someone if necessary. CONTACTS: Patient lists his adult daughter: Sallie De La Rosalyndsey Nimesh, MD [phone] Patient understands the purpose and process of the weekly patient care conference and that his first review will be tomorrow, Wednesday, August 21, 2020.
--- NOTE | 2020-08-20 14:55 | Occupational Ther Daily Note ---
OT Current Status-Daily Note Subjective Pt. reports 4/10 pain in back. Pt. received pain medication. Appearance Pt. up in chair when OT entered room. Agrees to shower. Mental Status/Objective Patient Orientation: Person, Place, Time, Situation Attachments: Kelsey Catheter, IV ADL-Treatment Therapy Code Descriptions/Definitions Functional [place] Measure: 0=Not Assessed/NA 4=Minimal Assistance 1=Total Assistance 5=Supervision or Setup 2=Maximal Assistance 6=Modified [place] 3=Moderate Assistance 7=Complete IndependenceSCALE: Activities may be completed with or without assistive devices. 7-Kexfatnmzg-hzcgtcy completes the activity by him/herself with no assistance from a helper. 5-Set-up or Clean-up Assistance-helper sets up or cleans up; patient completes activity. [place] assists only prior to or following the activity. 4-Supervision or Touching Assistance-helper provides verbal cues and/or touching/steadying and/or contact guard assistance as patient completes activity. Assistance may be provided throughout the activity or intermittently. 3-Partial/Moderate Assistance-helper does LESS THAN HALF the effort. [place] lifts, holds or supports trunk or limbs, but provides less than half the effort. 2-Substantial/Maximal Assistance-helper does MORE THAN HALF the effort. [place] lifts or holds trunk or limbs and provides more than half the effort. 6-Qjrmlzhxq-ktkjow does ALL the effort. Patient does none of the effort to complete the activity. Or, the assistance of 2 or more helpers is required for the patient to complete the activity. If activity was not attempted, code reason: 7-Patient Refused. 9-Not Applicable-not attempted and the patient did not perform the activity before the current illness, exacerbation or injury. 10-Not Attempted due to Environmental Limitations-(lack of equipment, weather restraints, etc.). 88-Not Attempted due to Medical Conditions or Safety Concerns. Shower/Bathe Self (QC): 4 (SBA in shower. Pt. utilized LH sponge to cleanse bilateral LE.) Upper Body Dressing (QC): 3 (Min assist to pull down shirt after he donned it.) Lower Body Dressing (QC): 4 (Close SBA in stance to don pants over hips. Pt. utilized AE to don pants over feet.) On/Off Footwear: 3 (Mod assist to don slipper socks using sock aide.) Other Treatment Pt. agrees to shower. Stood with walker and ambulated with min assist to bathroom setting. Transferred into shower with CGA. Pt. able to shower self, using LH sponge, with SBA. Pt. dried self and donned clothing in shower, with min assist as needed using AE. All needs met and pt. ambulated back to chair in room. Education OT Patient Education: Correct positioning, Modified ADL techniques, Progress toward Goal/Update tx plan, Purpose of tx/functional activities, Reviewed precautions, Rehab process, Transfer techniques, Use of adapted equipment Teaching Recipient: Patient Teaching Methods: Demonstration, Discussion Response to Teaching: Verbalize Understanding, Return Demonstration OT Short Term Goals Short Term Goals Time Frame: Aug 26, 2020 Eatin Oral hygiene: 5 Toileting hygiene: 4 Shower/bathe self: 4 Upper body dressin Lower body dressin Putting on/taking off footwear: 4 OT Materials Research Engineer Goals Fpc Goals Time Frame: Sep 02, 2020 Eating (QC): 6 Oral Hygiene (QC): 6 Toileting Hygiene (QC): 6 Shower/Bathe Self (QC): 5 Upper Body Dressing (QC): 6 Lower Body Dressing (QC): 6 On/Off Footwear (QC): 6 Additional Goals: 1-Demonstrate ADL Tasks, 2-Verbalize Understanding, 3- ImproveStrength/Nirav 1=Demonstrate adherence to instructed precautions during ADL tasks. 2=Patient will verbalize/demonstrate understanding of assistive devices/modifications for ADL. 3=Patient will improve strength/tolerance for activity to enable patient to perform ADL's. OT Education/Plan Problem List/Assessment Assessment: Decreased Activ Tolerance, Dependent Transfers, Impaired Funct Balance, Impaired I ADL's, Impaired Self-Care Skills Discharge Recommendations Plan/Recommendations: Continue POC Therapy Discharge Recommendati: Home & Family, Post Acute OT Equpiment Recommendations-D/C: Hip Kit Treatment Plan/Plan of Care Treatment,Training & Education: Yes Patient would benefit from OT for education, treatment and training to promote independence in ADL's, mobility, safety and/or upper extremity function for ADL's. Plan of Care: ADL Retraining, Functional Mobility, Group Exercise/Act as Ind, UE Funct Exercise/Act Treatment Duration: Sep 02, 2020 Frequency: At least 5 of 7 days/Wk (IRF) Estimated Hrs Per Day: 1.5 hours per day Agreement: Yes Rehab Potential: Good Time/GCodes Start Time: 08:25 Stop Time: 09:30 Total Time Billed (hr/min): 65 Billed Treatment Time 1, ADL x 4 CATERINA TORO OT Aug 20, 2020 14:54
--- NOTE | 2020-08-20 15:35 | Physical Therapy Daily Note ---
PT Daily Note-Current Subjective Pt presents in recliner. Pt agrees to PT. Pt reports no pain, but increased swelling in R knee. Appearance At conclusion of PT treatment patient is supine in bed with legs elevated. Pt has access to tray, call button, and all needs have been met. Mental Status Patient Orientation: Person, Place, Time, Eyes Open, Situation Attachments: Kelsey Catheter Transfers SCALE: Activities may be completed with or without assistive devices. 2-Uxqssjqluh-wiukkvv completes the activity by him/herself with no assistance from a helper. 5-Set-up or Clean-up Assistance-helper sets up or cleans up; patient completes activity. [place] assists only prior to or following the activity. 4-Supervision or Touching Assistance-helper provides verbal cues and/or touching/steadying and/or contact guard assistance as patient completes activity. Assistance may be provided throughout the activity or intermittently. 3-Partial/Moderate Assistance-helper does LESS THAN HALF the effort. [place] lifts, holds or supports trunk or limbs, but provides less than half the effort. 2-Substantial/Maximal Assistance-helper does MORE THAN HALF the effort. [place] lifts or holds trunk or limbs and provides more than half the effort. 1-Bgzgrboeg-ixdozc does ALL the effort. Patient does none of the effort to complete the activity. Or, the assistance of 2 or more helpers is required for the patient to complete the activity. If activity was not attempted, code reason: 7-Patient Refused. 9-Not Applicable-not attempted and the patient did not perform the activity before the current illness, exacerbation or injury. 10-Not Attempted due to Environmental Limitations-(lack of equipment, weather restraints, etc.). 88-Not Attempted due to Medical Conditions or Safety Concerns. Sit to Lying (QC): 3 Sit to Stand (QC): 4 Pt required mod assist to lift BLE into bed. Weight Bearing Right Lower Extremity: Right Full Weight Bearing Left Lower Extremity: Left Full Weight Bearing Gait Training Does the Patient Walk?: Yes Distance: 100'x2 Walk 10 feet (QC): 4 Walk 50 ft with 2 Turns(QC): 4 Gait Assistive Device: FWW Pt drags feet; unable to clear foot in swing phase. Pt ambulates with knees adducted. Treatments Gait Training Assessment Current Status: Good Progress Pt improves gait with distance as patient has opportunity to "loosen" up. PT Short Term Goals Short Term Goals Time Frame: Aug 26, 2020 Sit to lyin Lying to sitting on side of be: 4 Sit to stand: 4 Chair/bsp-tu-fttvf transfer: 4 Car transfer: 4 Walk 10 feet: 4 Walk 50 feet with two turns: 4 Walk 150 feet: 4 1 step (curb): 4 PT [facility] Goals Dry Cleaning Attendant Goals PT Dry Cleaning Attendant Goals Time Frame: Sep 09, 2020 Roll Left & Right (QC): 6 Sit to Lying (QC): 6 Lying-Sitting on Side/Bed(QC): 6 Sit to Stand (QC): 6 Chair/Ftk-am-Bwiib Xfer(QC): 6 Toilet Transfer (QC): 6 Car Transfer (QC): 6 Does the Patient Walk: Yes Walk 10 feet (QC): 6 Walk 50ft with 2 Turns (QC): 6 Walk 150 ft (QC): 6 Walking 10ft on Uneven Surface: 6 1 Step (curb) (QC): 6 4 Steps (QC): 4 12 Steps (QC): 4 Picking up an Object (QC): 4 Does the Pt use WC or Scooter?: No Wheel 50 feet with 2 turns (QC: 9 Wheel 150 feet: 9 PT Plan Problem List Problem List: Activity Tolerance, Functional Strength, Safety, Balance, Gait, Transfer, Bed Mobility, ROM Treatment/Plan Treatment Plan: Continue Plan of Care Treatment Plan: Bed Mobility, Education, Functional Activity Nirav, Functional Strength, Group Therapy, Gait, Safety, Therapeutic Exercise, Transfers Treatment Duration: Sep 02, 2020 Frequency: At least 5 of 7 days/Wk (IRF) Estimated Hrs Per Day: 1.5 hours per day Patient and/or Family Agrees t: Yes Safety Risks/Education Patient Education: Gait Training, Correct Positioning, Safety Issues Teaching Recipient: Patient Teaching Methods: Demonstration, Discussion Response to Teaching: Reinforcement Needed Time/GCodes Time In: 1435 Time Out: 1450 Total Billed Treatment Time: 15 Total Billed Treatment 1 visit GT 15' CARLO CALLES PT Aug 20, 2020 15:35
--- NOTE | 2020-08-20 15:38 | NUR ---
"RD ASSESSMENT PMHx: Cerebral Palsy PT INTERACTION: Pt was awake and pleasant during nutrition assessment. Pt states current appetite is good. Note avg PO intake 100% x1d, per chart review. Pt states following a regular diet at home, and has no issues with chewing/swallowing food. Pt state no recent issues with nausea, vomiting, constipation, or diarrhea. Note last BM was 08/19, and note pt currently on bowel regimen of colace BID; senna BID; and miralax BID, per chart review. Note presence of wound (posterior calf), per chart review. ABNORMAL NUTRITION-RELATED LAB VALUES LOW: K 3.4; Ca 7.4; Pro 4.9; alb 2.8 HIGH: glu 108 Est. kcal needs: 1625 kcal | 20 kcal/kg Est. Pro needs: 97 g Pro | 1.2 g Pro/kg PES STATEMENT: Inadequate protein intake ([id number]) related to increased protein needs as evidenced by presence of wound (posterior calf). INTERVENTION: Continue with current diet order of Regular diet. Continue with current supplementation order of Ensure Enlive (vary) with meals TID, for increased kcal and protein intake. Provides 350 kcal and 20 g Pro per serving. Will continue to follow and reassess as pt needs, intake and status change. Deni Fry, MS RD LD"
--- NOTE | 2020-08-20 16:20 | Progress Note - Surgery ---
Subjective Date Seen by a Provider: Aug 20, 2020 Time Seen by a Provider: 16:13 Subjective/Events-last exam Patient feeling good. He's not having any pain. Swelling going down still he states. No new complaints. Denies n/v fever sweats chills shortness of breath or chest pain. Objective Exam Vital Signs Date Time Temp Pulse Resp B/P (MAP) Pulse Ox O2 Delivery O2 Flow Rate FiO2 08/20/20 09:00 Room Air 08/20/20 05:58 37.0 75 18 117/66 (83) 96 Room Air 08/19/20 21:40 95 Room Air 08/19/20 18:42 36.7 91 18 127/84 (98) 95 Ambu Bag I & O 08/20/20 06:59 Intake Total 1477 ml Output Total 5400 ml Balance -3923 ml Capillary Refill : Less Than 3 Seconds General Appearance: No Apparent Distress, WD/WN, Chronically ill HEENT: PERRL/EOMI, Normal ENT Inspection, Pharynx Normal Neck: Full Range of Motion, Normal Inspection, Non Tender, Supple Respiratory: Chest Non Tender, No Accessory Muscle Use, No Respiratory Distress Cardiovascular: Regular Rate, Rhythm, No JVD, Normal Peripheral Pulses Gastrointestinal: non tender, soft, other (scabbed wound right lower abdomen, decresig in size) Extremity: Pedal Edema, Other (left lower extremity edema, scotal edema less) Neurologic/Psychiatric: Alert, Oriented x3, No Motor/Sensory Deficits, Normal Mood/Affect, behavioral scientist II-XII Norm as Tested, Abnormal Gait, Motor Weakness (generalized) Skin: Normal Color, Warm/Dry Lymphatic: No Adenopathy Results Lab Laboratory Tests 08/20/20 07:55: White Blood Count 14.8H, Red Blood Count 4.47, Hemoglobin 12.6L, Hematocrit 39L, Mean Corpuscular Volume 86, Mean Corpuscular Hemoglobin 28, Mean Corpuscular Hemoglobin Concent 33, Red Cell Distribution Width 14.8H, Platelet Count 547H, Mean Platelet Volume 8.5L, Immature Granulocyte % (Auto) 3, Neutrophils (%) (Auto) 83H, Lymphocytes (%) (Auto) 10L, Monocytes (%) (Auto) 4, Eosinophils (%) (Auto) 1, Basophils (%) (Auto) 0, Neutrophils # (Auto) 12.3H, Lymphocytes # (Auto) 1.5, Monocytes # (Auto) 0.6, Eosinophils # (Auto) 0.1, Basophils # (Auto) 0.0, Immature Granulocyte # (Auto) 0.4H, Sodium Level 138, Potassium Level 3.4L, Chloride Level 100, Carbon Dioxide Level 28, Anion Gap 10, Blood Urea Nitrogen 14, Creatinine 0.61, Estimat Glomerular Filtration Rate > 60, BUN/Creatinine Ratio 23, Glucose Level 108H, Calcium Level 7.4L, Corrected Calcium 8.6, Total Bilirubin 0.5, Aspartate Amino Transf (AST/SGOT) 31, Alanine Aminotransferase (ALT/SGPT) 34, Alkaline Phosphatase 108, Total Protein 4.9L, Albumin 2.5L 08/20/20 10:00: Vancomycin Level Trough 17.1 Assessment/Plan Assessment/Plan Assessment/Plan left lower extremity celluluitis/edema scrotal edema cerebral palsy left calf wound right lower quadrant abdomen superficial wound wound care keep lower extremities elevated medical management Clinical Quality Measures DVT/VTE Risk/Contraindication: Risk Factor Score Per Nursin RFS Level Per Nursing on Admit: 4+=Very High GUME QUINTANILLA DO Aug 20, 2020 16:20
[2020-08-20 16:30] VITALS: BP 131/71
[2020-08-20] MEDS: MAGNESIUM OXIDE (MAG-OX)400 MG TAB PO SCH (17:02)
--- NOTE | 2020-08-20 20:40 | Individualized Plan of Care ---
Individualized Plan of Care Rehab Nursing IPOC Order Admission Date Aug 19, 2020 at 11:16 Current Orders Orders Admission Order(Inpt,Obs,Sdc) (08/19/20 10:51) Vital Signs: Per Unit Policy ( 08,16,00 (08/19/20 10:51) Sequential Compression Device Q4H (08/19/20 10:51) Security Lead-Inpt Rehab Con (08/19/20 10:51) Rehab Nursing Orders-Ipoc (08/19/20 10:51) Physical Therapy Rehab Orders (08/19/20 10:51) Occupational Therapy Rehab Ord (08/19/20 10:51) Speech Therapy Rehab Orders (08/19/20 10:51) Cbc With Automated Diff (08/20/20 06:00) Comprehensive Metabolic Panel (08/20/20 06:00) General/Regular (08/19/20 Lunch) Intake & Output 06,14,22 (08/19/20 10:51) Precautions (Aru) (08/19/20 10:51) Weekly Weight WEEK (08/19/20 10:51) Rehab-Intensity Of Therapy (08/19/20 10:51) Initiate Admission Nursing Pro .admission (08/19/20 10:51) Acetaminophen Tablet (Tylenol Tablet) (08/19/20 11:00) Alprazolam Tablet (Xanax Tablet) (08/19/20 11:00) Calcium Carbonate Chew Tablet (Antacid C (08/19/20 11:00) Diphenhydramine Tablet (Benadryl Tablet) (08/19/20 11:00) Docusate Sodium Capsule (Colace Capsule) (08/19/20 21:00) Docusate Sodium Capsule (Colace Capsule) (08/19/20 11:00) Bisacodyl Suppository (Dulcolax Supposit (08/19/20 11:00) Lactulose Oral Solution (Enulose Oral So (08/19/20 11:00) Na Phos/Na Biphos Enema (Fleet Enema Tobias (08/19/20 11:00) Guaifenesin/Codeine Syrup (Robitussin Ac (08/19/20 11:00) Loperamide Tablet (Imodium Tablet) (08/19/20 11:00) Melatonin Tablet (Melatonin Tablet) (08/19/20 11:00) Polyethylene Glycol Powder Pkt (Miralax (08/19/20 21:00) Ondansetron Injection (Zofran Injectio (08/19/20 11:00) Ondansetron Oral Dissolve Tab (Zofran (08/19/20 11:00) Senna S Tablet (Senokot S Tablet) (08/19/20 21:00) Initiate Admission Nursing Pro .admission (08/19/20 10:51) Admission Arrival Bed Request (08/19/20 11:15) Enoxaparin Injection (Lovenox Injection) (08/20/20 09:00) Patient Visit (08/19/20 ) Pt Eval Moderate Complexity (08/19/20 ) Functional Activities, Ea 15 (08/19/20 ) Patient Visit (08/19/20 ) Sequential Compression Device Q4H (08/19/20 15:21) Dvt/Vte Risk - Notifiy Physici Q4H (08/19/20 15:21) Code/Resuscitation (08/19/20 18:01) Ambulate 08,12,20 (08/19/20 18:01) Catheter(Urinary) Insert & Ass 03,15 (08/19/20 18:01) Dressing Order (Intervention) DAILY (08/19/20 18:01) Ensure Enlive (08/19/20 Dinner) General/Regular (08/19/20 Dinner) (Nf) Colon Clenz (08/19/20 18:15) Acetaminophen Tablet/Caplet (Tylenol T (08/19/20 18:15) Albuterol Pre-Mix Nebs (Rt) (Proventil (08/19/20 18:15) Bethanechol Tablet (Urecholine Tablet) (08/19/20 21:00) Bisacodyl Suppository (Dulcolax Supposit (08/19/20 18:15) Diazepam Tablet (Valium Tablet) (08/19/20 18:15) Docusate Sodium Capsule (Colace Capsule) (08/19/20 21:00) Enoxaparin Injection (Lovenox Injection) (08/20/20 09:00) Lactulose Oral Solution (Enulose Oral So (08/19/20 18:15) Non-Formulary Medication (Non-Formulary (08/19/20 18:15) Ondansetron Injection (Zofran Injectio (08/19/20 18:15) Pantoprazole Tablet (Protonix Tablet) (08/20/20 09:00) Patient May Use Own Med,Single (Patient (08/19/20 18:15) Potassium Chloride (Tablet) (K Dur Table (08/19/20 18:15) Senna S Tablet (Senokot S Tablet) (08/19/20 21:00) Tamsulosin Capsule (Flomax Capsule) (08/19/20 21:00) Vancomycin Injection (Vancomycin Injecti (08/19/20 18:30) Fentanyl Injection (Sublimaze Injection (08/19/20 18:15) Morphine Er Tablet (Ms Contin Tablet) (08/19/20 21:00) Polyethylene Glycol Powder Pkt (Miralax (08/19/20 18:15) Tizanidine Tablet (Zanaflex Tablet) (08/20/20 00:00) Consult General Surgery (08/19/20 18:01) Consult Wound Care Physician (08/19/20 18:01) Albuterol Pre-Mix Nebs (Rt) (Proventil (08/19/20 18:15) Bethanechol Tablet (Urecholine Tablet) (08/19/20 21:00) Bisacodyl Tablet (Dulcolax Tablet) (08/19/20 18:15) Diazepam Tablet (Valium Tablet) (08/19/20 18:15) Oxycodone Extended Release Tab (Oxyconti (08/19/20 18:15) Tamsulosin Capsule (Flomax Capsule) (08/19/20 21:00) Tizanidine Tablet (Zanaflex Tablet) (08/20/20 00:00) (Nf) Celecoxib (08/19/20 21:00) (Nf) Multivitamin (08/20/20 09:00) Svn Small Volume Nebulizer (08/19/20 18:03) Hydrocortisone Tablet (Cortef Tablet) (08/19/20 19:00) Furosemide Injection (Lasix Injection) (08/20/20 07:00) Furosemide Injection (Lasix Injection) (08/19/20 18:15) Therapeutic Multivitamin Tab (Vitamins, (08/20/20 07:00) Celecoxib Capsule (Celebrex Capsule) (08/19/20 21:00) Potassium Chloride (Tablet) (K Dur Table (08/20/20 09:00) Magnesium Oxide Tablet (Mag Ox Tablet) (08/20/20 09:00) Magnesium Oxide Tablet (Mag Ox Tablet) (08/20/20 18:00) Trough Order (Trough Order-Pharmacy Orde (08/20/20 09:30) Vancomycin,Trough (08/20/20 09:30) Patient Visit (08/20/20 ) Speech Sound Lang Comp (08/20/20 ) Patient Visit (08/20/20 ) Gait Training, Ea 15 Min (08/20/20 ) Exercise Therap, Ea 15 Min (08/20/20 ) Patient Visit (08/20/20 ) Gait Training, Ea 15 Min (08/20/20 ) Rehab Nursing Orders: Ongoing Assess. of Function Status, Bowel Management, Bowel Training, Disease Management & Educaiton, Infection Prevention, Management of Risks & Complications, Management of Skin Intergrity, Nutrition Management, Wound Management Intensity of Therapy to be met Patient to be seen: Min.3h per day/5 of 7d PT IPOC Problem List: Activity Tolerance, Functional Strength, Safety, Balance, Gait, Transfer, Bed Mobility, ROM Treatment Plan: Continue Plan of Care Bed Mobility, Education, Functional Activity Nirav, Functional Strength, Group Therapy, Gait, Safety, Therapeutic Exercise, Transfers Treatment Duration: Sep 02, 2020 Frequency: At least 5 of 7 days/Wk (IRF) Estimated Hrs Per Day: 1.5 hours per day OT IPOC Problems: Decreased Activ Tolerance, Dependent Transfers, Impaired Funct Balance, Impaired I ADL's, Impaired Self-Care Skills OT Treatment, Training and Edu: Yes Plan of Care: ADL Retraining, Functional Mobility, Group Exercise/Act as Ind, UE Funct Exercise/Act Treatment Duration: Sep 02, 2020 Frequency: At least 5 of 7 days/Wk (IRF) Estimated Hrs Per Day: 1.[address] IPOC Speech Therapy Treatment Plan: Continue Plan of Care Treatment Duration: Aug 20, 2020 Frequency: 1 time per week Estimated Hrs Per Day: .5 hour per day Security Lead/Case Mgmt Security Lead/Case Managemen: Discharge Planning Dietitian/Discovery Guide Dietitian/Discovery Guide to monitor nutritional status and make changes and/or recommendations as needed and work with speech pathology on dietary upgrades as the occur. Physician IPOC Medical Issues being managed closely and that require the 24 hour availability of a physician: Anasarca in need of aggressive diuresis with high risk for decompensation and renal failure Medical Issues: Bowel/Bladder Function, DVT Prophylaxis, Falls Precautions, Fluid/Electrolyte/Nutrition Balance, Pain Management Brief Synthesis of Preadmission Screen, Post-Admission Evaluation, and Therapy Evaluations: PT OT will focus on regaining independence with ADL's and increase ambulatory skills with use of walker Medical Prognosis: Good Anticipated Length of Stay: 7 days JHOANA RAY DO Aug 20, 2020 20:40
[2020-08-20] MEDS: DIAZEPAM 5 MG (VALIUM) TABLET PO PRN (21:59)
[2020-08-20] MEDS: MELATONIN 3 MG TABLET PO PRN (21:59)
[2020-08-20] MEDS: COLON CLENZ PO PRN (22:00)
[2020-08-20] MEDS: [UNRECOGNIZED DRUG - OTHER] PO PRN (22:01)
[2020-08-21] MEDS: VANCOMYCIN INJECTION 1,250 MG in NS (IVPB) 250 ML IV SCH ×3 (02:37→17:28)
[2020-08-21 05:33] VITALS: BP 105/65
[2020-08-21 06:07] LABS: BASOPHILS % (AUTO) 0 % (0-10); EOSINOPHILS # (AUTO) 0.1 10^3/uL (0.0-0.3); EOSINOPHILS % (AUTO) 1 % (0-10); HEMATOCRIT 38 % (40-54); HEMOGLOBIN 12.4 g/dL (13.3-17.7); LYMPHOCYTES # (AUTO) 1.4 10^3/uL (1.0-4.0); LYMPHOCYTES % (AUTO) 9 % (12-44); MEAN CORPUSCULAR HEMOGLOBIN 29 pg (25-34); MEAN CORPUSCULAR HGB CONC 33 g/dL (32-36); MEAN CORPUSCULAR VOLUME 87 fL (80-99); MEAN PLATELET VOLUME 8.6 fL (9.0-12.2); MONOCYTES # (AUTO) 0.6 10^3/uL (0.0-1.0); MONOCYTES % (AUTO) 4 % (0-12); NEUTROPHILS # (AUTO) 12.7 10^3/uL (1.8-7.8); NEUTROPHILS % (AUTO) 85 % (42-75); PLATELET COUNT 581 10^3/uL (130-400)
[2020-08-21] MEDS: BETHANECHOL 10 MG (URECHOLINE) TAB PO SCH ×4 (06:40→21:31)
[2020-08-21] MEDS: MULTIVIT W/MINERALS TAB (THERAGRAN M) PO SCH (06:40)
[2020-08-21] MEDS: FUROSEMIDE 40 MG/4 ML INJ (LASIX) IVP SCH ×2 (06:41→15:04)
[2020-08-21 07:01] LABS: ALBUMIN 2.6 GM/DL (3.2-4.5); CHLORIDE 102 MMOL/L (98-107); POTASSIUM 4.1 MMOL/L (3.6-5.0); SODIUM 140 MMOL/L (135-145)
[2020-08-21 07:02] LABS: CALCIUM 7.9 MG/DL (8.5-10.1)
[2020-08-21 07:03] LABS: GLUCOSE 102 MG/DL (70-105); TOTAL PROTEIN 5.1 GM/DL (6.4-8.2)
[2020-08-21 07:04] LABS: CARBON DIOXIDE 29 MMOL/L (21-32)
[2020-08-21 07:05] LABS: BILIRUBIN,TOTAL 0.6 MG/DL (0.1-1.0)
[2020-08-21 07:07] LABS: ALKALINE PHOSPHATASE 98 U/L (40-136); CREATININE SERUM 0.61 MG/DL (0.60-1.30); GFR ESTIMATED > 60
[2020-08-21 07:08] LABS: BUN/CREATININE RATIO 18
[2020-08-21 07:10] LABS: ALANINE AMINOTRANSFERASE 29 U/L (0-55)
[2020-08-21] MEDS: PANTOPRAZOLE 40 MG (PROTONIX) TAB PO SCH (07:30)
[2020-08-21] MEDS: TAMSULOSIN 0.4 MG (FLOMAX) CAP PO SCH ×2 (07:30→21:31)
[2020-08-21] MEDS: CELECOXIB 100 MG (CeleBREX) CAP PO SCH ×2 (07:30→21:31)
[2020-08-21] MEDS: KCL 20 MEQ TAB (K-DUR) PO SCH ×3 (07:30→17:23)
[2020-08-21] MEDS: MAGNESIUM OXIDE (MAG-OX)400 MG TAB PO SCH ×2 (07:33→17:23)
[2020-08-21] MEDS: HYDROCORTISONE 20 MG (CORTEF) TAB PO SCH ×2 (07:33→17:23)
[2020-08-21] MEDS: ENOXAPARIN 40 MG/0.4 ML (LOVENOX) SYR SC SCH (07:34)
--- NOTE | 2020-08-21 08:45 | PM&R Progress Note ---
Subjective HPI/CC On Admission Date Seen by Provider: Aug 21, 2020 Time Seen by Provider: 08:45 Subjective/Events-last exam 08/21/20: Dumping a lot of fluid with IV Lasix Legs are much improved Bowels moved two days ago Valium and Melatonin taken at night Needs PT and nurse at discharge on Wednesday Will have daily weights because we are taking a lot of fluid off Took off 4000cc of urine last night alone, took off 1000cc today with Lasix 20mg IV Bowels are moving okay Pain medication reviewed Reviewed meds and labs Conferred with RN Reviewed therapy notes Review of Systems Cardiovascular: Edema Musculoskeletal: leg pain Objective Exam Vital Signs Vital Signs Date Time Temp Pulse Resp B/P (MAP) Pulse Ox O2 Delivery O2 Flow Rate FiO2 08/21/20 20:20 Room Air 08/21/20 17:30 37.0 101 16 127/68 (87) 99 Capillary Refill : Less Than 3 Seconds General Appearance: No Apparent Distress, WD/WN, Chronically ill HEENT: PERRL/EOMI, Normal ENT Inspection, Pharynx Normal Neck: Full Range of Motion, Normal Inspection, Non Tender, Supple, Carotid Bruit Respiratory: Chest Non Tender, Lungs Clear, Normal Breath Sounds, No Accessory Muscle Use, No Respiratory Distress Cardiovascular: Regular Rate, Rhythm, No Gallop, No JVD, No Murmur, Normal Peripheral Pulses Gastrointestinal: Normal Bowel Sounds, No Organomegaly, No Pulsatile Mass, Non Tender, Soft Back: Normal Inspection, No CVA Tenderness, No Vertebral Tenderness Extremity: Normal Capillary Refill, Normal Inspection, Normal Range of Motion, Non Tender, No Calf Tenderness, Pedal Edema Neurologic/Psychiatric: Alert, Oriented x3, No Motor/Sensory Deficits, Normal Mood/Affect, 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 FIM Transfers Therapy Code Descriptions/Definitions Functional [place] Measure: 0=Not Assessed/NA 4=Minimal Assistance 1=Total Assistance 5=Supervision or Setup 2=Maximal Assistance 6=Modified [place] 3=Moderate Assistance 7=Complete IndependenceSCALE: Activities may be completed with or without assistive devices. 3-Oaqdmeonlt-lyzwwon completes the activity by him/herself with no assistance from a helper. 5-Set-up or Clean-up Assistance-helper sets up or cleans up; patient completes activity. [place] assists only prior to or following the activity. 4-Supervision or Touching Assistance-helper provides verbal cues and/or touching/steadying and/or contact guard assistance as patient completes activity. Assistance may be provided throughout the activity or intermittently. 3-Partial/Moderate Assistance-helper does LESS THAN HALF the effort. [place] lifts, holds or supports trunk or limbs, but provides less than half the effort. 2-Substantial/Maximal Assistance-helper does MORE THAN HALF the effort. [place] lifts or holds trunk or limbs and provides more than half the effort. 2-Ylhcxptjq-lfmzcm does ALL the effort. Patient does none of the effort to complete the activity. Or, the assistance of 2 or more helpers is required for the patient to complete the activity. If activity was not attempted, code reason: 7-Patient Refused. 9-Not Applicable-not attempted and the patient did not perform the activity before the current illness, exacerbation or injury. 10-Not Attempted due to Environmental Limitations-(lack of equipment, weather restraints, etc.). 88-Not Attempted due to Medical Conditions or Safety Concerns. Roll Left to Right (QC): 4 Sit to Lying (QC): 3 Sit to Stand (QC): 4 Chair/Ovb-yk-Cbkcf Xfer(QC): 4 Car Transfer (QC): 3 Gait Training Does the Patient Walk?: Yes Distance: 100'x2 Walk 10 feet (QC): 4 Walk 50 ft with 2 Turns(QC): 4 Walking 10ft/uneven surface-QC: 4 Gait Assistive Device: FWW Wheelchair Training Does the Pt Use a Wheelchair?: Yes Distance: 150' Wheel 50 ft with 2 turns (QC): 4 Wheel 150 ft (QC): 4 Type of Wheelchair: Manual Stair Training 1 Step (curb) (QC): 88 4 Steps (QC): 88 12 Steps (QC): 88 Balance Picking up an Object (QC): 88 ADL-Treatment Eating (QC): 6 Oral Hygiene (QC): 5 Shower/Bathe Self (QC): 4 (SBA in shower. Pt. utilized LH sponge to cleanse bilateral LE.) Upper Body Dressing (QC): 3 (Min assist to pull down shirt after he donned it.) Lower Body Dressing (QC): 4 (Close SBA in stance to don pants over hips. Pt. utilized AE to don pants over feet.) On/Off Footwear (QC): 3 (Mod assist to don slipper socks using sock aide.) Toileting Hygiene (QC): 7 Assessment/Plan Assessment and Plan Assess & Plan/Chief Complaint Assessment: Debility Left leg cellultis Falls Cerebral palsy Proteinuria Low albumin Anasarca Scrotal edema Lower extremity edema Narcotic bowel Chronic pain Plan: IV abx Edema treatment Monitor closely 08/20/20: Monitor edema closely Lasix 20mg IV BID Check labs in am BM regimen 08/21/20: Continue diuresis Monitor BP Monitor labs (1) Debility (2) Narcotic bowel syndrome (3) Blood albumin decreased compared with prior measurement (4) Elevated bilirubin Status: Chronic (5) Normocytic anemia Status: Chronic (6) Proteinuria (7) Hyponatremia Status: Resolved Resolution Date/Time: 08/14/20 @ 14:40 (8) Cerebral palsy Status: Acute (9) Scrotal swelling Status: Acute (10) Cellulitis of left lower extremity Status: Acute (11) Severe sepsis Status: Acute (12) Back spasm Status: Acute JHOANA RAY DO Aug 21, 2020 08:45
[2020-08-21] MEDS: polyethylene glycoL POWDER 17 GM (MIRALAX) PACK PO SCH ×2 (10:22→19:42)
[2020-08-21] MEDS: DOCUSATE SODIUM 100 MG (COLACE) CAP PO SCH ×2 (10:22→19:41)
[2020-08-21] MEDS: SENNA W/DOCUSATE (SENOKOT S) TABLET PO SCH ×2 (10:22→19:42)
--- NOTE | 2020-08-21 13:13 | Occupational Ther Daily Note ---
OT Current Status-Daily Note Subjective No pain reported. Appearance Pt. up in chair when OT entered room. Agrees to work with OT. Mental Status/Objective Patient Orientation: Person, Place, Time, Situation ADL-Treatment Therapy Code Descriptions/Definitions Functional [place] Measure: 0=Not Assessed/NA 4=Minimal Assistance 1=Total Assistance 5=Supervision or Setup 2=Maximal Assistance 6=Modified [place] 3=Moderate Assistance 7=Complete IndependenceSCALE: Activities may be completed with or without assistive devices. 7-Dhyogsnfmt-qtujdot completes the activity by him/herself with no assistance from a helper. 5-Set-up or Clean-up Assistance-helper sets up or cleans up; patient completes activity. [place] assists only prior to or following the activity. 4-Supervision or Touching Assistance-helper provides verbal cues and/or touching/steadying and/or contact guard assistance as patient completes activity. Assistance may be provided throughout the activity or intermittently. 3-Partial/Moderate Assistance-helper does LESS THAN HALF the effort. [place] lifts, holds or supports trunk or limbs, but provides less than half the effort. 2-Substantial/Maximal Assistance-helper does MORE THAN HALF the effort. [place] lifts or holds trunk or limbs and provides more than half the effort. 5-Ybrxxhzbc-kimqoi does ALL the effort. Patient does none of the effort to complete the activity. Or, the assistance of 2 or more helpers is required for the patient to complete the activity. If activity was not attempted, code reason: 7-Patient Refused. 9-Not Applicable-not attempted and the patient did not perform the activity before the current illness, exacerbation or injury. 10-Not Attempted due to Environmental Limitations-(lack of equipment, weather restraints, etc.). 88-Not Attempted due to Medical Conditions or Safety Concerns. Eating (QC): 6 Upper Body Dressing (QC): 6 (per pt.) Lower Body Dressing (QC): 6 (per pt.) Toileting Hygiene (QC): 6 Toilet Transfer (QC): 6 Other Treatment Pt. has already been up in room this a.m., ambulating around and states that he "cleaned" up his room. Noted all clothing and toiletry items put up. Pt. also reports that he has been up at his sink, and has cleaned up. He is wearing fresh clothing, and reports that he retrieved this on his own and donned on his own. Pt. states he feels "much better" this a.m., and has already lost a lot of fluid. OT and pt. talked in depth regarding items or resources he will need for home. He states that his daughters can assist if needed, but that he doesn't feel that he will need it. He declines practicing laundry, as he has a system at home. Pt. states that he is happy that he came to rehab, and has learned "new tricks." Pt. reports that he feels confident today because he was able to move around with his walker and get himself dressed and cleaned up. Pt. does not have jesi wraps on his legs, and does not know if they are supposed to be on at all times. does in fact want them on, so nursing changed wound dressing and OT wrapped bilateral LE with jesi wraps. Pt. will be educated on doing this. However, he does state that if needed, "my daughter knows how to do this." Pt. ambulates independently with walker to bathroom, and is able to toilet self with no difficulty. All needs were met back in reclining chair. 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 2=Patient will verbalize/demonstrate understanding of assistive devices/modifications for ADL. 3=Patient will improve strength/tolerance for activity to enable patient to perform ADL's. OT Education/Plan Problem List/Assessment Assessment: Decreased Activ Tolerance, Impaired I ADL's Discharge Recommendations Plan/Recommendations: Continue POC Therapy Discharge Recommendati: Home & Family Equpiment Recommendations-D/C: Sock Aide Treatment Plan/Plan of Care Treatment,Training & Education: Yes Patient would benefit from OT for education, treatment and training to promote independence in ADL's, mobility, safety and/or upper extremity function for ADL's. Plan of Care: ADL Retraining, Functional Mobility, Group Exercise/Act as Ind, UE Funct Exercise/Act Treatment Duration: Sep 02, 2020 Frequency: At least 5 of 7 days/Wk (IRF) Estimated Hrs Per Day: 1.5 hours per day Agreement: Yes Rehab Potential: Good Time/GCodes Start Time: 08:30 Stop Time: 09:30 Total Time Billed (hr/min): 60 Billed Treatment Time 1, ADL x 4 CATERINA TORO OT Aug 21, 2020 13:13
--- NOTE | 2020-08-21 14:00 | NUR ---
PT. REQUESTED TO GO HOME TODAY. WHEN EXPLAINED TO PT. IV ANTIBIOTIC AND IV LASIX PT. STATED HE CAN ONLY STAY ONE MORE DAY. HE STATED HE FEELS MUCH BETTER AND WANTS TO GO HOME AND DOES NOT WANT TO PAY FOR ANOTHER DAY. TALKED WITH HOSE STRIPPER ABOUT PTS. CONCERNS.
--- NOTE | 2020-08-21 14:25 | Therapy Group Daily Note ---
Therapy Daily Group Note Patient Education Topic Other List Below (transfer and adaptive equipment ) Exercises LE Seated Exercise, UE Exercise Session Ratio (pt:therapist): 3:1 Goal of Session: UE/LE Strengthing, Safety with Transfers, Use of Adaptive Equipment Goal Met for this Session: Yes Pt Benefit of Group: Contributions to Others, F/U Use of Strategies @Home, Increased Functional Safety, Increased Functional Strength, Improved Cognition, Recognition of Peers, Socialization Other/Notes Pt ambulated to [facility] using FWW, SBA. Introduction ( person, living now, what they looked forward to once leaving) socialization, seated UE/LE exercises, educational topics adaptive equipment and transfers. Pt was alert and participated giving response to group discussion. Pt was educated on safe transfers and how to use adaptive equipment properly by responding to discussion giving feedback. Pt performed UE/LE exercises completing 8/8 exercises. Pt ambulated back to room using FWW with SBA, in recliner call light/phone in reach. All needs met. Start Time: 13:00 Stop Time: 14:00 Total Billed Treatment Time: 60 Total Billed Treatment 1-GRP GREYSON CHACON Aug 21, 2020 14:25
--- NOTE | 2020-08-21 14:45 | NUR ---
DR. RAY NOTIFIED OF PTS. FEELINGS. ORDERED THAT MARC CATH COULD BE REMOVED AND EXPLAIN TO PT. THE PLAN FOR CONT. IV LASIX AND IV ANTIBIOTICS UNTIL WEDNESDAY.
--- NOTE | 2020-08-21 14:45 | Physical Therapy Daily Note ---
PT Daily Note-Current Subjective Pt says he is still sore (L) LE, "sensitive". Pt agreeable. Transfers SCALE: Activities may be completed with or without assistive devices. 3-Zypvoffwll-laovrnh completes the activity by him/herself with no assistance from a helper. 5-Set-up or Clean-up Assistance-helper sets up or cleans up; patient completes activity. [place] assists only prior to or following the activity. 4-Supervision or Touching Assistance-helper provides verbal cues and/or touching/steadying and/or contact guard assistance as patient completes activity. Assistance may be provided throughout the activity or intermittently. 3-Partial/Moderate Assistance-helper does LESS THAN HALF the effort. [place] lifts, holds or supports trunk or limbs, but provides less than half the effort. 2-Substantial/Maximal Assistance-helper does MORE THAN HALF the effort. [place] lifts or holds trunk or limbs and provides more than half the effort. 5-Jpxvzafmg-mcvzzw does ALL the effort. Patient does none of the effort to complete the activity. Or, the assistance of 2 or more helpers is required for the patient to complete the activity. If activity was not attempted, code reason: 7-Patient Refused. 9-Not Applicable-not attempted and the patient did not perform the activity before the current illness, exacerbation or injury. 10-Not Attempted due to Environmental Limitations-(lack of equipment, weather restraints, etc.). 88-Not Attempted due to Medical Conditions or Safety Concerns. Weight Bearing Right Lower Extremity: Right Full Weight Bearing Left Lower Extremity: Left Full Weight Bearing Treatments Pt seen for LE ther ex: LAQ, hip flexion x 15 each. Gait training 2 x 110' with FWW. Pt peformed standing ther ex: 3 way hip, alternating toe tap on 6" step x 15 each. Pt performed supine ther ex: LTR with ball, knee to chest with ball, bridge with ball, SAQ, X 15 each. Stair training up/down 6" step x 20 each leg. Back to room, pt up in chair with call light and all needs met. Assessment Current Status: Good Progress Good tolerance to treatment. Pt progressed to FWW today, much improved speed and ability to ambulate. Pt showed increased stride, speed and fluidity following ther ex. Pt progressing appropriatly. PT Short Term Goals Short Term Goals Time Frame: Aug 26, 2020 Sit to lyin Lying to sitting on side of be: 4 Sit to stand: 4 Chair/wiz-wm-titrz transfer: 4 Car transfer: 4 Walk 10 feet: 4 Walk 50 feet with two turns: 4 Walk 150 feet: 4 1 step (curb): 4 PT Fruit Distributor Goals Fruit Distributor Goals PT Care Home Goals Time Frame: Sep 09, 2020 Roll Left & Right (QC): 6 Sit to Lying (QC): 6 Lying-Sitting on Side/Bed(QC): 6 Sit to Stand (QC): 6 Chair/Lkr-ax-Irxad Xfer(QC): 6 Toilet Transfer (QC): 6 Car Transfer (QC): 6 Does the Patient Walk: Yes Walk 10 feet (QC): 6 Walk 50ft with 2 Turns (QC): 6 Walk 150 ft (QC): 6 Walking 10ft on Uneven Surface: 6 1 Step (curb) (QC): 6 4 Steps (QC): 4 12 Steps (QC): 4 Picking up an Object (QC): 4 Does the Pt use WC or Scooter?: No Wheel 50 feet with 2 turns (QC: 9 Wheel 150 feet: 9 PT Plan Treatment/Plan Treatment Plan: Continue Plan of Care Treatment Plan: Bed Mobility, Education, Functional Activity Nirav, Functional Strength, Group Therapy, Gait, Safety, Therapeutic Exercise, Transfers Treatment Duration: Sep 02, 2020 Frequency: At least 5 of 7 days/Wk (IRF) Estimated Hrs Per Day: 1.5 hours per day Patient and/or Family Agrees t: Yes Time/GCodes Time In: 1000 Time Out: 1100 Total Billed Treatment Time: 60 Total Billed Treatment 1, gait x 30', Ex x 30' FREDRICK CESAR Aug 21, 2020 14:45
--- NOTE | 2020-08-21 16:12 | NUR ---
PT. AGREED TO STAY UNTIL WEDNESDAY, BUT REQUESTED HIS MARC CATH STAY IN IF THE IV LASIX CONTINUED. HE STATED HE WOULD NOT BE ABLE TO SLEEP AT NIGHT IF MARC REMOVED. AGREED WITH PT. AND ENCOURAGED HIM TO KEEP LEGS ELEVATED.
[2020-08-21 17:30] VITALS: BP 127/68
--- NOTE | 2020-08-21 17:37 | Progress Note - Surgery ---
PENNY BOND MED STUDENT 08/21/20 1737: Subjective Date Seen by a Provider: Aug 21, 2020 Time Seen by a Provider: 07:30 Subjective/Events-last exam No new complaints, states his swelling is much improved. States he is doing well with PT/OT. Objective Exam Vital Signs Date Time Temp Pulse Resp B/P (MAP) Pulse Ox O2 Delivery O2 Flow Rate FiO2 08/21/20 09:00 Room Air 08/21/20 05:33 36.8 83 17 105/65 (78) 95 Room Air 08/20/20 20:30 Room Air 08/20/20 19:28 Room Air I & O 08/21/20 07:00 Intake Total 1745.0 ml Output Total 6500 ml Balance -4755.0 ml Capillary Refill : Less Than 3 Seconds General Appearance: No Apparent Distress, WD/WN HEENT: PERRL/EOMI, Normal ENT Inspection, Pharynx Normal Neck: Normal Inspection, Supple Respiratory: No Accessory Muscle Use, No Respiratory Distress Cardiovascular: Regular Rate, Rhythm, No JVD Gastrointestinal: non tender, soft Extremity: Non Tender, Other (LLE swelling and redness that is improving) Neurologic/Psychiatric: Alert, No Motor/Sensory Deficits, Normal Mood/Affect Skin: Normal Color, Warm/Dry Lymphatic: No Adenopathy Results Lab Laboratory Tests 08/21/20 05:45: White Blood Count 15.0H, Red Blood Count 4.33, Hemoglobin 12.4L, Hematocrit 38L, Mean Corpuscular Volume 87, Mean Corpuscular Hemoglobin 29, Mean Corpuscular Hemoglobin Concent 33, Red Cell Distribution Width 14.8H, Platelet Count 581H, Mean Platelet Volume 8.6L, Immature Granulocyte % (Auto) 2, Neutrophils (%) (Auto) 85H, Lymphocytes (%) (Auto) 9L, Monocytes (%) (Auto) 4, Eosinophils (%) (Auto) 1, Basophils (%) (Auto) 0, Neutrophils # (Auto) 12.7H, Lymphocytes # (Auto) 1.4, Monocytes # (Auto) 0.6, Eosinophils # (Auto) 0.1, Basophils # (Auto) 0.0, Immature Granulocyte # (Auto) 0.2H, Sodium Level 140, Potassium Level 4.1, Chloride Level 102, Carbon Dioxide Level 29, Anion Gap 9, Blood Urea Nitrogen 11, Creatinine 0.61, Estimat Glomerular Filtration Rate > 60, BUN/Creatinine Ratio 18, Glucose Level 102, Calcium Level 7.9L, Corrected Calcium 9.0, Total Bilirubin 0.6, Aspartate Amino Transf (AST/SGOT) 24, Alanine Aminotransferase (ALT/SGPT) 29, Alkaline Phosphatase 98, Total Protein 5.1L, Albumin 2.6L Assessment/Plan Assessment/Plan Assessment/Plan left lower extremity cellulitis/edema scrotal edema cerebral palsy left calf wound right lower quadrant abdomen superficial wound wound care keep lower extremities elevated medical management Clinical Quality Measures DVT/VTE Risk/Contraindication: Risk Factor Score Per Nursin RFS Level Per Nursing on Admit: 4+=Very High GUME PALOMARES DO 08/21/202030: Subjective Subjective/Events-last exam No pain. Doing well. Swelling continues to improve. Doing well in rehab. Denies n/v fever sweats chills shortness of breath or chest pain. Objective Exam General Appearance: No Apparent Distress, WD/WN HEENT: PERRL/EOMI, Normal ENT Inspection Neck: Normal Inspection, Supple Respiratory: Chest Non Tender, No Accessory Muscle Use, No Respiratory Distress Cardiovascular: Regular Rate, Rhythm, No JVD Gastrointestinal: non tender, soft Extremity: Non Tender, Other (LLE swelling and redness that is improving, scrotal edema down) Neurologic/Psychiatric: Alert, Oriented x3, No Motor/Sensory Deficits, Normal Mood/Affect Skin: Warm/Dry (edematous but less, lle wound, rlq abd wound improving) Lymphatic: No Adenopathy Assessment/Plan Assessment/Plan Assessment/Plan left lower extremity cellulitis/edema scrotal edema cerebral palsy left calf wound right lower quadrant abdomen superficial wound continue rehab actiivites and medical management will sign off, call if needed. Supervisory-Addendum Brief Verification & Attestation Participated in pt care: history, MDM, physical Personally performed: exam, history, MDM, supervision of care Care discussed with: Medical Student Procedures: n/a Results interpretation: Verified all documentation Verification and Attestation of Medical Student E/M Service A medical student performed and documented this service in my presence. I reviewed and verified all information documented by the medical student and made modifications to such information, when appropriate. I personally performed the physical exam and medical decision making. Gume Palomares, Aug 21, 2020:32 PENNY BOND MED STUDENT Aug 21, 2020 17:37 GUME PALOMARES DO Aug 21, 2020 20:31
[2020-08-21] MEDS: DIAZEPAM 5 MG (VALIUM) TABLET PO PRN (18:51)
[2020-08-21] MEDS: ACETAMINOPHEN 325 MG TABLET PO PRN (21:30)
[2020-08-21] MEDS: MELATONIN 3 MG TABLET PO PRN (21:31)
[2020-08-22] MEDS: VANCOMYCIN INJECTION 1,250 MG in NS (IVPB) 250 ML IV SCH ×3 (03:07→18:03)
--- NOTE | 2020-08-22 05:52 | PM&R Progress Note ---
Subjective HPI/CC On Admission Date Seen by Provider: Aug 22, 2020 Time Seen by Provider: 11:00 Subjective/Events-last exam 08/22/20: DC Wednesday Edema much improved BM+ Pain controlled DC catheter in prep for DC tomorrow 08/21/20: Dumping a lot of fluid with IV Lasix Legs are much improved Bowels moved two days ago Valium and Melatonin taken at night Needs PT and nurse at discharge on Wednesday Will have daily weights because we are taking a lot of fluid off Took off 4000cc of urine last night alone, took off 1000cc today with Lasix 20mg IV Bowels are moving okay Pain medication reviewed Reviewed meds and labs Conferred with RN Reviewed therapy notes Review of Systems Cardiovascular: Edema Musculoskeletal: leg pain Objective Exam Vital Signs Vital Signs Date Time Temp Pulse Resp B/P (MAP) Pulse Ox O2 Delivery O2 Flow Rate FiO2 08/23/20 05:58 37.0 91 16 105/65 (78) 96 Room Air Capillary Refill : Less Than 3 Seconds General Appearance: No Apparent Distress, WD/WN, Chronically ill HEENT: PERRL/EOMI, Normal ENT Inspection, Pharynx Normal Neck: Full Range of Motion, Normal Inspection, Non Tender, Supple, Carotid Br uit Respiratory: Chest Non Tender, Lungs Clear, Normal Breath Sounds, No Accessory Muscle Use, No Respiratory Distress Cardiovascular: Regular Rate, Rhythm, No Gallop, No JVD, No Murmur, Normal Peripheral Pulses Gastrointestinal: Normal Bowel Sounds, No Organomegaly, No Pulsatile Mass, Non Tender, Soft Back: Normal Inspection, No CVA Tenderness, No Vertebral Tenderness Extremity: Normal Capillary Refill, Normal Inspection, Normal Range of Motion, Non Tender, No Calf Tenderness, Pedal Edema Neurologic/Psychiatric: Alert, Oriented x3, No Motor/Sensory Deficits, Normal Mood/Affect, atm servicer II-XII Norm as Tested, Abnormal Gait, Motor Weakness (generalized) Skin: Normal Color, Warm/Dry Lymphatic: No Adenopathy Results/Procedures Lab Patient resulted labs reviewed. FIM Transfers Therapy Code Descriptions/Definitions Functional [place] Measure: 0=Not Assessed/NA 4=Minimal Assistance 1=Total Assistance 5=Supervision or Setup 2=Maximal Assistance 6=Modified [place] 3=Moderate Assistance 7=Complete IndependenceSCALE: Activities may be completed with or without assistive devices. 7-Ebeeidokua-rkzqxsh completes the activity by him/herself with no assistance from a helper. 5-Set-up or Clean-up Assistance-helper sets up or cleans up; patient completes activity. [place] assists only prior to or following the activity. 4-Supervision or Touching Assistance-helper provides verbal cues and/or touching/steadying and/or contact guard assistance as patient completes activity. Assistance may be provided throughout the activity or intermittently. 3-Partial/Moderate Assistance-helper does LESS THAN HALF the effort. [place] lifts, holds or supports trunk or limbs, but provides less than half the effort. 2-Substantial/Maximal Assistance-helper does MORE THAN HALF the effort. [place] lifts or holds trunk or limbs and provides more than half the effort. 1-Qabjrzhjp-rwuskn does ALL the effort. Patient does none of the effort to complete the activity. Or, the assistance of 2 or more helpers is required for the patient to complete the activity. If activity was not attempted, code reason: 7-Patient Refused. 9-Not Applicable-not attempted and the patient did not perform the activity before the current illness, exacerbation or injury. 10-Not Attempted due to Environmental Limitations-(lack of equipment, weather restraints, etc.). 88-Not Attempted due to Medical Conditions or Safety Concerns. Roll Left to Right (QC): 4 Sit to Lying (QC): 3 Sit to Stand (QC): 4 Chair/Qos-fd-Jcwzi Xfer(QC): 4 Car Transfer (QC): 3 Gait Training Does the Patient Walk?: Yes Distance: 100'x2 Walk 10 feet (QC): 4 Walk 50 ft with 2 Turns(QC): 4 Walking 10ft/uneven surface-QC: 4 Gait Assistive Device: FWW Wheelchair Training Does the Pt Use a Wheelchair?: Yes Distance: 150' Wheel 50 ft with 2 turns (QC): 4 Wheel 150 ft (QC): 4 Type of Wheelchair: Manual Stair Training 1 Step (curb) (QC): 88 4 Steps (QC): 88 12 Steps (QC): 88 Balance Picking up an Object (QC): 88 ADL-Treatment Eating (QC): 6 Oral Hygiene (QC): 5 Shower/Bathe Self (QC): 4 (SBA in shower. Pt. utilized LH sponge to cleanse bilateral LE.) Upper Body Dressing (QC): 6 (per pt.) Lower Body Dressing (QC): 6 (per pt.) On/Off Footwear (QC): 3 (Mod assist to don slipper socks using sock aide.) Toileting Hygiene (QC): 6 Toilet Transfer (QC): 6 Assessment/Plan Assessment and Plan Assess & Plan/Chief Complaint Assessment: Debility Left leg cellultis Falls Cerebral palsy Proteinuria Low albumin Anasarca Scrotal edema Lower extremity edema Narcotic bowel Chronic pain Plan: IV abx Edema treatment Monitor closely 08/20/20: Monitor edema closely Lasix 20mg IV BID Check labs in am BM regimen 08/21/20: Continue diuresis Monitor BP Monitor labs 08/22/20: Monitor edema DC cath DC Wednesday (1) Debility (2) Narcotic bowel syndrome (3) Blood albumin decreased compared with prior measurement (4) Elevated bilirubin Status: Chronic (5) Normocytic anemia Status: Chronic (6) Proteinuria (7) Hyponatremia Status: Resolved Resolution Date/Time: 08/14/20 @ 14:40 (8) Cerebral palsy Status: Acute (9) Scrotal swelling Status: Acute (10) Cellulitis of left lower extremity Status: Acute (11) Severe sepsis Status: Acute (12) Back spasm Status: Acute JHOANA RAY DO Aug 22, 2020 05:52
[2020-08-22 06:11] LABS: BASOPHILS % (AUTO) 0 % (0-10); EOSINOPHILS # (AUTO) 0.1 10^3/uL (0.0-0.3); EOSINOPHILS % (AUTO) 1 % (0-10); HEMATOCRIT 32 % (40-54); HEMOGLOBIN 10.3 g/dL (13.3-17.7); LYMPHOCYTES # (AUTO) 1.2 10^3/uL (1.0-4.0); LYMPHOCYTES % (AUTO) 9 % (12-44); MEAN CORPUSCULAR HEMOGLOBIN 29 pg (25-34); MEAN CORPUSCULAR HGB CONC 33 g/dL (32-36); MEAN CORPUSCULAR VOLUME 88 fL (80-99); MEAN PLATELET VOLUME 8.8 fL (9.0-12.2); MONOCYTES # (AUTO) 0.8 10^3/uL (0.0-1.0); MONOCYTES % (AUTO) 6 % (0-12); NEUTROPHILS # (AUTO) 10.6 10^3/uL (1.8-7.8); NEUTROPHILS % (AUTO) 83 % (42-75); PLATELET COUNT 563 10^3/uL (130-400); WHITE BLOOD COUNT 12.9 10^3/uL (4.3-11.0)
[2020-08-22 06:13] VITALS: BP 106/60
[2020-08-22 06:32] LABS: ALANINE AMINOTRANSFERASE 24 U/L (0-55); ALBUMIN 2.3 GM/DL (3.2-4.5); ALKALINE PHOSPHATASE 88 U/L (40-136); BILIRUBIN,TOTAL 0.5 MG/DL (0.1-1.0); BUN/CREATININE RATIO 21; CALCIUM 7.7 MG/DL (8.5-10.1); CARBON DIOXIDE 29 MMOL/L (21-32); CHLORIDE 102 MMOL/L (98-107); CREATININE SERUM 0.61 MG/DL (0.60-1.30); GFR ESTIMATED > 60; GLUCOSE 90 MG/DL (70-105); POTASSIUM 4.2 MMOL/L (3.6-5.0); SODIUM 139 MMOL/L (135-145); TOTAL PROTEIN 4.7 GM/DL (6.4-8.2)
[2020-08-22] MEDS: FUROSEMIDE 40 MG/4 ML INJ (LASIX) IVP SCH ×2 (06:32→16:22)
[2020-08-22] MEDS: MULTIVIT W/MINERALS TAB (THERAGRAN M) PO SCH (06:32)
[2020-08-22] MEDS: BETHANECHOL 10 MG (URECHOLINE) TAB PO SCH ×4 (06:32→21:22)
[2020-08-22] MEDS: CELECOXIB 100 MG (CeleBREX) CAP PO SCH ×2 (08:20→21:22)
[2020-08-22] MEDS: PANTOPRAZOLE 40 MG (PROTONIX) TAB PO SCH (08:20)
[2020-08-22] MEDS: KCL 20 MEQ TAB (K-DUR) PO SCH ×3 (08:20→17:27)
[2020-08-22] MEDS: MAGNESIUM OXIDE (MAG-OX)400 MG TAB PO SCH ×2 (08:21→17:27)
[2020-08-22] MEDS: TAMSULOSIN 0.4 MG (FLOMAX) CAP PO SCH ×2 (08:21→21:22)
[2020-08-22] MEDS: HYDROCORTISONE 20 MG (CORTEF) TAB PO SCH ×2 (08:21→17:27)
[2020-08-22] MEDS: SENNA W/DOCUSATE (SENOKOT S) TABLET PO SCH ×2 (08:22→19:50)
[2020-08-22] MEDS: ENOXAPARIN 40 MG/0.4 ML (LOVENOX) SYR SC SCH (08:22)
[2020-08-22] MEDS: polyethylene glycoL POWDER 17 GM (MIRALAX) PACK PO SCH ×2 (08:22→19:50)
[2020-08-22] MEDS: DOCUSATE SODIUM 100 MG (COLACE) CAP PO SCH ×2 (08:22→19:49)
--- NOTE | 2020-08-22 09:45 | Occupational Ther Daily Note ---
OT Current Status-Daily Note Subjective Pt seen in recliner. Pt alert/ oriented. Pt states going home tomorrow. Already showered/ dressed/ oral care completed. computer aided design designer affirms completed with IND. Pt agrees to tx. Denies pain until pressure applied to L thigh for retrograde massage. Pt states he doesn't want to "jump the gun," and requests OT's recommendations of home vs. staying as pt is feeling "nervous." Pt ensured he has demonstrated ability to complete ADLs safely and will be monitored/ assessed with nursing. Pt agrees. Pt is educated on getting contact with DO if LE become increasingly red/ warm/ feverish. Pt agrees. [id number]: OT/ PT co-treat due to higher level fx balance tasks. OT addresses attention, UE movement, fx activity tolerance for I/ADLs as PT addresses LE movement, fx balance, gait. Mental Status/Objective Patient Orientation: Person, Place, Situation, Normal For Age Attachments: Kelsey Catheter ADL-Treatment Therapy Code Descriptions/Definitions Functional [place] Measure: 0=Not Assessed/NA 4=Minimal Assistance 1=Total Assistance 5=Supervision or Setup 2=Maximal Assistance 6=Modified [place] 3=Moderate Assistance 7=Complete IndependenceSCALE: Activities may be completed with or without assistive devices. 1-Rrittfaogz-vdbnryp completes the activity by him/herself with no assistance from a helper. 5-Set-up or Clean-up Assistance-helper sets up or cleans up; patient completes activity. [place] assists only prior to or following the activity. 4-Supervision or Touching Assistance-helper provides verbal cues and/or touching/steadying and/or contact guard assistance as patient completes activity. Assistance may be provided throughout the activity or intermittently. 3-Partial/Moderate Assistance-helper does LESS THAN HALF the effort. [place] lifts, holds or supports trunk or limbs, but provides less than half the effort. 2-Substantial/Maximal Assistance-helper does MORE THAN HALF the effort. [place] lifts or holds trunk or limbs and provides more than half the effort. 6-Bclopsvmo-vespev does ALL the effort. Patient does none of the effort to complete the activity. Or, the assistance of 2 or more helpers is required for the patient to complete the activity. If activity was not attempted, code reason: 7-Patient Refused. 9-Not Applicable-not attempted and the patient did not perform the activity before the current illness, exacerbation or injury. 10-Not Attempted due to Environmental Limitations-(lack of equipment, weather restraints, etc.). 88-Not Attempted due to Medical Conditions or Safety Concerns. Eating (QC): 6 Oral Hygiene (QC): 6 Bathing Location: L Arm, R Arm, L Upper Leg, R Upper Leg, L Lower Leg (including foot), R Lower Leg (including foot), Chest, Abdomen, Buttocks, Perineal Area Shower/Bathe Self (QC): 6 Upper Body Dressing (QC): 6 Lower Body Dressing (QC): 6 On/Off Footwear: 2 (assist with wraps and education throughout. Pt able to direct OT to prepare for daughter at home during wrapping, requires min cues for correction. Pt is given a written handout for wraps for daughter's use at home. ) Toileting Hygiene (QC): 6 Toilet Transfer (QC): 6 Other Treatment [id number]: Pt in recliner. Pt desires for bandage to be changed prior to wrapping. Pt sit to stand with SBA and ambulates to bed/ lays in prone position to assist nursing in bandage changing. Pt able to bed mob with SBA-CGA. Pt returns to chair, educated on wraps as outlined above. Pt educated on retrograde massage from knee to groin and use of elevation in recliner chair. Pt given wash cloths/ towel for groin pressure application, as pt states groin continues to be swollen. Pt completes with demonstration/ education, but completes with IND. OT/ PT co-treat from [id number]: Pt ambulates to gym, one instance of LOB with mod A to right. Pt states "light headed," denies sitting/ resting. Pt then states he was "Distracted." Pt completes standing balance/ reaching tasks with cones and crossing midline with hands on/ off walker. No LOB, completes slow/ steady. Pt completes balloon batting slow/ steady with no LOB, CGA throughout, to address visual distraction, hand-eye coordination, reactions and balance. Sits EOM, educated on LE exercises to address swelling in LE's. return demonstrates understanding. Pt left with PT end of session, all needs met, all questions addressed. Education OT Patient Education: Correct positioning, Exercise program, Home exercise program, Modified ADL techniques Teaching Recipient: Patient Teaching Methods: Demonstration, Handout, Discussion Response to Teaching: Verbalize Understanding, Return Demonstration OT Short Term Goals Short Term Goals Time Frame: Aug 26, 2020 Eatin Oral hygiene: 5 Toileting hygiene: 4 Shower/bathe self: 4 Upper body dressin Lower body dressin Putting on/taking off footwear: 4 OT Digital Content Coordinator Goals Digital Content Coordinator Goals Time Frame: Sep 02, 2020 Eating (QC): 6 Oral Hygiene (QC): 6 Toileting Hygiene (QC): 6 Shower/Bathe Self (QC): 5 Upper Body Dressing (QC): 6 Lower Body Dressing (QC): 6 On/Off Footwear (QC): 6 Additional Goals: 1-Demonstrate ADL Tasks, 2-Verbalize Understanding, 3- ImproveStrength/Nirav 1=Demonstrate adherence to instructed precautions during ADL tasks. 2=Patient will verbalize/demonstrate understanding of assistive devices/modifications for ADL. 3=Patient will improve strength/tolerance for activity to enable patient to perform ADL's. OT Education/Plan Problem List/Assessment Assessment: Decreased Activ Tolerance, Decreased UE Strength, Edema, Impaired Funct Balance, Impaired I ADL's Discharge Recommendations Plan/Recommendations: Continue POC Therapy Discharge Recommendati: Intermittent Supervision, Home & Family Treatment Plan/Plan of Care Treatment,Training & Education: Yes Patient would benefit from OT for education, treatment and training to promote independence in ADL's, mobility, safety and/or upper extremity function for ADL's. Plan of Care: ADL Retraining, Functional Mobility, Group Exercise/Act as Ind, UE Funct Exercise/Act Treatment Duration: Sep 02, 2020 Frequency: At least 5 of 7 days/Wk (IRF) Estimated Hrs Per Day: 1.5 hours per day Agreement: Yes Rehab Potential: Good Time/GCodes Start Time: 08:00 Stop Time: 09:30 Total Time Billed (hr/min): 90 Billed Treatment Time 1, ADL 4 (60), EX 2 (30)= 90 [id number]: OT/ PT co-treat due to higher level fx balance tasks. OT addresses attention, UE movement, fx activity tolerance for I/ADLs as PT addresses LE movement, fx balance, gait. ADELSO MONTES OTR Aug 22, 2020 09:45
--- NOTE | 2020-08-22 09:58 | Physical Therapy Daily Note ---
PT Daily Note-Current Subjective Pt presents in recliner under supervision of OT. Pt agrees to PT. Pt reports no pain. Appearance At conclusion of PT treatment patient is supervised into bed; LEs elevated, Pt has access to tray, call button, and all needs have been met. Mental Status Patient Orientation: Person, Place, Time, Eyes Open, Situation, Normal For Age Attachments: Kelsey Catheter Transfers SCALE: Activities may be completed with or without assistive devices. 5-Xjxuporfic-hnhfdnr completes the activity by him/herself with no assistance from a helper. 5-Set-up or Clean-up Assistance-helper sets up or cleans up; patient completes activity. [place] assists only prior to or following the activity. 4-Supervision or Touching Assistance-helper provides verbal cues and/or touching/steadying and/or contact guard assistance as patient completes activity. Assistance may be provided throughout the activity or intermittently. 3-Partial/Moderate Assistance-helper does LESS THAN HALF the effort. [place] lifts, holds or supports trunk or limbs, but provides less than half the effort. 2-Substantial/Maximal Assistance-helper does MORE THAN HALF the effort. [place] lifts or holds trunk or limbs and provides more than half the effort. 5-Fpfslqilj-jjniet does ALL the effort. Patient does none of the effort to complete the activity. Or, the assistance of 2 or more helpers is required for the patient to complete the activity. If activity was not attempted, code reason: 7-Patient Refused. 9-Not Applicable-not attempted and the patient did not perform the activity before the current illness, exacerbation or injury. 10-Not Attempted due to Environmental Limitations-(lack of equipment, weather restraints, etc.). 88-Not Attempted due to Medical Conditions or Safety Concerns. Roll Left & Right (QC): 6 Sit to Lying (QC): 6 Lying to Sitting/Side of Bed(Q: 6 Sit to Stand (QC): 4 Chair/Vwm-ao-Bjnmv Xfer(QC): 4 Toilet Transfer (QC): 4 Car Transfer (QC): 4 Pt is able to complete bed mobility independently and sit to stand and car transfer with SBA. Weight Bearing Right Lower Extremity: Right Full Weight Bearing Left Lower Extremity: Left Full Weight Bearing Gait Training Does the Patient Walk?: Yes Distance: 200'x2 Walk 10 feet (QC): 4 Walk 50 ft with 2 Turns(QC): 4 Walk 150 ft (QC): 3 Gait Assistive Device: Walker Standard Pt feels he could move faster with front-wheeled walker but is using a standard walker that he already owns. Pt has improved posture by decreasing hip flexion with ambulation. Stair Training Stair Training: Handrails/: 1 handrail #of Steps: 12 1 Step (curb) (QC): 4 4 Steps (QC): 4 12 Steps (QC): 4 Stairs: Pattern: Step to SBA Balance Picking up an Object (QC): 4 Exercises Seated Therapy Exercises: Ankle pumps, Long arc quads Seated Reps: 20 Standing balance with UE manipulation Treatments Functional activities, balance and gait training Assessment Current Status: Fair Progress Pt has improved gait posture and rate; pt did experience LOB at one point when patient was distracted, LOB required assistance of therapist to re-balance. Pt has improved bed mobility and is now independent, though slow and requires UE as sistance to move LEs and adjust trunk. Pt is able to demonstrate ascending/descending stairs and picking up object with supervision. PT Short Term Goals Short Term Goals Time Frame: Aug 26, 2020 Sit to lyin Lying to sitting on side of be: 4 Sit to stand: 4 Chair/qyq-nt-vgqpa transfer: 4 Car transfer: 4 Walk 10 feet: 4 Walk 50 feet with two turns: 4 Walk 150 feet: 4 1 step (curb): 4 PT Fci Goals Fci Goals PT Wireline Supervisor Goals Time Frame: Sep 09, 2020 Roll Left & Right (QC): 6 Sit to Lying (QC): 6 Lying-Sitting on Side/Bed(QC): 6 Sit to Stand (QC): 6 Chair/Wlp-ea-Ckuie Xfer(QC): 6 Toilet Transfer (QC): 6 Car Transfer (QC): 6 Does the Patient Walk: Yes Walk 10 feet (QC): 6 Walk 50ft with 2 Turns (QC): 6 Walk 150 ft (QC): 6 Walking 10ft on Uneven Surface: 6 1 Step (curb) (QC): 6 4 Steps (QC): 4 12 Steps (QC): 4 Picking up an Object (QC): 4 Does the Pt use WC or Scooter?: No Wheel 50 feet with 2 turns (QC: 9 Wheel 150 feet: 9 PT Plan Problem List Problem List: Activity Tolerance, Functional Strength, Safety, Balance, Gait, Transfer, Bed Mobility, ROM Treatment/Plan Treatment Plan: Continue Plan of Care Treatment Plan: Bed Mobility, Education, Functional Activity Nirav, Functional Strength, Group Therapy, Gait, Safety, Therapeutic Exercise, Transfers Treatment Duration: Sep 02, 2020 Frequency: At least 5 of 7 days/Wk (IRF) Estimated Hrs Per Day: 1.5 hours per day Patient and/or Family Agrees t: Yes Safety Risks/Education Patient Education: Gait Training, Transfer Techniques, Steps, Correct Positioning, Safety Issues Teaching Recipient: Patient Teaching Methods: Demonstration, Discussion Response to Teaching: Reinforcement Needed Time/GCodes Time In: 0900 Time Out: 1000 Total Billed Treatment Time: 60 Total Billed Treatment 1 visit NM 20' FA 40' Co-treated with OT [id number] due to patients limitations in strength, mobility, balance, and coordination of UEs and LEs. PT focused on standing balance while OT led UE manipulation. CARLO CALLES PT Aug 22, 2020 09:58
--- NOTE | 2020-08-22 10:13 | NUR ---
Discharge planning/Care Team Conference Discussed Care Team Conference with patient and he is in agreement for team's recommendation to discharge home on 08/22/2020. Patient is also agreeable to home health nursing and PT. Area home health care agencies were discussed with patient and patient has chosen [facility]. Referral sent to [facility] for home health nursing and PT. IMM of Medicare was discussed with patient. Patient states he has no intention of appealing his discharge. Patient's signature obtained. Patient requests Dr. Salas become his PCP as his former PCP, Dr. Pena, moved to [place], [place]. Dr. Salas notified and has accepted patient as his primary provider. Patient notified and is very happy Dr. Salas will be his PCP moving forward.
--- NOTE | 2020-08-22 13:11 | NUR ---
F/U WITH DR. CHAIDEZ (WOUND CARE) ON 08/27/20 AT 10:15 AM.
--- NOTE | 2020-08-22 14:44 | Physical Therapy Daily Note ---
PT Daily Note-Current Subjective Pt presents supine in bed. Pt agrees to PT. Pt voices no complaints of pain. Appearance At conclusion of PT treatment patient is left in recliner with legs elevated, ac cess to tray, call button, and all needs having been met. Mental Status Patient Orientation: Person, Place, Time, Eyes Open, Situation Attachments: Kelsey Catheter Transfers SCALE: Activities may be completed with or without assistive devices. 0-Jmnndcoxyb-qwsrjor completes the activity by him/herself with no assistance from a helper. 5-Set-up or Clean-up Assistance-helper sets up or cleans up; patient completes activity. [place] assists only prior to or following the activity. 4-Supervision or Touching Assistance-helper provides verbal cues and/or touching/steadying and/or contact guard assistance as patient completes activity. Assistance may be provided throughout the activity or intermittently. 3-Partial/Moderate Assistance-helper does LESS THAN HALF the effort. [place] lifts, holds or supports trunk or limbs, but provides less than half the effort. 2-Substantial/Maximal Assistance-helper does MORE THAN HALF the effort. [place] lifts or holds trunk or limbs and provides more than half the effort. 8-Yctoujzpa-fnyblo does ALL the effort. Patient does none of the effort to complete the activity. Or, the assistance of 2 or more helpers is required for the patient to complete the activity. If activity was not attempted, code reason: 7-Patient Refused. 9-Not Applicable-not attempted and the patient did not perform the activity before the current illness, exacerbation or injury. 10-Not Attempted due to Environmental Limitations-(lack of equipment, weather restraints, etc.). 88-Not Attempted due to Medical Conditions or Safety Concerns. Lying to Sitting/Side of Bed(Q: 4 Sit to Stand (QC): 4 Chair/Rvr-is-Tnqcd Xfer(QC): 4 Weight Bearing Right Lower Extremity: Right Full Weight Bearing Left Lower Extremity: Left Full Weight Bearing Gait Training Does the Patient Walk?: Yes Distance: 150'x2 Walk 10 feet (QC): 4 Walk 50 ft with 2 Turns(QC): 4 Walk 150 ft (QC): 4 Gait Assistive Device: FWW SBA. Pt drags feet with progression. Exercises NuStep Minutes: 10 NuStep Workload: 5 Treatments Gait training and LE strengthening Assessment Current Status: Good Progress Patient does not experience any LOB with ambulation. Pt rubs knees together using nustep due to adduction, pt reports feeling well and active with this machine. PT Short Term Goals Short Term Goals Time Frame: Aug 26, 2020 Sit to lyin Lying to sitting on side of be: 4 Sit to stand: 4 Chair/mzt-fn-jrece transfer: 4 Car transfer: 4 Walk 10 feet: 4 Walk 50 feet with two turns: 4 Walk 150 feet: 4 1 step (curb): 4 PT Mechanic Insulator Goals Mechanic Insulator Goals PT Group Home Goals Time Frame: Sep 09, 2020 Roll Left & Right (QC): 6 Sit to Lying (QC): 6 Lying-Sitting on Side/Bed(QC): 6 Sit to Stand (QC): 6 Chair/Pyu-vi-Ozukf Xfer(QC): 6 Toilet Transfer (QC): 6 Car Transfer (QC): 6 Does the Patient Walk: Yes Walk 10 feet (QC): 6 Walk 50ft with 2 Turns (QC): 6 Walk 150 ft (QC): 6 Walking 10ft on Uneven Surface: 6 1 Step (curb) (QC): 6 4 Steps (QC): 4 12 Steps (QC): 4 Picking up an Object (QC): 4 Does the Pt use WC or Scooter?: No Wheel 50 feet with 2 turns (QC: 9 Wheel 150 feet: 9 PT Plan Problem List Problem List: Activity Tolerance, Functional Strength, Safety, Balance, Gait, Transfer, Bed Mobility, ROM Treatment/Plan Treatment Plan: Continue Plan of Care Treatment Plan: Bed Mobility, Education, Functional Activity Nirav, Functional Strength, Group Therapy, Gait, Safety, Therapeutic Exercise, Transfers Treatment Duration: Sep 02, 2020 Frequency: At least 5 of 7 days/Wk (IRF) Estimated Hrs Per Day: 1.5 hours per day Patient and/or Family Agrees t: Yes Safety Risks/Education Patient Education: Gait Training, Transfer Techniques, Correct Positioning, Safety Issues Teaching Recipient: Patient Teaching Methods: Demonstration, Discussion Response to Teaching: Reinforcement Needed Time/GCodes Time In: 1300 Time Out: 1330 Total Billed Treatment Time: 30 Total Billed Treatment 1 visit EX 10' GT 20' CARLO CALLES PT Aug 22, 2020 14:44
[2020-08-22 17:11] VITALS: BP 120/75
[2020-08-22] MEDS: COLON CLENZ PO PRN (17:34)
[2020-08-22] MEDS: [UNRECOGNIZED DRUG - OTHER] PO PRN (17:34)
[2020-08-22] MEDS: DIAZEPAM 5 MG (VALIUM) TABLET PO PRN (21:23)
[2020-08-22] MEDS: ACETAMINOPHEN 325 MG TABLET PO PRN (21:23)
[2020-08-22] MEDS: MELATONIN 3 MG TABLET PO PRN (21:23)
[2020-08-23] MEDS: VANCOMYCIN INJECTION 1,250 MG in NS (IVPB) 250 ML IV SCH ×2 (02:42→09:26)
[2020-08-23 05:58] VITALS: BP 105/65
[2020-08-23] MEDS: FUROSEMIDE 40 MG/4 ML INJ (LASIX) IVP SCH (06:27)
[2020-08-23] MEDS: BETHANECHOL 10 MG (URECHOLINE) TAB PO SCH ×2 (06:27→12:25)
[2020-08-23] MEDS: MULTIVIT W/MINERALS TAB (THERAGRAN M) PO SCH (06:27)
[2020-08-23] MEDS ORDERED: TIZA4TAB4 PO (07:15)
[2020-08-23] MEDS ORDERED: FURO-124 PO (07:15)
[2020-08-23] MEDS ORDERED: PANT40TA52 PO (07:15)
[2020-08-23] MEDS ORDERED: POTA20TA15 PO (07:15)
[2020-08-23] MEDS ORDERED: DIAZ5TAB49 PO (07:15)
[2020-08-23] MEDS ORDERED: HYDR20TA2 PO (07:15)
[2020-08-23] MEDS ORDERED: OXYC20TA54 PO (07:15)
[2020-08-23] MEDS ORDERED: SENN-20 PO (07:15)
--- NOTE | 2020-08-23 07:18 | D/C HH Face to Face Order ---
D/C Face to Face Orders Reconcile Patient Problems Problems Reviewed?: Yes Instructions for Patient Via [facility], Patient Instructions/FollowUp: [facility] 1 week Physician to follow Patient: [facility] Discharge Diet for Home: No Restrictions Patient Problems: Bilateral edema left leg cellulitis Patient Data-Allergies,Ht & Wt Patient Allergies: Coded Allergies: Penicillins (Unverified Adverse Reaction, Unknown, 07/28/20) Height (Feet): 5 Height (Inches): 6.00 Weight (Pounds): 126 Home Health Need/Face to Face Date of Face to Face: Aug 23, 2020 Clinical Findings: Generalized weakness and fatigue, Muscle weakness, Unsteady gait, Non-healing wound I have seen Pt ujrr-wy-syro: Yes Discharged To: Home Diagnosis/Conditions: Bilateral edema left leg cellulitis Patient is Homebound due to: Luly fall risk due to instabilty, Muscle weakness Homebound Status Due to the above stated illness, injury or surgical procedure (medical condit ion or diagnosis) and associated clinical findings, the patient is homebound because of his/her inability to leave home except with aid of a supportive device and/or person AND leaving the home requires a considerable and taxing effort or is medically contraindicated. Pt req the following assistanc: [facility] Home Health Nursing Orders Home Health Services Order: Nursing Services (wrap legs with jesi wraps daily, wound care left leg), [employer] Police Officer-Evaluate & Treat, Physical Therapy- Evaluate & Treat Certify Stmt I certify that this patient is under my care and that I, a nurse practitioner or a physician; a music assistant working with me, had a face to face encounter that - meets the physician face to face encounter requirements with this patient as dated. JHOANA RAY DO Aug 23, 2020 07:18
--- NOTE | 2020-08-23 07:19 | Discharge Summary ---
Diagnosis/Chief Complaint Date of Admission Aug 19, 2020 at 11:16 Date of Discharge Discharge Date: Aug 23, 2020 Discharge Diagnosis Assessment: Debility Left leg cellultis Falls Cerebral palsy Proteinuria Low albumin Anasarca Scrotal edema Lower extremity edema Narcotic bowel Chronic pain Plan: IV abx Edema treatment Monitor closely 08/20/20: Monitor edema closely Lasix 20mg IV BID Check labs in am BM regimen 08/21/20: Continue diuresis Monitor BP Monitor labs 08/22/20: Monitor edema DC cath DC Wednesday (1) Debility (2) Narcotic bowel syndrome (3) Blood albumin decreased compared with prior measurement (4) Elevated bilirubin Status: Chronic (5) Normocytic anemia Status: Chronic (6) Proteinuria (7) Hyponatremia Status: Resolved Resolution Date/Time: 08/14/20 @ 14:40 (8) Cerebral palsy Status: Acute (9) Scrotal swelling Status: Acute (10) Cellulitis of left lower extremity Status: Acute (11) Severe sepsis Status: Acute (12) Back spasm Status: Acute Discharge Summary Discharge Physical Examination Allergies: Coded Allergies: Penicillins (Unverified Adverse Reaction, Unknown, 07/28/20) Vitals & I&Os Vital Signs Date Time Temp Pulse Resp B/P (MAP) Pulse Ox O2 Delivery O2 Flow Rate FiO2 08/23/20 13:30 37.0 91 16 105/65 97 Room Air General Appearance: Alert, Oriented X3, Cooperative Respiratory: Clear to Auscultation Cardiovascular: Regular Rate Neuro: Normal Speech, Strength at 5/5 X4 Ext Psych/Mental Status: Mental Status NL Hospital Course Was the Problem List Reviewed?: Yes Hospital Course: Pt had a short hospital course. He was admitted for severe anasarca and b/l extremity edema with history of cerebral palsy causing problems with ambulation. Pt ended up diuresing thousands of cc of urinary output with Lasix. Wrappings were placed on legs with good result and he was discharged in improved condition with home health dressing his left leg. Labs (last 24 hrs) Laboratory Tests 08/20/20 07:55: White Blood Count 14.8H, Red Blood Count 4.47, Hemoglobin 12.6L, Hematocrit 39L, Mean Corpuscular Volume 86, Mean Corpuscular Hemoglobin 28, Mean Corpuscular Hemoglobin Concent 33, Red Cell Distribution Width 14.8H, Platelet Count 547H, Mean Platelet Volume 8.5L, Immature Granulocyte % (Auto) 3, Neutrophils (%) (Auto) 83H, Lymphocytes (%) (Auto) 10L, Monocytes (%) (Auto) 4, Eosinophils (%) (Auto) 1, Basophils (%) (Auto) 0, Neutrophils # (Auto) 12.3H, Lymphocytes # (Auto) 1.5, Monocytes # (Auto) 0.6, Eosinophils # (Auto) 0.1, Basophils # (Auto) 0.0, Immature Granulocyte # (Auto) 0.4H, Sodium Level 138, Potassium Level 3.4L, Chloride Level 100, Carbon Dioxide Level 28, Anion Gap 10, Blood Urea Nitrogen 14, Creatinine 0.61, Estimat Glomerular Filtration Rate > 60, BUN/Creatinine Ratio 23, Glucose Level 108H, Calcium Level 7.4L, Corrected Calcium 8.6, Total Bilirubin 0.5, Aspartate Amino Transf (AST/SGOT) 31, Alanine Aminotransferase (ALT/SGPT) 34, Alkaline Phosphatase 108, Total Protein 4.9L, Albumin 2.5L 08/20/20 10:00: Vancomycin Level Trough 17.1 08/21/20 05:45: White Blood Count 15.0H, Red Blood Count 4.33, Hemoglobin 12.4L, Hematocrit 38L, Mean Corpuscular Volume 87, Mean Corpuscular Hemoglobin 29, Mean Corpuscular Hemoglobin Concent 33, Red Cell Distribution Width 14.8H, Platelet Count 581H, Mean Platelet Volume 8.6L, Immature Granulocyte % (Auto) 2, Neutrophils (%) (Auto) 85H, Lymphocytes (%) (Auto) 9L, Monocytes (%) (Auto) 4, Eosinophils (%) (Auto) 1, Basophils (%) (Auto) 0, Neutrophils # (Auto) 12.7H, Lymphocytes # (Au to) 1.4, Monocytes # (Auto) 0.6, Eosinophils # (Auto) 0.1, Basophils # (Auto) 0.0, Immature Granulocyte # (Auto) 0.2H, Sodium Level 140, Potassium Level 4.1, Chloride Level 102, Carbon Dioxide Level 29, Anion Gap 9, Blood Urea Nitrogen 11, Creatinine 0.61, Estimat Glomerular Filtration Rate > 60, BUN/Creatinine Ratio 18, Glucose Level 102, Calcium Level 7.9L, Corrected Calcium 9.0, Total Bilirubin 0.6, Aspartate Amino Transf (AST/SGOT) 24, Alanine Aminotransferase ( ALT/SGPT) 29, Alkaline Phosphatase 98, Total Protein 5.1L, Albumin 2.6L 08/22/20 05:45: Sodium Level 139, Potassium Level 4.2, Chloride Level 102, Carbon Dioxide Level 29, Anion Gap 8, Blood Urea Nitrogen 13, Creatinine 0.61, Estimat Glomerular Filtration Rate > 60, BUN/Creatinine Ratio 21, Glucose Level 90, Calcium Level 7.7L, Corrected Calcium 9.1, Total Bilirubin 0.5, Aspartate Amino Transf (AST/SGOT) 22, Alanine Aminotransferase (ALT/SGPT) 24, Alkaline Phosphatase 88, Total Protein 4.7L, Albumin 2.3L 08/22/20 05:55: White Blood Count 12.9H, Red Blood Count 3.60L, Hemoglobin 10.3L, Hematocrit 32L , Mean Corpuscular Volume 88, Mean Corpuscular Hemoglobin 29, Mean Corpuscular Hemoglobin Concent 33, Red Cell Distribution Width 15.1H, Platelet Count 563H, Mean Platelet Volume 8.8L, Immature Granulocyte % (Auto) 1, Neutrophils (%) (Auto) 83H, Lymphocytes (%) (Auto) 9L, Monocytes (%) (Auto) 6, Eosinophils (%) (Auto) 1, Basophils (%) (Auto) 0, Neutrophils # (Auto) 10.6H, Lymphocytes # (Auto) 1.2, Monocytes # (Auto) 0.8, Eosinophils # (Auto) 0.1, Basophils # (Auto) 0.0, Immature Granulocyte # (Auto) 0.2H Pending Labs Laboratory Tests 08/20/20 07:55: White Blood Count 14.8, Red Blood Count 4.47, Hemoglobin 12.6, Hematocrit 39, Mean Corpuscular Volume 86, Mean Corpuscular Hemoglobin 28, Mean Corpuscular Hemoglobin Concent 33, Red Cell Distribution Width 14.8, Platelet Count 547, Mean Platelet Volume 8.5, Immature Granulocyte % (Auto) 3, Neutrophils (%) (Auto) 83, Lymphocytes (%) (Auto) 10, Monocytes (%) (Auto) 4, Eosinophils (%) (Auto) 1, Basophils (%) (Auto) 0, Neutrophils # (Auto) 12.3, Lymphocytes # (Auto) 1.5, Monocytes # (Auto) 0.6, Eosinophils # (Auto) 0.1, Basophils # (Auto) 0.0, Immature Granulocyte # (Auto) 0.4, Sodium Level 138, Potassium Level 3.4, Chloride Level 100, Carbon Dioxide Level 28, Anion Gap 10, Blood Urea Nitrogen 14, Creatinine 0.61, Estimat Glomerular Filtration Rate > 60, BUN/Creatinine Ratio 23, Glucose Level 108, Calcium Level 7.4, Corrected Calcium 8.6, Total Bilirubin 0.5, Aspartate Amino Transf (AST/SGOT) 31, Alanine Aminotransferase (ALT/SGPT) 34, Alkaline Phosphatase 108, Total Protein 4.9, Albumin 2.5 08/20/20 10:00: Vancomycin Level Trough 17.1 08/21/20 05:45: White Blood Count 15.0, Red Blood Count 4.33, Hemoglobin 12.4, Hematocrit 38, Mean Corpuscular Volume 87, Mean Corpuscular Hemoglobin 29, Mean Corpuscular Hemoglobin Concent 33, Red Cell Distribution Width 14.8, Platelet Count 581, Mean Platelet Volume 8.6, Immature Granulocyte % (Auto) 2, Neutrophils (%) (Auto) 85, Lymphocytes (%) (Auto) 9, Monocytes (%) (Auto) 4, Eosinophils (%) (Auto) 1, Basophils (%) (Auto) 0, Neutrophils # (Auto) 12.7, Lymphocytes # (Auto) 1.4, Monocytes # (Auto) 0.6, Eosinophils # (Auto) 0.1, Basophils # (Auto) 0.0, Immature Granulocyte # (Auto) 0.2, Sodium Level 140, Potassium Level 4.1, Chloride Level 102, Carbon Dioxide Level 29, Anion Gap 9, Blood Urea Nitrogen 11, Creatinine 0.61, Estimat Glomerular Filtration Rate > 60, BUN/Creatinine Ratio 18, Glucose Level 102, Calcium Level 7.9, Corrected Calcium 9.0, Total Bilirubin 0.6, Aspartate Amino Transf (AST/SGOT) 24, Alanine Aminotransferase (ALT/SGPT) 29, Alkaline Phosphatase 98, Total Protein 5.1, Albumin 2.6 08/22/20 05:45: Sodium Level 139, Potassium Level 4.2, Chloride Level 102, Carbon Dioxide Level 29, Anion Gap 8, Blood Urea Nitrogen 13, Creatinine 0.61, Estimat Glomerular Filtration Rate > 60, BUN/Creatinine Ratio 21, Glucose Level 90, Calcium Level 7.7, Corrected Calcium 9.1, Total Bilirubin 0.5, Aspartate Amino Transf (AST/SGOT) 22, Alanine Aminotransferase (ALT/SGPT) 24, Alkaline Phosphatase 88, Total Protein 4.7, Albumin 2.3 08/22/20 05:55: White Blood Count 12.9, Red Blood Count 3.60, Hemoglobin 10.3, Hematocrit 32, Mean Corpuscular Volume 88, Mean Corpuscular Hemoglobin 29, Mean Corpuscular Hemoglobin Concent 33, Red Cell Distribution Width 15.1, Platelet Count 563, Me an Platelet Volume 8.8, Immature Granulocyte % (Auto) 1, Neutrophils (%) (Auto) 83, Lymphocytes (%) (Auto) 9, Monocytes (%) (Auto) 6, Eosinophils (%) (Auto) 1, Basophils (%) (Auto) 0, Neutrophils # (Auto) 10.6, Lymphocytes # (Auto) 1.2, Monocytes # (Auto) 0.8, Eosinophils # (Auto) 0.1, Basophils # (Auto) 0.0, Immature Granulocyte # (Auto) 0.2 Discharge Home Medications: Active Scripts Active Potassium Chloride 20 Meq Tab.er.prt 20 Meq PO DAILY Lasix (Furosemide) 40 Mg Tablet 40 Mg PO DAILY Hydrocortisone 20 Mg Tablet 10 Mg PO DAILY Pantoprazole Sodium 40 Mg Tablet.dr 40 Mg PO DAILY Senna-Time S Tablet (Sennosides/Docusate Sodium) 1 Each Tablet 1 Ea PO BID Tizanidine HCl 4 Mg Tablet 4 Mg PO Q6HR Oxycontin (Oxycodone HCl) 20 Mg Tab.er.12h 20 Mg PO BID PRN Diazepam 5 Mg Tablet 5 Mg PO QID PRN Reported Flomax (Tamsulosin HCl) 0.4 Mg Cap 0.4 Mg PO BID Urecholine (Bethanechol Chloride) 10 Mg Tablet 5 Mg PO ACHS Laxative (Bisacodyl) 5 Mg Tablet.dr 10 Mg PO DAILY PRN Multivitamin 1 Each Tablet 1 Each PO DAILY Ventolin Hfa (Albuterol Sulfate) 18 Gm Hfa.aer.ad 2 Puff INH Q4H PRN Celecoxib 200 Mg Capsule 200 Mg PO BID Instructions to patient/family Please see electronic discharge instructions given to patient. Diagnosis/Problems Diagnosis/Problems (1) Debility (2) Narcotic bowel syndrome (3) Blood albumin decreased compared with prior measurement (4) Elevated bilirubin Status: Chronic (5) Normocytic anemia Status: Chronic (6) Proteinuria (7) Hyponatremia Status: Resolved Resolution Date/Time: 08/14/20 @ 14:40 (8) Cerebral palsy Status: Acute (9) Scrotal swelling Status: Acute (10) Cellulitis of left lower extremity Status: Acute (11) Severe sepsis Status: Acute (12) Back spasm Status: Acute Clinical Quality Measures DVT/VTE Risk/Contraindication: Risk Factor Score Per Nursin RFS Level Per Nursing on Admit: 4+=Very High JHOANA RAY DO Aug 23, 2020 07:19
[2020-08-23] MEDS: TAMSULOSIN 0.4 MG (FLOMAX) CAP PO SCH (08:33)
[2020-08-23] MEDS: MAGNESIUM OXIDE (MAG-OX)400 MG TAB PO SCH (08:33)
[2020-08-23] MEDS: PANTOPRAZOLE 40 MG (PROTONIX) TAB PO SCH (08:33)
[2020-08-23] MEDS: CELECOXIB 100 MG (CeleBREX) CAP PO SCH (08:33)
[2020-08-23] MEDS: HYDROCORTISONE 20 MG (CORTEF) TAB PO SCH (08:34)
[2020-08-23] MEDS: KCL 20 MEQ TAB (K-DUR) PO SCH ×2 (08:38→12:25)
[2020-08-23] MEDS: polyethylene glycoL POWDER 17 GM (MIRALAX) PACK PO SCH (08:44)
[2020-08-23] MEDS: DOCUSATE SODIUM 100 MG (COLACE) CAP PO SCH (08:44)
[2020-08-23] MEDS: SENNA W/DOCUSATE (SENOKOT S) TABLET PO SCH (08:44)
[2020-08-23] MEDS: ENOXAPARIN 40 MG/0.4 ML (LOVENOX) SYR SC SCH (08:50)
--- NOTE | 2020-08-23 09:10 | Therapy Team Discharge Summary ---
Therapy Discharge Summary Discharge Recommendations Date of Discharge Physical Therapy Patient came to rehab with cellulitis and sepsis. Upon evaluation patient performed rolling and supine -> sit with SBA, sit -> supine with min assist, sit <-> stand and transfers with CGA, car transfer min assist, ambulated 150' with a rolling walker with CGA (including 50' with at least 2 turns of 90 degrees and 10' over an uneven surface), and propelled a manual WC 150' with SBA. Patient has been performing bed mobility and transfer training, balance and endurance training, functional strengthening, stair training, gait training, and education. Patient has made fair progress but has not met his mcfp goals for ambulation and transfers. Now, patient performs bed mobility and supine <-> sit with independence, sit <-> stand and transfers with SBA, car transfer SBA, ambulates 200' with a standard walker with min assist (including 50' with at least 2 turns of 90 degrees and 10' over an uneven surface), patient would be SBA with ambulation but still has occasional LOB which requires assist from therapist to correct, patient can go up and down 12 steps using 1 handrail with SBA, and can chicken picker an object from the floor with SBA. Patient is discharging from this facility today and will be discharged from PT at this time. Occupational Therapy Decreased Activ Tolerance, Decreased UE Strength, Edema, Impaired Funct Balance, Impaired I ADL's PT Lens Dotter Goals Retirement Goals PT Lens Dotter Goals Time Frame: Sep 09, 2020 Roll Left to Right (QC): 6 Sit to Lying (QC): 6 Lying-Sitting on Side/Bed(QC): 6 Sit to Stand (QC): 6 Chair/Sms-mn-Bmhci Xfer(QC): 6 Car Transfer (QC): 6 Does the Patient Walk: Yes Walk 10 feet (QC): 6 Walk 10ft-Uneven Surface(QC): 6 Walk 50ft with 2 Turns (QC): 6 Walk 150 ft (QC): 6 Does the Pt use WC or Scooter?: No Wheel 50 feet with 2 turns (QC: 9 1 Step (curb) (QC): 6 4 Steps (QC): 4 12 Steps (QC): 4 Picking up an Object (QC): 4 OT Retirement Goals Lens Dotter Goals Time Frame: Sep 02, 2020 Eating (QC): 6 Oral Hygiene (QC): 6 Shower/Bathe Self (QC): 5 Upper Body Dressing (QC): 6 Lower Body Dressing (QC): 6 On/Off Footwear (QC): 6 Toileting Hygiene (QC): 6 Toilet/Commode Transfer (QC): 6 Additional Goals: 1-Demonstrate ADL Tasks, 2-Verbalize Understanding, 3-ImproveStrength/Nirav 1=Demonstrate adherence to instructed precautions during ADL tasks. 2=Patient will verbalize/demonstrate understanding of assistive devices/modifications for ADL. 3=Patient will improve strength/tolerance for activity to enable patient to perform ADL's. CARLO CALLES PT Aug 23, 2020 09:10
--- NOTE | 2020-08-23 10:50 | Therapy Team Discharge Summary ---
Therapy Discharge Summary Discharge Recommendations Date of Discharge Occupational Therapy Pt admits post sepsis/ cellulitis. Upon admission, pt requires assist with ADLs: eating 6, oral care 5, showering/ UB dressing 3, LB dressing 2, and footwear 1. Pt and OT staff work towards higher fx IND through ADL retraining, fx balance/ endurance, UE ex and activity tolerance, safety training. Pt d/c with ability to complete all ADLs with IND level excluding footwear (2), due to wrapping of LEs. Pt was provided a sheet with wrapping techniques for daughter's use at home. Pt d/c OT at this time. Decreased Activ Tolerance, Decreased UE Strength, Edema, Impaired Funct Balance, Impaired I ADL's PT Optical Glass Etcher Goals Mcc Goals PT Mcc Goals Time Frame: Sep 09, 2020 Roll Left to Right (QC): 6 Sit to Lying (QC): 6 Lying-Sitting on Side/Bed(QC): 6 Sit to Stand (QC): 6 Chair/Dxy-ic-Awowr Xfer(QC): 6 Car Transfer (QC): 6 Does the Patient Walk: Yes Walk 10 feet (QC): 6 Walk 10ft-Uneven Surface(QC): 6 Walk 50ft with 2 Turns (QC): 6 Walk 150 ft (QC): 6 Does the Pt use WC or Scooter?: No Wheel 50 feet with 2 turns (QC: 9 1 Step (curb) (QC): 6 4 Steps (QC): 4 12 Steps (QC): 4 Picking up an Object (QC): 4 OT Optical Glass Etcher Goals Optical Glass Etcher Goals Time Frame: Sep 02, 2020 Eating (QC): 6 Oral Hygiene (QC): 6 Shower/Bathe Self (QC): 5 Upper Body Dressing (QC): 6 Lower Body Dressing (QC): 6 On/Off Footwear (QC): 6 Toileting Hygiene (QC): 6 Toilet/Commode Transfer (QC): 6 Additional Goals: 1-Demonstrate ADL Tasks, 2-Verbalize Understanding, 3- ImproveStrength/Nirav 1=Demonstrate adherence to instructed precautions during ADL tasks. 2=Patient will verbalize/demonstrate understanding of assistive device s/modifications for ADL. 3=Patient will improve strength/tolerance for activity to enable patient to perform ADL's. ADELSO MONTES OTR Aug 23, 2020 10:49
[2020-08-23 13:30] VITALS: BP 105/65
--- NOTE | 2020-08-23 13:30 | NUR ---
CLAUDINE COLLAZO demonstrates understanding of discharge instructions and accurately returns instructions upon questioning. Copy of Post-Discharge Instructions given to PT. CLAUDINE COLLAZO is able to manage continuing needs after discharge. Patients belongings returned to PT. Patient discharged from [facility] on 08/23/20 at 1330. CLAUDINE COLLAZO left floor via W/C, accompanied by STAFF AND DAUGHTER PER AUTO.
--- NOTE | 2020-08-23 14:09 | NUR ---
CM/SS DISCHARGE Patient discharged today after his initiation of request for this target date. HHC: Finalized with [facility] for RN and PT. Patient does have a followup appointment with [facility]/Dr. Galindo as part of the post hospital continuum. Confirmed with [facility] that patient had not been seen there since 2018, he is no longer considered an established patient. Dr. Salas has agreed to provide [facility] coverage until patient is seen at [facility] by Rj Harp 08/29/20 for his post hospital assessment. Patient has self-directed his transportation by family. Unit RN aware of discharge.
== END 2020-08-23 13:30 | disposition home health service (06) | DRG 92 ==
PROVIDERS: ADMIT Internal Medicine; ATTEND Internal Medicine
DX: G80.9 Cerebral palsy, unspecified (principal); L03.116 Cellulitis of left lower limb; S81.812D Laceration without foreign body, left lower leg, subsequent encounter; R60.1 Generalized edema; G89.29 Other chronic pain; K59.03 Drug induced constipation; M19.91 Primary osteoarthritis, unspecified site; M54.9 Dorsalgia, unspecified; F41.9 Anxiety disorder, unspecified; Z91.81 History of falling
CPT/HCPCS: 36415; 80053; 80202; 85025; 94760

== ENCOUNTER → 2020-08-27 | Outpatient (CLI) | payer MEDICARE ==
[~2020-08-27] MED LIST changes: +FURO-124 PO; +HYDR20TA2 PO; +PANT40TA52 PO; +POTA20TA15 PO; +SENN-20 PO
== END ==
LOC: WOUNDCARE 10:17
PROVIDERS: ATTEND Surgery
DX: L97.222 Non-pressure chronic ulcer of left calf with fat layer exposed (principal); L03.116 Cellulitis of left lower limb; L97.822 Non-pressure chronic ulcer of other part of left lower leg with fat layer exposed; I89.0 Lymphedema, not elsewhere classified
CPT/HCPCS: 11042; A6196; G0463

== ENCOUNTER 2020-09-03 14:19 | Emergency (ER) | payer MEDICARE ==
[~2020-09-03] VITALS: Ht 167.4 cm; Wt 60.4 kg
[~2020-09-03 14:19] MED LIST changes: -DOXY100T2 PO; -HOLD METFORMIN - RECEIVED CONTRAST 20 ML VIAL IV SCH; -IOHEXOL 350 MG/ML 100 ML (OMNIPAQUE 350) VIAL IV ONE; -NS 100 ML (IVPB) BAG IV ONE
[2020-09-03 15:15] LABS: BASOPHILS # (AUTO) 0.1 10^3/uL (0.0-0.1); BASOPHILS % (AUTO) 1 % (0-10); EOSINOPHILS # (AUTO) 0.1 10^3/uL (0.0-0.3); EOSINOPHILS % (AUTO) 2 % (0-10); HEMATOCRIT 38 % (40-54); LYMPHOCYTES # (AUTO) 1.5 10^3/uL (1.0-4.0); LYMPHOCYTES % (AUTO) 21 % (12-44); MEAN CORPUSCULAR HEMOGLOBIN 28 pg (25-34); MEAN CORPUSCULAR HGB CONC 32 g/dL (32-36); MEAN CORPUSCULAR VOLUME 88 fL (80-99); MEAN PLATELET VOLUME 8.1 fL (9.0-12.2); MONOCYTES # (AUTO) 0.6 10^3/uL (0.0-1.0); MONOCYTES % (AUTO) 9 % (0-12); NEUTROPHILS # (AUTO) 4.5 10^3/uL (1.8-7.8); NEUTROPHILS % (AUTO) 66 % (42-75); PLATELET COUNT 424 10^3/uL (130-400); WHITE BLOOD COUNT 6.9 10^3/uL (4.3-11.0)
[2020-09-03] MEDS ORDERED: LIDOCAINE 1% INJ 20 ML 20 ML VIAL INJ ONE (15:15)
[2020-09-03 15:29] LABS: CHLORIDE 102 MMOL/L (98-107); POTASSIUM 3.9 MMOL/L (3.6-5.0); SODIUM 140 MMOL/L (135-145)
[2020-09-03 15:30] LABS: CALCIUM 8.6 MG/DL (8.5-10.1)
[2020-09-03 15:31] LABS: GLUCOSE 89 MG/DL (70-105); TOTAL PROTEIN 7.5 GM/DL (6.4-8.2)
[2020-09-03 15:32] LABS: CARBON DIOXIDE 27 MMOL/L (21-32)
[2020-09-03 15:33] LABS: BILIRUBIN,TOTAL 0.5 MG/DL (0.1-1.0)
[2020-09-03 15:35] LABS: ALKALINE PHOSPHATASE 104 U/L (40-136); CREATININE SERUM 0.72 MG/DL (0.60-1.30); GFR ESTIMATED > 60
[2020-09-03 15:36] LABS: BUN/CREATININE RATIO 17
[2020-09-03 15:38] LABS: ALANINE AMINOTRANSFERASE 21 U/L (0-55)
--- NOTE | 2020-09-03 15:38 | ED Lower Extremity ---
General Chief Complaint: Lower Extremity Stated Complaint: L LEG SWELLING Nursing Triage Note: BROUGHT TO ROOM BY Fior TOLEDO APRN. WITH SWELLING OF L LEG AND ABSCESS WAS ADMITED 2 WEEKS AGO FOR. HAS LG AMOUNT OF SWELLING AND REDNESS. Nursing Sepsis Screen: No Definite Risk Source: patient Exam Limitations: no limitations History of Present Illness Date Seen by Provider: Sep 03, 2020 Time Seen by Provider: 15:34 Initial Comments To ER by wheelchair from wound care with reports of left thigh abscess. 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 He subsequently was discharged about 2 weeks ago and has been following up with Dr. Gailndo from wound care. Today he noticed some fluctuance in the left thigh and ordered a CT of the left lower extremity. This showed a large fluid collection rim-enhancing and consistent with abscess. He was referred to the emergency room. He follows with [facility]. Onset: other Severity: moderate Pain/Injury Location: left thigh Method of Injury: fell Modifying Factors: Worse With Movement Allergies and Home Medications Allergies Coded Allergies: Penicillins (Unverified Adverse Reaction, Unknown, 07/28/20) Home Medications Albuterol Sulfate 18 Gm Hfa.aer.ad, 2 PUFF INH Q4H PRN for SHORTNESS OF BREATH, (Reported) Bethanechol Chloride 10 Mg Tablet, 5 MG PO ACHS, (Reported) Bisacodyl 5 Mg Tablet.dr, 10 MG PO DAILY PRN for CONSTIPATION-4TH LINE, (Reported) Celecoxib 200 Mg Capsule, 200 MG PO BID, (Reported) Diazepam 5 Mg Tablet, 5 MG PO QID PRN for ANXIETY Prescribed by: JHOANA RAY on 08/23/20716 Doxycycline Hyclate 100 Mg Tablet, 100 MG PO BID Prescribed by: KJ TOLEDO on 09/03/20 1544 Furosemide 40 Mg Tablet, 40 MG PO DAILY Prescribed by: JHOANA RAY on 08/23/20714 Hydrocortisone 20 Mg Tablet, 10 MG PO DAILY Prescribed by: JHOANA RAY on 08/23/20714 Multivitamin 1 Each Tablet, 1 EACH PO DAILY, (Reported) Oxycodone HCl 20 Mg Tab.er.12h, 20 MG PO BID PRN for PAIN-SEVERE (8-10) Prescribed by: JHOANA RAY on 08/23/20716 Pantoprazole Sodium 40 Mg Tablet.dr, 40 MG PO DAILY Prescribed by: JHOANA RAY on 08/23/20714 Potassium Chloride 20 Meq Tab.er.prt, 20 MEQ PO DAILY Prescribed by: JHOANA RAY on 08/23/20714 Sennosides/Docusate Sodium 1 Each Tablet, 1 EA PO BID Prescribed by: JHOANA RAY on 08/23/20714 Tamsulosin HCl 0.4 Mg Cap, 0.4 MG PO BID, (Reported) Tizanidine HCl 4 Mg Tablet, 4 MG PO Q6HR Prescribed by: JHOANA RAY on 08/23/20714 Patient Home Medication List Home Medication List Reviewed: Yes Review of Systems Constitutional: see HPI; No chills, No fever EENTM: see HPI Respiratory: no symptoms reported Cardiovascular: no symptoms reported Genitourinary: no symptoms reported Musculoskeletal: no symptoms reported Skin: no symptoms reported Psychiatric/Neurological: No Symptoms Reported Past Hknvzge-Cvnsta-Mcrplg Hx Patient Social History 2nd Hand Smoke Exposure: No Recent Foreign Travel: No Contact w/Someone Who Travel: No Recent Infectious Disease Expo: No Recent Hopitalizations: No Immunizations Up To Date Tetanus Booster (TDap): Less than 5yrs PED Vaccines UTD: No Seasonal Allergies Seasonal Allergies: No Past Medical History Surgeries: Yes (3 LEG SURGERIES, SPINAL FUSION) Orthopedic, Vasectomy Respiratory: No Currently Using CPAP: No Currently Using BIPAP: No Cardiac: No Neurological: Yes Cerebral Palsy Reproductive Disorders: No Genitourinary: No Gastrointestinal: No Musculoskeletal: Yes (Chronic musculoskeletal pain, fall injuries 2017) Arthritis, Chronic Back Pain Endocrine: No HEENT: No Hearing Impairment: Denies Cancer: No Psychosocial: No Integumentary: No Blood Disorders: No Adverse Reaction/Blood Tranf: No Family Medical History No Pertinent Family Hx Physical Exam Vital Signs Vital Signs - First Documented 09/03/20 14:25 Temp 36.5 Pulse 87 Resp 18 B/P (MAP) 124/84 (97) O2 Delivery Room Air Capillary Refill : Less Than 3 Seconds Height, Weight, BMI Height: 5'6.00" Weight: 126lbs. oz. 57.547171bi; 21.00 BMI Method:Stated General Appearance: WD/WN, no apparent distress Respiratory: no respiratory distress, no accessory muscle use Hips: bilateral hip non-tender, bilateral hip normal inspection, bilateral hip normal range of motion Legs: left leg swelling (There is swelling and quite a lot of fluctuance to the lateral aspect of superior to the knee.) Knees: bilateral knee non-tender, bilateral knee normal inspection, bilateral knee normal range of motion Ankles: bilateral ankle non-tender, bilateral ankle normal inspection, bilateral ankle normal range of motion Feet: bilateral foot non-tender, bilateral foot normal inspection, bilateral foot normal range of motion Neurologic/Psychiatric: alert, normal mood/affect, oriented x 3 Skin: normal color, warm/dry Progress/Results/Core Measures Results/Orders Lab Results Laboratory Tests Test 09/03/20 15:10 Range/Units White Blood Count 6.9 4.3-11.0 10^3/uL Red Blood Count 4.28 L 4.30-5.52 10^6/uL Hemoglobin 12.0 L 13.3-17.7 g/dL Hematocrit 38 L 40-54 % Mean Corpuscular Volume 88 80-99 fL Mean Corpuscular Hemoglobin 28 25-34 pg Mean Corpuscular Hemoglobin Concent 32 32-36 g/dL Red Cell Distribution Width 13.7 10.0-14.5 % Platelet Count 424 H 130-400 10^3/uL Mean Platelet Volume 8.1 L 9.0-12.2 fL Immature Granulocyte % (Auto) 2 % Neutrophils (%) (Auto) 66 42-75 % Lymphocytes (%) (Auto) 21 12-44 % Monocytes (%) (Auto) 9 0-12 % Eosinophils (%) (Auto) 2 0-10 % Basophils (%) (Auto) 1 0-10 % Neutrophils # (Auto) 4.5 1.8-7.8 10^3/uL Lymphocytes # (Auto) 1.5 1.0-4.0 10^3/uL Monocytes # (Auto) 0.6 0.0-1.0 10^3/uL Eosinophils # (Auto) 0.1 0.0-0.3 10^3/uL Basophils # (Auto) 0.1 0.0-0.1 10^3/uL Immature Granulocyte # (Auto) 0.1 0.0-0.1 10^3/uL Sodium Level 140 135-145 MMOL/L Potassium Level 3.9 3.6-5.0 MMOL/L Chloride Level 102 98-107 MMOL/L Carbon Dioxide Level 27 21-32 MMOL/L Anion Gap 11 5-14 MMOL/L Blood Urea Nitrogen 12 7-18 MG/DL Creatinine 0.72 0.60-1.30 MG/DL Estimat Glomerular Filtration Rate > 60 BUN/Creatinine Ratio 17 Glucose Level 89 70-105 MG/DL Calcium Level 8.6 8.5-10.1 MG/DL Corrected Calcium 8.6 8.5-10.1 MG/DL Total Bilirubin 0.5 0.1-1.0 MG/DL Aspartate Amino Transf (AST/SGOT) 21 5-34 U/L Alanine Aminotransferase (ALT/SGPT) 21 0-55 U/L Alkaline Phosphatase 104 40-136 U/L C-Reactive Protein High Sensitivity 1.98 H 0.00-0.50 MG/DL Total Protein 7.5 6.4-8.2 GM/DL Albumin 4.0 3.2-4.5 GM/DL My Orders Orders - KJ TOLEDO APRN Cbc With Automated Diff (09/03/20 14:47) Comprehensive Metabolic Panel (09/03/20 14:47) Hs C Reactive Protein (09/03/20 14:47) Procalcitonin (Pct) (09/03/20 14:47) Ed Iv/Invasive Line Start (09/03/20 14:47) Protime With Inr (09/03/20 14:47) Wound Culture (09/03/20 14:59) Lidocaine 1% Inj 20 Ml (Xylocaine 1% Inj (09/03/20 15:15) Vital Signs/I&O 09/03/20 14:25 Temp 36.5 Pulse 87 Resp 18 B/P (MAP) 124/84 (97) O2 Delivery Room Air Blood Pressure Mean: 97 Departure Communication (Admissions) 1556-I discussed with Dr. Quintanilla from surgery. Recommends incision and drainage. I proceeded with this. We anesthetized the distal left lateral thigh with lidocaine with epinephrine totaling 2 mL. Then used an 18-gauge needle attached to a 10 cc syringe to aspirate a few cc for culture. We then made a small incision about 1 cm with an 11 blade scalpel. A very large amount of serosanguineous material was expressed, not grossly purulent. Yankauer suction was used and a total of 225 mL of this material was aspirated. He had significant subjective improvement in the discomfort in his leg. The Teofilo drain half-inch was sutured into place covered with gauze and an Smith wrap. I spoke with Dr. Quintanilla, he will see the patient in follow-up this week. The CBC looks pretty good, suspect this is a seroma rather than abscess. Impression Primary Impression: Seroma due to trauma Disposition: HOME, SELF-CARE Condition: Stable Departure-Patient Inst. Decision time for Depature: 15:40 Referrals: GUME QUINTANILLA MINDI DO (PCP/Family) Primary Care Physician Patient Instructions: NO INSTRUCTIONS GIVEN Add. Discharge Instructions: 1. Change this dressing as needed. Once this becomes wet, change the gauze out and rewrap it. I suspect for the first 2 days this will be a couple of times a day. Call Dr. Quintanilla today to make an appointment to be seen later this week. Return to ER for any fevers. Take antibiotics as directed. All discharge instructions reviewed with patient and/or family. Voiced unders tanding. Scripts Doxycycline Hyclate (Doxycycline Hyclate) 100 Mg Tablet 100 MG PO BID, #14 TAB 0 Refills Prov: KJ TOLEDO APRN 09/03/20 Copy Copies To 1: GUME QUINTANILLA PETER J APRN Sep 03, 2020 15:37
[2020-09-03] MEDS ORDERED: DOXY100T2 PO (15:44)
[2020-09-03 16:02] VITALS: BP 124/84
== END 2020-09-03 16:01 | disposition home or self-care (01) ==
LOC: EDUNIT# 14:19 → ER 14:23
DX: S70.12XA Contusion of left thigh, initial encounter (principal); G89.29 Other chronic pain; M54.9 Dorsalgia, unspecified; Z88.0 Allergy status to penicillin; Z79.891 Long term (current) use of opiate analgesic; W34.00XA Accidental discharge from unspecified firearms or gun, initial encounter
CPT/HCPCS: 36415; 80053; 84145; 85025; 86141; 87070; 87077; 87205

== ENCOUNTER → 2020-09-03 | Outpatient (CLI) | payer MEDICARE ==
[~2020-09-03] MED LIST changes: +DOXY100T2 PO
== END ==
LOC: WOUNDCARE 10:49
PROVIDERS: ATTEND Surgery
DX: L03.116 Cellulitis of left lower limb (principal); I89.0 Lymphedema, not elsewhere classified; I96 Gangrene, not elsewhere classified; L97.222 Non-pressure chronic ulcer of left calf with fat layer exposed; L97.822 Non-pressure chronic ulcer of other part of left lower leg with fat layer exposed; L02.416 Cutaneous abscess of left lower limb
CPT/HCPCS: 99213

== ENCOUNTER → 2020-09-03 | Outpatient (CLI) | payer MEDICARE ==
[~2020-09-03] MED LIST changes: +HOLD METFORMIN - RECEIVED CONTRAST 20 ML VIAL IV SCH; +IOHEXOL 350 MG/ML 100 ML (OMNIPAQUE 350) VIAL IV ONE; +NS 100 ML (IVPB) BAG IV ONE
--- NOTE | 2020-09-03 14:33 | Diagnostic Imaging Report ---
Exam: CT right and left lower extremity with intravenous contrast. Date: September 03, 2020. Indication: 49-year-old male, redness and swelling of the left lower extremity for 2 months. Evaluation for abscess. Concern is below the level of the patella. Comparison: None. Technique: Axial CT images of the right and left lower extremities from the level of the hips through the feet were obtained following the intravenous administration of contrast. Coronal and sagittal reformats were obtained and provided. All CT scans use one or more of the following dose optimizing techniques: automated exposure control, MA and/or KvP adjustment based on a patient size and exam type, or iterative reconstruction. Findings: There is a peripherally enhancing fluid collection involving the anterior and lateral subcutaneous tissues on the left measuring approximately 12.0 x 4.7 cm in axial extent and 31.2 cm in craniocaudal extent. The superior margin of the fluid collection is at the level of the left greater trochanter and this extends to the level of the proximal tibia near the craniocaudal level of the anterior tibial tubercle. There is adjacent abnormal subcutaneous edema. There is no additionally identified focal drainable fluid collection. There is no abnormal soft tissue gas. There is no cortical or aggressive bone destruction. There are degenerative changes of the lumbar spine. There is thoracic spine hardware noted. Impression: 1. Peripherally enhancing fluid collection within the anterior and lateral subcutaneous tissues spanning from the level of the left greater trochanter to the craniocaudal level of the anterior tibial tubercle compatible with an abscess measuring approximately 12.0 x 4.7 x 31.2 cm in size. There is adjacent additional subcutaneous edema. 2. No CT evidence of osteomyelitis. Dictated by: Dictated on workstation # [id number]
== END ==
LOC: RAD 13:15
PROVIDERS: ATTEND Surgery
DX: L03.116 Cellulitis of left lower limb (principal); I89.0 Lymphedema, not elsewhere classified; L97.222 Non-pressure chronic ulcer of left calf with fat layer exposed; L97.822 Non-pressure chronic ulcer of other part of left lower leg with fat layer exposed; L02.416 Cutaneous abscess of left lower limb
CPT/HCPCS: 73701

== ENCOUNTER → 2020-09-10 | Outpatient (CLI) | payer MEDICARE ==
[~2020-09-10] MED LIST changes: +DOXY100T2 PO
== END ==
LOC: WOUNDCARE 08:45
PROVIDERS: ATTEND Surgery
DX: I96 Gangrene, not elsewhere classified (principal); L97.222 Non-pressure chronic ulcer of left calf with fat layer exposed; I89.0 Lymphedema, not elsewhere classified; L03.116 Cellulitis of left lower limb
CPT/HCPCS: 11042; G0463

== ENCOUNTER → 2020-09-17 | Outpatient (CLI) | payer MEDICARE | LOC: WOUNDCARE 09:41 | PROVIDERS: ATTEND Surgery | DX: I89.0 Lymphedema, not elsewhere classified (principal); I96 Gangrene, not elsewhere classified; L97.222 Non-pressure chronic ulcer of left calf with fat layer exposed; L03.116 Cellulitis of left lower limb | CPT/HCPCS: 11042; A4649; G0463 ==

== ENCOUNTER → 2020-09-24 | Outpatient (CLI) | payer MEDICARE | LOC: WOUNDCARE 10:35 | PROVIDERS: ATTEND Surgery | DX: I89.0 Lymphedema, not elsewhere classified (principal); L97.222 Non-pressure chronic ulcer of left calf with fat layer exposed; L03.116 Cellulitis of left lower limb; I96 Gangrene, not elsewhere classified | CPT/HCPCS: 11042; A4649; G0463 ==

== ENCOUNTER → 2020-10-01 | Outpatient (CLI) | payer MEDICARE | LOC: WOUNDCARE 10:24 | PROVIDERS: ATTEND Surgery | DX: I89.0 Lymphedema, not elsewhere classified (principal); L97.222 Non-pressure chronic ulcer of left calf with fat layer exposed; L03.116 Cellulitis of left lower limb | CPT/HCPCS: 99213 ==